=== PATIENT | male | born 1935 | race Caucasian/White ===

== ENCOUNTER 2023-06-11 09:15 | Inpatient (IN) | payer MEDICARE ==
[~2023-06-11] VITALS: Ht 170 cm; Wt 75.3 kg
--- NOTE | 2023-06-11 09:44 | ED Neurological Problem ---
General Stated Complaint: FALL Source: family, EMS Exam Limitations: clinical condition History of Present Illness Date Seen by Provider: Jun 11, 2023 Time Seen by Provider: 09:15 Initial Comments Patient is an 88-year-old male who presents to the emergency department by EMS, found lying on the floor next to his bed by his son. EMS reports normal blood sugar prior to arrival. Medics states that when they got him up he was moving both arms to hold onto the medic. 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 Will not open his eyes, will not answer questions the only word he states is "yes". He has pinpoint pupils bilaterally. Deep pain nonresponsive on the right. Does minimally withdraw on the left. Quite tachycardic in the 120s 130s. 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 Only (reportedly) takes medications for prostate. Here for the holidays with son. Lives alone, fully functional, still drives although son states has been "slowing down" quite a bit over the last year. Bad "Cold" about 2 weeks ago and just finished a round of steroids in the last few days. Son cannot recall what date he finished them exactly. I elected to intubate the patient based on GCS <8. Etomidate 20 and Rocuronium 50mg administered. Glidescope used to pass 8-0 ETT with pos visualization of the cords, +ETCO2, bilat Breath sounds. Patient taken to CT for stroke r/o shortly after Timing/Duration: other (unk time of fall) Allergies and Home Medications Allergies Coded Allergies: No Known Drug Allergies (Unverified , 06/11/23) Patient Home Medication List Home Medication List Reviewed: Yes Amlodipine Besylate (Amlodipine Besylate) 5 Mg Tablet, 2.5 MG PO DAILY, (Reported) Entered as Reported by: PETTY GRIGSBY on 06/11/231520 Last Action: Reviewed Atorvastatin Calcium (Atorvastatin Calcium) 20 Mg Tablet, 20 MG PO DAILY, (Reported) Entered as Reported by: PETTY GRIGSBY on 06/11/231520 Last Action: Reviewed Cholecalciferol (Vitamin D3) (Vitamin D3) 50 Mcg (2000 Unit) Capsule, 50 MCG PO DAILY, (Reported) Entered as Reported by: PETTY GRIGSBY on 11/24/23 1521 Last Action: Reviewed Ferrous Sulfate (Iron) 325 Mg (65 Mg Iron) Tablet, 325 MG PO DAILY, (Reported) Entered as Reported by: PETTY GRIGSBY on 06/11/231520 Last Action: Reviewed Omeprazole (Omeprazole) 20 Mg Tablet.dr, 20 MG PO DAILY, (Reported) Entered as Reported by: PETTY GRIGSBY on 06/11/231520 Last Action: Reviewed Tamsulosin HCl (Flomax) 0.4 Mg Cap, 0.4 MG PO HS, (Reported) Entered as Reported by: PETTY GRIGSBY on 06/11/231520 Last Action: Reviewed Review of Systems Review of Systems Constitutional: see HPI Unable to obtain due to AMS Physical Exam Vital Signs Vital Signs - First Documented 06/11/23 06/11/23 09:15 10:13 Temp 37.0 Pulse 123 Resp 36 B/P (MAP) 121/70 (87) Pulse Ox 99 O2 Delivery Nasal Cannula O2 Flow Rate 2.00 FiO2 50 Capillary Refill : Height, Weight, BMI Height: '" Weight: lbs. oz. kg; BMI Method: General Appearance: WD/WN, moderate distress (respiratory) HEENT: other (pinpoint pupils; pale gums. dry mucosa) Neck: normal inspection Respiratory: crackles (occ crackles, but overall diminished breath sounds), other ([place] respirations; tachypneic) Cardiovascular: regular rate, rhythm, tachycardia Peripheral Pulses: 2+ Radial Pulses (R), 2+ Radial Pulses (L) Gastrointestinal: soft, no pulsatile mass; No distended Extremities: normal inspection Neurologic/Psychiatric: other (poor level of alertness, only able to say "yes" to questions - inconsistent and inappropriate; not following commands; will not open eyes to command; no response to deep painful stimuli RUE and RLE, seems to withdraw to painful stim left side) Crainal Nerves: PERRL; No abnormal eye position Coordination/Gait: other (not tested) Motor/Sensory: sensory deficit, weak motor strength RUE, weak motor strength RLE Skin: warm/dry, pallor Stroke Onset of Symptoms Date of Onset of Symptoms: Jun 11, 2023 Time of Symptom Onset: 09:15 Onset of Symptoms: Yes Symptoms onset unknown: No NIH Stroke Scale Assessment Select: Initial Level of Consciousness: 2=By repeated stimulation (2), Level of Consciousness-Questions: 2=Answer neither question (2), LOC Commands: 2=Performs neither task (2), Gaze: Normal (0), Facial Movement (Facial Paresi s): 0=Normal symmetrical mnt (0), Motor Function-Arms Right: 4=No movement (4), Motor Function-Arms Left: 4=No movement (4), Sensory: 1=Mild to Moderate loss (1), Best Language: 1=Mild to moderat aphasia (1), Dysarthria: 0=Normal (0), Total: 16 Stroke Thrombolytic Exclusion Age 18 or Over: Yes Acute intenal hemorrhage: No History of CVA: No Uncontrolled Coagulation Defec: No Intracranial Hemorrhage: No Severe Hypertension: No GI or Bleed: No Subarachnoid Hemorrhage: No Intracranial Neoplasm/Aneurysm: No Oral Anticoagulants: No Surgery or Trauma: No Puncture of Non-Compressible V: No Recent CPR: No Diabetic Hemorrhagic Retinopat: No Organ Biopsy: No Recent Obstetric Delivery: No Glucose: No Significant Hepatic Dysfunctio: No Bacterial Endocarditis: No Pericarditis: No Improving Symptoms: No Platelets: No IV - TPa Received IV - TPa Procedure Performed?: No Focused Exam Sepsis Stage: Severe Sepsis Possible Source: Pulmonary Lactate Level 06/11/23 10:44: Lactic Acid Level 2.30*H Time of Focused Exam: 11:00 Respiratory: Crackles, Decreased Breath Sounds Cardiovascular: Tachycardia Capillary Refill: Less Than 3 Seconds Peripheral Pulses: 1+ Radial Pulses (R), 1+ Radial Pulses (L) Skin: normal color, warm/dry Lactic Acid Level Laboratory Tests Test 06/11/23 10:44 Lactic Acid Level 2.30 MMOL/L (0.50-2.00) *H Within 3hrs of presentation: Admin fluids, Admin ABX, Blood cultures prior to ABX's, Focus exam, Lactate level Progress/Results/Core Measures Results/Orders Lab Results Laboratory Tests Test 06/11/23 09:20 06/11/23 09:39 06/11/23 10:10 06/11/23 10:44 Range/Units Glucometer 93 70-110 MG/DL White Blood Count 30.7 *H 4.3-11.0 10^3/uL Red Blood Count 4.75 4.30-5.52 10^6/uL Hemoglobin 14.9 13.3-17.7 g/dL Hematocrit 44 40-54 % Mean Corpuscular Volume 94 80-99 fL Mean Corpuscular Hemoglobin 31 25-34 pg Mean Corpuscular Hemoglobin Concent 34 32-36 g/dL Red Cell Distribution Width 13.3 10.0-14.5 % Platelet Count 276 130-400 10^3/uL Mean Platelet Volume 8.7 L 9.0-12.2 fL Immature Granulocyte % (Auto) 1 % Neutrophils (%) (Auto) 91 H 42-75 % Lymphocytes (%) (Auto) 3 L 12-44 % Monocytes (%) (Auto) 5 0-12 % Eosinophils (%) (Auto) 0 0-10 % Basophils (%) (Auto) 0 0-10 % Neutrophils # (Auto) 28.0 H 1.8-7.8 10^3/uL Lymphocytes # (Auto) 1.0 1.0-4.0 10^3/uL Monocytes # (Auto) 1.5 H 0.0-1.0 10^3/uL Eosinophils # (Auto) 0.0 0.0-0.3 10^3/uL Basophils # (Auto) 0.1 0.0-0.1 10^3/uL Immature Granulocyte # (Auto) 0.2 H 0.0-0.1 10^3/uL Neutrophils % (Manual) 91 % Lymphocytes % (Manual) 6 % Monocytes % (Manual) 2 % Band Neutrophils 1 % Blood Morphology Comment NORMAL Prothrombin Time 14.3 12.2-14.7 SEC INR Comment 1.1 0.8-1.4 Activated Partial Thromboplast Time 31 24-35 SEC D-Dimer > 20.00 H 0.00-0.49 UG/ML Sodium Level 135 135-145 MMOL/L Potassium Level 3.8 3.6-5.0 MMOL/L Chloride Level 103 98-107 MMOL/L Carbon Dioxide Level 20 L 21-32 MMOL/L Anion Gap 12 5-14 MMOL/L Blood Urea Nitrogen 20 H 7-18 MG/DL Creatinine 1.18 0.60-1.30 MG/DL Estimat Glomerular Filtration Rate 59 BUN/Creatinine Ratio 17 Glucose Level 131 H 70-105 MG/DL Calcium Level 8.7 8.5-10.1 MG/DL Corrected Calcium 9.5 8.5-10.1 MG/DL Total Bilirubin 1.1 H 0.1-1.0 MG/DL Aspartate Amino Transf (AST/SGOT) 24 5-34 U/L Alanine Aminotransferase (ALT/SGPT) 20 0-55 U/L Alkaline Phosphatase 105 40-136 U/L Troponin I 0.184 H <0.028 NG/ML Total Protein 6.7 6.4-8.2 GM/DL Albumin 3.0 L 3.2-4.5 GM/DL Urine Color YELLOW Urine Clarity CL CLOUDY Urine pH 7.5 5-9 Urine Specific [place] 1.015 L 1.016-1.022 Urine Protein 2+ H NEGATIVE Urine Glucose (UA) NEGATIVE NEGATIVE Urine Ketones TRACE H NEGATIVE Urine Nitrite NEGATIVE NEGATIVE Urine Bilirubin NEGATIVE NEGATIVE Urine Urobilinogen 1.0 < = 1.0 MG/DL Urine Leukocyte Esterase NEGATIVE NEGATIVE Urine RBC (Auto) TRACE H NEGATIVE Urine RBC 2-5 H /HPF Urine WBC 0-2 /HPF Urine Squamous Epithelial Cells 0-2 /HPF Urine Crystals PRESENT H /LPF Urine Amorphous Sediment FEW AYE PHOSPHATE H /LPF Urine Bacteria NEGATIVE /HPF Urine Casts NONE /LPF Urine Mucus NEGATIVE /LPF Urine Culture Indicated NO Lactic Acid Level 2.30 *H 0.50-2.00 MMOL/L Test 06/11/23 10:54 Range/Units Arterial Blood pH 7.37 7.37-7.43 Arterial Blood Partial Pressure CO2 39 35-45 MMHG Arterial Blood Partial Pressure O2 72 L 79-93 MMHG Arterial Blood HCO3 23 23-27 MMOL/L Arterial Blood Total CO2 23.7 21.0-31.0 MMOL/L Arterial Blood Oxygen Saturation 95 94-100 % Arterial Blood Base Excess -2.5 -2.5-2.5 MMOL/L Blood Gas Ventilator Setting Blood Gas Inspired Oxygen My Orders Orders - DONOVAN GAMBINO MD Cbc And Automated Diff (06/11/23 09:37) Protime With Inr (06/11/23 09:37) Partial Thromboplastin Time (06/11/23 09:37) Comprehensive Metabolic Panel (06/11/23 09:37) Fibrin Degradation Products (06/11/23 09:37) Troponin I Nir (06/11/23 09:37) Ua Culture If Indicated (06/11/23 09:37) Chest 1 View, Ap/Pa Only (06/11/23 09:37) Catheter(Urinary) Insert & Ass 03,15 (06/11/23 09:37) Ekg Tracing (06/11/23 09:37) Nothing By Mouth (06/11/23 Lunch) Accucheck Stat ONCE (06/11/23 09:37) Ed Iv/Invasive Line Start (06/11/23 09:37) Ed Iv/Invasive Line Start (06/11/23 09:37) Vital Signs Stroke Patient Q15M (06/11/23 09:37) Ct Head Wo-R/O Stroke (06/11/23 09:37) O2 (06/11/23 09:37) Monitor-Rhythm Ecg Trace Only (06/11/23 09:37) Dysphagia Screening Tool [id number] (06/11/23 09:37) Post Thrombolytic Adminstratio (06/11/23 09:37) Lipid Panel (06/12/23 06:00) Propofol Injection (Propofol Injection) (06/11/23 09:45) Manual Differential (06/11/23 09:39) Propofol Drip (Icu) (Propofol Drip (Icu) (06/11/23 09:53) Ct Angio Head/Neck (06/11/23 10:01) Iohexol Injection (Omnipaque 350 Mg/Ml 1 (06/11/23 10:15) Received Contrast (Hold Metformin- Contr (06/11/23 10:15) Ns (Ivpb) 100 Ml (Sodium Chloride 0.9% 1 (06/11/23 10:15) Propofol Drip (Icu) (Propofol Drip (Icu) (06/11/23 10:30) Lactic Acid Analyzer (06/11/23 10:31) Blood Culture (06/11/23 10:31) Aspirin Suppository (Aspirin Suppository (06/11/23 10:39) Catheter(Urinary) Insert & Ass 03,15 (06/11/23 10:39) Ceftriaxone Iv/Im (Ceftriaxone Iv/Im) (06/11/23 11:00) Azithromycin Injection (Azithromycin Inj (06/11/23 11:00) Ns Iv 1000 Ml (Ns Iv 1000 Ml) (06/11/23 10:49) Arterial Blood Gas (06/11/23 10:50) Ct Angio Chest W (R/O Pe) (06/11/23 11:10) Heparin Drip 21036 Unit/500ml (Heparin (06/11/23 11:15) Heparin (Bolus Per Protocol) (Heparin (B (06/11/23 11:15) Cbc No Diff (06/14/23 05:00) Cbc No Diff (06/17/23 05:00) Platelet Count (06/12/23 05:00) Platelet Count (06/13/23 05:00) Platelet Count (06/14/23 05:00) Platelet Count (06/15/23 05:00) Platelet Count (06/16/23 05:00) Platelet Count (06/17/23 05:00) Platelet Count (06/18/23 05:00) Platelet Count (06/19/23 05:00) Platelet Count (06/20/23 05:00) Platelet Count (06/21/23 05:00) Initiate Heparin Full Protocol (06/11/23 11:11) Iohexol Injection (Omnipaque 350 Mg/Ml 1 (06/11/23 11:30) Received Contrast (Hold Metformin- Contr (06/11/23 11:30) Ns (Ivpb) 100 Ml (Sodium Chloride 0.9% 1 (06/11/23 11:30) Ed Admission (Communication) (06/11/23 11:29) Medications Given in ED Current Medications Medications Dose Ordered Sig/Brinda Route Start Time Stop Time Status Last Admin Dose Admin Azithromycin 500 mg/Sodium Chloride 250 ml @ 250 mls/hr ONCE ONCE IV 06/11/23 11:00 06/11/23 11:59 06/11/23 11:04 250 MLS/HR Ceftriaxone Sodium 1000 mg/ Sodium Chloride 50 ml @ 100 mls/hr ONCE ONCE IV 06/11/23 11:00 06/11/23 11:29 DC 06/11/23 11:02 100 MLS/HR Iohexol 100 ml ONCE ONCE IV 06/11/23 10:15 06/11/23 10:16 DC 06/11/23 10:11 75 ML Propofol 100 ml @ ud STK-MED ONCE IV 06/11/23 09:53 06/11/23 09:57 DC 06/11/23 10:05 13.1 MLS/HR Propofol 200 mg ONCE ONCE IV 06/11/23 09:45 06/11/23 10:28 DC 06/11/23 09:48 50 MG Sodium Chloride 100 ml ONCE ONCE IV 06/11/23 10:15 06/11/23 10:16 DC 06/11/23 10:11 80 ML Vital Signs/I&O 06/11/23 06/11/23 06/11/23 06/11/23 09:15 10:05 10:13 11:12 Temp 37.0 Pulse 123 124 123 106 Resp 36 18 18 B/P (MAP) 121/70 (87) 166/94 91/60 Pulse Ox 99 100 100 O2 Delivery Nasal Cannula Mechanical Ventilator O2 Flow Rate 2.00 FiO2 50 Progress Progress Note : Time: 11:17 Progress Note Discussed with Dr Umana (Cardiology urgent care nurse practitioner) Patient seen and examined by me. Evaluation today includes history and physical exam with "stroke eval" as well as sepsis protocol. This includes CBC, comprehensive metabolic panel, blood cultures with lactic acid, coag profile, troponin, D-dimer, UA and culture, single view chest x-ray, EKG, CT head noncontrast as well as CT angio of head and neck, CT PE protocol. Pertinent physical exam findings include well-developed well-nourished elderly male in moderate to severe distress, altered mental status/poor responsiveness. Apparent hemiplegia on the right side. GCS is at best and 8 on arrival. He is quite pale, tachycardic, not hypoxic. Heart is regular, lungs occasional quiet crackles but mostly diminished bilaterally. Abdomen is soft, nondistended. Differential diagnosis includes acute ischemic versus hemorrhagic CVA, acute coronary syndrome Patient immediately identified as at risk for airway compromise. Shortly after initial evaluation the patient was RSI with etomidate as well as rocuronium. [place] scope used to pass 8 oh ET tube without difficulty. Patient was taken to CT for stroke rule out. Discussed with radiologist shortly after scans, no evidence of intracranial hemorrhage and subsequent to that had no identifiable large vessel occlusion in the head or neck. Attention was then turned to labs and imaging. Labs independently reviewed and interpreted by me as well as the chest x-ray. Chest x-ray appears to show bilateral infiltrates/increased pulmonary vascular congestion. CBC shows a WBC of 30.7 with 91% segmented neutrophils; normal H/H and normal platelets. CHem 12 has glucose of 131, mildly elevated tbili at 1.1; troponin in elevated at 0.184; lactic elevated at 2.30. UA unremarkable. PT/PTT WNL, Ddimer >20. HIs ABG on the venitlator at 60% shows a pH of 7.37, PCO2 39 and PaO2 of 72 post intubation. Patient was treated with NS fluid bolus @ 2L and also given 1gm Rocephin. Concern for possible acute PE and therefore after discussion with admitting provider (Dr Ferrera)/eICu I sent him back to CT for PE rule/out. He was started on full dose heparin. Discussion with Dr Umana (cardiology) who will see due to elevated troponin. No ischemic change noted on EKG. Family updated throughout course. Will keep as full code at this time - Patient transferred to ICU. Initial ECG Impression Date: Jun 11, 2023 Initial ECG Impression Time: 10:03 Initial ECG Rate: 123 Initial ECG Rhythm: S.Tach Initial ECG Intervals: Normal Comment Q waves inferiorly; no ST segment elevation - <1mm depression precordial leads V2-V6 Diagnostic Imaging Diagonstic Imaging: Xray Plain Films/CT/US/NM/MRI: chest Comments [facility] [place], [place] NAME: ERLIN GALEAS [employer] REC#: [id number] PT STATUS: REG ER : 1935 PHYSICIAN: DONOVAN GAMBINO MD ADMIT DATE: 06/11/23/ER Signed Date of Exam:06/11/23 CHEST 1 VIEW, AP/PA ONLY INDICATION: Right-sided pain. Unresponsive. Postintubation EXAMINATION: Chest 06/11/2023 FINDINGS: ET tube tip just above the level of the thoracic inlet. It may be advanced as clinically indicated. Diffuse peripheral infiltrates seen in both lungs. Findings of edema throughout both lungs also noted with pulmonary vascular congestion. Heart prominent. No effusions or pneumothorax. IMPRESSION: 1. Pulmonary edema 2. Bilateral infiltrates 3. ET tube appears to lie just above the thoracic inlet. Dictated by: Dictated on workstation # [id number] Dict: 06/11/23 1004 Trans: 06/11/23 1008 [facility] [id number] Interpreted by: SERENA CONNOR MD Electronically signed by: SERENA CONNOR MD 06/11/23 1008 Diagonstic Imaging: CT Comments [facility]. [place], [place] NAME: ERLIN GALEAS [facility] REC#: [id number] PT STATUS: REG ER : 1935 PHYSICIAN: DONOVAN GAMBINO MD ADMIT DATE: 06/11/23/ER Signed Date of Exam:06/11/23 CT HEAD WO-R/O STROKE PROCEDURE: CT head wo r/o stroke. TECHNIQUE: Multiple contiguous axial images were obtained through the brain without the use of intravenous contrast. Auto Exposure Controls were utilized during the CT exam to meet ALARA standards for radiation dose reduction. INDICATION: Right-sided weakness. No prior studies are available for comparison. Ventricles and sulci are appropriate for the patient's age. Moderate periventricular low-attenuation is noted consistent with chronic microvascular ischemia. No sulcal effacement or midline shift is identified. No acute intra-axial or extra-axial hemorrhage is detected. Cisterns are patent. Visualized paranasal sinuses are clear. IMPRESSION: Chronic and senescent changes. No acute intracranial process is detected. Results were called to Dr. Gambino of the emergency Department at 10:06 AM. Dictated by: Dictated on workstation # [id number] Dict: 06/11/23 1003 Trans: 06/11/23 1040 [facility] [id number] Interpreted by: ELDER GARVEY MD Electronically signed by: ELDER GARVEY MD 06/11/23 1040 Diagonstic Imaging: CT Comments [facility]. [place], [place] NAME: ERLIN GALEAS [facility] REC#: [id number] PT STATUS: REG ER : 1935 PHYSICIAN: DONOVAN GAMBINO MD ADMIT DATE: 06/11/23/ER Signed Date of Exam:06/11/23 CT ANGIO HEAD/NECK PROCEDURE: CT angiography of the head and CT angiography of the neck with and without contrast. TECHNIQUE: Contiguous noncontrast images were obtained from the skull base through the vertex. After intravenous contrast administration, helical CT angiography of the neck was performed. Source data was reformatted into 3D MIP projections. Delayed post contrast acquisition was also obtained. Auto Exposure Controls were utilized during the CT exam to meet ALARA standards for radiation dose reduction. INDICATION: Right-sided weakness. A normal three-vessel branching pattern to the aortic arch is noted. Both the right and left common carotid arteries are patent. There is moderate plaquing identified at the carotid bifurcations bilaterally. There appears to be greater than 50% stenosis of the proximal left internal carotid artery at its origin. Mild to moderate narrowing of the proximal right internal carotid artery is also noted. The remainder of the internal carotid arteries are widely patent. There is some calcified plaque at the carotid siphons bilaterally. Both vertebral arteries are widely patent. The basilar artery is patent. There is a hypoplastic P1 segment on the left with origin of the left REWORK MACHINE OPERATOR via the posterior communicating artery. The oracle bpm consultant appear to be widely patent. The right and left anterior cerebral arteries appear widely patent. The M1 and M2 branches of the middle cerebral arteries are patent bilaterally. No thromboemboli or large vessel occlusion is identified. IMPRESSION: Moderate plaquing is noted at both carotid bifurcations with approximately 60% diameter stenosis of the proximal left ICA and 50% diameter stenosis of the proximal right ICA. Intracranially, there is no evidence of thromboemboli or large vessel occlusion. Results were discussed with Dr. Gambino of the emergency department at 10:25 AM. Dictated by: Dictated on workstation # [id number] Dict: 06/11/23 1016 Trans: 06/11/23 1040 [facility] [id number] Interpreted by: ELDER GARVEY MD Electronically signed by: ELDER GARVEY MD 06/11/23 1040 Critical Care Note Critical Care Start Time: 09:15 Stop Time: 11:27 Total Time (minutes) 30min critical care time in the eval and management of this Altered patient. TIme includes intitial eval, review and interpretation of labs, imaging; discussion with Radiologist, discussion with ICU, discussion with Admitting pr lynne, discussion with Cardiology; fluid resuscitation; multiple re- evaluations, discussion with family Departure Communication (Admissions) Time/Spoke to Admitting Phy: 11:[address] Perez - accepts admit - would like to have PE study done Time/Spoke to Consulting Phy: 10:49 Discussed with eICU Impression Primary Impression: Altered mental status Qualified Codes: R41.82 - Altered mental status, unspecified Additional Impressions: Pneumonia Qualified Codes: J18.9 - Pneumonia, unspecified organism Sepsis Qualified Codes: A41.9 - Sepsis, unspecified organism; R65.20 - Severe sepsis without septic shock; G93.41 - Metabolic encephalopathy Disposition: 09 ADMITTED INPATIENT Condition: Critical Admissions Decision to Admit Reason: Admit from ER (General) Decision to Admit/Date: Jun 11, 2023 Time/Decision to Admit Time: 11:40 Departure-Patient Inst. Referrals: NO,LOCAL PHYSICIAN (PCP/Family) Primary Care Physician DONOVAN GAMBINO MD Jun 11, 2023 09:44
[2023-06-11 09:45] LABS: BASOPHILS # (AUTO) 0.1 10^3/uL (0.0-0.1); BASOPHILS % (AUTO) 0 % (0-10); HEMOGLOBIN 14.9 g/dL (13.3-17.7); LYMPHOCYTES % (AUTO) 3 % (12-44)
[2023-06-11] MEDS ORDERED: proPOfol INJECTION 200 MG/20 ML VIAL IV ONE (09:45)
[2023-06-11 09:47] LABS: EOSINOPHILS % (AUTO) 0 % (0-10); HEMATOCRIT 44 % (40-54); MEAN CORPUSCULAR HEMOGLOBIN 31 pg (25-34); MEAN CORPUSCULAR HGB CONC 34 g/dL (32-36); MEAN CORPUSCULAR VOLUME 94 fL (80-99); MEAN PLATELET VOLUME 8.7 fL (9.0-12.2); MONOCYTES # (AUTO) 1.5 10^3/uL (0.0-1.0); MONOCYTES % (AUTO) 5 % (0-12); NEUTROPHILS % (AUTO) 91 % (42-75); PLATELET COUNT 276 10^3/uL (130-400)
[2023-06-11 09:52] LABS: POTASSIUM 3.8 MMOL/L (3.6-5.0)
[2023-06-11 09:54] LABS: CALCIUM 8.7 MG/DL (8.5-10.1); WHITE BLOOD COUNT 30.7 10^3/uL (4.3-11.0)
[2023-06-11 09:55] LABS: INR 1.1 (0.8-1.4); PROTHROMBIN TIME PATIENT 14.3 SEC (12.2-14.7); TOTAL PROTEIN 6.7 GM/DL (6.4-8.2)
[2023-06-11 09:56] LABS: PARTIAL THROMBOPLASTIN TIME 31 SEC (24-35)
[2023-06-11 09:57] LABS: BILIRUBIN,TOTAL 1.1 MG/DL (0.1-1.0)
[2023-06-11 09:58] LABS: CREATININE SERUM 1.18 MG/DL (0.60-1.30)
[2023-06-11 10:08] LABS: BAND NEUTROPHILS 1 %; LYMPHOCYTES % (MANUAL) 6 %; MONOCYTES % (MANUAL) 2 %; NEUTROPHILS % (MANUAL) 91 %
--- NOTE | 2023-06-11 10:08 | Diagnostic Imaging Report ---
INDICATION: Right-sided pain. Unresponsive. Postintubation EXAMINATION: Chest 06/11/2023 FINDINGS: ET tube tip just above the level of the thoracic inlet. It may be advanced as clinically indicated. Diffuse peripheral infiltrates seen in both lungs. Findings of edema throughout both lungs also noted with pulmonary vascular congestion. Heart prominent. No effusions or pneumothorax. IMPRESSION: 1. Pulmonary edema 2. Bilateral infiltrates 3. ET tube appears to lie just above the thoracic inlet. Dictated by: Dictated on workstation # [id number]
--- NOTE | 2023-06-11 10:08 | Diagnostic Imaging Report ---
PROCEDURE: CT head wo r/o stroke. TECHNIQUE: Multiple contiguous axial images were obtained through the brain without the use of intravenous contrast. Auto Exposure Controls were utilized during the CT exam to meet ALARA standards for radiation dose reduction. INDICATION: Right-sided weakness. No prior studies are available for comparison. Ventricles and sulci are appropriate for the patient's age. Moderate periventricular low-attenuation is noted consistent with chronic microvascular ischemia. No sulcal effacement or midline shift is identified. No acute intra-axial or extra-axial hemorrhage is detected. Cisterns are patent. Visualized paranasal sinuses are clear. IMPRESSION: Chronic and senescent changes. No acute intracranial process is detected. Results were called to Dr. Schneider of the emergency Department at 10:06 AM. Dictated by: Dictated on workstation # [id number]
[2023-06-11 10:09] LABS: RBC MORPH NORMAL
[2023-06-11 10:13] VITALS: BP 166/94
[2023-06-11] MEDS ORDERED: NS 100 ML (IVPB) BAG IV ONE ×2 (10:15→11:30)
[2023-06-11] MEDS ORDERED: IOHEXOL 350 MG/ML 100 ML (OMNIPAQUE 350) VIAL IV ONE ×2 (10:15→11:30)
[2023-06-11] MEDS ORDERED: HOLD METFORMIN - RECEIVED CONTRAST 20 ML VIAL IV SCH ×2 (10:15→11:30)
[2023-06-11 10:16] LABS: FIBRIN DEGRADATION PRODUCTS > 20.00 UG/ML (0.00-0.49)
--- NOTE | 2023-06-11 10:37 | Diagnostic Imaging Report ---
PROCEDURE: CT angiography of the head and CT angiography of the neck with and without contrast. TECHNIQUE: Contiguous noncontrast images were obtained from the skull base through the vertex. After intravenous contrast administration, helical CT angiography of the neck was performed. Source data was reformatted into 3D MIP projections. Delayed post contrast acquisition was also obtained. Auto Exposure Controls were utilized during the CT exam to meet ALARA standards for radiation dose reduction. INDICATION: Right-sided weakness. A normal three-vessel branching pattern to the aortic arch is noted. Both the right and left common carotid arteries are patent. There is moderate plaquing identified at the carotid bifurcations bilaterally. There appears to be greater than 50% stenosis of the proximal left internal carotid artery at its origin. Mild to moderate narrowing of the proximal right internal carotid artery is also noted. The remainder of the internal carotid arteries are widely patent. There is some calcified plaque at the carotid siphons bilaterally. Both vertebral arteries are widely patent. The basilar artery is patent. There is a hypoplastic P1 segment on the left with origin of the left VACUUM METALIZER OPERATOR via the posterior communicating artery. The leave manager appear to be widely patent. The right and left anterior cerebral arteries appear widely patent. The M1 and M2 branches of the middle cerebral arteries are patent bilaterally. No thromboemboli or large vessel occlusion is identified. IMPRESSION: Moderate plaquing is noted at both carotid bifurcations with approximately 60% diameter stenosis of the proximal left ICA and 50% diameter stenosis of the proximal right ICA. Intracranially, there is no evidence of thromboemboli or large vessel occlusion. Results were discussed with Dr. Schneider of the emergency department at 10:25 AM. Dictated by: Dictated on workstation # [id number]
[2023-06-11] MEDS ORDERED: ASPIRIN 300 MG SUPPOSITORY PR STA (10:39)
[2023-06-11 10:40] LABS: AMORPHOUS SEDIMENT,UR FEW AMOR PHOSPHATE /LPF; BACTERIA,URINE NEGATIVE /HPF; BILIRUBIN,URINE NEGATIVE (NEGATIVE); COLOR,URINE YELLOW; GLUCOSE, URINE (UA) NEGATIVE (NEGATIVE); KETONES,URINE TRACE (NEGATIVE); LEUKOCYTE ESTERASE ,URINE NEGATIVE (NEGATIVE); NITRITE,URINE NEGATIVE (NEGATIVE); PH,URINE 7.5 (5-9); PROTEIN,URINE 2+ (NEGATIVE); SQUAMOUS EPITHELIAL CELL,UR 0-2 /HPF; WBC,URINE 0-2 /HPF
[2023-06-11] MEDS ORDERED: NS IV 1000 ML 1,000 ML IV STA (10:49)
[2023-06-11 10:59] LABS: ABG BASE EXCESS -2.5 MMOL/L (-2.5-2.5); ABG OXYGEN SATURATION 95 % (94-100); ABG PCO2 39 MMHG (35-45); ABG PH 7.37 (7.37-7.43); ABG PO2 72 MMHG (79-93); ABG TCO2 23.7 MMOL/L (21.0-31.0)
[2023-06-11] MEDS ORDERED: cefTRIAXone IV/IM 1,000 MG in NS (IVPB) 50 ML 50 ML IV ONE (11:00)
[2023-06-11] MEDS ORDERED: AZITHROMYCIN INJECTION 500 MG in NS (IVPB) 250 ML 250 ML IV ONE (11:00)
[2023-06-11] MEDS ORDERED: HEParin DRIP 25000 UNIT/500ML 500 ML IV SCH (11:15)
[2023-06-11] MEDS ORDERED: HEParin 1000 UNIT/ML (10ML VIAL) FOR BOLUS IV SCH (11:15)
[2023-06-11 11:50] VITALS: BP 91/57
[2023-06-11] MEDS: NS IV 1000 ML 1,000 ML IV SCH ×3 (11:50→19:56)
--- NOTE | 2023-06-11 11:50 | Diagnostic Imaging Report ---
INDICATION: Elevated D-dimer and shortness of breath. CTA chest obtained with IV contrast bolus and axial slices and nip reconstructions. Dose reduction protocol was used. There is no prior study for comparison The pulmonary parenchymal vessels are well-opacified with no evidence of pulmonary emboli. Thoracic aorta shows no dissection or aneurysm. There are some coronary artery calcifications. There are no enlarged mediastinal or hilar nodes. There are no enlarged axillary nodes. There are extensive bilateral alveolar consolidations in the lung bases as well as some patchy alveolar infiltrate in the upper lobes on both sides. There is some underlying interstitial edema. ET tube tip overlies the mid trachea. There is a small pericardial effusion. There is a trace of pleural fluid on both sides. Visualized portions of the upper abdomen show no acute finding. IMPRESSION: No CT evidence of pulmonary emboli or acute aortic pathology. Extensive airspace disease in both lungs compatible with pneumonia, with underlying interstitial edema. Trace bilateral pleural effusions a small pericardial effusion. ET tube as described above. Dictated by: Dictated on workstation # [id number]
[2023-06-11] MEDS ORDERED: NOREPINEPHRINE 8 MG/250 ML 250 ML IV ONE (12:16)
--- OUTSIDE RECORDS SUMMARY | 2023-06-11 12:16 | XMS REPORT | Clinical Summary ---
Author Author [facility] Address Unknown Phone Unavailable Care Team Providers Care Hockey Instructor Name Role Phone Carri Rodgers APRN PCP [phone] Source Comments STORK (Labor and Delivery) documents do not appear in the Encounter Summary [facility] Allergies No known active allergies Medications * Please verify current medications with patient. Medication Sig Dispensed Refills Start Date End Date Status SACCHAROMYCES BOULARDII (PROBIOTIC, S.BOULARDII, ORAL) Take 1 capsule by mouth once a day. 0 Active ferrous sulfate (FEROSOL) 325 mg (65 mg iron) tablet Take 325 mg by mouth two times a day with meals 0 Active omeprazole magnesium (PRILOSEC OTC) 20 mg delayed release tablet Take 20 mg by mouth once a day at 6 am 0 Active aspirin (SOM) 325 mg tablet Take 325 mg by mouth once a day with breakfast 30 tablet 11 01/18/2017 Active apremilast (OTEZLA) 30 mg tablet Take by mouth 0 Active atorvastatin (LIPITOR) 20 mg tablet TAKE ONE TABLET BY MOUTH AT BEDTIME 90 tablet 3 02/21/2018 Active tamsulosin (FLOMAX) 0.4 mg SR capsule Take 0.4 mg by mouth once a day 90 capsule 3 05/02/2018 Active losartan (COZAAR) 50 mg tablet Take 50 mg by mouth once a day 90 tablet 3 05/16/2018 Active levothyroxine (SYNTHROID) 75 mcg tablet TAKE 1 TABLET BY MOUTH ONCE DAILY IN THE MORNING AT 6AM 90 tablet 1 10/02/2018 Active Active Problems Problem Noted Date Diagnosed Date Cerebrovascular accident (CVA) 01/24/2018 Hypercholesterolemia 01/24/2018 Psoriasis 01/24/2018 Encounter for removal of sutures 12/03/2017 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 Dermatitis 11/23/2017 Dermatitis, unspecified 11/23/2017 Hypertension 02/17/2017 Chronic renal disease, stage 3, moderately decreased glomerular filtration rate between 30-59 mL/min/1.73 square meter 02/05/2017 History of CVA (cerebrovascular accident) 2016 Chronic fatigue 01/26/2017 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 Hiatal hernia 10/04/2016 Gastroesophageal reflux disease with esophagitis 06/19/2015 Benign non-nodular prostatic hyperplasia without lower urinary tract symptoms 06/19/2015 Hypothyroidism 06/18/2015 Resolved Problems Problem Noted Date Diagnosed Date Resolved Date HTN (hypertension) 06/18/2015 8 Immunizations Name Administration Dates Next Due FLU VACCINE, 6 month +,quad, multidose vial(see protocol) 04/28/2018 PNEUMOCOCCAL CONJ VACCINE 13-VALENT 04/20/2017 flu vaccine,65 yrs +,(FLUZON E HD),trivalent, PF,0.5 mL syringe 04/20/2017,04/28/2016,05/28/2015 Family History Medical History Relation Comments Heart Disease Father No Contributory Family History (Reviewed) Mother Relation Status Comments Father Mother Social History Tobacco Use Types Packs/Day Years Used Date Smoking Tobacco: Former Cigarettes Q uit: 01/30/1965 Smokeless Tobacco: Never Alcohol Use Standard Drinks/Week Comments Yes 0 (1 standard drink = 0.6 oz pur e alcohol) rarely Sex and Gender Information Value Date Recorded Sex Assigned at Not on file Gender Identity Not on file Sexual Orientation Not on file Last Filed Vital Signs Vital Sign Reading Time Taken Comments Blood Pressure 120/52 07/05/2018 7:26 AM SUPERVISOR PUBLICATIONS PRODUCTION Pulse 76 07/05/2018 7:26 AM SUPERVISOR PUBLICATIONS PRODUCTION Temperature 36.5 C (97.7 F) 11/11/2017 10:27 AM C DT Respiratory Rate 18 11/11/2017 10:27 AM CDT Oxygen Saturation 97% 01/24/2018 10:28 AM CDT Inhaled Oxygen Concentration - - Weight 71.9 kg (158 lb 9.6 oz) 07/05/2018 7:26 AM SUPERVISOR PUBLICATIONS PRODUCTION Height 173.4 cm (5' 8.25") 07/05/2018 7:[address] Body Mass Index 23.94 07/05/2018 7:26 AM SUPERVISOR PUBLICATION[employer] PRODUCTION Plan of Treatment Health Maintenance Due Date Last Done Comments CT Colonography 1935 DNA-based stool test (Cologuard) 1935 Sigmoidoscopy 1935 COVID-19 Vaccine (#1) 1935 Pneumococcal Vaccine: 65+ Years (2 - PPSV23 or PCV20) 04/20/2018 04/20/2017 gFOBT or FIT 01/11/2019 01/11/2018, 09/01/2016 Colonoscopy 09/24/2019 09/23/2016 (Done Outside Per Patient/Caregiver) Colorectal Cancer Screening 09/24/2019 Influenza Vaccine (#1) 2023 8, 04/20/2017, 04/28/2016, Additional history exists Lipid Panel 07/05/2023 07/05/2018, 12/17, 07/05/2017, Additional history exists HPV Vaccine Aged Out No longer eligi ble based on patient's age to complete this topic Hepatitis A Vaccine Aged Out No longe r eligible based on patient's age to complete this topic Hepatitis B Vaccine Aged Out No longe r eligible based on patient's age to complete this topic Hib Vaccine Aged Out No longer eligi ble based on patient's age to complete this topic IPV Vaccine Aged Out No longer eligi ble based on patient's age to complete this topic Meningococcal Vaccine (MCV4) Aged Out No longer eligible based on patient's age to complete this topic Rotavirus Vaccine Aged Out No longer eligible based on patient's age to complete this topic Insurance Payer Benefit Plan / Group Subscriber ID Effective Dates Phone Address Type [facility] PLAN 65 SECONDARY ONLY [id number] 07/19/2015-Prese nt [address] [place] [address] PPO MEDICARE ZZMEDICARE MS PART A&B [id number] Effective for all dates [address] [place] [address] Medicare Advance Directives Latest Code Status on File Code Status Date Activated Date Inactivated Comments Full Code 01/30/2017 8:40 PM 02/03/2017 6:07 PM Code Status History Code Status Date Activated Date Inactivated Comments Full Code 01/17/2017 2:03 PM 01/18/2017 11:08 AM Care Teams Hockey Instructor Relationship Specialty Start Date End Date Carri Rodgers APRN [address] [place] [address] PCP - General Family Medicine 07/05/17
--- OUTSIDE RECORDS SUMMARY | 2023-06-11 12:16 | XMS REPORT | Referral Summary ---
Author Author [facility] Address Unknown Phone Unavailable Care Team Providers Care Education Department Registrar Name Role Phone Carri Rodgers APRN PCP [phone] Source Comments STORK (Labor and Delivery) documents do not appear in the Encounter Summary [facility] Allergies No known active allergies Medications * [...] +,(FLUZON E HD),trivalent, PF,0.5 mL syringe 04/20/2017,04/28/2016,05/28/2015 Social History Tobacco Use Types Packs/Day Years [...] Comments Blood Pressure 120/52 07/05/2018 7:26 AM MEDICAL ATTENDANT Pulse 76 07/05/2018 7:26 AM MEDICAL ATTENDANT Temperature 36.5 C (97.7 F) 11/11/2017 10:27 AM C DT Respiratory Rate 18 11/11/2017 10:27 AM CDT Oxygen Saturation 97% 01/24/2018 10:28 AM CDT Inhaled Oxygen Concentration - - Weight 71.9 kg (158 lb 9.6 oz) 07/05/2018 7:26 AM MEDICAL ATTENDANT Height 173.4 cm (5' 8.25") 07/05/2018 7:[address] Body Mass Index 23.94 07/05/2018 7:26 AM MEDICAL ATTENDANT Plan of Treatment Not on file Advance Directives Latest Code Status on File Code Status Date Activated Date Inactivated Comments Full Code 01/30/2017 8:40 PM 02/03/2017 6:07 PM Code Status History Code Status Date Activated Date Inactivated Comments Full Code 01/17/2017 2:03 PM 01/18/2017 11:08 AM Care Teams Education Department Registrar Relationship Specialty Start Date End Date Carri Rodgers APRN [address] [address] PCP - General Family Medicine 07/05/17
--- OUTSIDE RECORDS SUMMARY | 2023-06-11 12:16 | XMS REPORT | Clinical Summary ---
Author Author [facility] Organization [facility] Address Unknown Phone Unavailable Care Team Providers Care Water Filterer Helper Name Role Phone Melina García MD Unavailable [phone] Carri Rodgers APRN PCP [phone] Allergies No known active allergies Medications Medication Sig Dispensed Refills Start Date End Date Status aspirin 325 MG tablet Take 325 mg by mouth daily. 0 Active atorvastatin (LIPITOR) 20 MG tablet Take 20 mg by mouth at bedtime. 0 Active ferrous sulfate (ALICIA-IN-AUREA) 325 (65 Fe) MG tablet Take 325 mg by mouth daily with breakfast. 0 Active levothyroxine (SYNTHROID) 88 MCG tablet Take 88 mcg by mouth every morning before breakfast. 0 Active losartan (COZAAR) 100 MG tablet Take 100 mg by mouth daily. 0 Active omeprazole (PRILOSEC) 20 MG capsule Take 20 mg by mouth daily. 0 Active tamsulosin (FLOMAX) 0.4 MG CAPS Take 0.4 mg by mouth at bedtime. 0 Active Active Problems Problem Noted Date Diagnosed Date Chronic kidney disease, stage 3 09/21/2018 Essential hypertension 09/21/2018 Immunizations Name Administration Dates Next Due INFLUENZA IIV3 HD (Adults => 65 y/o-FLUZONE HD) 04/20/2017,04/28/2016,05/28/2015,2013,07/20/2013 Influenza IIV4 MDV (Multi-dose vial) 04/28/2018 Pneumococcal Conjugate (13-valent) 04/20/2017 Social History Tobacco Use Types Packs/Day Years Used Date Smoking Tobacco: Former Smokeless Tobacco: Former PHQ-2 Answer Date Recorded PHQ-2 Score 0 03/28/2019 Sex and Gender Information Value Date Recorded Sex Assigned at Not on file Gender Identity Not on file Sexual Orientation Not on file Last Filed Vital Signs Vital Sign Reading Time Taken Comments Blood Pressure 154/78 10/20/2021 10:08 AM CDT Pulse 87 10/20/2021 10:08 AM CDT Temperature - - Respiratory Rate - - Oxygen Saturation 97% 10/20/2021 10:12 AM CDT Inhaled Oxygen Concentration - - Weight 75.8 kg (167 lb) 10/20/2021 10:08 AM CDT Height 175.3 cm (5' 9") 10/20/2021 10:08 AM CDT Body Mass Index 24.66 10/20/2021 10:08 AM CDT Plan of Treatment Health Maintenance Due Date Last Done Comments DTaP,Tdap,and Td Vaccines (1 - Tdap) 02/01/1952 Annual Wellness Visit 1953 Zoster Vaccine (1 of 2) 1985 RSV Vaccine (60+) (1 - 1-dose 60+ series) 1995 COVID-19 Vaccine ( season) 2023 06/15/2022, 04/11/2021, 10/08/2020, Additional history exists Pneumo-Vaccine: 65+Yrs Completed 04/29/2020, 2016 Influenza Vaccine Completed 05/29/2023, , 04/30/2021, Additional history exists HIB Vaccines Aged Out No longer eligi ble based on patient's age to complete this topic IPV Vaccines Aged Out No longer eligi ble based on patient's age to complete this topic Meningococcal Vaccine Aged Out No jennifer master eligible based on patient's age to complete this topic Rotavirus Vaccines Aged Out No longer eligible based on patient's age to complete this topic Insurance Payer Benefit Plan / Group Subscriber ID Effective Dates Phone Address Type MEDICARE MEDICARE A&B [id number] 2002-Present [address] [place] [address] Medicare BCBS PLAN 65 SELECT (NEVER PRIMARY) [id number] 2017-Present [address] [place] [address] Indemnity Care Teams Water Filterer Helper Relationship Specialty Start Date End Date Carri Rodgers APRN [address] [facility] [address] [place] [address] PCP - General Family Medicine 03/28/19 Melina García MD [address] [address] [email or web address] 03/17/18
[2023-06-11] MEDS ORDERED: ENOXAPARIN 100 MG/1 ML SYRINGE SC SCH (12:30)
[2023-06-11] MEDS ORDERED: NS IV 500 ML 500 ML IV PRN ×2 (12:30→12:45)
[2023-06-11] MEDS ORDERED: ONDANSETRON INJECTION 4 MG/2 ML (SDV) IV PRN (12:30)
[2023-06-11] MEDS ORDERED: ACETAMINOPHEN 325 MG TABLET PO PRN (12:30)
[2023-06-11] MEDS ORDERED: ONDANSETRON 4 MG ORAL DISSOLVE TABLET PO PRN (12:30)
[2023-06-11] MEDS ORDERED: NS IV 1000 ML 1,000 ML IV SCH (12:30)
--- NOTE | 2023-06-11 12:51 | Tele-ICU Progress Note ---
Subjective Date Seen by a Provider: Jun 11, 2023 Time Seen by a Provider: 12:49 Subjective/Events-last exam (Tele-ICU Physician , consultation as per request of PCP Service provided via interactive audio and video telecommunications E-CARE system to a patient admitted to ICU bed in [facility]. Available chart/ vitals / labs / Images reviewed H&P is from ER notes Patient's information available about PMH, Shx, Fhx allergy reviewed inEMR. ROS as per chart and RN report Now in ICU, hemodynamically stable Video assessment done using teleICU camera, rest of exam as per RN Discussed with RN. VENT SETTINGS and ABG reviewed. ET 8.0 NOT CANDIDATE for SBTreviewed possible contraindications including Cardiovascular Stability /Sedation Score / FI02/PEEP / ABG / CXR/ secretions Sedation, discussed with RN, RASS on propofol Hospital course: 06/11- - intubated 06/11 in ER for GCS<8, PNA on ct ( no pe ) , CTH - no cva , AC 13 500 50% + 5 propfol 30 , levo A/P Acute resp failure - intubated 06/11 in ER - airway protection with GCS<8 -AC 13 500 50% + 5 - full support Acuten mental status change - unrespmnsiveness ( ? time frame) - found lying on the floor next to his bed , reportedly he was moving both arms to hold onto the medic - code stroke on admission in ER by CThead/angio - no acute changes Bilateral PNA ( s/p tx for URTI with steroids ENROLLMENT ELIGIBILITY REPRESENTATIVE)- ? copd . ? covid - coverage for CAP with abx , await cx SHock - septic , ? cardiogenic - cont IVF resuscitation , on pressors - add stress dose steroids since recently was tx with po steroids Elev Ddimer> 20 - NO PE on CT - empiric lovenox initiated Elv trop -? stress induced - follow Patient with 2 dose sof contrast load and hypotensive - will cont hydration , follow BMP and check CPK Lines : picc pending , (Central Line Necessity Reviewed) Szymanski: + OG: Nutrition: Analgesia: Anxiety/ delirium VTE Prophylaxis: cuca full dose Stress Ulcer Prophylaxis: ppi Plans in collaboration with bedside consultants and IM MDs. Discussed with RN to reach out if any questions or concerns A total of 34 minutes of critical care time was devoted to this patient today, required to treat and/or prevent further deterioration of critical care condition ( as above ) . I am remotely monitoring this patient from another state. I am unable to do the bedside exam, and history/physical and pertinent information is taken from other notes in the computer and bedside staff. . Sepsis Event Evaluation Sepsis Stage: Septic Shock Possible Source: Pulmonary Height, Weight, BMI Height: '" Weight: lbs. oz. kg; 25.05 BMI Method: Focused Exam Lactate Level 06/11/23 10:44: Lactic Acid Level 2.30*H 06/11/23 12:24: Lactic Acid Level 0.66 Lactic Acid Level Laboratory Tests Test 06/11/23 10:44 06/11/23 12:24 Lactic Acid Level 2.30 MMOL/L (0.50-2.00) *H 0.66 MMOL/L (0.50-2.00) Within 3hrs of presentation: Admin fluids, Admin 30ml/kg IBW due to BMI>30, Blood cultures prior to ABX's, Focus exam, Lactate level, Vasopressin therapy Exam Exam Patient acknowledged, consented, and participated in this virtual visit which was conducted using real time audio/video Vital Signs Date Time Temp Pulse Resp B/P (MAP) Pulse Ox O2 Delivery O2 Flow Rate FiO2 06/11/23 11:54 102 06/11/23 11:12 106 18 91/60 100 Mechanical Ventilator 06/11/23 10:13 123 18 100 50 06/11/23 10:05 124 166/94 06/11/23 09:15 37.0 123 36 121/70 (87) 99 Nasal Cannula 2.00 Height & Weight Height: '" Weight: lbs. oz. kg; 25.05 BMI Method: General Appearance: Other Capillary Refill: Less Than 3 Seconds Peripheral Pulses: 2+ Radial Pulses (R), 2+ Radial Pulses (L) Gastrointestinal: soft Results Lab Laboratory Tests 06/11/23 09:39 Assessment/Plan Assessment/Plan 1 ANEL PICKERING MD Jun 11, 2023 12:51
[2023-06-11 13:24] VITALS: BP 127/96
[2023-06-11] MEDS: NOREPINEPHRINE 8 MG/250 ML 250 ML IV SCH (13:27)
[2023-06-11] MEDS ORDERED: RT-ALBUTEROL SULF 2.5 MG/3 ML PRE-MIX VIAL INH PRN (13:30)
[2023-06-11] MEDS: HYDROCORTISONE INJECTION 100 MG/2 ML VIAL IV SCH ×2 (13:31→21:10)
[2023-06-11] MEDS: inSUlin ASPART 1 UNIT/0.01 ML (PER UNIT) SQ SCH ×3 (13:31→23:44)
[2023-06-11] MEDS: ENOXAPARIN 80 MG/0.8 ML SYRINGE SC SCH ×2 (13:32→23:44)
[2023-06-11] MEDS ORDERED: RT-ALBUTEROL SULF 2.5 MG/3 ML PRE-MIX VIAL INH SCH (14:00)
[2023-06-11] MEDS ORDERED: ROCURONIUM 50 MG/5 ML VIAL IV ONE (14:37)
[2023-06-11] MEDS ORDERED: ETOMIDATE INJ SOLN 20 MG/10 ML VIAL IV ONE (14:37)
[2023-06-11] MEDS ORDERED: RT-ALBUTEROL HFA 8.5 GM INHALER IH PRN (15:15)
[2023-06-11] MEDS ORDERED: ATOR20TA66 PO (15:21)
[2023-06-11] MEDS ORDERED: FERR-84 PO (15:21)
[2023-06-11] MEDS ORDERED: OMEP20TA56 PO (15:21)
[2023-06-11] MEDS ORDERED: TMSL.4C PO (15:21)
[2023-06-11] MEDS ORDERED: AMLO-250 PO (15:21)
[2023-06-11] MEDS ORDERED: CHOL200074 PO (15:21)
[2023-06-11 15:33] LABS: POTASSIUM 4.2 MMOL/L (3.6-5.0)
[2023-06-11 15:34] LABS: CALCIUM 6.9 MG/DL (8.5-10.1)
[2023-06-11 15:38] LABS: CREATININE SERUM 1.06 MG/DL (0.60-1.30)
[2023-06-11 15:41] LABS: MAGNESIUM 1.2 MG/DL (1.6-2.4)
[2023-06-11 15:46] VITALS: BP 111/69
[2023-06-11] MEDS: RT-ALBUTEROL HFA 8.5 GM INHALER IH SCH ×3 (15:47→22:26)
--- NOTE | 2023-06-11 16:29 | History & Physical-Hospitalist ---
History of Present Illness HPI/Chief Complaint Paula Baptiste is an 88 year old male with PMH HTN, HLD, BPH, TIA, who presented after being found unresponsive. He is visiting his son for the holidays. He lives in [place] and lives independently. He had been in his usual state of health prior. His son said he had no complaints. He was found unresponsive on the side of his bed this morning. He is not diabetic. His blood sugar was normal upon EMS arrival. There was concern for stroke because he was not withdrawing from pain on the right. He required intubation for airway protection due to his low GCS. His son and daughter in law are present and state that he is DNR. We discussed his plan of care and poor prognosis. Source: family, RN/MD Exam Limitations: clinical condition Date Seen 06/11/23 Time Seen by a Provider: 12:00 Attending Physician No,Local Physician PCP Admitting Physician: Arlen Martinez MD Attending Physician: Arlen Martinez MD Referring Physician Date of Admission Jun 11, 2023 at 11:55 Home Medications & Allergies Home Medications Reviewed patient Home Medication Reconciliation performed by pharmacy medication reconciliations oil change technician and/or nursing. Patients Allergies have been reviewed. Allergies Allergies Coded Allergies No Known Drug Allergies ([id number]/24/23) Past Szihcfe-Pluwxs-Zgixft Hx Patient Social History Tobacco Use?: No Substance use?: No Alcohol Use?: No Pt feels they are or have been: No Current Status Advance Directives: No Communicates: Verbally Primary Language: Nauruan Preferred Spoken Language: Nauruan Is interpretation needed?: No Implanted or Applied Medical D: None Family Medical History No Pertinent Family Hx Review of Systems Constitutional: see HPI Physical Exam Physical Exam Vital Signs Vital Signs - First Documented 06/11/23 06/11/23 09:15 10:13 Temp 37.0 Pulse 123 Resp 36 B/P (MAP) 121/70 (87) Pulse Ox 99 O2 Delivery Nasal Cannula O2 Flow Rate 2.00 FiO2 50 Capillary Refill : Less Than 3 Seconds Height, Weight, BMI Height: '" Weight: lbs. oz. kg; 25.01 BMI Method: General Appearance: No Apparent Distress, WD/WN, Other (intubated and sedated) HEENT: Other (ET tube in place) Respiratory: Crackles, Decreased Breath Sounds, Other (intubated and mechanically ventilated) Cardiovascular: No Murmur, Tachycardia Gastrointestinal: Normal Bowel Sounds, Soft Extremity: Normal Inspection, No Pedal Edema Neurologic/Psychiatric: Other (sedated) Skin: Normal Color, Warm/Dry Results Results/Procedures Labs Laboratory Tests 06/11/23 09:39 06/11/23 14:47 Patient resulted labs reviewed. Imaging: Reviewed Imaging Films, Reviewed Imaging Report Assessment/Plan Admission Diagnosis Septic shock due to pneumonia Admission Status: Inpatient Order (span 2 midnights) Reason for Inpatient Admission: COVID Assessment and Plan Septic shock Multifocal pneumonia COVID-19 Acute respiratory failure with hypoxia Endotracheally intubated NSTEMI Lactic acidosis Advanced age Poor prognosis Goals of care discussion TeleICU consulted, managing ventilator IV antibiotics IV fluids Pressors as needed IV steroids Cardiology consulted ASA Therapeutic Lovenox Trend troponin Critical Care Critically Ill Patient Diagnosis/Problems Diagnosis/Problems (1) Septic shock Status: Acute (2) Multifocal pneumonia Status: Acute (3) COVID-19 Status: Acute (4) Acute respiratory failure with hypoxia Status: Acute (5) Endotracheally intubated Status: Acute (6) NSTEMI (non-ST elevation myocardial infarction) Status: Acute (7) Lactic acidosis (8) Poor prognosis Status: Acute (9) Advanced age Status: Chronic (10) Goals of care, counseling/discussion Status: Acute ARLEN MARTINEZ MD Jun 11, 2023 16:29
--- NOTE | 2023-06-11 18:09 | Consultation-Cardiology ---
HPI-Cardiology Cardiology Consultation: Date of Consultation 06/11/23 Date of Admission Attending Physician Lyly,Local Physician Admitting Physician Admitting Physician: Charisse Perez MD Attending Physician: Charisse Perez MD Consulting Physician JW OROSCO MD HPI: Time Seen by a Provider: 11:00 Chief Complaint: Weakness, fall , Dyspnea , Fever 88 year old male with no significant reported past cardiac history was brought in by son after found in bedroom lying on the floor. No signs of trauma, per patients son no feces found around patient, no thud heard in the house so believed that he felt due to weakness as opposed to true syncope. Reportedly had cold past couple weeks and ever since got weaker till the event today. He was found with elevated white count, bilateral lung infiltrates with concern for sepsis secondary to pneumonia. Troponin elevated from demand ischemia NSTEMI type II . Being managed for sepsis, respiratory failure and type II NSTEMI . Required mechanical ventilation and intubation in ED given unable to protect airway. No vasopressors required at this time holding MAP. Started on heparin full dose lovenox. No sig ischemia on ECG. ECHO pending Review of Systems-Cardiology Review of Systems Other comments unable to obtain patient intubated sedated [id number] Hx Patient Social History Alcohol Use?: No Pt feels they are or have been: No Past Medical History PMH As described under Assessment. Allergies and Home Medications Allergies Coded Allergies: No Known Drug Allergies (Unverified , 06/11/23) Patient Home Medication List Home Medication List Reviewed: Yes Amlodipine Besylate (Amlodipine Besylate) 5 Mg Tablet, 2.5 MG PO DAILY, (Reported) Entered as Reported by: PETTY GRIGSBY on 06/11/231520 Last Action: Reviewed Atorvastatin Calcium (Atorvastatin Calcium) 20 Mg Tablet, 20 MG PO DAILY, (Reported) Entered as Reported by: PETTY GRIGSBY on 06/11/231520 Last Action: Reviewed Cholecalciferol (Vitamin D3) (Vitamin D3) 50 Mcg (2000 Unit) Capsule, 50 MCG PO DAILY, (Reported) Entered as Reported by: PETTY GRIGSBY on 06/11/231520 Last Action: Reviewed Ferrous Sulfate (Iron) 325 Mg (65 Mg Iron) Tablet, 325 MG PO DAILY, (Reported) Entered as Reported by: PETTY GRIGSBY on 11/24/23 1521 Last Action: Reviewed Omeprazole (Omeprazole) 20 Mg Tablet.dr, 20 MG PO DAILY, (Reported) Entered as Reported by: PETTY GRIGSBY on 06/11/231520 Last Action: Reviewed Tamsulosin HCl (Flomax) 0.4 Mg Cap, 0.4 MG PO HS, (Reported) Entered as Reported by: PETTY GRIGSBY on 06/11/231520 Last Action: Reviewed Exam Vital Signs Vital Signs Date Time Temp Pulse Resp B/P (MAP) Pulse Ox O2 Delivery O2 Flow Rate FiO2 06/11/23 16:00 95 29 130/71 (90) 97 Mechanical Ventilator 35.00 06/11/23 15:46 35 06/11/23 13:24 35.8 Physical Exam elderly frail intubated mechanically ventilated, no sig heart murmurs appre ciated, abdomen soft , peripheral pulses faint but palpable Labs Laboratory Tests Test 06/11/23 09:20 06/11/23 09:39 06/11/23 10:10 06/11/23 10:44 Range/Units Glucometer 93 70-110 MG/DL White Blood Count 30.7 *H 4.3-11.0 10^3/uL Red Blood Count 4.75 4.30-5.52 10^6/uL Hemoglobin 14.9 13.3-17.7 g/dL Hematocrit 44 40-54 % Mean Corpuscular Volume 94 80-99 fL Mean Corpuscular Hemoglobin 31 25-34 pg Mean Corpuscular Hemoglobin Concent 34 32-36 g/dL Red Cell Distribution Width 13.3 10.0-14.5 % Platelet Count 276 130-400 10^3/uL Mean Platelet Volume 8.7 L 9.0-12.2 fL Immature Granulocyte % (Auto) 1 % Neutrophils (%) (Auto) 91 H 42-75 % Lymphocytes (%) (Auto) 3 L 12-44 % Monocytes (%) (Auto) 5 0-12 % Eosinophils (%) (Auto) 0 0-10 % Basophils (%) (Auto) 0 0-10 % Neutrophils # (Auto) 28.0 H 1.8-7.8 10^3/uL Lymphocytes # (Auto) 1.0 1.0-4.0 10^3/uL Monocytes # (Auto) 1.5 H 0.0-1.0 10^3/uL Eosinophils # (Auto) 0.0 0.0-0.3 10^3/uL Basophils # (Auto) 0.1 0.0-0.1 10^3/uL Immature Granulocyte # (Auto) 0.2 H 0.0-0.1 10^3/uL Neutrophils % (Manual) 91 % Lymphocytes % (Manual) 6 % Monocytes % (Manual) 2 % Band Neutrophils 1 % Blood Morphology Comment NORMAL Prothrombin Time 14.3 12.2-14.7 SEC INR Comment 1.1 0.8-1.4 Activated Partial Thromboplast Time 31 24-35 SEC D-Dimer > 20.00 H 0.00-0.49 UG/ML Sodium Level 135 135-145 MMOL/L Potassium Level 3.8 3.6-5.0 MMOL/L Chloride Level 103 98-107 MMOL/L Carbon Dioxide Level 20 L 21-32 MMOL/L Anion Gap 12 5-14 MMOL/L Blood Urea Nitrogen 20 H 7-18 MG/DL Creatinine 1.18 0.60-1.30 MG/DL Estimat Glomerular Filtration Rate 59 BUN/Creatinine Ratio 17 Glucose Level 131 H 70-105 MG/DL Calcium Level 8.7 8.5-10.1 MG/DL Corrected Calcium 9.5 8.5-10.1 MG/DL Total Bilirubin 1.1 H 0.1-1.0 MG/DL Aspartate Amino Transf (AST/SGOT) 24 5-34 U/L Alanine Aminotransferase (ALT/SGPT) 20 0-55 U/L Alkaline Phosphatase 105 40-136 U/L Troponin I 0.184 H <0.028 NG/ML Total Protein 6.7 6.4-8.2 GM/DL Albumin 3.0 L 3.2-4.5 GM/DL Urine Color YELLOW Urine Clarity CL CLOUDY Urine pH 7.5 5-9 Urine Specific [place] 1.015 L 1.016-1.022 Urine Protein 2+ H NEGATIVE Urine Glucose (UA) NEGATIVE NEGATIVE Urine Ketones TRACE H NEGATIVE Urine Nitrite NEGATIVE NEGATIVE Urine Bilirubin NEGATIVE NEGATIVE Urine Urobilinogen 1.0 < = 1.0 MG/DL Urine Leukocyte Esterase NEGATIVE NEGATIVE Urine RBC (Auto) TRACE H NEGATIVE Urine RBC 2-5 H /HPF Urine WBC 0-2 /HPF Urine Squamous Epithelial Cells 0-2 /HPF Urine Crystals PRESENT H /LPF Urine Amorphous Sediment FEW AYE PHOSPHATE H /LPF Urine Bacteria NEGATIVE /HPF Urine Casts NONE /LPF Urine Mucus NEGATIVE /LPF Urine Culture Indicated NO Lactic Acid Level 2.30 *H 0.50-2.00 MMOL/L Test 06/11/23 10:54 06/11/23 12:24 06/11/23 13:22 06/11/23 14:47 Range/Units Arterial Blood pH 7.37 7.37-7.43 Arterial Blood Partial Pressure CO2 39 35-45 MMHG Arterial Blood Partial Pressure O2 72 L 79-93 MMHG Arterial Blood HCO3 23 23-27 MMOL/L Arterial Blood Total CO2 23.7 21.0-31.0 MMOL/L Arterial Blood Oxygen Saturation 95 94-100 % Arterial Blood Base Excess -2.5 -2.5-2.5 MMOL/L Blood Gas Ventilator Setting Blood Gas Inspired Oxygen Lactic Acid Level 0.66 0.50-2.00 MMOL/L SARS-CoV-2 RNA (RT-PCR) Detected H Not Detecte Sodium Level 131 L 135-145 MMOL/L Potassium Level 4.2 3.6-5.0 MMOL/L Chloride Level 107 98-107 MMOL/L Carbon Dioxide Level 18 L 21-32 MMOL/L Anion Gap 6 5-14 MMOL/L Blood Urea Nitrogen 21 H 7-18 MG/DL Creatinine 1.06 0.60-1.30 MG/DL Estimat Glomerular Filtration Rate 68 BUN/Creatinine Ratio 20 Glucose Level 164 H 70-105 MG/DL Calcium Level 6.9 L 8.5-10.1 MG/DL Magnesium Level 1.2 L 1.6-2.4 MG/DL Total Creatine Kinase 170 30-200 U/L Troponin I 1.515 *H <0.028 NG/ML Radiology reviewed ECG Impression ECG Initial ECG Impression Date: Jun 11, 2023 Initial ECG Rhythm: S.Tach Initial ECG Impression: Nonspecific Changes Diagnosis/Problems Diagnosis/Problems (1) Sepsis Status: Acute (2) Acute respiratory failure (3) NSTEMI (non-ST elevation myocardial infarction) Status: Acute (4) Lactic acidosis (5) Poor prognosis Status: Acute (6) Multifocal pneumonia Status: Acute (7) COVID-19 Status: Acute A/P-Cardiology Assessment/Admission Diagnosis Type II NSTEMI Severe sepsis Hypoxic respiratory failure Lactic acidosis Plan Trend troponin to peak : gave dose of full dose lovenox today and will give sanjay tional dose tomorrow total of two days Start aspirin 81 mg qd and as outpatient will consider adding other meds such as : statin ( currently weak ) , KEN-I/BB currently hemodynamically labile Manage primary infection per ICU team and consulting services Obtain echocardiogram and monitor on telemetry Will follow Problem Qualifiers (1) Sepsis: Sepsis type: sepsis due to unspecified organism Sepsis acute organ dysfunction status: with acute organ dysfunction Severe sepsis acute organ dysfunction type: encephalopathy Severe sepsis shock status: without septic shock Qualified Codes: A41.9 - Sepsis, unspecified organism; R65.20 - Severe sepsis without septic shock; G93.41 - Metabolic encephalopathy JW OROSCO MD Jun 11, 2023 18:09
[2023-06-11 19:02] VITALS: BP 91/59
[2023-06-11] MEDS ORDERED: MAGNESIUM 1 GM/100 ML IVPB 600 ML IV ONE (19:23)
[2023-06-11] MEDS: MAGNESIUM 1 GM/100 ML IVPB 100 ML IV SCH ×4 (19:43→23:13)
[2023-06-11 22:27] VITALS: BP 102/64
[2023-06-12] MEDS: MAGNESIUM 1 GM/100 ML IVPB 100 ML IV SCH ×3 (00:59→06:51)
[2023-06-12] MEDS: NOREPINEPHRINE 8 MG/250 ML 250 ML IV SCH ×2 (01:00→09:48)
[2023-06-12] MEDS: NS IV 1000 ML 1,000 ML IV SCH ×6 (01:01→20:53)
[2023-06-12 02:39] VITALS: BP 118/71
[2023-06-12] MEDS: RT-ALBUTEROL HFA 8.5 GM INHALER IH SCH ×6 (02:42→21:51)
[2023-06-12 04:37] LABS: ABG BASE EXCESS -5.6 MMOL/L (-2.5-2.5); ABG OXYGEN SATURATION 96 % (94-100); ABG PCO2 27 MMHG (35-45); ABG PH 7.42 (7.37-7.43); ABG PO2 72 MMHG (79-93); ABG TCO2 18.3 MMOL/L (21.0-31.0)
[2023-06-12 04:38] LABS: INSPIRED O2 35%; VENTILATOR YES
[2023-06-12 04:46] LABS: BASOPHILS # (AUTO) 0.1 10^3/uL (0.0-0.1); BASOPHILS % (AUTO) 0 % (0-10); EOSINOPHILS % (AUTO) 0 % (0-10); HEMATOCRIT 35 % (40-54); HEMOGLOBIN 12.2 g/dL (13.3-17.7); LYMPHOCYTES % (AUTO) 3 % (12-44); MEAN CORPUSCULAR HEMOGLOBIN 32 pg (25-34); MEAN CORPUSCULAR HGB CONC 35 g/dL (32-36); MEAN CORPUSCULAR VOLUME 93 fL (80-99); MEAN PLATELET VOLUME 9.9 fL (9.0-12.2); MONOCYTES # (AUTO) 0.5 10^3/uL (0.0-1.0); MONOCYTES % (AUTO) 2 % (0-12); NEUTROPHILS # (AUTO) 26.7 10^3/uL (1.8-7.8); NEUTROPHILS % (AUTO) 94 % (42-75); PLATELET COUNT 253 10^3/uL (130-400); WHITE BLOOD COUNT 28.5 10^3/uL (4.3-11.0)
[2023-06-12 04:57] LABS: ALBUMIN 2.3 GM/DL (3.2-4.5); BILIRUBIN,TOTAL 0.3 MG/DL (0.1-1.0); CALCIUM 7.6 MG/DL (8.5-10.1); CREATININE SERUM 1.42 MG/DL (0.60-1.30); MAGNESIUM 3.4 MG/DL (1.6-2.4); PHOSPHORUS 2.3 MG/DL (2.3-4.7); POTASSIUM 4.5 MMOL/L (3.6-5.0); TOTAL PROTEIN 5.7 GM/DL (6.4-8.2)
[2023-06-12] MEDS ORDERED: MAGNESIUM 1 GM/100 ML IVPB 100 ML IV SCH (06:00)
[2023-06-12] MEDS ORDERED: POTASSIUM CL 10MEQ/50ML IVPB 50 ML IV SCH (06:00)
[2023-06-12] MEDS ORDERED: POTASSIUM CHLORIDE 20 MEQ TABLET PO SCH (06:00)
[2023-06-12] MEDS: inSUlin ASPART 1 UNIT/0.01 ML (PER UNIT) SQ SCH ×4 (06:33→23:58)
[2023-06-12] MEDS: HYDROCORTISONE INJECTION 100 MG/2 ML VIAL IV SCH ×3 (06:33→22:24)
[2023-06-12] MEDS: POTASSIUM CL 10MEQ/50ML IVPB 50 ML IV SCH (06:51)
[2023-06-12] MEDS: POTASSIUM CHLORIDE 20 MEQ TABLET PO SCH (06:51)
[2023-06-12 07:24] VITALS: BP 121/73
[2023-06-12] MEDS: AZITHROMYCIN INJECTION 500 MG in NS (IVPB) 250 ML 250 ML IV SCH (08:28)
[2023-06-12] MEDS: PANTOPRAZOLE INJECTION 40 MG VIAL IV SCH (08:28)
[2023-06-12] MEDS ORDERED: PANTOPRAZOLE INJECTION 40 MG VIAL IV SCH (09:00)
--- NOTE | 2023-06-12 09:42 | Tele-ICU Progress Note ---
Progress Note video rounds completed 88 y/o DNR admitted with covid PNA and now intubated Available chart/ vitals / labs / Images reviewed H&P is from ER notes Patient's information available about PMH, Shx, Fhx allergy reviewed inEMR. ROS as per chart and RN report Now in ICU, hemodynamically stable Video assessment done using teleICU camera, rest of exam as per RN Discussed with RN. VENT SETTINGS and ABG reviewed. ET 8.0 NOT CANDIDATE for SBTreviewed possible contraindications including Cardiovascular Stability /Sedation Score / FI02/PEEP / ABG / CXR/ secretions Sedation, discussed with RN, RASS on propofol Hospital course: 06/11- - intubated 06/11 in ER for GCS<8, PNA on ct ( no pe ) , CTH - no cva , AC 13 500 50% + 5 propfol 30 , levo 06/12- remains intubated and sedated, full ventilatory support A/P Acute resp failure - intubated 06/11 in ED -AC 13 500 50% + 5 - full support mental status change - unresponsiveness CThead/angio - no acute changes Bilateral PNA ( s/p tx for URTI with steroids [employer])- ? copd . ? covid - coverage for CAP with abx , await cx SHock - septic , ? cardiogenic - cont IVF resuscitation , on pressors - add stress dose steroids since recently was tx with po steroids Elev Ddimer> 20 - NO PE on CT , prob related to COVID - empiric lovenox initiated Elv trop -? stress induced - follow IMP: COVID PNA PLAN: ventilatory support prognosis: guarded VTE Prophylaxis: cuca full dose Stress Ulcer Prophylaxis: ppi Plans in collaboration with bedside consultants and IM MDs. Discussed with RN to reach out if any questions or concerns A total of 15 minutes of critical care time was devoted to this patient today, required to treat and/or prevent further deterioration of critical care condition ( as above ) . I am remotely monitoring this patient from another state. I am unable to do the bedside exam, and history/physical and pertinent information is taken from other notes in the computer and bedside staff. Focused Exam Lactate Level 06/11/23 10:44: Lactic Acid Level 2.30*H 06/11/23 12:24: Lactic Acid Level 0.66 Height, Weight, BMI Height: '" Weight: lbs. oz. kg; 25.01 BMI Method: Time of Focused Exam: 11:00 Labs Laboratory Tests 06/11/23 14:47 06/12/23 04:25 Results Results/Procedures Lab Laboratory Tests 06/11/23 09:39 06/11/23 14:47 06/12/23 04:25 Results Results/Procedures Labs Laboratory Tests 06/11/23 09:39 06/11/23 14:47 06/12/23 04:25 Patient resulted labs reviewed. Imaging: Reviewed Imaging Films, Reviewed Imaging Report Results Labs Labs Laboratory Tests 06/11/23 10:10: Urine Color YELLOW, Urine Clarity CL CLOUDY, Urine pH 7.5, Urine Specific [place] 1.015L, Urine Protein 2+H, Urine Glucose (UA) NEGATIVE, Urine Ketones TRACEH, Urine Nitrite NEGATIVE, Urine Bilirubin NEGATIVE, Urine Urobilinogen 1.0, Urine Leukocyte Esterase NEGATIVE, Urine RBC (Auto) TRACEH, Urine RBC 2-5H, Urine WBC 0-2, Urine Squamous Epithelial Cells 0-2, Urine Crystals PRESENTH, Urine Amorphous Sediment FEW AYE PHOSPHATEH, Urine Bacteria NEGATIVE, Urine Casts NONE, Urine Mucus NEGATIVE, Urine Culture Indicated NO, Urine Legionella pneumophilia Ag Negative 06/11/23 10:44: Lactic Acid Level 2.30*H 06/11/23 10:54: Arterial Blood pH 7.37, Arterial Blood Partial Pressure CO2 39, Arterial Blood Partial Pressure O2 72L, Arterial Blood HCO3 23, Arterial Blood Total CO2 23.7, Arterial Blood Oxygen Saturation 95, Arterial Blood Base Excess -2.5, Blood Gas Ventilator Setting , Blood Gas Inspired Oxygen 06/11/23 12:24: Lactic Acid Level 0.66 06/11/23 13:22: SARS-CoV-2 RNA (RT-PCR) DetectedH 06/11/23 14:47: Sodium Level 131L, Potassium Level 4.2, Chloride Level 107, Carbon Dioxide Level 18L, Anion Gap 6, Blood Urea Nitrogen 21H, Creatinine 1.06, Estimat Glomerular Filtration Rate 68, BUN/Creatinine Ratio 20, Glucose Level 164H, Calcium Level 6.9L, Magnesium Level 1.2L, Total Creatine Kinase 170, Troponin I 1.515*H 06/11/23 18:16: Glucometer 170H 06/11/23 21:15: Troponin I 2.238*H 06/11/23 23:43: Glucometer 230H 06/12/23 04:25: White Blood Count 28.5H, Red Blood Count 3.81L, Hemoglobin 12.2L, Hematocrit 35L , Mean Corpuscular Volume 93, Mean Corpuscular Hemoglobin 32, Mean Corpuscular Hemoglobin Concent 35, Red Cell Distribution Width 13.6, Platelet Count 253, Mean Platelet Volume 9.9, Immature Granulocyte % (Auto) 1, Neutrophils (%) (Auto) 94H, Lymphocytes (%) (Auto) 3L, Monocytes (%) (Auto) 2, Eosinophils (%) (Auto) 0, Basophils (%) (Auto) 0, Neutrophils # (Auto) 26.7H, Lymphocytes # (Auto) 1.0, Monocytes # (Auto) 0.5, Eosinophils # (Auto) 0.0, Basophils # (Auto) 0.1, Immature Granulocyte # (Auto) 0.3H, Sodium Level 128L, Potassium Level 4.5, Chloride Level 105, Carbon Dioxide Level 16L, Anion Gap 7, Blood Urea Nitrogen 25H, Creatinine 1.42H, Estimat Glomerular Filtration Rate 48, BUN/Creatinine Ratio 18, Glucose Level 320H, Calcium Level 7.6L, Corrected Calcium 9.0, Phosphorus Level 2.3, Magnesium Level 3.4H, Total Bilirubin 0.3, Aspartate Amino Transf (AST/SGOT) 30, Alanine Aminotransferase (ALT/SGPT) 20, Alkaline Phosphatase 81, Troponin I 1.318*H, Total Protein 5.7L, Albumin 2.3L 06/12/23 04:30: Arterial Blood pH 7.42, Arterial Blood Partial Pressure CO2 27L, Arterial Blood Partial Pressure O2 72L, Arterial Blood HCO3 18L, Arterial Blood Total CO2 18.3L , Arterial Blood Oxygen Saturation 96, Arterial Blood Base Excess -5.6L, Blood Gas Ventilator Setting YES, Blood Gas Inspired Oxygen 35% 06/12/23 06:31: Glucometer 205H Microbiology 06/11/23 Gram Stain - Final, Resulted 06/11/23 Sputum Culture, Resulted Pending EILEEN BARON MD Jun 12, 2023 09:42
[2023-06-12] MEDS: cefTRIAXone IV/IM 1,000 MG in NS (IVPB) 50 ML 50 ML IV SCH (10:43)
[2023-06-12 10:49] VITALS: BP 129/72
[2023-06-12] MEDS: ENOXAPARIN 80 MG/0.8 ML SYRINGE SC SCH (13:24)
--- NOTE | 2023-06-12 14:12 | Progress Note - Hospitalist ---
Subjective HPI/CC On Admission Date Seen by Provider: Jun 12, 2023 Time Seen by Provider: 10:00 Paula Baptiste is an 88 year old male with PMH HTN, HLD, BPH, TIA, who presented after being found unresponsive. He is visiting his son for the holidays. He lives in [place] and lives independently. He had been in his usual state of health prior. His son said he had no complaints. He was found unresponsive on the side of his bed this morning. He is not diabetic. His blood sugar was normal upon EMS arrival. There was concern for stroke because he was not withdrawing from pain on the right. He required intubation for airway protection due to his low GCS. His son and daughter in law are present and state that he is DNR. We discussed his plan of care and poor prognosis. Subjective/Events-last exam He remains intubated and sedated. His family is present and they were updated with all questions answered. Focused Exam Lactate Level 06/11/23 10:44: Lactic Acid Level 2.30*H 06/11/23 12:24: Lactic Acid Level 0.66 Time of Focused Exam: 11:00 Objective Exam Vital Signs Vital Signs Date Time Temp Pulse Resp B/P (MAP) Pulse Ox O2 Delivery O2 Flow Rate FiO2 06/12/23 13:44 70 133/74 06/12/23 13:00 17 99 Mechanical Ventilator 30.00 06/12/23 12:22 36.1 06/12/23 10:54 30 Capillary Refill : Less Than 3 Seconds General Appearance: No Apparent Distress, WD/WN, Other (intubated and sedated) Respiratory: Lungs Clear, No Respiratory Distress, Other (intubated and mechanically ventilated) Cardiovascular: Regular Rate, Rhythm, No Murmur Gastrointestinal: Normal Bowel Sounds, Soft Extremity: Normal Inspection, No Pedal Edema Neurologic/Psychiatric: Other (sedated) Skin: Normal Color, Warm/Dry Results/Procedures Lab Laboratory Tests 06/11/23 14:47 06/12/23 04:25 Patient resulted labs reviewed. Imaging: Reviewed Imaging Films, Reviewed Imaging Report Assessment/Plan Assessment and Plan Assess & Plan/Chief Complaint Septic shock Multifocal pneumonia COVID-19 Acute respiratory failure with hypoxia Endotracheally intubated KAYLA NSTEMI Lactic acidosis Advanced age Poor prognosis Goals of care discussion TeleICU following, managing ventilator Weaning sedation this morning IV antibiotics IV fluids Pressors as needed, minimal Levophed requirement IV steroids Cardiology following ASA Therapeutic Lovenox Critical Care Critically Ill Patient Diagnosis/Problems Diagnosis/Problems (1) Septic shock Status: Acute (2) Multifocal pneumonia Status: Acute (3) COVID-19 Status: Acute (4) Acute respiratory failure with hypoxia Status: Acute (5) Endotracheally intubated Status: Acute (6) NSTEMI (non-ST elevation myocardial infarction) Status: Acute (7) Lactic acidosis (8) Poor prognosis Status: Acute (9) Advanced age Status: Chronic (10) Goals of care, counseling/discussion Status: Acute (11) KAYLA (acute kidney injury) Status: Acute Clinical Quality Measures Stroke: Date of last known well: Jun 11, 2023 Time of last known well: 09:15 Symptoms onset unknown: ARLEN Bowman MD Jun 12, 2023 14:12
[2023-06-12 15:08] VITALS: BP 138/71
[2023-06-12 19:23] VITALS: BP 130/104
[2023-06-12 21:51] VITALS: BP 118/63
[2023-06-13] VITALS (7 sets, daily range): BP systolic 94–142; BP diastolic 57–75
[2023-06-13] MEDS: ENOXAPARIN 80 MG/0.8 ML SYRINGE SC SCH ×2 (00:37→12:32)
[2023-06-13] MEDS: RT-ALBUTEROL HFA 8.5 GM INHALER IH SCH ×5 (02:55→21:17)
[2023-06-13 03:35] LABS: ABG BASE EXCESS -5.8 MMOL/L (-2.5-2.5); ABG OXYGEN SATURATION 96 % (94-100); ABG PCO2 25 MMHG (35-45); ABG PH 7.44 (7.37-7.43); ABG PO2 73 MMHG (79-93); ABG TCO2 17.8 MMOL/L (21.0-31.0)
[2023-06-13 03:36] LABS: INSPIRED O2 30%; VENTILATOR YES
[2023-06-13 03:40] LABS: BASOPHILS % (AUTO) 0 % (0-10); EOSINOPHILS % (AUTO) 0 % (0-10); HEMATOCRIT 33 % (40-54); LYMPHOCYTES # (AUTO) 0.8 10^3/uL (1.0-4.0); LYMPHOCYTES % (AUTO) 4 % (12-44); MEAN CORPUSCULAR HEMOGLOBIN 31 pg (25-34); MEAN CORPUSCULAR HGB CONC 34 g/dL (32-36); MEAN CORPUSCULAR VOLUME 92 fL (80-99); MEAN PLATELET VOLUME 9.7 fL (9.0-12.2); MONOCYTES # (AUTO) 0.6 10^3/uL (0.0-1.0); MONOCYTES % (AUTO) 3 % (0-12); NEUTROPHILS # (AUTO) 19.9 10^3/uL (1.8-7.8); NEUTROPHILS % (AUTO) 93 % (42-75); PLATELET COUNT 200 10^3/uL (130-400); WHITE BLOOD COUNT 21.5 10^3/uL (4.3-11.0)
[2023-06-13 04:00] LABS: ALBUMIN 2.4 GM/DL (3.2-4.5); BILIRUBIN,TOTAL 0.5 MG/DL (0.1-1.0); CALCIUM 7.5 MG/DL (8.5-10.1); CREATININE SERUM 1.09 MG/DL (0.60-1.30); MAGNESIUM 2.5 MG/DL (1.6-2.4); PHOSPHORUS 2.9 MG/DL (2.3-4.7); POTASSIUM 3.9 MMOL/L (3.6-5.0); TOTAL PROTEIN 5.2 GM/DL (6.4-8.2)
[2023-06-13] MEDS: NS IV 1000 ML 1,000 ML IV SCH ×2 (04:30→04:55)
[2023-06-13] MEDS: HYDROCORTISONE INJECTION 100 MG/2 ML VIAL IV SCH ×3 (06:17→20:24)
[2023-06-13] MEDS: POTASSIUM CL 10MEQ/50ML IVPB 50 ML IV SCH ×3 (06:18→06:33)
[2023-06-13] MEDS: MAGNESIUM 1 GM/100 ML IVPB 100 ML IV SCH (06:33)
[2023-06-13] MEDS: POTASSIUM CHLORIDE 20 MEQ TABLET PO SCH (06:33)
[2023-06-13] MEDS: inSUlin ASPART 1 UNIT/0.01 ML (PER UNIT) SQ SCH ×3 (06:33→17:58)
[2023-06-13] MEDS: PANTOPRAZOLE INJECTION 40 MG VIAL IV SCH (08:32)
[2023-06-13] MEDS: AZITHROMYCIN INJECTION 500 MG in NS (IVPB) 250 ML 250 ML IV SCH (08:32)
--- NOTE | 2023-06-13 09:40 | Tele-ICU Progress Note ---
Subjective Date Seen by a Provider: Jun 13, 2023 Time Seen by a Provider: 09:38 Subjective/Events-last exam (Tele-ICU Physician , Progress Note ) Service provided via interactive audio and video telecommunications E-CARE system to a patient admitted to ICU bed in [facility]. Patient is seen today due to persistent need of ICU care Available chart/ vitals / labs / Images reviewed Video assessment done using teleICU camera, rest of exam as per RN Discussed with RN Events overnight : Afebrile hemodynamically stable Respiratory - 30% I/O = + Drips: ns 100 Pressors- levo OFF VENT SETTINGS and ABG reviewed. ET 8.0 NOT CANDIDATE for SBTreviewed possible contraindications including Cardiovascular Stability /Sedation Score / FI02/PEEP / ABG / CXR/ secretions Sedation, discussed with RN, RASS - 2 on propofol 20 Hospital course: 06/11- - intubated 06/11 in ER for GCS<8, PNA on ct ( no pe ) , CTH - no cva , AC 13 500 50% + 5 propfol 30 , levo COVID + 06/13- 30% =5 , OFF levo , stop IVF , propofol 20 - not follows commands A/P Acute resp failure ( covid / PNA ) - intubated 06/11 in ER - airway protection with GCS<8 -AC 16 500 50% + 5 - full support Acuten mental status change - unresponsiveness ( ? time frame) - found lying on the floor next to his bed , reportedly he was moving both arms to hold onto the medic - code stroke on admission in ER by CThead/angio - no acute changes - agitated with propofol decrease - no t floowing command - was found on the floor - ? hypoxic brain damage - try fentanyl prn - considered to change to precedex Bilateral PNA - coverage for CAP with abx , await cx Covid + - cont steroids IV SHock - septic , - OFF pressors - add stress dose steroids - decrease dose 06/03 KAYLA - resolved , stop IVF Elev Ddimer> 20 - NO PE on CT - associated with COVID - empiric lovenox initiated Elv trop -? stress induced - follow -ECHO EF 60 % Pulm HTN RVSP 60 mmHg by echo - to follow nutrition - pulmicare TF start 06/13 Lines : picc , (Central Line Necessity Reviewed) Szymanski: + OG: Nutrition: Analgesia: Anxiety/ delirium VTE Prophylaxis: cuca full dose Stress Ulcer Prophylaxis: ppi Plans in collaboration with bedside consultants and IM MDs. Discussed with RN to reach out if any questions or concerns A total of 34 minutes of critical care time was devoted to this patient today, required to treat and/or prevent further deterioration of critical care condition ( as above ) . I am remotely monitoring this patient from another state. I am unable to do the bedside exam, and history/physical and pertinent information is taken from other notes in the computer and bedside staff. . Sepsis Event Evaluation Height, Weight, BMI Height: '" Weight: lbs. oz. kg; 25.01 BMI Method: Focused Exam Lactate Level 06/11/23 10:44: Lactic Acid Level 2.30*H 06/11/23 12:24: Lactic Acid Level 0.66 Time of Focused Exam: 11:00 Exam Exam Patient acknowledged, consented, and participated in this virtual visit which was conducted using real time audio/video Vital Signs Date Time Temp Pulse Resp B/P (MAP) Pulse Ox O2 Delivery O2 Flow Rate FiO2 06/13/23 09:00 79 20 117/67 (99) 100 Mechanical Ventilator 30.00 06/13/23 08:47 35.9 Mechanical Ventilator 30.00 06/13/23 08:00 85 23 124/65 (83) 100 Mechanical Ventilator 30.00 06/13/23 08:00 100 Mechanical Ventilator 30 06/13/23 08:00 30 06/13/23 07:36 84 131/80 06/13/23 07:00 80 19 142/74 (103) 100 Mechanical Ventilator 30.00 06/13/23 07:00 81 06/13/23 06:53 80 21 100 30 06/13/23 06:18 70 105/55 06/13/23 06:00 70 18 105/55 (72) 99 Mechanical Ventilator 30.00 06/13/23 05:00 75 17 115/59 (77) 97 Mechanical Ventilator 30.00 06/13/23 04:00 35 06/13/23 04:00 82 18 124/65 (84) 96 Mechanical Ventilator 30.00 06/13/23 04:00 98 Mechanical Ventilator 30 06/13/23 04:00 36.9 06/13/23 03:00 100 23 144/78 (100) 97 Mechanical Ventilator 30.00 06/13/23 02:55 101 13 97 30 06/13/23 02:00 86 20 121/58 (79) 100 Mechanical Ventilator 30.00 06/13/23 01:00 85 19 117/59 (78) 97 Mechanical Ventilator 30.00 06/13/23 00:55 86 06/13/23 00:00 88 19 116/57 (76) 100 Mechanical Ventilator 30.00 06/13/23 00:00 100 Mechanical Ventilator 30 06/13/23 00:00 35 06/13/23 00:00 88 117/64 06/12/23 23:00 78 18 134/70 (91) 99 Mechanical Ventilator 30.00 06/12/23 23:00 78 134/70 06/12/23 22:00 85 117/59 06/12/23 22:00 80 18 116/61 (79) 100 Mechanical Ventilator 30.00 06/12/23 21:51 76 17 100 30 06/12/23 21:00 80 17 118/63 (81) 100 Mechanical Ventilator 30.00 06/12/23 20:22 84 77/51 06/12/23 20:00 100 Mechanical Ventilator 30 06/12/23 20:00 85 17 98/58 (71) 100 Mechanical Ventilator 30.00 06/12/23 20:00 35 06/12/23 19:54 36.3 06/12/23 19:41 90 135/77 06/12/23 19:23 92 14 100 30 06/12/23 19:00 85 19 130/74 (92) 100 Mechanical Ventilator 30.00 06/12/23 19:00 90 135/77 06/12/23 19:00 85 06/12/23 18:00 84 19 126/71 (95) 100 Mechanical Ventilator 30.00 06/12/23 17:55 84 126/71 06/12/23 17:55 82 118/73 06/12/23 17:27 76 129/71 06/12/23 17:27 76 129/71 06/12/23 17:00 75 19 134/72 (96) 100 Mechanical Ventilator 30.00 06/12/23 16:25 36.1 06/12/23 16:00 99 Mechanical Ventilator 30 06/12/23 16:00 30 06/12/23 16:00 75 18 119/69 (92) 100 Mechanical Ventilator 30.00 06/12/23 15:51 75 131/73 06/12/23 15:51 76 131/73 06/12/23 15:08 71 18 99 30 06/12/23 15:00 71 17 138/71 (97) 99 Mechanical Ventilator 30.00 06/12/23 14:25 76 135/73 06/12/23 14:00 70 17 137/72 (102) 99 Mechanical Ventilator 30.00 06/12/23 13:44 70 133/74 06/12/23 13:31 72 142/80 06/12/23 13:31 72 142/80 06/12/23 13:00 67 17 121/73 (95) 99 Mechanical Ventilator 30.00 06/12/23 12:27 71 06/12/23 12:22 36.1 Mechanical Ventilator 30.00 06/12/23 12:00 70 18 115/66 (90) 99 Mechanical Ventilator 30.00 06/12/23 12:00 99 Mechanical Ventilator 30 06/12/23 12:00 30 06/12/23 11:28 71 129/72 06/12/23 11:28 71 135/70 06/12/23 11:00 71 17 129/70 (100) 99 Mechanical Ventilator 30.00 06/12/23 10:57 Mechanical Ventilator 30.00 06/12/23 10:54 30 06/12/23 10:49 70 18 100 35 06/12/23 10:46 73 129/72 06/12/23 10:00 70 18 132/74 (96) 100 Mechanical Ventilator 35.00 06/12/23 09:48 70 125/76 06/12/23 09:45 70 125/76 06/12/23 09:44 73 113/72 I & O 06/13/23 06:59 Intake Total 2850 ml Output Total 900 ml Balance 1950 ml Height & Weight Height: '" Weight: lbs. oz. kg; 25.01 BMI Method: General Appearance: No Apparent Distress, WD/WN, Other (intubated and sedated) HEENT: Other (ET tube in place) Respiratory: Lungs Clear, No Respiratory Distress, Other (intubated and mechanically ventilated) Cardiovascular: Regular Rate, Rhythm, No Murmur Capillary Refill: Less Than 3 Seconds Peripheral Pulses: 1+ Radial Pulses (R), 1+ Radial Pulses (L) Gastrointestinal: soft, no pulsatile mass; No distended Extremity: Normal Inspection, No Pedal Edema Neurologic/Psychiatric: Other (sedated) Skin: Normal Color, Warm/Dry Results Lab Laboratory Tests 06/11/23 09:39 06/11/23 14:47 06/12/23 04:25 06/13/23 03:20 Assessment/Plan Assessment/Plan 1 ANEL PICKERING MD Jun 13, 2023 09:40
[2023-06-13] MEDS: cefTRIAXone IV/IM 1,000 MG in NS (IVPB) 50 ML 50 ML IV SCH (10:37)
[2023-06-13] MEDS: fentaNYL INJECTION 100 MCG/2 ML VIAL IVP PRN (10:38)
[2023-06-13 13:42] LABS: ABG BASE EXCESS -3.8 MMOL/L (-2.5-2.5); ABG OXYGEN SATURATION 96 % (94-100); ABG PCO2 26 MMHG (35-45); ABG PH 7.46 (7.37-7.43); ABG PO2 73 MMHG (79-93); ABG TCO2 19.3 MMOL/L (21.0-31.0)
[2023-06-13 13:43] LABS: INSPIRED O2 30%; VENTILATOR YES
--- NOTE | 2023-06-13 14:05 | Progress Note - Hospitalist ---
Subjective HPI/CC On Admission Date Seen by Provider: Jun 13, 2023 Time Seen by Provider: 10:15 Paula Baptiste is an 88 year old male with PMH HTN, HLD, BPH, TIA, who presented after being found unresponsive. He is visiting his son for the holidays. He lives in [place] and lives independently. He had been in his usual state of health prior. His son said he had no complaints. He was found unresponsive on the side of his bed this morning. He is not diabetic. His blood sugar was normal upon EMS arrival. There was concern for stroke because he was not withdrawing from pain on the right. He required intubation for airway protection due to his low GCS. His son and daughter in law are present and state that he is DNR. We discussed his plan of care and poor prognosis. Subjective/Events-last exam He remains intubated and sedated. Family at the bedside was updated. Focused Exam Lactate Level 06/11/23 10:44: Lactic Acid Level 2.30*H 06/11/23 12:24: Lactic Acid Level 0.66 Time of Focused Exam: 11:00 Objective Exam Vital Signs Vital Signs Date Time Temp Pulse Resp B/P (MAP) Pulse Ox O2 Delivery O2 Flow Rate FiO2 06/13/23 14:00 100 127/67 (87) 96 Nasal Cannula 2.00 06/13/23 13:38 20 30 06/13/23 12:00 35.8 Capillary Refill : Less Than 3 Seconds General Appearance: No Apparent Distress, WD/WN, Other (intubated and sedated) Respiratory: Lungs Clear, No Respiratory Distress, Other (intubated and mechanically ventilated) Cardiovascular: Regular Rate, Rhythm, No Murmur Gastrointestinal: Normal Bowel Sounds, Soft Extremity: Normal Inspection, No Pedal Edema Neurologic/Psychiatric: Other (sedated, responds to physical stimuli) Results/Procedures Lab Laboratory Tests 06/13/23 03:20 Patient resulted labs reviewed. Imaging: Reviewed Imaging Films, Reviewed Imaging Report Assessment/Plan Assessment and Plan Assess & Plan/Chief Complaint Septic shock Multifocal pneumonia COVID-19 Acute respiratory failure with hypoxia Endotracheally intubated KAYLA NSTEMI Lactic acidosis Advanced age Poor prognosis Goals of care discussion TeleICU following, managing ventilator Weaning sedation as able IV antibiotics IV fluids Off pressors IV steroids Cardiology following ASA Therapeutic Lovenox Critical Care Critically Ill Patient Diagnosis/Problems Diagnosis/Problems (1) Septic shock Status: Acute (2) Multifocal pneumonia Status: Acute (3) COVID-19 Status: Acute (4) Acute respiratory failure with hypoxia Status: Acute (5) Endotracheally intubated Status: Acute (6) NSTEMI (non-ST elevation myocardial infarction) Status: Acute (7) Lactic acidosis (8) Poor prognosis Status: Acute (9) Advanced age Status: Chronic (10) Goals of care, counseling/discussion Status: Acute (11) KAYLA (acute kidney injury) Status: Acute Clinical Quality Measures Stroke: Date of last known well: Jun 11, 2023 Time of last known well: 09:15 Symptoms onset unknown: ARLEN Bowman MD Jun 13, 2023 14:05
[2023-06-13] MEDS ORDERED: ACETAMINOPHEN 650 MG SUPPOSITORY PR PRN (18:15)
[2023-06-13] MEDS ORDERED: KETOROLAC INJ 15 MG/ML VIAL IVP ONE (18:15)
[2023-06-13] MEDS ORDERED: KETOROLAC INJ 15 MG/ML VIAL ONE (20:21)
[2023-06-13] MEDS: NOREPINEPHRINE 8 MG/250 ML 250 ML IV SCH (20:39)
[2023-06-14] MEDS: inSUlin ASPART 1 UNIT/0.01 ML (PER UNIT) SQ SCH ×4 (00:09→17:20)
[2023-06-14] MEDS: ENOXAPARIN 80 MG/0.8 ML SYRINGE SC SCH ×2 (00:59→12:30)
[2023-06-14] MEDS: RT-ALBUTEROL HFA 8.5 GM INHALER IH SCH ×4 (02:49→20:04)
[2023-06-14 04:20] LABS: BASOPHILS % (AUTO) 0 % (0-10); EOSINOPHILS % (AUTO) 0 % (0-10); HEMATOCRIT 29 % (40-54); HEMOGLOBIN 9.8 g/dL (13.3-17.7); LYMPHOCYTES # (AUTO) 0.8 10^3/uL (1.0-4.0); LYMPHOCYTES % (AUTO) 6 % (12-44); MEAN CORPUSCULAR HEMOGLOBIN 31 pg (25-34); MEAN CORPUSCULAR HGB CONC 34 g/dL (32-36); MEAN CORPUSCULAR VOLUME 93 fL (80-99); MEAN PLATELET VOLUME 9.2 fL (9.0-12.2); MONOCYTES # (AUTO) 0.6 10^3/uL (0.0-1.0); MONOCYTES % (AUTO) 4 % (0-12); NEUTROPHILS # (AUTO) 12.8 10^3/uL (1.8-7.8); NEUTROPHILS % (AUTO) 90 % (42-75); PLATELET COUNT 153 10^3/uL (130-400); WHITE BLOOD COUNT 14.3 10^3/uL (4.3-11.0)
[2023-06-14 04:36] LABS: ALBUMIN 2.3 GM/DL (3.2-4.5); BILIRUBIN,TOTAL 0.5 MG/DL (0.1-1.0); CALCIUM 7.6 MG/DL (8.5-10.1); CREATININE SERUM 0.94 MG/DL (0.60-1.30); MAGNESIUM 2.4 MG/DL (1.6-2.4); PHOSPHORUS 2.9 MG/DL (2.3-4.7); POTASSIUM 3.7 MMOL/L (3.6-5.0); TOTAL PROTEIN 4.7 GM/DL (6.4-8.2)
[2023-06-14] MEDS: MAGNESIUM 1 GM/100 ML IVPB 100 ML IV SCH (05:19)
[2023-06-14] MEDS: POTASSIUM CHLORIDE 20 MEQ TABLET PO SCH (05:19)
[2023-06-14] MEDS: POTASSIUM CL 10MEQ/50ML IVPB 50 ML IV SCH ×2 (05:19→05:26)
[2023-06-14] MEDS: HYDROCORTISONE INJECTION 100 MG/2 ML VIAL IV SCH ×3 (05:26→21:05)
--- NOTE | 2023-06-14 07:03 | Diagnostic Imaging Report ---
INDICATION: Tube placement. FINDINGS: There is cardiomegaly. There are bilateral pulmonary infiltrates. There is no pleural fusion or pneumothorax. The mediastinum is unremarkable. There is now a right upper extremity PICC line which has its tip in the superior vena cava. IMPRESSION: Persistent diffuse bilateral pulmonary infiltrates with some underlying venous congestion. The endotracheal tube has been removed. There is now a right upper extremity PICC line which has its tip in the superior vena cava. Dictated by: Dictated on workstation # [id number]
[2023-06-14] MEDS: AZITHROMYCIN INJECTION 500 MG in NS (IVPB) 250 ML 250 ML IV SCH (08:09)
[2023-06-14] MEDS: PANTOPRAZOLE INJECTION 40 MG VIAL IV SCH (08:09)
--- NOTE | 2023-06-14 09:31 | Progress Note - Hospitalist ---
Subjective HPI/CC On Admission Date Seen by Provider: Jun 14, 2023 Paula Baptiste is an 88 year old male with PMH HTN, HLD, BPH, TIA, who presented after being found unresponsive. He is visiting his son for the holidays. He lives in [place] and lives independently. He had been in his usual state of health prior. His son said he had no complaints. He was found unresponsive on the side of his bed this morning. He is not diabetic. His blood sugar was normal upon EMS arrival. There was concern for stroke because he was not withdrawing from pain on the right. He required intubation for airway protection due to his low GCS. His son and daughter in law are present and state that he is DNR. We discussed his plan of care and poor prognosis. Subjective/Events-last exam Pt reports doing ok. No specific complaints but did complain of pain to the RN unable to locate pain for me. RN states toradol helped last night. Focused Exam Lactate Level Time of Focused Exam: 11:00 Objective Exam Vital Signs Vital Signs Date Time Temp Pulse Resp B/P (MAP) Pulse Ox O2 Delivery O2 Flow Rate FiO2 06/14/23 12:27 75 06/14/23 12:00 99 Nasal Cannula 1.00 06/14/23 12:00 13 133/77 (95) 06/14/23 08:15 36.6 06/13/23 16:22 28 Capillary Refill : Less Than 3 Seconds General Appearance: No Apparent Distress Respiratory: Lungs Clear, No Respiratory Distress Cardiovascular: Regular Rate, Rhythm, No Murmur Neurologic/Psychiatric: Alert, Oriented x3 Results/Procedures Lab Laboratory Tests 06/14/23 04:08 Patient resulted labs reviewed. 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
[2023-06-14] MEDS: cefTRIAXone IV/IM 1,000 MG in NS (IVPB) 50 ML 50 ML IV SCH (10:15)
[2023-06-14] MEDS: KETOROLAC INJ 15 MG/ML VIAL IVP PRN ×2 (10:23→17:05)
--- NOTE | 2023-06-14 11:32 | Occ Therapy Progress Note ---
Therapy Progress Note OT order received, OT awaiting pending results on left hip JOANA HUSSEIN OT Jun 14, 2023 11:32
--- NOTE | 2023-06-14 11:44 | ST Dysphagia Evaluation ---
Speech Evaluation-General Medical Diagnosis Pneumonia Onset Date: Jun 11, 2023 Therapy Diagnosis Therapy Diagnosis: Intact Oropharyngeal Swallow Function Precautions Precautions: Fall, Pressure Ulcer, Aspiration Precautions/Isolations: Aspiration, Fall Prevention, Standard Precautions, Pressure Ulcer Referral Referring Physician: Dr. Lord Reason for Referral: Evaluation/Treatment Medical History Pertinent Medical History: HTN TIA, HLD, BPH Current History Paula Baptiste is an 88 year old male with PMH HTN, HLD, BPH, TIA, who presented after being found unresponsive. The patient required intubation for airway protection due to his low GCS. The patient was recently extubated (06/11 to 06/14) and speech pathology was consulted for an oropharyngeal swallowing evalua tion. Reviewed History: Yes Speech PLF/Current-Dysphagia Prior Level of Function The patient denied oropharyngeal swallowing concerns prior to admission. At home, the patient consumed a regular consistency diet with thin liquids. Subjective The patient was lying in bed, awake and alert, upon entrance to his room by the clinician. The patient greeted the clinician appropriately and was agreeable to participation in the clinical bedside swallowing assessment. Per RN, the patient recently consumed Tylenol without displayed difficulty. The patient's head of be d was elevated for safe swallowing position. At this time, the patient is wearing 2 liters supplemental oxygen via nasal cannula. Prior to, during, and following the assessment, the patient's SpO2% remained between 94% and 97% and respirations remained between 15 and 19 bpm. Cognitive Status Patient Orientation: Person, Place, Situation Oral Motor Skills Dentition: Natural Ability to Follow Directions: Good Oral Expression Ability: No Impairment Voice Voice Phonatory-Based Quality: Weak Voice Pitch: Normal Voice Loudness: Mildly Soft/Quiet Face Facial Symmetry: Symmetrical Oral-Facial Assessment Oral-Facial Dentition: Normal Labial Seal Description: Weak Smile: Normal Lingual Protrusion: Normal Lingual ROM: Normal Volitional Dry Swallow: Yes Voluntary Cough: Yes Can Clear Throat Volitionally: Yes Dysphagia Evaluation Consistencies Presented: Regular, Thin Liquid (Via teaspoon and straw sip.), Pureed The patient displayed minimal lingual residue following the swallow with dry, solids. The residual material was cleared with a subsequent swallow of thin liquid. Laryngeal elevation was present to palpation. The patient was provided teaspoons of thin liquid, teaspoons of puree, and pieces of a dry solid consistency. The patient displayed a slight throat clear following the initial swallow of the dry cracker. Additional s/s of suspected aspiration were not demonstrated with any consistency. The patient's vocal quality consistently remained clear following each swallow. Dietary Recommendations: Regular Liquid Recommendations: Thin Recommendations: - Regular consistency diet with thin liquids, as tolerated. - Fully upright and alert for P.O. intake. - Small, single bite and sips (only). - Assist with meal set-up and feeding, as necessary. - Monitor for s/s of suspected aspiration with P.O. intake. If demonstrated, please contact speech pathology. - Speech pathology to monitor the patient's tolerance of the diet consistency throughout his acute hospitalization. The results and recommendations were provided to the patient, the patient's fami ly member, and the RN immediately following completion of the assessment. Speech Short Term Goals Short Term Goals Short Term Goals 1. The patient (and staff) will display safe swallowing recommendations with 90% accuracy, independently. Time Frame-STG: Two Days. Speech Fpc Goals Human Relations Manager Goals 1. The patient will tolerate the least restrictive diet consistency without s/s of suspected aspiration for swallowing safety and to meet nutritional needs. Time Frame: Five Days. Speech-Plan Treatment Plan Speech Therapy Treatment Plan: Continue Plan of Care Frequency: 2 times per week Estimated Hrs Per Day: .25 hour per day Rehab Potential: Good Pt/Family Agrees to Plan: Yes Safety Risks/Education Teaching Recipient: Patient, Family Teaching Methods: Discussion Response to Teaching: Verbalize Understanding Education Topics Provided: Results, Recommendations, Plan of Care, S/s of Suspected Aspiration, Safe Swallowing Precautions Time Speech Therapy Time In: 10:55 Speech Therapy Time Out: 11:20 DATE: Jun 14, 2023 Total Billed Time: 25 Billed Treatment Time 1, CONNER TUCKER [facility] Jun 14, 2023 11:44
--- NOTE | 2023-06-14 12:59 | Physical Therapy Progress Note ---
Therapy Progress Note Upon initial assessment, patient left LE in ER. Physician notified. X-ray taken. No report in chart as of yet. PT to await left hip x-ray report before continuing with evaluation. ALISTAIR MITCHELL PT Jun 14, 2023 12:59
--- NOTE | 2023-06-14 13:07 | Tele-ICU Progress Note ---
Subjective Date Seen by a Provider: Jun 14, 2023 Time Seen by a Provider: 13:07 Subjective/Events-last exam (Tele-ICU Physician , Progress Note Service provided via interactive audio and video telecommunications [facility] to a patient admitted to ICU bed in [facility]. Patient is seen today due to persistent need of ICU care Available chart/ vitals / labs / Images reviewed Video assessment done using teleICU camera, rest of exam as per RN Discussed with RN Subjective: Pt extubated yesterday, no events overnight Afebrile hemodynamically stable Respiratory - 30% I/O = + Drips: ns 100 Pressors- levo OFF Hospital course: 06/11- - intubated 06/11 in ER for GCS<[address], [address] ( no pe ) , CTH - no cva , AC 13 500 50% + 5 propfol 30 , levo COVID + 06/13- 30% =5 , OFF levo , stop IVF , propofol 20 - not follows commands A/P Acute resp failure ( covid / PNA ) -Extubated yesterday, no events overnight. AMS: Likely 2/2 recent stroke. Now extubated and following commands. -Off all sedation Bilateral PNA -Cont IV antibiotics Covid + - cont steroids IV Septic Shock-resolved KAYLA- resolved Pulm HTN RVSP 60 mmHg by echo - to follow nutrition -Swallow eval today Lines : picc , (Central Line Necessity Reviewed) Szymanski: + OG: Nutrition: Analgesia: Anxiety/ delirium VTE Prophylaxis: cuca full dose Stress Ulcer Prophylaxis: ppi Plans in collaboration with bedside consultants and IM MDs. Discussed with RN to reach out if any questions or concerns A total of 34 minutes of CC time was devoted to this patient today, required to treat and/or prevent further deterioration of critical care condition ( as above ) . I am remotely monitoring this patient from another state. I am unable to do the bedside exam, and history/physical and pertinent information is taken from other notes in the computer and bedside staff. . Sepsis Event Evaluation Height, Weight, BMI Height: '" Weight: lbs. oz. kg; 25.01 BMI Method: Focused Exam Time of Focused Exam: 11:00 Exam Exam Patient acknowledged, consented, and participated in this virtual visit which was conducted using real time audio/video Vital Signs Date Time Temp Pulse Resp B/P (MAP) Pulse Ox O2 Delivery O2 Flow Rate FiO2 11/27/23 12:27 75 06/14/23 12:00 99 Nasal Cannula 1.00 06/14/23 12:00 76 13 133/77 (95) 99 Nasal Cannula 2.00 06/14/23 11:00 85 15 130/77 (94) 97 Nasal Cannula 2.00 06/14/23 10:00 80 17 135/75 (95) 97 Nasal Cannula 2.00 06/14/23 09:00 78 15 132/74 (93) 98 Nasal Cannula 2.00 06/14/23 08:15 36.6 06/14/23 08:00 92 22 139/75 (96) 95 Nasal Cannula 2.00 06/14/23 08:00 98 Nasal Cannula 1.00 06/14/23 07:07 93 Nasal Cannula 1.00 06/14/23 07:00 83 06/14/23 07:00 83 16 133/67 (89) 94 Nasal Cannula 2.00 06/14/23 06:00 69 120/70 (87) 96 Nasal Cannula 2.00 06/14/23 05:00 77 124/80 (95) 98 Nasal Cannula 2.00 06/14/23 04:15 96 Nasal Cannula 2.00 06/14/23 04:00 91 13 110/79 (89) 98 Nasal Cannula 2.00 06/14/23 03:42 36.3 06/14/23 03:00 100 19 103/71 (82) 98 Nasal Cannula 2.00 06/14/23 02:49 100 Nasal Cannula 1.00 06/14/23 02:00 98 14 109/74 (86) 98 Nasal Cannula 2.00 06/14/23 01:00 111 32 109/68 (82) 100 Nasal Cannula 2.00 06/14/23 01:00 78 06/14/23 00:00 102 17 104/74 (84) 98 Nasal Cannula 2.00 06/13/23 23:58 96 Nasal Cannula 2.00 06/13/23 23:40 36.4 06/13/23 23:00 18 18 143/73 (96) 96 Nasal Cannula 2.00 06/13/23 22:00 15 15 130/75 (93) 95 Nasal Cannula 2.00 06/13/23 21:17 95 Nasal Cannula 2.00 06/13/23 21:00 19 19 136/77 (96) 95 Nasal Cannula 2.00 06/13/23 20:00 21 21 152/85 (107) 95 Nasal Cannula 2.00 06/13/23 20:00 96 Nasal Cannula 2.00 06/13/23 19:20 37.0 06/13/23 19:00 107 06/13/23 19:00 20 20 163/89 (113) 96 Nasal Cannula 2.00 06/13/23 18:00 97 19 151/82 (114) 96 Nasal Cannula 2.00 06/13/23 17:00 103 20 145/78 (103) 96 Nasal Cannula 2.00 06/13/23 16:22 37.2 97 96 28 06/13/23 16:00 95 19 135/65 (86) 96 Nasal Cannula 2.00 06/13/23 16:00 96 Nasal Cannula 2.00 06/13/23 15:39 37.2 06/13/23 15:00 97 20 131/61 (83) 96 Nasal Cannula 2.00 06/13/23 14:00 95 Nasal Cannula 2.00 06/13/23 14:00 100 127/67 (87) 96 Nasal Cannula 2.00 06/13/23 13:38 99 20 98 30 06/13/23 13:10 85 128/66 I & O 06/14/23 06:59 Intake Total 405 ml Output Total 1000 ml Balance -595 ml Height & Weight Height: '" Weight: lbs. oz. kg; 25.01 BMI Method: General Appearance: No Apparent Distress HEENT: Other (ET tube in place) Respiratory: Lungs Clear, No Respiratory Distress Cardiovascular: Regular Rate, Rhythm, No Murmur Capillary Refill: Less Than 3 Seconds Peripheral Pulses: 1+ Radial Pulses (R), 1+ Radial Pulses (L) Gastrointestinal: soft, no pulsatile mass; No distended Extremity: Normal Inspection, No Pedal Edema Neurologic/Psychiatric: Alert, Oriented x3 Skin: Normal Color, Warm/Dry Results Lab Laboratory Tests 06/13/23 03:20 06/14/23 04:08 Assessment/Plan Assessment/Plan . ZAKIA BARCENAS MD Jun 14, 2023 13:07
--- NOTE | 2023-06-14 13:40 | Diagnostic Imaging Report ---
CLINICAL HISTORY: Fall. Left hip pain. COMPARISON: None. TECHNIQUE: Two views of the left hip. FINDINGS: Acute subcapital fracture is seen involving the neck of the proximal left femur. No dislocation of the left femoral head from the left acetabulum. No suspicious focal osseous lesions. No fractures are seen in the included pelvis. IMPRESSION: 1. Acute subcapital fracture involving the neck of the proximal left femur. No associated hip dislocation is seen. Dictated by: Dictated on workstation # [id number]
[2023-06-14] MEDS: NOREPINEPHRINE 8 MG/250 ML 250 ML IV SCH (14:21)
--- NOTE | 2023-06-14 14:47 | Cardiology Progress Note ---
Subjective Date Seen by Provider: Jun 14, 2023 Time Seen by Provider: 14:40 Subjective/Events-last exam Patient was extubated yesterday, complaining of right hip pain, hip fracture was noted. I was called for reevaluation and preoperative cardiac clearance. Focused Exam Time of Focused Exam: 11:00 Objective-Cardiology Exam Last Set of Vital Signs Vital Signs 06/13/23 06/14/23 16:22 16:00 Pulse 77 Resp 14 B/P (MAP) 147/69 (95) Pulse Ox 98 O2 Delivery Nasal Cannula O2 Flow Rate 1.00 FiO2 28 I&O Intake and Output 06/13/23 23:59 Intake Total 1505 ml Output Total 1000 ml Balance 505 ml Intake Oral 0 ml IV Total 1505 ml Output Urine Total 1000 ml General: Alert, Cooperative HEENT: Atraumatic, PERRLA Neck: Supple, No JVD, No Thyromegaly Lungs: Clear to Auscultation, Normal Air Movement Heart: Regular Rate, Normal S1, Normal S2, No Murmurs Abdomen: Normal Bowel Sounds, Soft, No Tenderness, No Hepatosplenomegaly, No Masses Extremities: No Clubbing, No Cyanosis, No Edema, Normal Pulses, No Tenderness/Swelling Skin: No Rashes, No Breakdown, No Significant Lesion Neuro: Normal Speech, Normal Tone, Sensation Intact Psych/Mental Status: Mental Status NL, Mood NL Results Lab Laboratory Tests 06/14/23 04:08 A/P-Cardiology Admission Diagnosis Acute respiratory failure Lactic acidosis Sepsis Hip fracture Non-ST elevation myocardial infarction Assessment/Plan Status post acute respiratory failure, pneumonia, COVID-19 Better at this time. Continue to monitor Status post hypotensive shock/septic shock Blood pressure is better, continue to monitor 2D echo was done in June 12, 2023 reported as normal LV size with ejection fraction 55 to 60%, mild aortic valve stenosis, PA pressure 60 mmHg Non-ST elevation myocardial infarction most probably type II myocardial infarction treated conservatively Probably hypotension and hypoxemia in addition to underlying coronary artery disease especially at patient age 88 Conservative management was recommended Hip fracture, preoperative cardiac evaluation Patient is considered at intermediate to high risk for perioperative cardiovascular complication Decision regarding surgery, risk versus benefit is deferred to the surgeon LAMIN SCANLON MD Jun 14, 2023 14:47
[2023-06-14 19:45] VITALS: BP 170/82
[2023-06-14] MEDS: inSUlin ASPART 1 UNIT/0.01 ML (PER UNIT) SC SCH (21:03)
[2023-06-14 21:43] VITALS: BP 155/78
[2023-06-14 23:34] VITALS: BP 162/81
[2023-06-14] MEDS: meTOprolol INJECTION 5 MG/5 ML VIAL IV PRN (23:57)
[2023-06-15] VITALS (16 sets, daily range): BP systolic 132–180; BP diastolic 73–94
[2023-06-15] MEDS: NOREPINEPHRINE 8 MG/250 ML 250 ML IV SCH (01:26)
[2023-06-15] MEDS: RT-ALBUTEROL HFA 8.5 GM INHALER IH SCH ×4 (03:25→21:00)
[2023-06-15] MEDS: KETOROLAC INJ 15 MG/ML VIAL IVP PRN (03:42)
[2023-06-15 05:10] LABS: BASOPHILS % (AUTO) 0 % (0-10); EOSINOPHILS % (AUTO) 0 % (0-10); HEMATOCRIT 32 % (40-54); HEMOGLOBIN 10.6 g/dL (13.3-17.7); LYMPHOCYTES # (AUTO) 0.8 10^3/uL (1.0-4.0); LYMPHOCYTES % (AUTO) 8 % (12-44); MEAN CORPUSCULAR HEMOGLOBIN 31 pg (25-34); MEAN CORPUSCULAR HGB CONC 33 g/dL (32-36); MEAN CORPUSCULAR VOLUME 94 fL (80-99); MEAN PLATELET VOLUME 9.6 fL (9.0-12.2); MONOCYTES # (AUTO) 0.5 10^3/uL (0.0-1.0); MONOCYTES % (AUTO) 5 % (0-12); NEUTROPHILS # (AUTO) 8.2 10^3/uL (1.8-7.8); NEUTROPHILS % (AUTO) 86 % (42-75); PLATELET COUNT 160 10^3/uL (130-400); WHITE BLOOD COUNT 9.6 10^3/uL (4.3-11.0)
[2023-06-15 05:36] LABS: ALBUMIN 2.5 GM/DL (3.2-4.5); BILIRUBIN,TOTAL 0.7 MG/DL (0.1-1.0); CALCIUM 7.9 MG/DL (8.5-10.1); MAGNESIUM 2.4 MG/DL (1.6-2.4); POTASSIUM 3.7 MMOL/L (3.6-5.0)
[2023-06-15] MEDS: inSUlin ASPART 1 UNIT/0.01 ML (PER UNIT) SC SCH ×4 (05:37→21:33)
[2023-06-15] MEDS: POTASSIUM CL 10MEQ/50ML IVPB 50 ML IV SCH ×3 (05:38→07:35)
[2023-06-15] MEDS: POTASSIUM CHLORIDE 20 MEQ TABLET PO SCH (05:38)
[2023-06-15] MEDS: MAGNESIUM 1 GM/100 ML IVPB 100 ML IV SCH (05:38)
[2023-06-15] MEDS: HYDROCORTISONE INJECTION 100 MG/2 ML VIAL IV SCH (05:52)
[2023-06-15] MEDS: meTOprolol INJECTION 5 MG/5 ML VIAL IV PRN ×2 (05:52→20:02)
[2023-06-15] MEDS: fentaNYL INJECTION 100 MCG/2 ML VIAL IVP PRN ×3 (07:36→20:02)
--- NOTE | 2023-06-15 07:38 | Physical Therapy Progress Note ---
Therapy Progress Note Patient to have surgery on this date to repair left hip fracture. PT will await ortho orders. ALISTAIR MITCHELL PT Jun 15, 2023 07:38
--- NOTE | 2023-06-15 08:05 | Cardiology Progress Note ---
Subjective Date Seen by Provider: Jun 15, 2023 Time Seen by Provider: 08:04 Subjective/Events-last exam Patient was seen at bedside, laying down comfortably Still complaining of hip pain Focused Exam Time of Focused Exam: 11:00 Objective-Cardiology Exam Last Set of Vital Signs Vital Signs 06/13/23 06/15/23 06/15/23 06/15/23 16:22 04:17 05:51 07:18 Temp 36.5 Pulse 73 Resp 18 B/P (MAP) 160/74 (102) Pulse Ox 96 O2 Delivery Nasal Cannula O2 Flow Rate 1.00 FiO2 28 I&O Intake and Output 06/15/23 00:00 Intake Total 505 ml Output Total 1100 ml Balance -595 ml Intake Oral 100 ml IV Total 405 ml Output Urine Total 1100 ml General: Alert, Oriented X3, Cooperative HEENT: Atraumatic, PERRLA Neck: Supple, No JVD, No Thyromegaly Lungs: Clear to Auscultation, Normal Air Movement Heart: Regular Rate, Normal S1, Normal S2, No Murmurs Abdomen: Normal Bowel Sounds, Soft, No Tenderness, No Hepatosplenomegaly, No Masses Extremities: No Clubbing, No Cyanosis, No Edema, Normal Pulses, No Tenderness/Swelling Skin: No Rashes, No Breakdown, No Significant Lesion Neuro: Normal Speech, Normal Tone, Sensation Intact Psych/Mental Status: Mental Status NL, Mood NL Results Lab Laboratory Tests 06/15/23 05:01 A/P-Cardiology Admission Diagnosis Acute respiratory failure Lactic acidosis Sepsis Hip fracture Non-ST elevation myocardial infarction Assessment/Plan Status post acute respiratory failure, pneumonia, COVID-19 Better at this time. Continue to monitor Status post hypotensive shock/septic shock Blood pressure is better, continue to monitor 2D echo was done in June 12, 2023 reported as normal LV size with ejection fraction 55 to 60%, mild aortic valve stenosis, PA pressure 60 mmHg Non-ST elevation myocardial infarction most probably type II myocardial infarction treated conservatively Probably hypotension and hypoxemia in addition to underlying coronary artery disease especially at patient age 88 Conservative management was recommended Hip fracture, preoperative cardiac evaluation Patient is considered at intermediate to high risk for perioperative cardiovascular complication Decision regarding surgery, risk versus benefit is deferred to the surgeon LAMIN SCANLON MD Jun 15, 2023 08:05
[2023-06-15] MEDS: AZITHROMYCIN INJECTION 500 MG in NS (IVPB) 250 ML 250 ML IV SCH (08:54)
[2023-06-15] MEDS: PANTOPRAZOLE INJECTION 40 MG VIAL IV SCH (08:54)
[2023-06-15] MEDS ORDERED: ceFAZolin 2,000 MG VIAL IV ONE (09:15)
--- NOTE | 2023-06-15 09:15 | Consultation - Ortho ---
Consult - Ortho Subjective Date of Exam 06/15/23 Chief Complaint Left Hip Pain HPI/Events since last exam admitted due to multiple medical factors and was unresponsive, intubated in ICU for period of time, after extubation and as he recovered noted to have left hip pain, left hip xray demonstrated fracture, I was asked to care for the fracture Medical, Surgical History HTN, BPH, TIA Social History nonsmoker Family History noncontributory Review of Systems noncontributory Allergies: Coded Allergies: No Known Drug Allergies (Unverified , 06/11/23) Home Meds Reported Medications Omeprazole (Omeprazole) 20 Mg Tablet.dr, 20 MG PO DAILY, TAB 06/11/23 Cholecalciferol (Vitamin D3) (Vitamin D3) 50 Mcg (2000 Unit) Capsule, 50 MCG PO DAILY, CAP 06/11/23 Ferrous Sulfate (Iron) 325 Mg (65 Mg Iron) Tablet, 325 MG PO DAILY, TAB 06/11/23 Atorvastatin Calcium (Atorvastatin Calcium) 20 Mg Tablet, 20 MG PO DAILY, TAB 06/11/23 Tamsulosin HCl (Flomax) 0.4 Mg Cap, 0.4 MG PO HS, CAP 06/11/23 Amlodipine Besylate (Amlodipine Besylate) 5 Mg Tablet, 2.5 MG PO DAILY, TAB TAKES OF A 5MG TAB 06/11/23 Objective Exam Left Leg: held in ER, slight shortening, able to DF ankle, pulses palpable, sensation grossly intact to light touch Vital Signs Vital Signs Date Time Temp Pulse Resp B/P (MAP) Pulse Ox O2 Delivery O2 Flow Rate FiO2 06/15/23 08:41 36.5 74 16 172/88 (116) 92 Nasal Cannula 2.00 06/15/23 08:37 Nasal Cannula 1.00 06/15/23 07:18 96 Nasal Cannula 1.00 06/15/23 07:00 73 06/15/23 05:51 73 160/74 (102) 93 Nasal Cannula 2.00 06/15/23 04:17 36.5 84 18 170/84 (112) 91 Nasal Cannula 2.00 06/15/23 02:00 73 165/85 (111) 06/15/23 01:00 72 06/14/23 23:34 36.8 70 18 162/81 (108) 92 Nasal Cannula 1.00 06/14/23 21:43 155/78 (103) 06/14/23 20:30 Nasal Cannula 1.00 06/14/23 20:30 77 06/14/23 20:04 96 Nasal Cannula 1.00 06/14/23 19:45 37.2 84 18 170/82 (111) 93 Nasal Cannula 1.00 06/14/23 17:00 79 15 146/77 (100) 94 Nasal Cannula 2.00 06/14/23 16:59 37.0 06/14/23 16:59 37.0 06/14/23 16:00 98 Nasal Cannula 1.00 06/14/23 16:00 77 14 147/69 (95) 94 Nasal Cannula 2.00 06/14/23 15:00 79 16 140/78 (98) 97 Nasal Cannula 2.00 06/14/23 14:32 98 Nasal Cannula 1.00 06/14/23 14:00 70 15 147/80 (102) 98 Nasal Cannula 2.00 06/14/23 13:00 75 13 145/77 (99) 98 Nasal Cannula 2.00 06/14/23 12:27 75 06/14/23 12:00 99 Nasal Cannula 1.00 06/14/23 12:00 76 13 133/77 (95) 99 Nasal Cannula 2.00 06/14/23 11:00 85 15 130/77 (94) 97 Nasal Cannula 2.00 06/14/23 10:00 80 17 135/75 (95) 97 Nasal Cannula 2.00 I & O 06/15/23 06:59 Intake Total 580 ml Output Total 1350 ml Balance -770 ml Lab Results Laboratory Tests 06/14/23 12:22: Glucometer 82 06/14/23 17:19: Glucometer 110 06/14/23 20:46: Glucometer 116H 06/15/23 05:01: White Blood Count 9.6, Red Blood Count 3.39L, Hemoglobin 10.6L, Hematocrit 32L, Mean Corpuscular Volume 94, Mean Corpuscular Hemoglobin 31, Mean Corpuscular Hemoglobin Concent 33, Red Cell Distribution Width 13.4, Platelet Count 160, Mean Platelet Volume 9.6, Immature Granulocyte % (Auto) 1, Neutrophils (%) (Auto) 86H, Lymphocytes (%) (Auto) 8L, Monocytes (%) (Auto) 5, Eosinophils (%) (Auto) 0, Basophils (%) (Auto) 0, Neutrophils # (Auto) 8.2H, Lymphocytes # (Auto) 0.8L, Monocytes # (Auto) 0.5, Eosinophils # (Auto) 0.0, Basophils # (Auto) 0.0, Immature Granulocyte # (Auto) 0.1, Sodium Level 141, Potassium Level 3.7, Chloride Level 112H, Carbon Dioxide Level 21, Anion Gap 8, Blood Urea Nitrogen 34H, Creatinine 1.00, Estimat Glomerular Filtration Rate 72, BUN/Cr eatinine Ratio 34, Glucose Level 115H, Calcium Level 7.9L, Corrected Calcium 9.1, Phosphorus Level 3.0, Magnesium Level 2.4, Total Bilirubin 0.7, Aspartate Amino Transf (AST/SGOT) 20, Alanine Aminotransferase (ALT/SGPT) 21, Alkaline Phosphatase 68, Total Protein 5.0L, Albumin 2.5L Microbiology 06/11/23 MRSA Screen - Final, Complete MRSA not isolated 06/11/23 Blood Culture - Preliminary, Resulted Imaging 2 views of left hip dated 06/14/23 were reviewed from PACS and demonstrated a displaced femoral neck fracture Assessment and Plan Assessment Displaced Left Femoral Neck Fracture Problem List Displaced Left Femoral Neck Fracture Plan Discussed findings. Discussed type of fracture. I have recommended prosthetic replacement of the fracture. Discussed nature of the procedure and the postop erative course. Discussed risks and benefits. Tentatively scheduled for this afternoon unless not medically optimized. Questions answered and consent to be obtained. Final Diagonsis Displaced Left Femoral Neck Fracture Level of the visit: Level 3 CHLOE GIRON MD Jun 15, 2023 09:15
--- NOTE | 2023-06-15 10:27 | Progress Note - Hospitalist ---
Subjective HPI/CC On Admission Date Seen by Provider: Jun 15, 2023 Paula Baptiste is an 88 year old male with PMH HTN, HLD, BPH, TIA, who presented after being found unresponsive. He is visiting his son for the holidays. He lives in [place] and lives independently. He had been in his usual state of health prior. His son said he had no complaints. He was found unresponsive on the side of his bed this morning. He is not diabetic. His blood sugar was normal upon EMS arrival. There was concern for stroke because he was not withdrawing from pain on the right. He required intubation for airway protection due to his low GCS. His son and daughter in law are present and state that he is DNR. We discussed his plan of care and poor prognosis. Subjective/Events-last exam Pt reports doing ok. Just got pain medicine. Son at bedside and states medicine helped patient. Pt has not complaints. Discussed plan for OR today and risks vs benefits of surgery now vs delaying. Son expresses understanding. Focused Exam Time of Focused Exam: 11:00 Objective Exam Vital Signs Vital Signs Date Time Temp Pulse Resp B/P (MAP) Pulse Ox O2 Delivery O2 Flow Rate FiO2 06/15/23 08:41 36.5 74 16 172/88 (116) 92 Nasal Cannula 2.00 06/13/23 16:22 28 Capillary Refill : Less Than 3 Seconds General Appearance: No Apparent Distress, Chronically ill Respiratory: Lungs Clear, No Respiratory Distress Cardiovascular: Regular Rate, Rhythm, No Murmur Gastrointestinal: Normal Bowel Sounds, Soft Neurologic/Psychiatric: Alert, Other (oriented to person and place, otherwise slightly confused) Results/Procedures Lab Laboratory Tests 06/15/23 05:01 Patient resulted labs reviewed. Imaging: Reviewed Imaging Films, Reviewed Imaging Report Assessment/Plan Assessment and Plan Assess & Plan/Chief Complaint Septic shock Multifocal pneumonia COVID-19 Acute respiratory failure with hypoxia Endotracheally intubated KAYLA NSTEMI Lactic acidosis Advanced age Poor prognosis Goals of care discussion Extubated 06/13 IV antibiotics IV fluids IV steroids- DC Cardiology following, appreciate recs ASA Therapeutic Lovenox on hold for surgery Left hip fracture-POA OR today Ortho consulted, appreciate recs Intermediate risk for surgery but given previous functionally independent status benefits likely outweigh risks of surgery SW consulted PT/OT tomorrow Critical Care Critically Ill Patient Clinical Quality Measures Stroke: Date of last known well: Jun 11, 2023 Time of last known well: 09:15 Symptoms onset unknown: MAIKEL Pardo MD Jun 15, 2023 10:27
[2023-06-15] MEDS: cefTRIAXone IV/IM 1,000 MG in NS (IVPB) 50 ML 50 ML IV SCH (11:14)
[2023-06-15] MEDS: ceFAZolin 2,000 MG VIAL IV NR ×2 (16:21→16:54)
[2023-06-15] MEDS ORDERED: fentaNYL INJECTION 100 MCG/2 ML VIAL ONE ×2 (16:33→16:45)
[2023-06-15] MEDS ORDERED: ONDANSETRON INJECTION 4 MG/2 ML (SDV) ONE ×2 (16:33→16:45)
[2023-06-15] MEDS ORDERED: LIDOCAINE PF 2% 5 ML VIAL ONE (16:33)
[2023-06-15] MEDS ORDERED: proPOfol INJECTION 200 MG/20 ML VIAL IV ONE ×2 (16:33→18:24)
[2023-06-15] MEDS ORDERED: ROCURONIUM 50 MG/5 ML VIAL IV ONE (17:59)
[2023-06-15] MEDS ORDERED: GLYCOPYRROLATE INJ 0.2 MG/ML 2 ML VIAL ONE (17:59)
[2023-06-15] MEDS ORDERED: SEVOFLURANE (ULTANE) 15 ML INHAL SOLN ONE (17:59)
[2023-06-15] MEDS ORDERED: NEOSTIGMINE 1 MG/1ML 10 ML VIAL ONE (17:59)
[2023-06-15] MEDS ORDERED: ROPIVACAINE 5 MG/ML 30ML VIAL ONE (18:00)
[2023-06-15] MEDS ORDERED: PHENYLEPHRINE 100 MCG/ML 10 ML (ANESTHESIA) SYR ONE (18:00)
--- NOTE | 2023-06-15 18:24 | Operative Report - Ortho ---
Operative Report Surgeon (s)/Barrel Cooper (s) Surgeon CHLOE GIRON MD Barrel Cooper n/a Pre-Operative Diagnosis Displaced Left Femoral Neck Fracture Post-Operative Diagnosis same Operative Report Date of Procedure: Jun 15, 2023 Name of Procedure Performed: Prosthetic Replacement of Left Femoral Neck Fracture Description & Findings After obtaining informed consent and marking the patient, patient did receive IV antibiotics. Patient was taken to the operating room and anesthesia was induced. Patient was placed in the lateral decubitus position with the left side up. Left lower extremity was prepped and draped in the usual sterile fashion. Surgical timeout was taken. A posterolateral approach was utilized. External rotators and capsule were taken down in one layer. Fracture hematoma was evacuated. Femoral head was removed from the acetabulum and sized. The fracture site on the femoral neck was freshened with a saw. A 51 mm bipolar component was trialed and found to have good fit. Attention was turned to the femur, Corelytics cutter osteotome was used to remove the remainder of the femoral neck near the greater trochanter. Canal finder was inserted followed by the lateralizing reamer. Sequential broaching was began with a 2 and broaching to a 6. The 6 had good metaphyseal fit and fill. A -4 head and a 51 mm bipolar component were put on a 127 neck trial. This was located. Found to have grossly equal leg lengths. Stable in position of sleep and flexion with internal rotation this was accepted. Hip was atraumatically dislocated and the trial components were removed. The femoral canal and acetabulum were irrigated with pulsatile lavage. Femoral canal was prepared for cementing. Cement was mixed. Cement was placed in the femoral canal and pressurized. A size 6 Accolade C stem with a 127 neck was inserted and seated at similar level to the broach. The cement was allowed to set. A -4 head was impacted onto the Corbett taper of the stem. A 51 mm bipolar component was placed. Hip was located and once again found to be stable. Irrisept soak was performed; further irriga tion was performed. The fascial layer was closed with #2 Stratafix. The subcutaneous layer was closed with 2-0 vicryl and the skin was closed with mary kate. Incision site was dressed with xeroform, 4x4s, ABD, and tape. Patient was placed in abduction pillow postoperatively and was transferred to hospital bed without incident. Tolerated the procedure well and was stable to recovery room. Anesthesia Type General Estimated Blood Loss 200 mL Specimen(s) collected/removed None CHLOE GIRON MD Jun 15, 2023 18:24
[2023-06-15] MEDS ORDERED: ceFAZolin INJECTION 2,000 MG in NS (IVPB) 50 ML 50 ML IV SCH (18:30)
[2023-06-15] MEDS ORDERED: LACTATED RINGERS 1,000 ML 1,000 ML IV PRN (18:30)
--- NOTE | 2023-06-15 18:40 | Anesthesia-General Post-Op ---
General Patient Condition Mental Status/LOC: Same as Preop Cardiovascular: Satisfactory Nausea/Vomiting: Absent Respiratory: Satisfactory Pain: Controlled Complications: Absent Post Op Complications Complications None Follow Up Care/Instructions Patient Instructions None needed. Anesthesia/Patient Condition Patient Condition Patient is doing well, no complaints, stable vital signs, no apparent adverse anesthesia problems. No complications reported per nursing. MADDY ALEJANDRO CRNA Jun 15, 2023 18:40
[2023-06-15] MEDS ORDERED: fentaNYL INJECTION 100 MCG/2 ML VIAL IVP ONE (18:45)
[2023-06-15] MEDS ORDERED: ONDANSETRON INJECTION 4 MG/2 ML (SDV) IVP PRN (18:45)
--- NOTE | 2023-06-15 19:04 | Diagnostic Imaging Report ---
Indication: Postop left hip. Time of Exam: 6:44 PM Single AP view over the pelvis and bilateral hips demonstrates left hip prosthesis. Alignment appears normal. There are overlying skin mary kate. No acute fracture is identified. Impression: Satisfactory postop left hip. Dictated by: Dictated on workstation # [id number]
[2023-06-16] VITALS (7 sets, daily range): BP systolic 129–147; BP diastolic 62–78
[2023-06-16] MEDS: ceFAZolin INJECTION 2,000 MG in NS (IVPB) 50 ML 50 ML IV SCH ×2 (01:02→08:34)
[2023-06-16] MEDS: RT-ALBUTEROL HFA 8.5 GM INHALER IH SCH ×3 (04:01→14:06)
[2023-06-16 05:25] LABS: BASOPHILS % (AUTO) 0 % (0-10); EOSINOPHILS # (AUTO) 1.2 10^3/uL (0.0-0.3); EOSINOPHILS % (AUTO) 13 % (0-10); HEMATOCRIT 30 % (40-54); LYMPHOCYTES % (AUTO) 11 % (12-44); MEAN CORPUSCULAR HEMOGLOBIN 32 pg (25-34); MEAN CORPUSCULAR HGB CONC 34 g/dL (32-36); MEAN CORPUSCULAR VOLUME 94 fL (80-99); MEAN PLATELET VOLUME 9.3 fL (9.0-12.2); MONOCYTES # (AUTO) 0.5 10^3/uL (0.0-1.0); MONOCYTES % (AUTO) 6 % (0-12); NEUTROPHILS # (AUTO) 6.1 10^3/uL (1.8-7.8); NEUTROPHILS % (AUTO) 69 % (42-75); PLATELET COUNT 149 10^3/uL (130-400); WHITE BLOOD COUNT 8.9 10^3/uL (4.3-11.0)
[2023-06-16 05:42] LABS: ALBUMIN 2.2 GM/DL (3.2-4.5); BILIRUBIN,TOTAL 0.5 MG/DL (0.1-1.0); CALCIUM 7.5 MG/DL (8.5-10.1); CREATININE SERUM 0.92 MG/DL (0.60-1.30); MAGNESIUM 2.1 MG/DL (1.6-2.4); PHOSPHORUS 2.3 MG/DL (2.3-4.7); POTASSIUM 3.7 MMOL/L (3.6-5.0); TOTAL PROTEIN 4.5 GM/DL (6.4-8.2)
[2023-06-16] MEDS: POTASSIUM CHLORIDE 20 MEQ TABLET PO SCH (05:54)
[2023-06-16] MEDS: POTASSIUM CL 10MEQ/50ML IVPB 50 ML IV SCH (05:54)
[2023-06-16] MEDS: MAGNESIUM 1 GM/100 ML IVPB 100 ML IV SCH (05:54)
[2023-06-16] MEDS: inSUlin ASPART 1 UNIT/0.01 ML (PER UNIT) SC SCH ×4 (05:54→20:35)
--- NOTE | 2023-06-16 08:13 | Progress Note - Ortho ---
Progress Note Subjective Date of Exam 06/16/23 Chief Complaint POD #1 Prosthetic Replacement of Left Femoral Neck Fracture HPI/Events since last exam some pain, doing okay Review of Systems - Allergies: Coded Allergies: No Known Drug Allergies (Unverified , 06/11/23) Home Meds Reported Medications Omeprazole (Omeprazole) 20 Mg Tablet.dr, 20 MG PO DAILY, TAB 06/11/23 Cholecalciferol (Vitamin D3) (Vitamin D3) 50 Mcg (2000 Unit) Capsule, 50 MCG PO DAILY, CAP 06/11/23 Ferrous Sulfate (Iron) 325 Mg (65 Mg Iron) Tablet, 325 MG PO DAILY, TAB 06/11/23 Atorvastatin Calcium (Atorvastatin Calcium) 20 Mg Tablet, 20 MG PO DAILY, TAB 06/11/23 Tamsulosin HCl (Flomax) 0.4 Mg Cap, 0.4 MG PO HS, CAP 06/11/23 Amlodipine Besylate (Amlodipine Besylate) 5 Mg Tablet, 2.5 MG PO DAILY, TAB TAKES OF A 5MG TAB 06/11/23 Objective Exam L Hip: Dressing C/D/I, +DF of ankle, no s/s of DVT Vital Signs Vital Signs Date Time Temp Pulse Resp B/P (MAP) Pulse Ox O2 Delivery O2 Flow Rate FiO2 06/16/23 07:53 36.1 77 16 147/67 (93) 96 Nasal Cannula 3.00 06/16/23 03:18 36.7 71 18 144/75 (98) 98 Nasal Cannula 3.00 06/16/23 01:00 61 06/16/23 01:00 56 06/15/23 23:32 36.3 70 20 132/73 (92) 95 Nasal Cannula 5.00 06/15/23 21:02 93 Nasal Cannula 6.00 06/15/23 20:00 Nasal Cannula 6.00 06/15/23 19:45 Nasal Cannula 3.00 06/15/23 19:40 36.4 20 159/84 (109) 95 Nasal Cannula 3.00 06/15/23 19:38 36.3 80 18 164/81 (108) 95 Nasal Cannula 6.00 06/15/23 19:32 83 06/15/23 19:30 Nasal Cannula 3.00 06/15/23 19:30 20 159/84 (109) 95 Nasal Cannula 3.00 11/28/23 19:20 20 166/92 (116) 94 Nasal Cannula 3.00 06/15/23 19:15 OxyMask 3.00 06/15/23 19:10 20 166/92 (116) 94 OxyMask 4.00 06/15/23 19:00 OxyMask 4.00 06/15/23 19:00 20 165/93 (117) 92 OxyMask 4.00 06/15/23 18:50 20 158/87 (110) 94 OxyMask 6.00 06/15/23 18:45 OxyMask 6.00 06/15/23 18:40 20 159/83 (108) 95 OxyMask 6.00 06/15/23 18:31 OxyMask 6.00 06/15/23 18:31 36.4 20 132/74 (93) 94 OxyMask 6.00 06/15/23 16:27 35.9 71 18 168/86 (113) 94 High Flow N/C 2.00 06/15/23 13:00 77 06/15/23 11:47 37.8 74 16 180/94 (122) 96 Nasal Cannula 2.00 06/15/23 08:41 36.5 74 16 172/88 (116) 92 Nasal Cannula 2.00 06/15/23 08:37 Nasal Cannula 1.00 I & O 06/16/23 07:00 Intake Total 245 ml Output Total 1700 ml Balance -1455 ml Lab Results Laboratory Tests 06/15/23 20:37: Glucometer 75 06/15/23 23:38: Glucometer 89 06/16/23 05:00: White Blood Count 8.9, Red Blood Count 3.17L, Hemoglobin 10.0L, Hematocrit 30L, Mean Corpuscular Volume 94, Mean Corpuscular Hemoglobin 32, Mean Corpuscular Hemoglobin Concent 34, Red Cell Distribution Width 13.3, Platelet Count 149, Mean Platelet Volume 9.3, Immature Granulocyte % (Auto) 1, Neutrophils (%) (Auto) 69, Lymphocytes (%) (Auto) 11L, Monocytes (%) (Auto) 6, Eosinophils (%) (Auto) 13H, Basophils (%) (Auto) 0, Neutrophils # (Auto) 6.1, Lymphocytes # (Auto) 1.0, Monocytes # (Auto) 0.5, Eosinophils # (Auto) 1.2H, Basophils # (Auto) 0.0, Immature Granulocyte # (Auto) 0.1, Sodium Level 139, Potassium Level 3.7, Chloride Level 111H, Carbon Dioxide Level 23, Anion Gap 5, Blood Urea Nitrogen 31H, Creatinine 0.92, Estimat Glomerular Filtration Rate 80, BUN/Creatinine Ratio 34, Glucose Level 81, Calcium Level 7.5L, Corrected Calcium 8.9, Phosphorus Level 2.3, Magnesium Level 2.1, Total Bilirubin 0.5, Aspartate Amino Transf (AST/SGOT) 51H, Alanine Aminotransferase (ALT/SGPT) 53, Alkaline Phosphatase 94, Total Protein 4.5L, Albumin 2.2L Microbiology 06/15/23 MRSA Screen - Final, Complete MRSA not isolated 06/11/23 Blood Culture - Preliminary, Resulted Imaging AP pelvis from postop demonstrates bipolar arthroplasty in good position without complication Assessment and Plan Assessment Left FN Fx s/p Prosthetic Replacement Problem List Left FN Fx s/p Prosthetic Replacement Plan PT/OT DVT Prophylaxis Final Diagonsis Left FN Fx s/p Prosthetic Replacement Level of the visit: Level 3 (global) Focused Exam Time of Focused Exam: 11:00 Clinical Quality Measures Stroke: Date of last known well: Jun 11, 2023 Time of last known well: 09:15 Symptoms onset unknown: No CHLOE GIRON MD Jun 16, 2023 08:12
[2023-06-16] MEDS: PANTOPRAZOLE INJECTION 40 MG VIAL IV SCH (08:26)
[2023-06-16] MEDS: KETOROLAC INJ 15 MG/ML VIAL IVP PRN ×2 (08:30→18:07)
[2023-06-16] MEDS: fentaNYL INJECTION 100 MCG/2 ML VIAL IVP PRN ×2 (08:31→11:16)
[2023-06-16] MEDS: AZITHROMYCIN INJECTION 500 MG in NS (IVPB) 250 ML 250 ML IV SCH (08:35)
[2023-06-16] MEDS ORDERED: POTASSIUM CHLORIDE 20 MEQ TABLET PO ONE (09:00)
--- NOTE | 2023-06-16 09:08 | Cardiology Progress Note ---
Subjective Date Seen by Provider: Jun 16, 2023 Time Seen by Provider: 08:20 Subjective/Events-last exam Patient is in bed, denies any chest pain. C/o hip pain. Focused Exam Time of Focused Exam: 11:00 Objective-Cardiology Exam Last Set of Vital Signs Vital Signs 06/13/23 06/16/23 06/16/23 06/16/23 16:22 11:01 13:00 14:10 Temp 36.2 Pulse 70 Resp 16 B/P (MAP) 143/62 (89) Pulse Ox 93 O2 Delivery Nasal Cannula O2 Flow Rate 6.00 FiO2 28 I&O Intake and Output 06/15/23 23:59 Intake Total 245 ml Output Total 2000 ml Balance -1755 ml Intake Oral 195 ml IV Total 50 ml Output Urine Total 2000 ml # Bowel Movements 1 General: Alert, Oriented X3, Cooperative HEENT: Atraumatic, PERRLA Neck: Supple, No JVD, No Thyromegaly Lungs: Clear to Auscultation, Normal Air Movement Heart: Regular Rate, Normal S1, Normal S2, No Murmurs Abdomen: Normal Bowel Sounds, Soft, No Tenderness, No Hepatosplenomegaly, No Masses Extremities: No Clubbing, No Cyanosis, No Edema, Normal Pulses, No Tenderness/Swelling Skin: No Rashes, No Breakdown, No Significant Lesion Neuro: Normal Speech, Normal Tone, Sensation Intact Psych/Mental Status: Mental Status NL, Mood NL Results Lab Laboratory Tests 06/16/23 05:00 A/P-Cardiology Admission Diagnosis Acute respiratory failure Lactic acidosis Sepsis Hip fracture Non-ST elevation myocardial infarction Assessment/Plan Status post acute respiratory failure, pneumonia, COVID-19 Better at this time. Continue to monitor Status post hypotensive shock/septic shock Blood pressure is better, continue to monitor 2D echo was done in June 12, 2023 reported as normal LV size with ejection fraction 55 to 60%, mild aortic valve stenosis, PA pressure 60 mmHg Non-ST elevation myocardial infarction most probably type II myocardial infarction treated conservatively Probably hypotension and hypoxemia in addition to underlying coronary artery disease especially at patient age 88 Conservative management was recommended Hip fracture, s/p Prosthetic Replacement of Left Femoral Neck Fracture Supervisory-Addendum Brief Supervisory Addendum Participated in pt care: history, MDM, physical Personally performed: exam, history, MDM Care discussed with: FE Results interpretation: Verified all documentation Notes: Patient was seen and evaluated with Georgiana, examination performed, management plan was discussed, agree with the current scribed note, I made few changes to the note using Italic font Patient was seen at bedside, sitting comfortably, feeling better. No new complaint. Continue on current medication, monitor heart rate and blood pressure GEORGIANA YUSUF PA-C Jun 16, 2023 09:08 LAMIN SCANLON MD Jun 16, 2023 15:20
--- NOTE | 2023-06-16 09:54 | Physical Therapy Evaluation ---
PT Evaluation-General Medical Diagnosis Admission Date Jun 11, 2023 at 11:55 Medical Diagnosis: Pneumonia, Left hip fracture Onset Date: Jun 11, 2023 Therapy Diagnosis Therapy Diagnosis: Gait deficit, strength deficit, Precautions Precautions/Isolations: Fall Prevention, Standard Precautions Posterior hip precautions. Weight Bear Status Right Lower Extremity: Right Full Weight Bearing Left Lower Extremity: Left Weight Bearing/Tolerated Posterior Hip Dislocation Precautions Referral Physician: Dr. Zarate Reason for Referral: Evaluation/Treatment Medical History Pertinent Medical History: HTN Reviewed History: Yes Social History Home: [facility] Current Living Status: Alone Entry Into Home: Stairs With Railing PT Steps Into Home: 4 Prior Prior Level of Function SCALE: Activities may be completed with or without assistive devices. 6-Xbqaxpbpra-yyratzz completes the activity by him/herself with no assistance from a helper. 5-Set-up or Clean-up Assistance-helper sets up or cleans up; patient completes activity. Stewart assists only prior to or following the activity. 4-Supervision or Touching Assistance-helper provides verbal cues and/or touching/steadying and/or contact guard assistance as patient completes activity. Assistance may be provided throughout the activity or intermittently. 3-Partial/Moderate Assistance-helper does LESS THAN HALF the effort. Stewart lifts, holds or supports trunk or limbs, but provides less than half the effort. 2-Substantial/Maximal Assistance-helper does MORE THAN HALF the effort. Stewart lifts or holds trunk or limbs and provides more than half the effort. 4-Rawjoqgil-rlagmb does ALL the effort. Patient does none of the effort to complete the activity. Or, the assistance of 2 or more helpers is required for the patient to complete the activity. If activity was not attempted, code reason: 7-Patient Refused. 9-Not Applicable-not attempted and the patient did not perform the activity before the current illness, exacerbation or injury. 10-Not Attempted due to Environmental Limitations-(lack of equipment, weather restraints, etc.). 88-Not Attempted due to Medical Conditions or Safety Concerns. Bed Mobility: 6 Transfers (B,C,W/C): 6 Gait: 6 Stairs: 6 Indoor Mobility (Ambulation): Independent Stairs: Independent Prior Devices Use: None PT Evaluation-Current Subjective Patient lying supine in bed upon PT arrival, agreeable to treatment. Patient rates pain at 0/10 currently. Objective Patient Orientation: Person Attachments: Oxygen, Szymanski Catheter, IV ROM/Strength ROM Lower Extremities Left LE N/A. Right LE WFLs all planes Strength Lower Extremities Left LE N/A. Right LE 3+/5 all planes. Sensory Vision: Functional Hearing: Hearing Aid/Aides Sensation Right Lower Extremit: Intact Sensation Left Lower Extremity: Intact Transfers Roll Left to Right (QC): 2 Sit to Lying (QC): 2 Lying to Sitting/Side of Bed(Q: 2 Sit to Stand (QC): 1 Gait Does the Patient Walk?: No and Walking Goal IS indicated Mode of Locomotion: Walk Anticipated Mode of Locomotion: Walk Balance Sitting Static: Poor Sitting Dynamic: Poor Standing Static: Poor Standing Dynamic: Poor Assessment/Needs Patient required max to total A for all bed mobility and transfers. Patient sitting at EOB and demonstrates left lateral leaning, unable to correct without moderate to max A. Patient stands with FWW, with max A x 2 and is unable to stand fully erect. Patient returned to bed post treatment with max A x 2. Patient in bed post treatment with all needs met, nursing notified, call light in hand and bed alarm activated. Rehab Potential: Fair PT Mcc Goals Cake Press Operator Goals Roll Left & Right (QC): 4 Sit to Lying (QC): 4 Lying-Sitting on Side/Bed(QC): 4 Sit to Stand (QC): 4 Chair/Ydh-gk-Qmoza Xfer(QC): 4 Toilet Transfer (QC): 4 Does the Patient Walk: Yes Walk 10 feet (QC): 3 Walk 50ft with 2 Turns (QC): 3 Walk 150 ft (QC): 3 PT Plan Problem List Problem List: Activity Tolerance, Functional Strength, Safety, Balance, Gait, Transfer, Bed Mobility, ROM Treatment/Plan Treatment Plan: Continue Plan of Care Treatment Plan: Bed Mobility, Education, Functional Activity Kristina, Functional Strength, Group Therapy, Gait, Safety, Therapeutic Exercise, Transfers Treatment Duration: Jul 17, 2023 Frequency: 11 times per week Estimated Hrs Per Day: .25 hour per day Patient and/or Family Agrees t: Yes Safety Risks/Education Patient Education: Transfer Techniques Teaching Recipient: Patient Teaching Methods: Demonstration, Discussion Time Time In: 916 Time Out: 935 DATE: Jun 16, 2023 Total Billed Treatment Time: 19 Total Billed Treatment Visit, LINDA SHAFFER PT Jun 16, 2023 09:54
--- NOTE | 2023-06-16 10:48 | Occupational Therapy Eval ---
OT Evaluation-General/PLF Medical Diagnosis Admission Date Jun 11, 2023 at 11:55 Medical Diagnosis: Pneumonia, Left hip fracture Onset Date: Jun 11, 2023 Therapy Diagnosis Therapy Diagnosis: weakness,confusion, pain s/p fall w/ fx Precautions Precautions/Isolations: Fall Prevention, Standard Precautions Referral Physician: Dr. Zarate Medical History Pertinent Medical History: HTN Social History Home: [facility] Current Living Status: Alone Entry Into Home: Stairs With Railing Steps Into Home: 4 ADL-Prior Level of Function SCALE: Activities may be completed with or without assistive devices. 3-Ayxacyjngk-beuquft completes the activity by him/herself with no assistance from a helper. 5-Set-up or Clean-up Assistance-helper sets up or cleans up; patient completes activity. [place] assists only prior to or following the activity. 4-Supervision or Touching Assistance-helper provides verbal cues and/or touching /steadying and/or contact guard assistance as patient completes activity. Assistance may be provided throughout the activity or intermittently. 3-Partial/Moderate Assistance-helper does LESS THAN HALF the effort. [place] lifts, holds or supports trunk or limbs, but provides less than half the effort. 2-Substantial/Maximal Assistance-helper does MORE THAN HALF the effort. [place] lifts or holds trunk or limbs and provides more than half the effort. 0-Zfhlcgspm-yyxkqm does ALL the effort. Patient does none of the effort to complete the activity. Or, the assistance of 2 or more helpers is required for the patient to complete the activity. If activity was not attempted, code reason: 7-Patient Refused. 9-Not Applicable-not attempted and the patient did not perform the activity before the current illness, exacerbation or injury. 10-Not Attempted due to Environmental Limitations-(lack of equipment, weather restraints, etc.). 88-Not Attempted due to Medical Conditions or Safety Concerns. Self Care: Independent Functional Cognition: Independent Drive Self: No OT Current Status Subjective Confusion and unaware of limitations, AMBREEN precautions verbalized to patient and son as well as written on white board Mental Status/Objective Patient Orientation: Person Attachments: Szymanski Catheter, IV, Oxygen Current Glasses/Contacts: Yes Hand Dominance: Right Upper Extremity ROM BUE ROM WFLs Upper Extremity Coordination FAIR-, listing left in sitting, minimal duration unsupported Upper Extremity Strength 3/5 BUE Difficulty following direction and left/right discrimination ADL-Treatment ADL-Current 2 person required for standing, LB ADLS, does not follow instruction for grooming Eating (QC): 4 Oral Hygiene (QC): 4 Shower/Bathe Self (QC): 7 Upper Body Dressing (QC): 2 Lower Body Dressing (QC): 1 On/Off Footwear (QC): 1 Toileting Hygiene (QC): 1 Education OT Patient Education: Correct positioning, Instructions don/doff splint/brace (wedge), Instructions to caregiver, Modified ADL techniques, Progress toward Goal/Update tx plan, Purpose of tx/functional activities, Reviewed precautions, Rehab process, Safety issues, Transfer techniques, Use of adapted equipment Teaching Recipient: Patient, Family Teaching Methods: Demonstration, Discussion Response to Teaching: Unable to Return Demonstration (patient), Reinforcement Needed OT [facility] Goals [facility] Goals Eating (QC): 6 Oral Hygiene (QC): 5 Toileting Hygiene (QC): 4 Shower/Bathe Self (QC): 3 Upper Body Dressing (QC): 3 Lower Body Dressing (QC): 3 On/Off Footwear (QC): 3 1=Demonstrate adherence to instructed precautions during ADL tasks. 2=Patient will verbalize/demonstrate understanding of assistive devices/modifications for ADL. 3=Patient will improve strength/tolerance for activity to enable patient to perform ADL's. OT Education/Plan Problem List/Assessment Assessment: Decreased Activ Tolerance, Decreased Safety Aware, Decreased UE St rength, Dependent Transfers, Impaired Bed Mobility, Impaired Cognition, Impaired Coordination, Impaired Funct Balance, Impaired Self-Care Skills Discharge Recommendations Plan/Recommendations: Continue POC Therapy Discharge Recommendati: Post Acute OT Treatment Plan/Plan of Care Treatment,Training & Education: Yes Patient would benefit from OT for education, treatment and training to promote independence in ADL's, mobility, safety and/or upper extremity function for ADL's. Plan of Care: ADL Retraining, Caregiver Training, Concurrent Therapy, Functional Mobility, Group Exercise/Act as Ind, UE Funct Exercise/Act, UE Neuromus Re-Ed/Coord Treatment Duration: Jun 25, 2023 Frequency: 3 times per week (3-5 times per week) Estimated Hrs Per Day: .25 hour per day Agreement: Yes Rehab Potential: Fair Time Start Time: 09:20 Stop Time: 09:36 DATE: Jun 16, 2023 Total Time Billed (hr/min): 16 Billed Treatment Time EV 16 min JOANA HUSSEIN OT Jun 16, 2023 10:48
--- NOTE | 2023-06-16 14:27 | Progress Note - Hospitalist ---
Subjective HPI/CC On Admission Date Seen by Provider: Jun 16, 2023 Paula Baptiste is an 88 year old male with PMH HTN, HLD, BPH, TIA, who presented after being found unresponsive. He is visiting his son for the holidays. He lives in [place] and lives independently. He had been in his usual state of health prior. His son said he had no complaints. He was found unresponsive on the side of his bed this morning. He is not diabetic. His blood sugar was normal upon EMS arrival. There was concern for stroke because he was not withdrawing from pain on the right. He required intubation for airway protection due to his low GCS. His son and daughter in law are present and state that he is DNR. We discussed his plan of care and poor prognosis. Subjective/Events-last exam Pt reports having pain. Rates it a 12/10 but son at bedside thinks he is just joking as he doesn't seem to be in that much pain. Focused Exam Time of Focused Exam: 11:00 Objective Exam Vital Signs Vital Signs Date Time Temp Pulse Resp B/P (MAP) Pulse Ox O2 Delivery O2 Flow Rate FiO2 06/16/23 14:10 93 Nasal Cannula 6.00 06/16/23 11:01 36.2 75 16 143/62 (89) 06/13/23 16:22 28 Capillary Refill : Less Than 3 SecondsLess Than 3 Seconds General Appearance: No Apparent Distress, Chronically ill Respiratory: Lungs Clear Cardiovascular: Regular Rate, Rhythm, No Murmur Gastrointestinal: Normal Bowel Sounds Neurologic/Psychiatric: Alert, Oriented x3 Results/Procedures Lab Laboratory Tests 06/16/23 05:00 Patient resulted labs reviewed. Imaging: Reviewed Imaging Films, Reviewed Imaging Report Assessment/Plan Assessment and Plan Assess & Plan/Chief Complaint Left hip fracture-POA POD #1 Ortho consulted, appreciate recs SW consulted PT/OT today IRF eval Septic shock, resolved Multifocal pneumonia COVID-19, resolved Acute respiratory failure with hypoxia Endotracheally intubated KAYLA NSTEMI Lactic acidosis Advanced age Poor prognosis Goals of care discussion Extubated 06/13 IV antibiotics Cardiology following, appreciate recs ASA Therapeutic Lovenox to resume this evening Critical Care Critically Ill Patient Clinical Quality Measures Stroke: Date of last known well: Jun 11, 2023 Time of last known well: 09:15 Symptoms onset unknown: No MAIKEL CHENG MD Jun 16, 2023 14:26
[2023-06-16] MEDS: ENOXAPARIN 80 MG/0.8 ML SYRINGE SC SCH (14:52)
[2023-06-16] MEDS: HYDROcodone/ACETAMINOPHEN 5 MG/325 MG TABLET PO PRN (14:54)
--- NOTE | 2023-06-16 15:31 | Physical Therapy Daily Note ---
PT Daily Note-Current Subjective Patient lying supine in bed upon PT arrival, agreeable to treatment but difficulty staying awake. Patient rates pain at 0/10. Pain Section J - Health Conditions 1. Rarely or not at all 2. Occasionally 3. Frequently 4. Almost constantly 8. Unable to answer Pain Effect on Sleep: 1 Pain Interference with Therapy: 1 Pain Interference w/Day-to-Day: 1 Transfers SCALE: Activities may be completed with or without assistive devices. 9-Qsrdtyekip-jgqurnd completes the activity by him/herself with no assistance from a helper. 5-Set-up or Clean-up Assistance-helper sets up or cleans up; patient completes activity. [place] assists only prior to or following the activity. 4-Supervision or Touching Assistance-helper provides verbal cues and/or touching/steadying and/or contact guard assistance as patient completes activity. Assistance may be provided throughout the activity or intermittently. 3-Partial/Moderate Assistance-helper does LESS THAN HALF the effort. [place] lifts, holds or supports trunk or limbs, but provides less than half the effort. 2-Substantial/Maximal Assistance-helper does MORE THAN HALF the effort. [place] lifts or holds trunk or limbs and provides more than half the effort. 6-Wbtxrwzfi-zoggdx does ALL the effort. Patient does none of the effort to complete the activity. Or, the assistance of 2 or more helpers is required for the patient to complete the activity. If activity was not attempted, code reason: 7-Patient Refused. 9-Not Applicable-not attempted and the patient did not perform the activity before the current illness, exacerbation or injury. 10-Not Attempted due to Environmental Limitations-(lack of equipment, weather restraints, etc.). 88-Not Attempted due to Medical Conditions or Safety Concerns. Weight Bearing Right Lower Extremity: Right Full Weight Bearing Left Lower Extremity: Left Weight Bearing/Tolerated Posterior Hip Dislocation Precautions Exercises Supine Ex: Ankle pumps, Quad Set, Glut sets, Heel Slides, Straight leg raise, Hip abd/add Supine Reps: 20 Assessment Current Status: Fair Progress Patient very drowsy and given his inability to tolerate sitting this am, opted to perform LE therapeutic exercises. Patient performed LE therapeutic exercise as listed above with AROM/AAROM. Patient in bed post treatment with all needs met, nursing notified, call light in hand and bed alarm activated. PT Youth Specialist Goals [facility] Goals Roll Left & Right (QC): 4 Sit to Lying (QC): 4 Lying-Sitting on Side/Bed(QC): 4 Sit to Stand (QC): 4 Chair/Hsa-aw-Fizmt Xfer(QC): 4 Toilet Transfer (QC): 4 Does the Patient Walk: Yes Walk 10 feet (QC): 3 Walk 50ft with 2 Turns (QC): 3 Walk 150 ft (QC): 3 PT Plan Treatment/Plan Treatment Plan: Continue Plan of Care Treatment Plan: Bed Mobility, Education, Functional Activity Kristina, Functional Strength, Group Therapy, Gait, Safety, Therapeutic Exercise, Transfers Treatment Duration: Jul 17, 2023 Frequency: 11 times per week Estimated Hrs Per Day: .25 hour per day Patient and/or Family Agrees t: Yes Time Time In: 1443 Time Out: 1453 DATE: Jun 16, 2023 Total Billed Treatment Time: 10 Total Billed Treatment Visit, EX LINDA HERRERA PT Jun 16, 2023 15:31
[2023-06-17] MEDS: ENOXAPARIN 80 MG/0.8 ML SYRINGE SC SCH (03:15)
[2023-06-17] MEDS: meTOprolol INJECTION 5 MG/5 ML VIAL IV PRN (03:21)
[2023-06-17 03:44] VITALS: BP 166/77
[2023-06-17 04:31] VITALS: BP 154/84
[2023-06-17 05:35] LABS: BASOPHILS % (AUTO) 0 % (0-10); EOSINOPHILS # (AUTO) 1.4 10^3/uL (0.0-0.3); EOSINOPHILS % (AUTO) 16 % (0-10); HEMATOCRIT 29 % (40-54); HEMOGLOBIN 9.5 g/dL (13.3-17.7); LYMPHOCYTES # (AUTO) 1.2 10^3/uL (1.0-4.0); LYMPHOCYTES % (AUTO) 13 % (12-44); MEAN CORPUSCULAR HEMOGLOBIN 31 pg (25-34); MEAN CORPUSCULAR HGB CONC 33 g/dL (32-36); MEAN CORPUSCULAR VOLUME 95 fL (80-99); MEAN PLATELET VOLUME 9.3 fL (9.0-12.2); MONOCYTES # (AUTO) 0.5 10^3/uL (0.0-1.0); MONOCYTES % (AUTO) 6 % (0-12); NEUTROPHILS # (AUTO) 5.7 10^3/uL (1.8-7.8); NEUTROPHILS % (AUTO) 64 % (42-75); PLATELET COUNT 157 10^3/uL (130-400); WHITE BLOOD COUNT 8.8 10^3/uL (4.3-11.0)
[2023-06-17 05:58] LABS: ALBUMIN 2.2 GM/DL (3.2-4.5); BAND NEUTROPHILS 1 %; BASOPHILS % (MANUAL) 0 %; EOSINOPHILS % (MANUAL) 12 %; LYMPHOCYTES % (MANUAL) 12 %; MONOCYTES % (MANUAL) 8 %; NEUTROPHILS % (MANUAL) 67 %; POTASSIUM 3.9 MMOL/L (3.6-5.0)
[2023-06-17 05:59] LABS: ANISOCYTOSIS SLIGHT; CALCIUM 7.6 MG/DL (8.5-10.1)
[2023-06-17 06:00] LABS: TOTAL PROTEIN 4.7 GM/DL (6.4-8.2)
[2023-06-17] MEDS: POTASSIUM CL 10MEQ/50ML IVPB 50 ML IV SCH (06:00)
[2023-06-17] MEDS: POTASSIUM CHLORIDE 20 MEQ TABLET PO SCH (06:01)
[2023-06-17 06:02] LABS: BILIRUBIN,TOTAL 0.5 MG/DL (0.1-1.0)
[2023-06-17 06:04] LABS: CREATININE SERUM 1.05 MG/DL (0.60-1.30); PHOSPHORUS 2.6 MG/DL (2.3-4.7)
[2023-06-17 06:07] LABS: MAGNESIUM 2.2 MG/DL (1.6-2.4)
[2023-06-17] MEDS: inSUlin ASPART 1 UNIT/0.01 ML (PER UNIT) SC SCH ×4 (06:15→20:23)
[2023-06-17] MEDS: MAGNESIUM 1 GM/100 ML IVPB 100 ML IV SCH (06:15)
[2023-06-17 07:47] VITALS: BP 174/81
--- NOTE | 2023-06-17 08:12 | Cardiology Progress Note ---
Subjective Date Seen by Provider: Jun 17, 2023 Time Seen by Provider: 08:11 Subjective/Events-last exam Patient is sitting up in bed, denies any chest pain or dyspnea Focused Exam Time of Focused Exam: 11:00 Objective-Cardiology Exam Last Set of Vital Signs Vital Signs 06/13/23 06/17/23 16:22 07:47 Temp 36.1 Pulse 79 Resp 16 B/P (MAP) 174/81 (112) Pulse Ox 92 O2 Delivery High Flow N/C O2 Flow Rate 1.00 FiO2 28 I&O Intake and Output 06/17/23 00:00 Intake Total 715 ml Output Total 550 ml Balance 165 ml Intake Oral 665 ml IV Total 50 ml Output Urine Total 550 ml General: Alert, Oriented X3, Cooperative HEENT: Atraumatic, PERRLA Neck: Supple, No JVD, No Thyromegaly Lungs: Clear to Auscultation, Normal Air Movement Heart: Regular Rate, Normal S1, Normal S2, No Murmurs Abdomen: Normal Bowel Sounds, Soft, No Tenderness, No Hepatosplenomegaly, No Masses Extremities: No Clubbing, No Cyanosis, No Edema, Normal Pulses, No Tenderness/Swelling Skin: No Rashes, No Breakdown, No Significant Lesion Neuro: Normal Speech, Normal Tone, Sensation Intact Psych/Mental Status: Mental Status NL, Mood NL Results Lab Laboratory Tests 06/17/23 05:13 A/P-Cardiology Admission Diagnosis Acute respiratory failure Lactic acidosis Sepsis Hip fracture Non-ST elevation myocardial infarction Assessment/Plan Status post acute respiratory failure, pneumonia, COVID-19 Better at this time. Continue to monitor Status post hypotensive shock/septic shock Blood pressure is better, Restart amlodipine Hypertension, I will restart home amlodipine 2.5mg, continue to monitor. 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 Supervisory-Addendum Brief Supervisory Addendum Participated in pt care: history, MDM, physical Personally performed: exam, history, MDM Care discussed with: FE Results interpretation: Verified all documentation Notes: Patient was seen and evaluated with Georgiana, examination performed, management plan was discussed, agree with the current scribed note, I made few changes to the note using Italic font Patient was seen at bedside, laying down comfortably, feeling better, denied any pain today Restarting amlodipine 2.5 mg daily Changing Lovenox to DVT prophylaxis Monitor blood pressure GEORGIANA YUSUF PA-C Jun 17, 2023 08:12 LAMIN SCANLON MD Jun 17, 2023 08:30
[2023-06-17] MEDS ORDERED: POTASSIUM CHLORIDE 20 MEQ TABLET PO ONE (09:00)
--- NOTE | 2023-06-17 09:21 | Progress Note - Ortho ---
Progress Note Subjective Date of Exam 06/17/23 Chief Complaint POD #2 L Hip Prosthetic Replacement HPI/Events since last exam difficulty with mobilization, some soreness over incision Review of Systems - Allergies: Coded Allergies: No Known Drug Allergies (Unverified , 06/11/23) Home Meds Reported Medications Omeprazole (Omeprazole) 20 Mg Tablet.dr, 20 MG PO DAILY, TAB 06/11/23 Cholecalciferol (Vitamin D3) (Vitamin D3) 50 Mcg (2000 Unit) Capsule, 50 MCG PO DAILY, CAP 06/11/23 Ferrous Sulfate (Iron) 325 Mg (65 Mg Iron) Tablet, 325 MG PO DAILY, TAB 06/11/23 Atorvastatin Calcium (Atorvastatin Calcium) 20 Mg Tablet, 20 MG PO DAILY, TAB 06/11/23 Tamsulosin HCl (Flomax) 0.4 Mg Cap, 0.4 MG PO HS, CAP 06/11/23 Amlodipine Besylate (Amlodipine Besylate) 5 Mg Tablet, 2.5 MG PO DAILY, TAB TAKES OF A 5MG TAB 06/11/23 Objective Exam L Hip: Dressing C/D/I, +DF of ankle, no s/s of DVT Vital Signs Vital Signs Date Time Temp Pulse Resp B/P (MAP) Pulse Ox O2 Delivery O2 Flow Rate FiO2 06/17/23 08:41 87 06/17/23 07:47 36.1 79 16 174/81 (112) 92 High Flow N/C 1.00 06/17/23 04:31 70 154/84 (107) 06/17/23 03:44 36.6 78 16 166/77 (106) 96 Nasal Cannula 1.00 06/17/23 00:09 69 06/16/23 23:54 36.5 79 18 146/78 (100) 94 Nasal Cannula 1.00 06/16/23 20:55 Nasal Cannula 1.00 06/16/23 20:30 36.9 90 17 139/63 (88) 96 Simple Mask 06/16/23 20:06 36.4 83 93 06/16/23 19:10 89 06/16/23 17:00 36.4 83 16 129/64 (85) 93 Nasal Cannula 1.00 06/16/23 14:10 93 Nasal Cannula 6.00 06/16/23 13:00 70 06/16/23 11:01 36.2 75 16 143/62 (89) 95 Nasal Cannula 3.00 I & O 06/17/23 06:59 Intake Total 615 ml Output Total 550 ml Balance 65 ml Lab Results Laboratory Tests 06/16/23 10:49: Glucometer 97 06/16/23 17:08: Glucometer 121H 06/16/23 20:33: Glucometer 136H 06/17/23 05:13: White Blood Count 8.8, Red Blood Count 3.08L, Hemoglobin 9.5L, Hematocrit 29L, Mean Corpuscular Volume 95, Mean Corpuscular Hemoglobin 31, Mean Corpuscular Hemoglobin Concent 33, Red Cell Distribution Width 13.6, Platelet Count 157, Mean Platelet Volume 9.3, Immature Granulocyte % (Auto) 1, Neutrophils (%) (Auto) 64, Lymphocytes (%) (Auto) 13, Monocytes (%) (Auto) 6, Eosinophils (%) (Auto) 16H, Basophils (%) (Auto) 0, Neutrophils # (Auto) 5.7, Lymphocytes # (Auto) 1.2, Monocytes # (Auto) 0.5, Eosinophils # (Auto) 1.4H, Basophils # (Auto) 0.0, Immature Granulocyte # (Auto) 0.1, Neutrophils % (Manual) 67, Lymphocytes % (Manual) 12, Monocytes % (Manual) 8, Eosinophils % (Manual) 12, Basophils % (Manual) 0, Band Neutrophils 1, Anisocytosis SLIGHT, Sodium Level 138, Potassium Level 3.9, Chloride Level 111H, Carbon Dioxide Level 23, Anion Gap 4L, Blood Urea Nitrogen 36H, Creatinine 1.05, Estimat Glomerular Filtration Rate 68, BUN/Creatinine Ratio 34, Glucose Level 119H, Calcium Level 7.6L, Corrected Calcium 9.0, Phosphorus Level 2.6, Magnesium Level 2.2, Total Bilirubin 0.5, Aspartate Amino Transf (AST/SGOT) 34, Alanine Aminotransferase (ALT/SGPT) 34, Alkaline Phosphatase 83, Total Protein 4.7L, Albumin 2.2L Microbiology 06/15/23 MRSA Screen - Final, Complete MRSA not isolated 06/11/23 Blood Culture - Final, Complete Assessment and Plan Assessment L FN Fx s/p Prosthetic Replacement Problem List L FN Fx s/p Prosthetic Replacement Plan Continue therapy efforts DVT prophylaxis Agree with rehab Final Diagonsis L FN Fx s/p Prosthetic Replacement Level of the visit: Level 3 (global) Focused Exam Time of Focused Exam: 11:00 Clinical Quality Measures Stroke: Date of last known well: Jun 11, 2023 Time of last known well: 09:15 Symptoms onset unknown: No CHLOE GIRON MD Jun 17, 2023 09:21
[2023-06-17] MEDS: ASPIRIN enteric coated 81MG TABLET PO SCH (09:33)
[2023-06-17] MEDS: HYDROcodone/ACETAMINOPHEN 5 MG/325 MG TABLET PO PRN ×2 (09:33→14:00)
[2023-06-17] MEDS: PANTOPRAZOLE 40 MG TABLET PO SCH (09:33)
--- NOTE | 2023-06-17 09:57 | Physical Therapy Daily Note ---
PT Daily Note-Current Subjective Patient agrees to therapy. Pain Section J - Health Conditions 1. Rarely or not at all 2. Occasionally 3. Frequently 4. Almost constantly 8. Unable to answer Pain Effect on Sleep: 1 Pain Interference with Therapy: 1 Pain Interference w/Day-to-Day: 1 Transfers SCALE: Activities may be completed with or without assistive devices. 6-Eapuavkbal-pkvmoym completes the activity by him/herself with no assistance from a helper. 5-Set-up or Clean-up Assistance-helper sets up or cleans up; patient completes activity. [place] assists only prior to or following the activity. 4-Supervision or Touching Assistance-helper provides verbal cues and/or touching/steadying and/or contact guard assistance as patient completes activity. Assistance may be provided throughout the activity or intermittently. 3-Partial/Moderate Assistance-helper does LESS THAN HALF the effort. [place] lifts, holds or supports trunk or limbs, but provides less than half the effort. 2-Substantial/Maximal Assistance-helper does MORE THAN HALF the effort. [place] lifts or holds trunk or limbs and provides more than half the effort. 8-Aokacfszg-yztudg does ALL the effort. Patient does none of the effort to complete the activity. Or, the assistance of 2 or more helpers is required for the patient to complete the activity. If activity was not attempted, code reason: 7-Patient Refused. 9-Not Applicable-not attempted and the patient did not perform the activity before the current illness, exacerbation or injury. 10-Not Attempted due to Environmental Limitations-(lack of equipment, weather restraints, etc.). 88-Not Attempted due to Medical Conditions or Safety Concerns. Lying to Sitting/Side of Bed(Q: 2 Sit to Stand (QC): 1 Chair/Sfg-lc-Xzihy Xfer(QC): 1 max assist of 2 with all mobility Weight Bearing Right Lower Extremity: Right Full Weight Bearing Left Lower Extremity: Left Weight Bearing/Tolerated Posterior Hip Dislocation Precautions Gait Training Distance: 3 steps Gait Assistive Device: FWW severe flexed bilateral knees, trunk and UE's with FWW (unable to stand erect) Exercises Supine Ex: Ankle pumps, Heel Slides Supine Reps: 10 Seated Therapy Exercises: Long arc quads Seated Reps: 15 Assessment Patient requires time to complete all functional tasks. Patient unable to stand erect and weight bear left LE. Patient presents with severe weakness and impaired mobility. Patient up in recliner with needs met. PT Junior Designer Goals Junior Designer Goals Roll Left & Right (QC): 4 Sit to Lying (QC): 4 Lying-Sitting on Side/Bed(QC): 4 Sit to Stand (QC): 4 Chair/Ypa-ax-Xuakl Xfer(QC): 4 Toilet Transfer (QC): 4 Does the Patient Walk: Yes Walk 10 feet (QC): 3 Walk 50ft with 2 Turns (QC): 3 Walk 150 ft (QC): 3 PT Plan Treatment/Plan Treatment Plan: Continue Plan of Care Treatment Plan: Bed Mobility, Education, Functional Activity Kristina, Functional Strength, Group Therapy, Gait, Safety, Therapeutic Exercise, Transfers Treatment Duration: Jul 17, 2023 Frequency: 11 times per week Estimated Hrs Per Day: .25 hour per day Patient and/or Family Agrees t: Yes Time Time In: 830 Time Out: 853 DATE: Jun 17, 2023 Total Billed Treatment Time: 23 Total Billed Treatment 1 visit EX 8 min FA 15 min ALISTAIR MITCHELL PT Jun 17, 2023 09:57
--- NOTE | 2023-06-17 10:02 | Occupational Ther Daily Note ---
OT Current Status-Daily Note Subjective Oriented to date, location and situation, less than 50% following instructions, impaired righting reflex, listing right Pain Numeric Pain Scale: 6 Location: Right Location Body Site: Thigh Mental Status/Objective Patient Orientation: Person, Confused, Place, Time, Situation Attachments: Szymanski Catheter ADL-Treatment OT performed sock donning. and educated AMBREEN precautions Therapy Code Descriptions/Definitions Functional [place] Measure: 0=Not Assessed/NA 4=Minimal Assistance 1=Total Assistance 5=Supervision or Setup 2=Maximal Assistance 6=Modified [place] 3=Moderate Assistance 7=Complete IndependenceSCALE: Activities may be completed with or without assistive devices. 6-Lbuxxrkcao-kilborh completes the activity by him/herself with no assistance from a helper. 5-Set-up or Clean-up Assistance-helper sets up or cleans up; patient completes activity. [place] assists only prior to or following the activity. 4-Supervision or Touching Assistance-helper provides verbal cues and/or touching/steadying and/or contact guard assistance as patient completes activity. Assistance may be provided throughout the activity or intermittently. 3-Partial/Moderate Assistance-helper does LESS THAN HALF the effort. [place] lifts, holds or supports trunk or limbs, but provides less than half the effort. 2-Substantial/Maximal Assistance-helper does MORE THAN HALF the effort. [place] lifts or holds trunk or limbs and provides more than half the effort. 5-Wjnhtbosp-tlaffr does ALL the effort. Patient does none of the effort to complete the activity. Or, the assistance of 2 or more helpers is required for the patient to complete the activity. If activity was not attempted, code reason: 7-Patient Refused. 9-Not Applicable-not attempted and the patient did not perform the activity before the current illness, exacerbation or injury. 10-Not Attempted due to Environmental Limitations-(lack of equipment, weather restraints, etc.). 88-Not Attempted due to Medical Conditions or Safety Concerns. Other Treatment Dynamic sitting balance, functional reach and following [id number] Education OT Patient Education: Correct positioning, Exercise program (ARM CHAIR PUSH UPS), Instructions to caregiver, Modified ADL techniques, Progress toward Goal/Update tx plan, Purpose of tx/functional activities, Reviewed precautions, Rehab process, Safety issues, Transfer techniques Teaching Recipient: Patient, Family (son) Teaching Methods: Demonstration, Discussion Response to Teaching: Verbalize Understanding (family), Reinforcement Needed OT Hospice Consultant Goals [facility] Goals Eating (QC): 6 Oral Hygiene (QC): 5 Toileting Hygiene (QC): 4 Shower/Bathe Self (QC): 3 Upper Body Dressing (QC): 3 Lower Body Dressing (QC): 3 On/Off Footwear (QC): 3 1=Demonstrate adherence to instructed precautions during ADL tasks. 2=Patient will verbalize/demonstrate understanding of assistive devices/modifications for ADL. 3=Patient will improve strength/tolerance for activity to enable patient to perform ADL's. OT Education/Plan Problem List/Assessment Assessment: Decreased Activ Tolerance, Decreased Safety Aware, Decreased UE Strength, Dependent Transfers (2 persons to stand), Impaired Bed Mobility, Impaired Cognition, Impaired Coordination, Impaired Funct Balance, Impaired Self-Care Skills Patient does not bear weight through extremities Discharge Recommendations Plan/Recommendations: Continue POC Treatment Plan/Plan of Care Treatment,Training & Education: Yes Patient would benefit from OT for education, treatment and training to promote independence in ADL's, mobility, safety and/or upper extremity function for ADL's. Plan of Care: ADL Retraining, Caregiver Training, Concurrent Therapy, Functional Mobility, Group Exercise/Act as Ind, UE Funct Exercise/Act, UE Neuromus Re-Ed/Coord Treatment Duration: Jun 25, 2023 Frequency: 3 times per week (3-5 times per week) Estimated Hrs Per Day: .25 hour per day Agreement: Yes Rehab Potential: Fair Time Start Time: 08:30 Stop Time: 08:50 DATE: Jun 17, 2023 Total Time Billed (hr/min): 20 Billed Treatment Time FA 20 min JOANA HUSSEIN OT Jun 17, 2023 10:02
--- NOTE | 2023-06-17 11:01 | Speech Therapy Daily Note ---
Speech Daily Progress Note Subjective Date Seen by Provider: Jun 17, 2023 Time Seen by Provider: 10:20 The patient was seated upright in the recliner, awake and alert, upon entrance to the patient's room. The patient greeted the clinician appropriately and was agreeable to participation in the skilled dysphagia treatment session. The patient remains on supplemental oxygen via nasal cannula. Objective The patient's RN stated the patient has not displayed s/s of suspected aspiration with P.O. intake and "that seems to being doing well." The patient does appear confused on this date. Initially, the patient stated he was not experiencing swallowing difficulties. Shortly following, the patient stated, "I was having a hard time with water for a bit but that cleared up." The patient stated his difficulty with water was "years ago, a long time ago now." As the discussion continued, the patient stated the difficulty with the water was while he was currently admitted however by the close of the conversation, the patient stated the water concern was "a long time ago." Do to the patient's conflicting responses, multiple trials of water were completed. The patient was challenged with single straw sips of water and multiple, large straw drinks of water. No s/s of suspected aspiration were demonstrated with any water trial completed and the patient's vocal quality remained clear. The patient politely declined trials of additional consistencies at this time. As the patient appears to be tolerating his current diet consistency, speech pathology will sign off at this time. If additional concerns arise, please re- consult speech pathology. Assessment Assessment Current Status: Good Progress Treatment Plan Discontinue ST, Goals Met Speech Short Term Goals Short Term Goals Short Term Goals 1. The patient (and staff) will display safe swallowing recommendations with 90% accuracy, independently. Time Frame-STG: Two Days. Speech Intermediate Goals Intermediate Goals 1. The patient will tolerate the least restrictive diet consistency without s/s of suspected aspiration for swallowing safety and to meet nutritional needs. Time Frame: Five Days. Speech-Plan Treatment Plan Speech Therapy Treatment Plan: Discontinue ST Treatment Duration: Jun 17, 2023 Frequency: 2 times per week Estimated Hrs Per Day: .25 hour per day Rehab Potential: Fair Pt/Family Agrees to Plan: Yes Safety Risks/Education Teaching Recipient: Patient Teaching Methods: Discussion Response to Teaching: Reinforcement Needed Education Topics Provided: Safe Swallowing Strategies, Recommendations. Time Speech Therapy Time In: 10:20 Speech Therapy Time Out: 10:30 DATE: Jun 17, 2023 Total Billed Time: 10 Billed Treatment Time 1, GIULIA MENDOZA Jun 17, 2023 11:01
[2023-06-17 11:47] VITALS: BP 160/82
--- NOTE | 2023-06-17 12:11 | Progress Note - Hospitalist ---
Subjective HPI/CC On Admission Date Seen by Provider: Jun 17, 2023 Paula Baptiste is an 88 year old male with PMH HTN, HLD, BPH, TIA, who presented after being found unresponsive. He is visiting his son for the holidays. He lives in [place] and lives independently. He had been in his usual state of health prior. His son said he had no complaints. He was found unresponsive on the side of his bed this morning. He is not diabetic. His blood sugar was normal upon EMS arrival. There was concern for stroke because he was not withdrawing from pain on the right. He required intubation for airway protection due to his low GCS. His son and daughter in law are present and state that he is DNR. We discussed his plan of care and poor prognosis. Subjective/Events-last exam Pt reports doing ok. Pain ok. Already up with PT this morning and in chair. No new complaints. Focused Exam Time of Focused Exam: 11:00 Objective Exam Vital Signs Vital Signs Date Time Temp Pulse Resp B/P (MAP) Pulse Ox O2 Delivery O2 Flow Rate FiO2 06/17/23 11:47 36.2 83 16 160/82 (108) 91 Nasal Cannula 1.00 06/13/23 16:22 28 Capillary Refill : Less Than 3 SecondsLess Than 3 Seconds General Appearance: No Apparent Distress, Chronically ill Respiratory: Lungs Clear, No Respiratory Distress Cardiovascular: Regular Rate, Rhythm, No Murmur Gastrointestinal: Normal Bowel Sounds, Soft Neurologic/Psychiatric: Alert, Oriented x3 Results/Procedures Lab Laboratory Tests 06/17/23 05:13 Patient resulted labs reviewed. Imaging: Reviewed Imaging Films, Reviewed Imaging Report Assessment/Plan Assessment and Plan Assess & Plan/Chief Complaint Left hip fracture-POA POD #2 Ortho consulted, appreciate recs SW consulted PT/OT IRF eval- accepted for tomorrow Septic shock, resolved Multifocal pneumonia COVID-19, resolved Acute respiratory failure with hypoxia Endotracheally intubated KAYLA NSTEMI Lactic acidosis Advanced age Poor prognosis Goals of care discussion IV antibiotics Cardiology following, appreciate recs ASA Decreases to ppx lovenox Critical Care Critically Ill Patient Clinical Quality Measures Stroke: Date of last known well: Jun 11, 2023 Time of last known well: 09:15 Symptoms onset unknown: No MAIKEL CHENG MD Jun 17, 2023 12:11
--- NOTE | 2023-06-17 14:27 | Physical Therapy Daily Note ---
PT Daily Note-Current Subjective Patient sitting chair upon PT arrival, agreeable to treatment. Patient rates pain at 5/10 prior to treatment. Pain Section J - Health Conditions 1. Rarely or not at all 2. Occasionally 3. Frequently 4. Almost constantly 8. Unable to answer Pain Effect on Sleep: 1 Pain Interference with Therapy: 1 Pain Interference w/Day-to-Day: 1 Transfers SCALE: Activities may be completed with or without assistive devices. 1-Afmuouqmzs-rdyhgey completes the activity by him/herself with no assistance from a helper. 5-Set-up or Clean-up Assistance-helper sets up or cleans up; patient completes activity. [place] assists only prior to or following the activity. 4-Supervision or Touching Assistance-helper provides verbal cues and/or touching/steadying and/or contact guard assistance as patient completes activity. Assistance may be provided throughout the activity or intermittently. 3-Partial/Moderate Assistance-helper does LESS THAN HALF the effort. [place] lifts, holds or supports trunk or limbs, but provides less than half the effort. 2-Substantial/Maximal Assistance-helper does MORE THAN HALF the effort. [place] lifts or holds trunk or limbs and provides more than half the effort. 7-Iaqavwztb-vdcfys does ALL the effort. Patient does none of the effort to complete the activity. Or, the assistance of 2 or more helpers is required for the patient to complete the activity. If activity was not attempted, code reason: 7-Patient Refused. 9-Not Applicable-not attempted and the patient did not perform the activity before the current illness, exacerbation or injury. 10-Not Attempted due to Environmental Limitations-(lack of equipment, weather restraints, etc.). 88-Not Attempted due to Medical Conditions or Safety Concerns. Roll Left & Right (QC): 2 Sit to Lying (QC): 2 Lying to Sitting/Side of Bed(Q: 2 Sit to Stand (QC): 2 Chair/Kdi-we-Npurw Xfer(QC): 2 Weight Bearing Right Lower Extremity: Right Full Weight Bearing Left Lower Extremity: Left Weight Bearing/Tolerated Posterior Hip Dislocation Precautions Gait Training Does the Patient Walk?: No and Walking Goal IS indicated Assessment Current Status: Fair Progress Patient tolerates treatment better this date, however is still significantly limited. Patient performs all transfers and bed mobility with max A. Patient performs sit to stand with max A and is able to stand ~ 1 minute with FWW and max A. Patient requires max A with SPT to return to bed. Patient in bed post treatment with all needs met, nursing notified call light in hand, son in the room. PT Drywall Application Supervisor Goals Drywall Application Supervisor Goals Roll Left & Right (QC): 4 Sit to Lying (QC): 4 Lying-Sitting on Side/Bed(QC): 4 Sit to Stand (QC): 4 Chair/Bod-nz-Mhtan Xfer(QC): 4 Toilet Transfer (QC): 4 Does the Patient Walk: Yes Walk 10 feet (QC): 3 Walk 50ft with 2 Turns (QC): 3 Walk 150 ft (QC): 3 PT Plan Treatment/Plan Treatment Plan: Continue Plan of Care Treatment Plan: Bed Mobility, Education, Functional Activity Kristina, Functional Strength, Group Therapy, Gait, Safety, Therapeutic Exercise, Transfers Treatment Duration: Jul 17, 2023 Frequency: 11 times per week Estimated Hrs Per Day: .25 hour per day Patient and/or Family Agrees t: Yes Safety Risks/Education Patient Education: Transfer Techniques Teaching Recipient: Patient, Family Teaching Methods: Demonstration, Discussion Response to Teaching: Reinforcement Needed Time Time In: 1336 Time Out: 1352 DATE: Jun 17, 2023 Total Billed Treatment Time: 16 Total Billed Treatment Visit, LINDA ROSS PT Jun 17, 2023 14:27
[2023-06-17] MEDS ORDERED: ENOXAPARIN 40 MG/0.4 ML SYRINGE SQ SCH (15:00)
[2023-06-17 15:30] VITALS: BP 161/77
[2023-06-17 19:28] VITALS: BP 157/68
[2023-06-18 00:12] VITALS: BP 159/76
[2023-06-18 03:12] VITALS: BP 155/78
[2023-06-18] MEDS: inSUlin ASPART 1 UNIT/0.01 ML (PER UNIT) SC SCH (04:46)
[2023-06-18 05:53] LABS: BASOPHILS % (AUTO) 0 % (0-10); EOSINOPHILS # (AUTO) 0.9 10^3/uL (0.0-0.3); EOSINOPHILS % (AUTO) 12 % (0-10); HEMATOCRIT 27 % (40-54); HEMOGLOBIN 8.9 g/dL (13.3-17.7); LYMPHOCYTES # (AUTO) 1.3 10^3/uL (1.0-4.0); LYMPHOCYTES % (AUTO) 17 % (12-44); MEAN CORPUSCULAR HEMOGLOBIN 31 pg (25-34); MEAN CORPUSCULAR HGB CONC 33 g/dL (32-36); MEAN CORPUSCULAR VOLUME 95 fL (80-99); MEAN PLATELET VOLUME 9.2 fL (9.0-12.2); MONOCYTES # (AUTO) 0.5 10^3/uL (0.0-1.0); MONOCYTES % (AUTO) 6 % (0-12); NEUTROPHILS % (AUTO) 64 % (42-75); PLATELET COUNT 157 10^3/uL (130-400); WHITE BLOOD COUNT 7.8 10^3/uL (4.3-11.0)
[2023-06-18 06:00] LABS: ALBUMIN 2.1 GM/DL (3.2-4.5); POTASSIUM 3.9 MMOL/L (3.6-5.0)
[2023-06-18 06:01] LABS: CALCIUM 7.6 MG/DL (8.5-10.1)
[2023-06-18 06:02] LABS: TOTAL PROTEIN 4.5 GM/DL (6.4-8.2)
[2023-06-18 06:04] LABS: BILIRUBIN,TOTAL 0.5 MG/DL (0.1-1.0)
[2023-06-18 06:06] LABS: CREATININE SERUM 0.86 MG/DL (0.60-1.30); PHOSPHORUS 2.5 MG/DL (2.3-4.7)
[2023-06-18] MEDS: MAGNESIUM 1 GM/100 ML IVPB 100 ML IV SCH (06:18)
[2023-06-18] MEDS: POTASSIUM CL 10MEQ/50ML IVPB 50 ML IV SCH (06:18)
[2023-06-18] MEDS: POTASSIUM CHLORIDE 20 MEQ TABLET PO SCH (06:21)
[2023-06-18 07:33] VITALS: BP 157/72
[2023-06-18] MEDS: ASPIRIN enteric coated 81MG TABLET PO SCH (08:43)
[2023-06-18] MEDS: PANTOPRAZOLE 40 MG TABLET PO SCH (08:43)
[2023-06-18] MEDS ORDERED: POTASSIUM CHLORIDE 20 MEQ TABLET PO ONE (09:00)
[2023-06-18 10:26] VITALS: BP 157/72
--- NOTE | 2023-06-18 10:33 | Progress Note - Cardiology ---
Cardiology SOAP Progress Note Objective: I&O/Vital Signs 06/18/23 06/18/23 06/18/23 06/18/23 00:12 00:23 03:12 07:00 Temp 36.4 36.6 Pulse 75 73 70 67 Resp 18 18 B/P (MAP) 159/76 (103) 155/78 (103) Pulse Ox 95 94 O2 Delivery Nasal Cannula Nasal Cannula O2 Flow Rate 1.00 1.00 1.00 1.00 06/18/23 06/18/23 07:33 08:14 Temp 36.8 Pulse 75 Resp 18 B/P (MAP) 157/72 (100) Pulse Ox 95 O2 Delivery Nasal Cannula Nasal Cannula O2 Flow Rate 1.00 1.00 06/17/23 23:59 Intake Total 1400 ml Output Total 675 ml Balance 725 ml Skin: normal color, warm/dry Results/Procedures: Labs Laboratory Tests 06/17/23 10:52: Glucometer 114H 06/17/23 15:30: Glucometer 108 06/17/23 20:19: Glucometer 119H 06/18/23 04:43: Glucometer 107 06/18/23 05:30: White Blood Count 7.8, Red Blood Count 2.87L, Hemoglobin 8.9L, Hematocrit 27L, M abigail Corpuscular Volume 95, Mean Corpuscular Hemoglobin 31, Mean Corpuscular Hemoglobin Concent 33, Red Cell Distribution Width 13.8, Platelet Count 157, Mean Platelet Volume 9.2, Immature Granulocyte % (Auto) 1, Neutrophils (%) (Auto) 64, Lymphocytes (%) (Auto) 17, Monocytes (%) (Auto) 6, Eosinophils (%) (Auto) 12H, Basophils (%) (Auto) 0, Neutrophils # (Auto) 5.0, Lymphocytes # (Auto) 1.3, Monocytes # (Auto) 0.5, Eosinophils # (Auto) 0.9H, Basophils # ( Auto) 0.0, Immature Granulocyte # (Auto) 0.1, Sodium Level 139, Potassium Level 3.9, Chloride Level 111H, Carbon Dioxide Level 23, Anion Gap 5, Blood Urea Nitrogen 30H, Creatinine 0.86, Estimat Glomerular Filtration Rate 83, BUN/Creatinine Ratio 35, Glucose Level 112H, Calcium Level 7.6L, Corrected Calcium 9.1, Phosphorus Level 2.5, Magnesium Level 2.0, Total Bilirubin 0.5, Aspartate Amino Transf (AST/SGOT) 18, Alanine Aminotransferase (ALT/SGPT) 19, Alkaline Phosphatase 69, Total Protein 4.5L, Albumin 2.1L Microbiology 06/15/23 MRSA Screen - Final, Complete MRSA not isolated 06/11/23 Blood Culture - Final, Complete Laboratory Tests 06/17/23 05:13 06/18/23 05:30 Procedures NAME: ERLIN GALEAS [facility] REC#: [id number] PT STATUS: ADM IN : 1935 PHYSICIAN: CHLOE GIRON MD ADMIT DATE: 06/11/23 Signed Date of Exam:06/15/23 PELVIS 1 TO 2 VIEWS Indication: Postop left hip. Time of Exam: 6:44 PM Single AP view over the pelvis and bilateral hips demonstrates left hip prosthesis. Alignment appears normal. There are overlying skin mary kate. No acute fracture is identified. Impression: Satisfactory postop left hip. Dictated by: Dictated on workstation # [id number] Dict: 06/15/[id number] Trans: 06/15/231952 CV [id number] Interpreted by: ELDER GARVEY MD Electronically signed by: ELDER GARVEY MD 06/15/231952 A/P: Assessment: Status post acute respiratory failure, pneumonia, COVID-19 Status post hypotensive shock/septic shock Hypertension - home dose of Norvasc restarted per Dr. 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 Scales reviewed BP not well controlled despite addition of home dose Norvasc Start low dose BB Mild anemia - management per medical services Plan is to transfer to IRU later today per medical services Clinical Quality Measures Stroke: Date of last known well: Jun 11, 2023 Time of last known well: 09:15 Symptoms onset unknown: No BAIGREG,SEGUNDO L TRAIN INSPECTOR Jun 18, 2023 10:33
--- NOTE | 2023-06-18 11:45 | Discharge Summary ---
Diagnosis/Chief Complaint Date of Admission Jun 11, 2023 at 11:55 Date of Discharge Jun 18, 2023 at 11:02 Discharge Date: Jun 18, 2023 Admission Diagnosis Septic shock due to pneumonia Primary Care No,Local Physician Discharge Diagnosis (1) Septic shock Status: Acute (2) Multifocal pneumonia Status: Acute (3) COVID-19 Status: Acute (4) Acute respiratory failure with hypoxia Status: Acute (5) Endotracheally intubated Status: Acute (6) NSTEMI (non-ST elevation myocardial infarction) Status: Acute (7) Lactic acidosis (8) Poor prognosis Status: Acute (9) Advanced age Status: Chronic (10) Goals of care, counseling/discussion Status: Acute (11) KAYLA (acute kidney injury) Status: Acute Discharge Summary Discharge Physical Exam Allergies: Coded Allergies: No Known Drug Allergies (Unverified , 06/11/23) Vitals & I&Os Vital Signs Date Time Temp Pulse Resp B/P (MAP) Pulse Ox O2 Delivery O2 Flow Rate FiO2 06/18/23 10:26 36.8 75 18 157/72 95 Nasal Cannula 1.00 06/13/23 16:22 28 General Appearance: No Apparent Distress, Chronically ill Cardiovascular: Regular Rate, Rhythm, No Murmur Neurologic/Psychiatric: Alert, Oriented x3 Hospital Course Patient was admitted to the hospital due to acute hypoxic respiratory failure due to COVID and pneumonia. He was on the ventilator but was able to be quickly liberated from that. He did have an elevated troponin and cardiology was consulted. He was treated with therapeutic Lovenox this was deemed to be a type II AL. After liberation he complained of left hip pain and family did report that he suffered a fall prior to his arrival. X-ray was obtained and showed a left hip fracture. Orthopedic surgery was consulted.He underwent to repair. He did well postoperatively and was seen by physical therapy and Occupational Therapy. He was deemed an appropriate candidate for inpatient rehab and was transferred there in stable improved condition to continue intensive therapies with goals of returning home. Labs (last 24 hrs) Laboratory Tests 06/17/23 15:30: Glucometer 108 06/17/23 20:19: Glucometer 119H 06/18/23 04:43: Glucometer 107 06/18/23 05:30: White Blood Count 7.8, Red Blood Count 2.87L, Hemoglobin 8.9L, Hematocrit 27L, Mean Corpuscular Volume 95, Mean Corpuscular Hemoglobin 31, Mean Corpuscular Hemoglobin Concent 33, Red Cell Distribution Width 13.8, Platelet Count 157, Mean Platelet Volume 9.2, Immature Granulocyte % (Auto) 1, Neutrophils (%) (A uto) 64, Lymphocytes (%) (Auto) 17, Monocytes (%) (Auto) 6, Eosinophils (%) (Auto) 12H, Basophils (%) (Auto) 0, Neutrophils # (Auto) 5.0, Lymphocytes # (Auto) 1.3, Monocytes # (Auto) 0.5, Eosinophils # (Auto) 0.9H, Basophils # (Auto) 0.0, Immature Granulocyte # (Auto) 0.1, Sodium Level 139, Potassium Level 3.9, Chloride Level 111H, Carbon Dioxide Level 23, Anion Gap 5, Blood Urea Nitrogen 30H, Creatinine 0.86, Estimat Glomerular Filtration Rate 83, BUN/Creatinine Ratio 35, Glucose Level 112H, Calcium Level 7.6L, Corrected Calcium 9.1, Phosphorus Level 2.5, Magnesium Level 2.0, Total Bilirubin 0.5, Aspartate Amino Transf (AST/SGOT) 18, Alanine Aminotransferase (ALT/SGPT) 19, Alkaline Phosphatase 69, Total Protein 4.5L, Albumin 2.1L Microbiology 06/15/23 MRSA Screen - Final, Complete MRSA not isolated 06/11/23 Blood Culture - Final, Complete Patient resulted labs reviewed. Pending Labs Laboratory Tests 06/18/23 04:43: Glucometer 107 06/18/23 05:30: White Blood Count 7.8, Red Blood Count 2.87, Hemoglobin 8.9, Hematocrit 27, Mean Corpuscular Volume 95, Mean Corpuscular Hemoglobin 31, Mean Corpuscular Hemoglo bin Concent 33, Red Cell Distribution Width 13.8, Platelet Count 157, Mean Platelet Volume 9.2, Immature Granulocyte % (Auto) 1, Neutrophils (%) (Auto) 64, Lymphocytes (%) (Auto) 17, Monocytes (%) (Auto) 6, Eosinophils (%) (Auto) 12, Basophils (%) (Auto) 0, Neutrophils # (Auto) 5.0, Lymphocytes # (Auto) 1.3, Monocytes # (Auto) 0.5, Eosinophils # (Auto) 0.9, Basophils # (Auto) 0.0, Immature Granulocyte # (Auto) 0.1, Sodium Level 139, Potassium Level 3.9, Chloride Level 111, Carbon Dioxide Level 23, Anion Gap 5, Blood Urea Nitrogen 30, Creatinine 0.86, Estimat Glomerular Filtration Rate 83, BUN/Creatinine Ratio 35, Glucose Level 112, Calcium Level 7.6, Corrected Calcium 9.1, Phosphorus Level 2.5, Magnesium Level 2.0, Total Bilirubin 0.5, Aspartate Amino Transf (AST/SGOT) 18, Alanine Aminotransferase (ALT/SGPT) 19, Alkaline Phosphatase 69, Total Protein 4.5, Albumin 2.1 Imaging: Reviewed Imaging Films, Reviewed Imaging Report Discussion & Recommendations Discharge Planning: >30 minutes discharge planning Discharge Home Medications: Active Scripts Active Reported Omeprazole 20 Mg Tablet.dr 20 Mg PO DAILY Vitamin D3 (Cholecalciferol (Vitamin D3)) 50 Mcg (2000 Unit) Capsule 50 Mcg PO DAILY Iron (Ferrous Sulfate) 325 Mg (65 Mg Iron) Tablet 325 Mg PO DAILY Atorvastatin Calcium 20 Mg Tablet 20 Mg PO DAILY Flomax (Tamsulosin HCl) 0.4 Mg Cap 0.4 Mg PO HS Amlodipine Besylate 5 Mg Tablet 2.5 Mg PO DAILY TAKES OF A 5MG TAB Instructions to patient/family Please see electronic discharge instructions given to patient. Clinical Quality Measures Stroke: Date of last known well: Jun 11, 2023 Time of last known well: 09:15 Symptoms onset unknown: MAIKEL Pardo MD Jun 18, 2023 11:45
--- NOTE | 2023-06-18 17:31 | Progress Note - Cardiology ---
Cardiology SOAP Progress Note Subjective: Gen weakness and malaise Does not report cp or palp or syncope Shortness of breath with exertion Does not report n/v/d Objective: I&O/Vital Signs 06/18/23 06/18/23 06/18/23 06/18/23 07:00 07:33 08:14 10:26 Temp 36.8 36.8 Pulse 67 75 75 Resp 18 18 B/P (MAP) 157/72 (100) 157/72 Pulse Ox 95 95 O2 Delivery Nasal Cannula Nasal Cannula Nasal Cannula O2 Flow Rate 1.00 1.00 1.00 06/17/23 23:59 Intake Total 1400 ml Output Total 675 ml Balance 725 ml Constitutional: AAO x 3, well-developed, well-nourished Respiratory: No accessory muscle use; chest expansion is symmetric, chest is bilaterally symmetric, other (fair air entry, diminished at the bases) Cardiovascular: regular rate-rhythm, S1 and S2, systolic murmur (soft DORYS at card base) Gastrointestional: No tender, No guarding, No rebound; audible bowel sounds Extremities: other (mild ankle edema); No clubbing, No cyanosis Neurologic/Psychiatric: other (moves all limbs equally) Skin: normal color, warm/dry; No rash on exposed areas, No ulcerations on exposed areas Results/Procedures: Labs Laboratory Tests 06/17/23 20:19: Glucometer 119H 06/18/23 04:43: Glucometer 107 06/18/23 05:30: White Blood Count 7.8, Red Blood Count 2.87L, Hemoglobin 8.9L, Hematocrit 27L, Mean Corpuscular Volume 95, Mean Corpuscular Hemoglobin 31, Mean Corpuscular Hemoglobin Concent 33, Red Cell Distribution Width 13.8, Platelet Count 157, Mean Platelet Volume 9.2, Immature Granulocyte % (Auto) 1, Neutrophils (%) (Auto) 64, Lymphocytes (%) (Auto) 17, Monocytes (%) (Auto) 6, Eosinophils (%) (Auto) 12H, Basophils (%) (Auto) 0, Neutrophils # (Auto) 5.0, Lymphocytes # (Au to) 1.3, Monocytes # (Auto) 0.5, Eosinophils # (Auto) 0.9H, Basophils # (Auto) 0.0, Immature Granulocyte # (Auto) 0.1, Sodium Level 139, Potassium Level 3.9, Chloride Level 111H, Carbon Dioxide Level 23, Anion Gap 5, Blood Urea Nitrogen 30H, Creatinine 0.86, Estimat Glomerular Filtration Rate 83, BUN/Creatinine Ratio 35, Glucose Level 112H, Calcium Level 7.6L, Corrected Calcium 9.1, Phosphorus Level 2.5, Magnesium Level 2.0, Total Bilirubin 0.5, Aspartate Amino Transf (AST/SGOT) 18, Alanine Aminotransferase (ALT/SGPT) 19, Alkaline Phosphatase 69, Total Protein 4.5L, Albumin 2.1L Microbiology 06/15/23 MRSA Screen - Final, Complete MRSA not isolated 06/11/23 Blood Culture - Final, Complete A/P: Assessment: Status post acute respiratory failure, pneumonia, COVID-19 Status post hypotensive shock/septic shock Hypertension - home dose of Norvasc restarted per Dr. 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 Scales reviewed BP not well controlled despite addition of home dose Norvasc Start low dose BB Mild anemia - management per medical services Plan is to transfer to IRU later today per medical services Clinical Quality Measures Stroke: Date of last known well: Jun 11, 2023 Time of last known well: 09:15 Symptoms onset unknown: FRANCOISE Mcgill MD FACP FACC CCDS Jun 18, 2023 17:31
[2023-06-18] MEDS ORDERED: meTOprolol TARTRATE (IR) 25 MG TABLET PO SCH (21:00)
== END 2023-06-18 11:02 | DRG 853 ==
LOC: EDUNIT# 09:16 → ER 09:17 → ICU 11:55 → 4TH 06-14 17:42
PROVIDERS: ADMIT Internal Medicine; ATTEND Internal Medicine
PROC: 5A1945Z Respiratory Ventilation, 24-96 Consecutive Hours (ICD-10-PCS; 2023-06-11)
PROC: 0BH17EZ Insertion of Endotracheal Airway into Trachea, Via Natural or Artificial Opening (ICD-10-PCS; 2023-06-11)
PROC: 0SRS019 Replacement of Left Hip Joint, Femoral Surface with Metal Synthetic Substitute, Cemented, Open Approach (ICD-10-PCS; principal; 2023-06-15 16:34)
PROC: 5A0935A Assistance with Respiratory Ventilation, Less than 24 Consecutive Hours, High Flow/Velocity Cannula (ICD-10-PCS; 2023-06-17)
DX: A41.89 Other specified sepsis (principal); G93.41 Metabolic encephalopathy; S72.002A Fracture of unspecified part of neck of left femur, initial encounter for closed fracture; I21.A1 Myocardial infarction type 2; U07.1 COVID-19; J12.82 Pneumonia due to coronavirus disease 2019; R65.21 Severe sepsis with septic shock; J96.01 Acute respiratory failure with hypoxia; N17.9 Acute kidney failure, unspecified; E87.20 Acidosis, unspecified; Z66 Do not resuscitate; I10 Essential (primary) hypertension; E78.5 Hyperlipidemia, unspecified; N40.0 Benign prostatic hyperplasia without lower urinary tract symptoms; I27.20 Pulmonary hypertension, unspecified; I35.0 Nonrheumatic aortic (valve) stenosis; I25.10 Atherosclerotic heart disease of native coronary artery without angina pectoris; Z79.899 Other long term (current) drug therapy; Z86.73 Personal history of transient ischemic attack (TIA), and cerebral infarction without residual deficits; W19.XXXA Unspecified fall, initial encounter; Y92.003 Bedroom of unspecified non-institutional (private) residence as the place of occurrence of the external cause
CPT/HCPCS: 31500; 36415; 36569; 36600; 51702; 70450; 70496; 70498; 71045; 71275; 72170; 73502; 76937; 80048; 80053; 81000; 82550; 82805; 82947; 83605; 83735; 84100; 84478; 84484; 85007; 85025; 85027; 85379; 85610; 85730; 87040; 87070; 87081; 87205; 87449; 87636; 93005; 93041; 93306; 94002; 94003; 94640; 94664; 94799; 96361; 96365; 96375; 99291

== ENCOUNTER 2023-06-18 10:59 | Inpatient (IN) | payer MEDICARE ==
[~2023-06-18] VITALS: Ht 175.3 cm; Wt 70.6 kg
[~2023-06-18 10:59] MED LIST: AMLO-250 PO; ATOR20TA66 PO; CHOL200074 PO; FERR-84 PO; OMEP20TA56 PO; TMSL.4C PO
[2023-06-18] MEDS ORDERED: ONDANSETRON 4 MG ORAL DISSOLVE TABLET PO PRN ×2 (11:45→12:00)
[2023-06-18] MEDS ORDERED: BISACODYL 10 MG SUPPOSITORY PR PRN (11:45)
[2023-06-18] MEDS ORDERED: LACTULOSE SYRUP 10GM/15ML 30ML UDC PO PRN (11:45)
[2023-06-18] MEDS ORDERED: MELATONIN 3 MG TABLET PO PRN (11:45)
[2023-06-18] MEDS ORDERED: LOPERAMIDE 2 MG CAPSULE PO PRN (11:45)
[2023-06-18] MEDS ORDERED: Sodium Phosphate/Sodium Biphosphate ADULT enema PR PRN (11:45)
[2023-06-18] MEDS ORDERED: DOCUSATE SODIUM 100 MG CAPSULE PO PRN (11:45)
[2023-06-18] MEDS ORDERED: guaiFENesin/CODEINE 10ML UDC PO PRN (11:45)
[2023-06-18] MEDS ORDERED: ACETAMINOPHEN 325 MG TABLET PO PRN ×2 (11:45→12:00)
[2023-06-18] MEDS ORDERED: diphenhydrAMINE 25 MG TABLET PO PRN (11:45)
[2023-06-18] MEDS ORDERED: CALCIUM CARBONATE 500 MG CHEW TABLET PO PRN (11:45)
--- NOTE | 2023-06-18 11:51 | PM&R Post Admission Assessment ---
PM&R Date of Visit: Jun 18, 2023 Time of Visit: 11:30 History of Present Illness Chief complaint: Left hip fracture HPI: This is an 88-year-old who does not have a primary care provider who presented to inpatient rehab following a repair of a left hip fracture following an acute hypoxic respiratory failure episode due to COVID and pneumonia requiring ventilator and weaned protocol quickly. The hip fracture was found following extubation and complaints of pain in the left hip. He is requiring significant assistance and will require aggressive therapy in order to return back home. Medical Hospital summary: Patient was admitted to the hospital due to acute hypoxic respiratory failure due to COVID and pneumonia. He was on the ventilator but was able to be quickly liberated from that. He did have an elevated troponin and cardiology was consulted. He was treated with therapeutic Lovenox this was deemed to be a type II ME. After liberation he complained of left hip pain and family did report that he suffered a fall prior to his arrival. X-ray was obtained and showed a left hip fracture. Orthopedic surgery was consulted.He underwent to repair. He did well postoperatively and was seen by physical therapy and Occupational Therapy. He was deemed an appropriate candidate for inpatient rehab and was transferred there in stable improved condition to continue intensive therapies with goals of returning home. Past Pnoefal-Ptrfme-Nioebb Hx Past Med/Social Hx: Reviewed Nursing Past Med/Soc Hx, Reviewed and Corrections made Patient Social History Marrital Status: Employed/Student: retired Alcohol Use: Denies Use Smoking Status: Never a Smoker Past Medical History Currently Using CPAP: No Currently Using BIPAP: No Cardiac: Hypertension Genitourinary: Benign Prostatic Hyperpl Gastrointestinal: Gastroesophageal Reflux Family History No Pertinent Family Hx PM&R Allergy/Meds/Data Review Allergies Coded Allergies: No Known Drug Allergies (Unverified , 06/11/23) Home Medications Scheduled Amlodipine Besylate (Amlodipine Besylate), 2.5 MG PO DAILY, (Reported) Atorvastatin Calcium (Atorvastatin Calcium), 20 MG PO DAILY, (Reported) Cholecalciferol (Vitamin D3) (Vitamin D3), 50 MCG PO DAILY, (Reported) Ferrous Sulfate (Iron), 325 MG PO DAILY, (Reported) Omeprazole (Omeprazole), 20 MG PO DAILY, (Reported) Tamsulosin HCl (Flomax), 0.4 MG PO HS, (Reported) Current Medications Current Medications Reviewed Laboratory Data Reviewed Review of Systems Constitutional: see HPI, malaise, weakness EENTM: no symptoms reported Respiratory: dyspnea on exertion Cardiovascular: no symptoms reported Gastrointestinal: constipation Genitourinary: no symptoms reported Musculoskeletal: back pain, joint pain Skin: no symptoms reported Psychiatric/Neurological: No Symptoms Reported All Other Systems Reviewed Negative Unless Noted: Yes Physical Exam Physical Exam Vital Signs Capillary Refill : Height, Weight, BMI Height: '" Weight: lbs. oz. kg; 25.01 BMI Method: General Appearance: No Apparent Distress, WD/WN, Chronically ill Eyes: Bilateral Eye Normal Inspection, Bilateral Eye PERRL HEENT: PERRL/EOMI, Normal ENT Inspection, Pharynx Normal Neck: Full Range of Motion, Normal Inspection, Non Tender, Supple, Carotid Bruit Respiratory: Chest Non Tender, Lungs Clear, Normal Breath Sounds, No Accessory Muscle Use, No Respiratory Distress Cardiovascular: Regular Rate, Rhythm, No Edema, No Gallop, No JVD, No Murmur, Normal Peripheral Pulses Gastrointestinal: Normal Bowel Sounds, No Organomegaly, No Pulsatile Mass, Non Tender, Soft Back: Normal Inspection, No CVA Tenderness, No Vertebral Tenderness Extremity: Normal Capillary Refill, Normal Inspection, Normal Range of Motion, Non Tender, No Calf Tenderness, No Pedal Edema Neurologic/Psychiatric: Alert, Oriented x3, Normal Mood/Affect, Abnormal Gait, Motor Weakness (Left leg) Skin: Normal Color, Warm/Dry Lymphatic: No Adenopathy PM&R Medical Assessment & Plan REHAB/MEDICAL ASSESSMENT AND PLAN: REHAB IMPAIRMENT GROUP: OrthopedicLeft lower extremity fracture ETIOLOGIC DIAGNOSIS: Status post unilateral hip fracture The comorbidities that impact the patients function and/or functional outcome by: advanced age, recent respiratory failure from COVID and pneumonia, BPH, hypertension, hyperlipidemia, fall risk REHAB PLAN: The patient is being admitted to our comprehensive inpatient rehabilitation facility and can tolerate the intensity of service consisting of at least: 180 minutes of therapy a day, 5 out of 7 days a week Rehab treatment will consist of: PT and OT will focus on regaining function in order to return back to independent living while using assistive devices in order to prevent falls The patient/family has a good understanding of our discharge process and will benefit from an interdisciplinary inpatient rehabilitation program. The patient has potential to make improvement and is in need of at least two of the following multidisciplinary therapies including but not limited to physical, occupational, speech, and prosthetics and orthotics. Additionally the patient will need services from respiratory, nutritional services, wound care, psychology, etc. (Customize this to each patient). Given the patients complex condition and risk of further medical complications, rehabilitation services cannot be safely or effectively provided at a lower level of care such as a [place] [facility] facility. BARRIERS TO DISCHARGE: advanced age and fall risk ESTIMATED LOS: 14 days DISPOSITION: home RELEVANT CHANGES SINCE PREADMISSION SCREENING: I have compared the patients medical and functional status at the time of the preadmission screening and there are: no changes PROGNOSIS: good REHABILITATION GOALS: 1.PT and OT will focus on regaining function in order to return back to independent living while using assistive devices in order to prevent falls All the above goals were reviewed with the patient and he/she is in agreement. By signing this document, I acknowledge that I have personally performed a full physical examination on this patient within 24 hours of admission to this inpatient rehabilitation facility and have determined the patient to be able to tolerate the above course of treatment at an intensive level for a reasonable period of time. I will be completing a detailed individualized Plan of Care for this patient by day #4 of the patients stay based upon the Preadmission Screen, the Post-Admission Evaluation, and the therapy evaluations. Admission Dx/Comorbidities: (1) Closed left hip fracture ICD Codes: S72.002A - Fracture of unspecified part of neck of left femur, initial encounter for closed fracture Assessment/Plan Assessment and Plan Assess & Plan/Chief Complaint Assessment: Left hip fracture status post uncomplicated repair Recent intubation from COVID induced pneumonia respiratory failure Hypertension Hyperlipidemia BPH Szymanski catheter in place NSTEMI due to critical illness Recent sepsis Recent acute kidney injury Plan: Supportive care Aggressive PT and OT Home meds Monitor blood pressure Szymanski catheter management MURIEL FERMIN DO Jun 18, 2023 11:51
[2023-06-18] MEDS ORDERED: fentaNYL INJECTION 100 MCG/2 ML VIAL IVP PRN (12:00)
[2023-06-18] MEDS ORDERED: ACETAMINOPHEN 650 MG SUPPOSITORY PR PRN (12:00)
[2023-06-18] MEDS ORDERED: RT-ALBUTEROL SULF 2.5 MG/3 ML PRE-MIX VIAL INH PRN (12:00)
[2023-06-18] MEDS ORDERED: HYDROcodone/ACETAMINOPHEN 5 MG/325 MG TABLET PO PRN (12:00)
[2023-06-18] MEDS ORDERED: ONDANSETRON INJECTION 4 MG/2 ML (SDV) IV PRN (12:00)
[2023-06-18 12:06] VITALS: BP 166/75
[2023-06-18] MEDS: HYDROcodone/ACETAMINOPHEN 5 MG/325 MG TABLET PO PRN (13:02)
--- NOTE | 2023-06-18 13:44 | Physical Therapy Evaluation ---
PT Evaluation-General Medical Diagnosis Admission Date Jun 18, 2023 at 11:15 Medical Diagnosis: Septic shock, L hip fracture Onset Date: Jun 18, 2023 Therapy Diagnosis Therapy Diagnosis: L hip fx Precautions Precautions/Isolations: Fall Prevention, Standard Precautions Standard posterior hip precautions. Weight Bear Status Right Lower Extremity: Right Weight Bearing/Tolerated Left Lower Extremity: Left Weight Bearing/Tolerated WBAT Referral Reason for Referral: Evaluation/Treatment, Strengthening, Gait, Up in Chair, RO M Medical History Pertinent Medical History: HTN Additional Medical History Septic shock Multifocal pneumonia COVID-19 Acute respiratory failure with hypoxia Endotracheally intubated NSTEMI Lactic acidosis Advanced age KAYLA Social History Home: Single Level Current Living Status: Alone Entry Into Home: Stairs With Railing PT Steps Into Home: 4 Prior Prior Level of Function SCALE: Activities may be completed with or without assistive devices. 8-Qywrrsogtr-[id number] completes the activity by him/herself with no assistance from a helper. 5-Set-up or Clean-up Assistance-helper sets up or cleans up; patient completes activity. [place] assists only prior to or following the activity. 4-Supervision or Touching Assistance-helper provides verbal cues and/or touching/steadying and/or contact guard assistance as patient completes activity. Assistance may be provided throughout the activity or intermittently. 3-Partial/Moderate Assistance-helper does LESS THAN HALF the effort. Hull lifts, holds or supports trunk or limbs, but provides less than half the effort. 2-Substantial/Maximal Assistance-helper does MORE THAN HALF the effort. [place] lifts or holds trunk or limbs and provides more than half the effort. 5-Wwxyflqsa-xhbluv does ALL the effort. Patient does none of the effort to complete the activity. Or, the assistance of 2 or more helpers is required for the patient to complete the activity. If activity was not attempted, code reason: 7-Patient Refused. 9-Not Applicable-not attempted and the patient did not perform the activity before the current illness, exacerbation or injury. 10-Not Attempted due to Environmental Limitations-(lack of equipment, weather restraints, etc.). 88-Not Attempted due to Medical Conditions or Safety Concerns. Bed Mobility: 6 Transfers (B,C,W/C): 6 Gait: 6 Stairs: 6 Wheelchair Mobility: 6 Indoor Mobility (Ambulation): Independent Prior Devices Use: None Prior Device Use: NA Patient previously active and independent, responsive for community activity, lawn work, home management, and driving. PT Evaluation-Current Subjective Patient supine in bed with HOB when PT enters room. Patient rate L hip and low back pain 3-4/10 at rest. Patient unable to recite hip precautions initially, demonstrating variable understanding and receptiveness following education, req freq cues for reciting and adherence. Patient report pain exacerbation of 8/10 with functional activity. Patient states that he feels fatigued following session and demonstrates progressive fatigue with continued activity. Pain Section J - Health Conditions 1. Rarely or not at all 2. Occasionally 3. Frequently 4. Almost constantly 8. Unable to answer Pain Effect on Sleep: 4 Pain Interference with Therapy: 4 Pain Interference w/Day-to-Day: 4 Pt/Family Goals Return home, independent at [facility]. Objective Patient Orientation: Person, Place, Time, Situation ROM/Strength ROM Upper Extremities See OT Eval ROM Lower Extremities Hip/Knee PROM WNL B LLE AROM hip flexion in supine to 30 deg Knee AROM WNL Ankle DF limited to 0 deg Bilatrally Strength Upper Extremities See OT Eval Strength Lower Extremities LLE 3-/5 RLE 3+/5 Transfers Roll Left & Right (QC): 88 Sit to Lying (QC): 2 Lying to Sitting/Side of Bed(Q: 2 Sit to Stand (QC): 2 Chair/Wkq-dw-Pnren Xfer(QC): 1 Toilet Transfer (QC): 1 Car Transfer (QC): 88 Patient participated in functional bed mobility and repositioning practice performing rolling R with maxA (Roll L not performed d/t posterior hip precautions), supine > sit and sit > supine with maxA req assist to LLE. Patient participated in functional transfer practice with use of FWW performing at variable distances and angles from surfaces of variable heights and compliance, req maxA to sit <> stand from level surfaces, and totalA to transition between surfaces with use of FWW as AD. Patient req freq rest breaks and max cues for hand/foot positioning, controlling descent, alignment from surface, sequencing and adherence to precautions. Patient provided with w/c padding to be use in seated surface for skin preservation. Patient participated in functional seated surface repo practice and pressure relief techniques req mod-maxA. Gait Does the Patient Walk?: No and Walking Goal IS indicated Mode of Locomotion: Walk Anticipated Mode of Locomotion: Walk Walk 10 feet (QC): 88 Walk 50 ft with 2 Turns(QC): 88 Walk 150 ft (QC): 88 Walking 10ft/uneven surface-QC: 88 Distance: 1 ft Wheelchair Training Does the Pt Use a Wheelchair?: Yes Distance: 15 Wheel 50 ft with 2 turns (QC): 88 Wheel 150 ft (QC): 88 Type of Wheelchair: Manual Patient tolerate 25ft of w/c with BLE and UE, req SPV and maximum encouragement. Patient unable to tolerate greater distances at this time and demonstrates difficulty in utilization of mobility device at this time. Stairs 1 Step (curb) (QC): 88 4 Steps (QC): 88 12 Steps (QC): 8 No performed due to medical safety Balance Picking up an Object (QC): 88 Special Test Comments KU standing 1+/5 KU seated 3+/5 Treatment NMR: Patient participate in seated and standing, static and dynamic, progressive functional balance challenges focusing on improving functional balance, stability and reactive control. Patient perform bouts of static standing balance with BUE support at FWW focusing on maintaining COG/SELWYN, increasing LLE propriceptive feedback and NM control, and improving reactive balance for reduced fall risk with future dynamic activity, Assessment/Needs Rehab Potential: Good PT Short Term Goals Short Term Goals Time Frame: Jul 02, 2023 Roll Left & Right: 4 Sit to lyin Lying to sitting on side of be: 4 Sit to stand: 4 Chair/zeg-vv-lzuhr transfer: 4 Toilet transfer: 4 Car transfer: 4 Walk 10 feet: 4 Walk 50 feet with two turns: 4 Walk 150 feet: 4 Walking 10ft on uneven surface: 4 1 step (curb): 4 4 steps: 4 12 steps: 9 Picking up objects: 4 Does pt use a wc or scooter: Yes Wheel 50ft w/2 turns: 5 Wheel 150 feet: 5 Type: Manual PT Intermediate Goals [employer] Staff Officer Goals PT [employer] Staff Officer Goals Time Frame: Jul 16, 2023 Roll Left to Right (QC): 6 Sit to Lying (QC): 6 Lying-Sitting on Side/Bed(QC): 6 Sit to Stand (QC): 6 Chair/Vhj-cc-Nelfc Xfer(QC): 6 Toilet/Commode Transfer (QC): 6 Car Transfer (QC): 6 Does the Patient Walk: No and Walking Goal IS indicated Walk 10 feet (QC): 6 Walk 10ft-Uneven Surface(QC): 6 Walk 50ft with 2 Turns (QC): 6 Walk 150 ft (QC): 6 Does the Pt use WC or Scooter?: Yes Wheel 50 feet with 2 turns (QC: 6 Type: Manual Wheel 150 feet: 6 Type: Manual 1 Step (curb) (QC): 6 4 Steps (QC): 6 12 Steps (QC): 9 Picking up an Object (QC): 6 PT Plan Problem List Problem List: Activity Tolerance, Functional Strength, Safety, Balance, Gait, Transfer, Bed Mobility, ROM Treatment/Plan Treatment Plan: Continue Plan of Care Treatment Plan: Bed Mobility, Education, Functional Activity Kristina, Functional Strength, Group Therapy, Gait, Safety, Therapeutic Exercise, Transfers Treatment Duration: Jun 18, 2023 Frequency: At least 5 of 7 days/Wk (IRF) Safety Risks/Education Patient Education: Gait Training, Transfer Techniques, Reviewed Precautions, Correct Positioning, W/C Management, Safety Issues Teaching Recipient: Patient Teaching Methods: Demonstration, Discussion Response to Teaching: Verbalize Understanding, Unable to Return Demonstration Time Time In: 1240 Time Out: 1330 DATE: Jun 18, 2023 Total Billed Treatment Time: 90 Total Billed Treatment 1 session; 90 minutes [id number] Individual/Eval [id number] Co-tx with OT Co-tx performed with OT to maximize patient benefit due to rapid onset of fatigue, resulting in increased level of assist due to impaired tolerance and increased utilization of gross and fine motor movements to promote achievement of maximum functional potential. 1EV 3FA 2NE ARMIN FIGUEROA PT Jun 18, 2023 13:44
--- NOTE | 2023-06-18 14:51 | ST Dysphagia Evaluation ---
Speech Evaluation-General Medical Diagnosis Septic shock, L hip fracture Onset Date: Jun 18, 2023 Therapy Diagnosis Therapy Diagnosis: Intact Oropharyngeal Swallow Function Precautions Precautions: Fall, Pressure Ulcer Precautions/Isolations: Standard Precautions Referral Referring Physician: Iban Reason for Referral: Evaluation/Treatment Medical History Pertinent Medical History: HTN HTN, TIA, HLD, BPH Current History Pt is an 88 year old male, who presented to ER after being found unresponsive. The patient required intubation for airway protection due to his low GCS. The patient was recently extubated (06/11 to 06/14). Social History Home: 3 levels Current Living Status: Alone Speech PLF/Current-Dysphagia Prior Level of Function Pt denies s/s of dysphagia prior to hospitalization and consumes a regular diet and thin liquids. Subjective The patient was lying in bed, awake and alert, upon entrance to his room by the clinician. The patient greeted the clinician appropriately and was agreeable to participation in the clinical bedside swallowing assessment. The patient's head of bed was elevated for safe swallowing position. Cognitive Status Pt is oriented x5 Oral Motor Skills Denture Type: Full- Upper, Partial- Lower Current Food Consistancy: Regular, Thin Liquids Ability to Follow Directions: Good Oral Expression Ability: No Impairment Voice Voice Phonatory-Based Quality: Normal Voice Pitch: Normal Voice Loudness: Normal Face Facial Symmetry: Symmetrical Oral-Facial Assessment Oral-Facial Dentition: Normal Labial Seal Description: Normal Smile: Normal Lingual Protrusion: Normal Lingual ROM: Normal Lingual Strength: Normal Voluntary Cough: Yes Can Clear Throat Volitionally: Yes Dysphagia Evaluation Consistencies Presented: Regular, Thin Liquid Dietary Recommendations: Regular Liquid Recommendations: Thin Swallowing Precautions: Sitting Upright 90 Degrees Dysphagia Evaluation Summary Pt was presented with 3oz of water and a dry solid consistency food. Pt passes 3oz water test. Pt demonstrates good mastication and bolus control of dry solid consistency, and swallows in a timely manner. Pt does not demonstrate any s/s of dysphagia during bedside swallow evaluation. Pt's vocal quality consistently remained clear following each swallow. At this time, pt's swallow appears to be WFL. If this were to change, SALAD BAR CLERK would reevaluate pt. Speech-Plan Patient/Family Goals Patient/Family Goals: To return home to [place] Treatment Plan Speech Therapy Treatment Plan: Discontinue ST At this time, pt's swallow appears to be WFL. If this were to change, SALAD BAR CLERK would reevaluate pt. Treatment Duration: Jun 18, 2023 Frequency: 1 time per week Estimated Hrs Per Day: Other (At this time, pt's swallow appears to be WFL. If this were to change, SALAD BAR CLERK would reevaluate pt. ) Rehab Potential: Good Pt/Family Agrees to Plan: Yes Discharge Recommendations At this time, pt's swallow appears to be WFL. If this were to change, SALAD BAR CLERK would reevaluate pt. Time Speech Therapy Time In: 14:30 Speech Therapy Time Out: 15:00 DATE: Jun 18, 2023 Total Billed Time: 30 Billed Treatment Time 1 DYSEVS 30 min Lisbeth Morales Jun 18, 2023 14:51
--- NOTE | 2023-06-18 14:52 | Occupational Therapy Eval ---
OT Evaluation-General/PLF Medical Diagnosis Admission Date Jun 18, 2023 at 11:15 Medical Diagnosis: Septic shock, L hip fracture Onset Date: Jun 18, 2023 Therapy Diagnosis Therapy Diagnosis: decreased ADL status, weakness Precautions Precautions/Isolations: Fall Prevention, Standard Precautions Comments L hip precautions Weight Bear Status Weight Bearing Restriction: Weight Bearing/Tolerated Referral Physician: Iban Lorenz Reason: Evaluation/Treatment Medical History Pertinent Medical History: HTN Additional Medical History HTN, HLD, BPH, TIA Current History 06/11/23 found unresponsive while visiting son for holidays requiring intubation to protect airway. Extubated 06/13, c/o hip pain. Xray revealed subcapital fracture involving neck of proximal L femur, s/p L bipolar hip 06/15. Pt admitted to ARU 06/18/23 Social History Home: Single Level Current Living Status: Alone Entry Into Home: Stairs With Railing Steps Into Home: 4 Steps Inside Home: 13 ADL-Prior Level of Function SCALE: Activities may be completed with or without assistive devices. 9-Pshrxisapg-nyggror completes the activity by him/herself with no assistance from a helper. 5-Set-up or Clean-up Assistance-helper sets up or cleans up; patient completes activity. [place] assists only prior to or following the activity. 4-Supervision or Touching Assistance-helper provides verbal cues and/or touching/steadying and/or contact guard assistance as patient completes activity. Assistance may be provided throughout the activity or intermittently. 3-Partial/Moderate Assistance-helper does LESS THAN HALF the effort. [place] lifts, holds or supports trunk or limbs, but provides less than half the effort. 2-Substantial/Maximal Assistance-helper does MORE THAN HALF the effort. [place] lifts or holds trunk or limbs and provides more than half the effort. 6-Ccsjdqbjg-ibscvp does ALL the effort. Patient does none of the effort to complete the activity. Or, the assistance of 2 or more helpers is required for the patient to complete the activity. If activity was not attempted, code reason: 7-Patient Refused. 9-Not Applicable-not attempted and the patient did not perform the activity before the current illness, exacerbation or injury. 10-Not Attempted due to Environmental Limitations-(lack of equipment, weather restraints, etc.). 88-Not Attempted due to Medical Conditions or Safety Concerns. ADL PLOF Comments Pt reports IND with ADLs and functional mobility. He has been using a cane for about a month. He has a mutlilevel house with an upstairs and a basement. He doesn't have to go upstairs, but his only working shower is in the basement. The shower is a walk in shower, no SC. Self Care: Independent Functional Cognition: Independent DME/Equipment: Shower OT Current Status Subjective Pt agreeable to OT evaluation Mental Status/Objective Patient Orientation: Normal For Age Attachments: Szymanski Catheter Current Glasses/Contacts: Yes Hearing Aids: No Dentures/Partials: Yes Hand Dominance: Right Upper Extremity ROM WFL, BUE shoulder flexion to approx 150 degrees Upper Extremity Coordination WFL Upper Extremity Sensation WFL Upper Extremity Strength grossly 3+/5 ADL-Treatment Eating (QC): 5 Oral Hygiene (QC): 4 Shower/Bathe Self (QC): 1 (Assist x2) Upper Body Dressing (QC): 3 (Min A with orientation of shirt in order to thread overhead) Lower Body Dressing (QC): 1 (Assist x2) On/Off Footwear (QC): 1 Toileting Hygiene (QC): 1 (assist x2) Other Treatments OT evaluation complete. [id number] OT/PT cotreat due to skill of 2 clinicians required which a rehab nursing tech could not perform in order to coordinate UE/LEs, decrease fall risk, and due to pt's limitations in strength, activity tolerance, mobility, and transfers. OT focused on UE placement, cues for sequencing and safety and ADLs, PT focused on LE placement, gross overall movement, transfers and mobility. Pt completed dressing and ADL tasks as outlined above. Pt performed w/c mobility in [facility] for UE/LE placement, increased time required. Pt completed x5 sit to/from stand with MAX A. Pt attempted to take steps, but had difficulty advancing LEs. w/c cushion placed in pt's w/c in order to elevate seat height. [id number] OT tx, OT assisted pt back to room via w/c, Sit to stand from w/c with max A, assist x2 to transfer to EOB, assist x2 supine. Post tx, pt in bed, call light in reach and all needs met. RN present. Education OT Patient Education: Correct positioning, Energy conservation, Modified ADL techniques, Progress toward Goal/Update tx plan, Purpose of tx/functional activities, Rehab process Teaching Recipient: Patient Teaching Methods: Discussion Response to Teaching: Verbalize Understanding BIMS CAM BIMS Expression of Ideas and Wants: Without Difficulty Understanding Verbal Content: Understands Brief Interview/Mental Status: Yes IRF [place] BIMS: IRF [place] BIMS Response (Comments) Value Repitition of Three Words Three 3 Recalls Socks Yes, After Cueing (Wear) 1 Recalls Blue No, Could Not Recall 0 Recalls Bed Yes, After Cueing 1 Year Correct 3 Month Accurate Within 5 Days 2 Day Incorrect or No Answer 0 Total 10 Patient Normally Able to Recal: Current Session, That he/she in a hsp Should Staff Asses. Mental St.: No Memory/Recall Ability: Current Season, That He[facility]She in [facility] Mental Status Change/Baseline: 0 Inattention: 0 Disorganized thinkin Altered level of consciousness: 0 OT Short Term Goals Short Term Goals Time Frame: Jun 30, 2023 Toileting hygiene: 4 Shower/bathe self: 4 Upper body dressin Lower body dressin OT Snf Goals Cable Cutter And Swager Goals Time Frame: Jul 09, 2023 Eating (QC): 6 Oral Hygiene (QC): 6 Toileting Hygiene (QC): 6 Shower/Bathe Self (QC): 5 Upper Body Dressing (QC): 6 Lower Body Dressing (QC): 6 On/Off Footwear (QC): 6 Additional Goals: 1-Demonstrate ADL Tasks, 2-Verbalize Understanding, 3-ImproveStrength/Kristina 1=Demonstrate adherence to instructed precautions during ADL tasks. 2=Patient will verbalize/demonstrate understanding of assistive devices/modifications for ADL. 3=Patient will improve strength/tolerance for activity to enable patient to perform ADL's. OT Education/Plan Problem List/Assessment Assessment: Decreased Activ Tolerance, Decreased UE Strength, Impaired Funct Balance, Impaired I ADL's, Impaired Self-Care Skills Discharge Recommendations Plan/Recommendations: Continue POC Treatment Plan/Plan of Care Patient would benefit from OT for education, treatment and training to promote independence in ADL's, mobility, safety and/or upper extremity function for ADL's. Plan of Care: ADL Retraining, Functional Mobility, Group Exercise/Act as Ind, UE Funct Exercise/Act Treatment Duration: Jul 09, 2023 Frequency: At least 5 of 7 days/Wk (IRF) Estimated Hrs Per Day: 1.5 hours per day Agreement: Yes Rehab Potential: Good Time Start Time: 13:30 Stop Time: 14:30 DATE: Jun 18, 2023 Total Time Billed (hr/min): 60 Billed Treatment Time 3881-4612 OT eval. [id number] cotreat, [id number] OT tx 1, EVM (15'), ADL (15'), FA 2 (30') TERRI CASTANEDA OT Jun 18, 2023 14:52
[2023-06-18] MEDS: ENOXAPARIN 40 MG/0.4 ML SYRINGE SQ SCH (15:05)
[2023-06-18] MEDS: inSUlin ASPART 1 UNIT/0.01 ML (PER UNIT) SC SCH ×2 (15:47→20:21)
[2023-06-18 20:19] VITALS: BP 147/69
[2023-06-18] MEDS: meTOprolol TARTRATE (IR) 25 MG TABLET PO SCH (20:50)
[2023-06-18] MEDS: DOCUSATE SODIUM 100 MG CAPSULE PO SCH (20:50)
[2023-06-18] MEDS: SENNA W/DOCUSATE TABLET PO SCH (20:50)
[2023-06-19] MEDS: inSUlin ASPART 1 UNIT/0.01 ML (PER UNIT) SC SCH ×3 (05:35→15:31)
[2023-06-19 06:27] LABS: BASOPHILS % (AUTO) 0 % (0-10); EOSINOPHILS # (AUTO) 0.8 10^3/uL (0.0-0.3); EOSINOPHILS % (AUTO) 11 % (0-10); HEMATOCRIT 26 % (40-54); HEMOGLOBIN 8.5 g/dL (13.3-17.7); LYMPHOCYTES # (AUTO) 1.5 10^3/uL (1.0-4.0); LYMPHOCYTES % (AUTO) 21 % (12-44); MEAN CORPUSCULAR HEMOGLOBIN 31 pg (25-34); MEAN CORPUSCULAR HGB CONC 33 g/dL (32-36); MEAN CORPUSCULAR VOLUME 95 fL (80-99); MEAN PLATELET VOLUME 9.2 fL (9.0-12.2); MONOCYTES # (AUTO) 0.6 10^3/uL (0.0-1.0); MONOCYTES % (AUTO) 8 % (0-12); NEUTROPHILS # (AUTO) 4.2 10^3/uL (1.8-7.8); NEUTROPHILS % (AUTO) 59 % (42-75); PLATELET COUNT 191 10^3/uL (130-400); WHITE BLOOD COUNT 7.1 10^3/uL (4.3-11.0)
[2023-06-19 06:39] LABS: ALBUMIN 2.1 GM/DL (3.2-4.5)
[2023-06-19 06:40] LABS: CALCIUM 8.1 MG/DL (8.5-10.1)
[2023-06-19 06:42] LABS: TOTAL PROTEIN 4.5 GM/DL (6.4-8.2)
[2023-06-19 06:43] LABS: BILIRUBIN,TOTAL 0.4 MG/DL (0.1-1.0)
[2023-06-19 06:45] LABS: CREATININE SERUM 0.82 MG/DL (0.60-1.30)
--- NOTE | 2023-06-19 06:54 | PM&R Progress Note ---
Subjective HPI/CC On Admission Date Seen by Provider: Jun 19, 2023 Time Seen by Provider: 11:30 Subjective/Events-last exam 06/19/2023: Patient much improved Still very weak Szymanski catheter in place will DC on Wednesday Patient has BPH history Reviewed meds and labs Hemoglobin stable but checking iron and B12 Review of Systems General: Fatigue, Malaise Musculoskeletal: leg pain Objective Exam Vital Signs Vital Signs Date Time Temp Pulse Resp B/P (MAP) Pulse Ox O2 Delivery O2 Flow Rate FiO2 06/19/23 08:00 36.5 85 18 141/64 (89) 91 Room Air 06/18/23 14:43 1.00 Capillary Refill : General Appearance: No Apparent Distress, WD/WN, Chronically ill HEENT: PERRL/EOMI, Normal ENT Inspection, Pharynx Normal Neck: Full Range of Motion, Normal Inspection, Non Tender, Supple, Carotid Bruit Respiratory: Chest Non Tender, Lungs Clear, Normal Breath Sounds, No Accessory Muscle Use, No Respiratory Distress Cardiovascular: Regular Rate, Rhythm, No Edema, No Gallop, No JVD, No Murmur, Normal Peripheral Pulses Gastrointestinal: Normal Bowel Sounds, No Organomegaly, No Pulsatile Mass, Non Tender, Soft Back: Normal Inspection, No CVA Tenderness, No Vertebral Tenderness Extremity: Normal Capillary Refill, Normal Inspection, Normal Range of Motion, Non Tender, No Calf Tenderness, No Pedal Edema Neurologic/Psychiatric: Alert, Oriented x3, Normal Mood/Affect, Abnormal Gait, Motor Weakness (Left leg) Skin: Normal Color, Warm/Dry Lymphatic: No Adenopathy Results/Procedures Lab Laboratory Tests 06/19/23 06:05 Patient resulted labs reviewed. FIM Transfers Therapy Code Descriptions/Definitions Functional [place] Measure: 0=Not Assessed/NA 4=Minimal Assistance 1=Total Assistance 5=Supervision or Setup 2=Maximal Assistance 6=Modified [place] 3=Moderate Assistance 7=Complete IndependenceSCALE: Activities may be completed with or without assistive devices. 4-Wfuvxbmygp-pchyvnz completes the activity by him/herself with no assistance from a helper. 5-Set-up or Clean-up Assistance-helper sets up or cleans up; patient completes activity. [place] assists only prior to or following the activity. 4-Supervision or Touching Assistance-helper provides verbal cues and/or touching/steadying and/or contact guard assistance as patient completes activity. Assistance may be provided throughout the activity or intermittently. 3-Partial/Moderate Assistance-helper does LESS THAN HALF the effort. [place] lifts, holds or supports trunk or limbs, but provides less than half the effort. 2-Substantial/Maximal Assistance-helper does MORE THAN HALF the effort. [place] l ifts or holds trunk or limbs and provides more than half the effort. 4-Rtohwkiog-nmqrhp does ALL the effort. Patient does none of the effort to complete the activity. Or, the assistance of 2 or more helpers is required for the patient to complete the activity. If activity was not attempted, code reason: 7-Patient Refused. 9-Not Applicable-not attempted and the patient did not perform the activity before the current illness, exacerbation or injury. 10-Not Attempted due to Environmental Limitations-(lack of equipment, weather restraints, etc.). 88-Not Attempted due to Medical Conditions or Safety Concerns. Roll Left to Right (QC): 88 Sit to Lying (QC): 2 Sit to Stand (QC): 2 Chair/Qcw-xz-Fxlhi Xfer(QC): 1 Car Transfer (QC): 88 Gait Training Does the Patient Walk?: No and Walking Goal IS indicated Walk 10 feet (QC): 88 Walk 50 ft with 2 Turns(QC): 88 Walk 150 ft (QC): 88 Walking 10ft/uneven surface-QC: 88 Wheelchair Training Does the Pt Use a Wheelchair?: Yes Distance: 15 Wheel 50 ft with 2 turns (QC): 88 Wheel 150 ft (QC): 88 Type of Wheelchair: Manual Stair Training 1 Step (curb) (QC): 88 4 Steps (QC): 88 12 Steps (QC): 8 Balance Picking up an Object (QC): 88 ADL-Treatment Eating (QC): 5 Oral Hygiene (QC): 4 Shower/Bathe Self (QC): 1 (Assist x2) Upper Body Dressing (QC): 3 (Min A with orientation of shirt in order to thread overhead) Lower Body Dressing (QC): 1 (Assist x2) On/Off Footwear (QC): 1 Toileting Hygiene (QC): 1 (assist x2) Assessment/Plan Assessment and Plan Assess & Plan/Chief Complaint Assessment: Left hip fracture status post uncomplicated repair Recent intubation from COVID induced pneumonia respiratory failure Hypertension Hyperlipidemia BPH Szymanski catheter in place NSTEMI due to critical illness Recent sepsis Recent acute kidney injury Plan: Supportive care Aggressive PT and OT Home meds Monitor blood pressure Szymanski catheter management 06/19/2023: Await B12 and iron level DC Accu-Cheheather (1) Closed left hip fracture MURIEL FERMIN DO Jun 19, 2023 06:54
--- NOTE | 2023-06-19 06:55 | Individualized Plan of Care ---
Individualized Plan of Care Rehab Nursing IPOC Order Admission Date Jun 18, 2023 at 11:15 Current Orders Orders Admission Arrival Bed Request (06/18/23 11:12) Admission Order(Inpt,Obs,Sdc) (06/18/23 11:45) Vital Signs: Per Unit Policy ( 08,16,00 (06/18/23 11:45) Dwayne Scanlon 09,21 (06/18/23 11:45) Sequential Compression Device Q12HX1 (06/18/23 11:45) Peanut Blancher-Inpt Rehab Con (06/18/23 11:45) Rehab Nursing Orders-Ipoc (06/18/23 11:45) Physical Therapy Rehab Orders (06/18/23 11:45) Occupational Therapy Rehab Ord (06/18/23 11:45) Speech Therapy Rehab Orders (06/18/23 11:45) Cbc And Automated Diff (06/19/23 06:00) Comprehensive Metabolic Panel (06/19/23 06:00) Precautions (Aru) (06/18/23 11:45) Weekly Weight WEEK (06/18/23 11:45) Rehab-Intensity Of Therapy (06/18/23 11:45) Initiate Admission Nursing Pro .admission (06/18/23 11:45) Calcium Carbonate Chew Tablet (Calcium C (06/18/23 11:45) Diphenhydramine Tablet (Diphenhydramine (06/18/23 11:45) Docusate Sodium Capsule (Docusate Sodium (06/18/23 21:00) Docusate Sodium Capsule (Docusate Sodium (06/18/23 11:45) Bisacodyl Suppository (Bisacodyl Supposi (06/18/23 11:45) Lactulose Oral Solution (Enulose Oral So (06/18/23 11:45) Na Phos/Na Biphos Adult Enema (Na Phos/N (06/18/23 11:45) Guaifenesin/Codeine Syrup (Guaifenesin/C (06/18/23 11:45) Loperamide Capsule (Loperamide Capsule) (06/18/23 11:45) Melatonin Tablet (Melatonin Tablet) (06/18/23 11:45) Polyethylene Glycol Powder (Polyethylen (06/18/23 21:00) Ondansetron Oral Dissolve Tab (Ondanset (06/18/23 11:45) Senna W/Docusate Tablet (Senna W/Docusat (06/18/23 21:00) Acetaminophen Tablet (Acetaminophen Ta (06/18/23 11:45) Initiate Admission Nursing Pro .admission (06/18/23 11:45) Code/Resuscitation (06/18/23 11:49) Dressing Order (Intervention) DAILY (06/18/23 11:49) Incentive Spirometry (Nursing) Q2H (06/18/23 11:49) Sequential Compression Device Q12HX1 (06/18/23 11:49) Weight Bearing As Tolerated (06/18/23 11:49) Acetaminophen Tablet (Acetaminophen Ta (06/18/23 12:00) Acetaminophen Suppository (Acetaminophen (06/18/23 12:00) Albuterol Pre-Mix Nebs (Rt) (Albuterol (06/18/23 12:00) Aspirin Enteric Coated Tablet (Ecotrin T (06/19/23 09:00) Enoxaparin Injection (Enoxaparin Injecti (06/18/23 15:00) Hydrocodone/Apap 5/325 Tablet (Hydrocod (06/18/23 12:00) Pantoprazole Tablet (Pantoprazole Tablet (06/19/23 09:00) Ondansetron Injection (Ondansetron Inj (06/18/23 12:00) Ondansetron Oral Dissolve Tab (Ondanset (06/18/23 12:00) Amlodipine Tablet (Amlodipine Tablet) (06/19/23 09:00) Fentanyl Injection (Fentanyl Injection (06/18/23 12:00) Insulin Aspart (Per Unit) (Insulin Aspar (06/18/23 16:00) Metoprolol Tartrate (Ir) Tab (06/18/23 21:00) Consult Orthopedic Surgery (06/18/23 11:49) Incentive Spirometry Initial (06/18/23 11:49) Mat Initiate Protocol (06/18/23 11:49) Svn Small Volume Nebulizer (06/18/23 11:49) Incentive Spirometry (Nursing) Q2H (06/18/23 11:49) Tramadol Tablet (Ultram Tablet) (06/18/23 12:00) Hydrocodone/Apap 5/325 Tablet (Hydrocod (06/18/23 12:00) Patient Visit (06/18/23 ) Dysphagia Evaluation Std (06/18/23 ) General/Regular (06/18/23 Dinner) Iron Test (Fe) (06/19/23 06:54) Vitamin B 12 (06/19/23 06:54) Rehab Nursing Orders: Ongoing Assess. of Cognitive Status, Ongoing Assess. of Function Status, Bladder Management, Bladder Scan, Bladder Training, Bowel Management, Bowel Training, Disease Management & Educaiton, DVT Prophylaxis, Fall Prevention, Fluid/Electrolyte/Nutrition Mgmt, Infection Prevention, Medication Management & Education, Management of Risks & Complications, Management of Skin Intergrity, Nutrition Management, Pain Management, Patient/Family Support, Safety Management Intensity of Therapy to be met Patient to be seen: Min.3h per day/5 of 7d PT IPOC Problem List: Activity Tolerance, Functional Strength, Safety, Balance, Gait, Transfer, Bed Mobility, ROM Treatment Plan: Continue Plan of Care Bed Mobility, Education, Functional Activity Kristina, Functional Strength, Group Therapy, Gait, Safety, Therapeutic Exercise, Transfers Treatment Duration: Jun 18, 2023 Frequency: At least 5 of 7 days/Wk (IRF) Estimated Hrs Per Day: 1 hour per day OT IPOC Problems: Decreased Activ Tolerance, Decreased UE Strength, Impaired Funct Balance, Impaired I ADL's, Impaired Self-Care Skills OT Treatment, Training and Edu: Yes Plan of Care: ADL Retraining, Functional Mobility, Group Exercise/Act as Ind, UE Funct Exercise/Act Treatment Duration: Jul 09, 2023 Frequency: At least 5 of 7 days/Wk (IRF) Estimated Hrs Per Day: 1.[address] IPOC Speech Therapy Treatment Plan: Discontinue ST Treatment Duration: Jun 18, 2023 Frequency: 1 time per week Estimated Hrs Per Day: Other (At this time, pt's swallow appears to be WFL. If this were to change, MEDIA MONITOR would reevaluate pt. ) Peanut Blancher/Case Mgmt Peanut Blancher/Case Managemen: Discharge Planning Dietitian/Robotics Mechanic Dietitian/Robotics Mechanic to monitor nutritional status and make changes and/or recommendations as needed and work with speech pathology on dietary upgrades as the occur. Physician IPOC Medical Issues being managed closely and that require the 24 hour availability of a physician: Recent hip fracture found postextubation for COVID-pneumonia and respiratory failure will require close monitoring for any signs of decompensation Medical Issues: Bowel/Bladder Function, DVT Prophylaxis, Falls Precautions, Fluid/Electrolyte/Nutrition Balance, Infection Protection, Pain Management, Weight Bearing Precautions, Wound Care Brief Synthesis of Preadmission Screen, Post-Admission Evaluation, and Therapy Evaluations: PT and OT will focus on regaining function with use of assistive devices in order to decrease chance of falls while increasing stamina with ambulation and ADLs Medical Prognosis: Good Anticipated Length of Stay: 14 days MURIEL FERMIN DO Jun 19, 2023 06:55
[2023-06-19 08:00] VITALS: BP 141/64
[2023-06-19] MEDS: HYDROcodone/ACETAMINOPHEN 5 MG/325 MG TABLET PO PRN ×2 (08:45→15:05)
[2023-06-19] MEDS: meTOprolol TARTRATE (IR) 25 MG TABLET PO SCH ×2 (08:45→21:08)
[2023-06-19] MEDS: PANTOPRAZOLE 40 MG TABLET PO SCH (08:47)
[2023-06-19] MEDS: ASPIRIN enteric coated 81MG TABLET PO SCH (08:47)
[2023-06-19] MEDS: DOCUSATE SODIUM 100 MG CAPSULE PO SCH ×2 (08:47→21:08)
[2023-06-19] MEDS: SENNA W/DOCUSATE TABLET PO SCH ×2 (08:54→21:08)
[2023-06-19] MEDS: ENOXAPARIN 40 MG/0.4 ML SYRINGE SQ SCH (15:05)
[2023-06-19 19:39] VITALS: BP 165/72
[2023-06-19 21:43] VITALS: BP 165/72
--- NOTE | 2023-06-20 06:30 | PM&R Progress Note ---
Subjective HPI/CC On Admission Date Seen by Provider: Jun 20, 2023 Time Seen by Provider: 13:00 Subjective/Events-last exam 06/20/2023: Very weak today Not eating well Outside food will be brought in for calories Pain is an issue today DC catheter tomorrow hopefully BPH won't cause an issue 06/19/2023: Patient much improved Still very weak Szymanski catheter in place will DC on Wednesday Patient has BPH history Reviewed meds and labs Hemoglobin stable but checking iron and B12 Review of Systems General: Fatigue, Malaise Objective Exam Vital Signs Vital Signs Date Time Temp Pulse Resp B/P (MAP) Pulse Ox O2 Delivery O2 Flow Rate FiO2 06/20/23 09:27 92 Room Air 0.00 06/20/23 08:00 36.9 77 20 144/67 (92) 06/19/23 21:43 21 Capillary Refill : General Appearance: No Apparent Distress, WD/WN, Chronically ill HEENT: PERRL/EOMI, Normal ENT Inspection, Pharynx Normal Neck: Full Range of Motion, Normal Inspection, Non Tender, Supple, Carotid Bruit Respiratory: Chest Non Tender, Lungs Clear, Normal Breath Sounds, No Accessory Muscle Use, No Respiratory Distress Cardiovascular: Regular Rate, Rhythm, No Edema, No Gallop, No JVD, No Murmur, Normal Peripheral Pulses Gastrointestinal: Normal Bowel Sounds, No Organomegaly, No Pulsatile Mass, Non Tender, Soft Back: Normal Inspection, No CVA Tenderness, No Vertebral Tenderness Extremity: Normal Capillary Refill, Normal Inspection, Normal Range of Motion, Non Tender, No Calf Tenderness, No Pedal Edema Neurologic/Psychiatric: Alert, Oriented x3, Normal Mood/Affect, Abnormal Gait, Motor Weakness (Left leg) Skin: Normal Color, Warm/Dry Lymphatic: No Adenopathy Results/Procedures Lab Patient resulted labs reviewed. FIM Transfers Therapy Code Descriptions/Definitions Functional [place] Measure: 0=Not Assessed/NA 4=Minimal Assistance 1=Total Assistance 5=Supervision or Setup 2=Maximal Assistance 6=Modified [place] 3=Moderate Assistance 7=Complete IndependenceSCALE: Activities may be completed with or without assistive devices. 2-Kigvskjzmv-gqafmdc completes the activity by him/herself with no assistance from a helper. 5-Set-up or Clean-up Assistance-helper sets up or cleans up; patient completes activity. [place] assists only prior to or following the activity. 4-Supervision or Touching Assistance-helper provides verbal cues and/or touching/steadying and/or contact guard assistance as patient completes activity. Assistance may be provided throughout the activity or intermittently. 3-Partial/Moderate Assistance-helper does LESS THAN HALF the effort. [place] lifts, holds or supports trunk or limbs, but provides less than half the effort. 2-Substantial/Maximal Assistance-helper does MORE THAN HALF the effort. [place] lifts or holds trunk or limbs and provides more than half the effort. 4-Ymiosfkww-zjdgwu does ALL the effort. Patient does none of the effort to complete the activity. Or, the assistance of 2 or more helpers is required for the patient to complete the activity. If activity was not attempted, code reason: 7-Patient Refused. 9-Not Applicable-not attempted and the patient did not perform the activity be fore the current illness, exacerbation or injury. 10-Not Attempted due to Environmental Limitations-(lack of equipment, weather restraints, etc.). 88-Not Attempted due to Medical Conditions or Safety Concerns. Roll Left to Right (QC): 88 Sit to Lying (QC): 2 Sit to Stand (QC): 2 Chair/Lck-sz-Cbddg Xfer(QC): 1 Car Transfer (QC): 88 Gait Training Does the Patient Walk?: No and Walking Goal IS indicated Walk 10 feet (QC): 88 Walk 50 ft with 2 Turns(QC): 88 Walk 150 ft (QC): 88 Walking 10ft/uneven surface-QC: 88 Wheelchair Training Does the Pt Use a Wheelchair?: Yes Distance: 15 Wheel 50 ft with 2 turns (QC): 88 Wheel 150 ft (QC): 88 Type of Wheelchair: Manual Stair Training 1 Step (curb) (QC): 88 4 Steps (QC): 88 12 Steps (QC): 8 Balance Picking up an Object (QC): 88 ADL-Treatment Eating (QC): 5 Oral Hygiene (QC): 4 Shower/Bathe Self (QC): 1 (Assist x2) Upper Body Dressing (QC): 3 (Min A with orientation of shirt in order to thread overhead) Lower Body Dressing (QC): 1 (Assist x2) On/Off Footwear (QC): 1 Toileting Hygiene (QC): 1 (assist x2) Assessment/Plan Assessment and Plan Assess & Plan/Chief Complaint Assessment: Left hip fracture status post uncomplicated repair Recent intubation from COVID induced pneumonia respiratory failure Hypertension Hyperlipidemia BPH Szymanski catheter in place NSTEMI due to critical illness Recent sepsis Recent acute kidney injury Plan: Supportive care Aggressive PT and OT Home meds Monitor blood pressure Szymanski catheter management 06/19/2023: Await B12 and iron level DC Accu-Cheks 06/20/2023: Monitor closely Pain control Monitor labs Outside food (1) Closed left hip fracture MURIEL FERMIN DO Jun 20, 2023 06:30
[2023-06-20 08:00] VITALS: BP 144/67
[2023-06-20] MEDS: meTOprolol TARTRATE (IR) 25 MG TABLET PO SCH ×2 (09:12→20:47)
[2023-06-20] MEDS: DOCUSATE SODIUM 100 MG CAPSULE PO SCH ×2 (09:12→20:47)
[2023-06-20] MEDS: SENNA W/DOCUSATE TABLET PO SCH ×2 (09:13→20:47)
[2023-06-20] MEDS: ASPIRIN enteric coated 81MG TABLET PO SCH (09:13)
[2023-06-20] MEDS: PANTOPRAZOLE 40 MG TABLET PO SCH (09:13)
[2023-06-20] MEDS: HYDROcodone/ACETAMINOPHEN 5 MG/325 MG TABLET PO PRN (12:20)
[2023-06-20] MEDS: ENOXAPARIN 40 MG/0.4 ML SYRINGE SQ SCH (15:13)
[2023-06-20 20:17] VITALS: BP 114/58
--- NOTE | 2023-06-21 04:58 | PM&R Progress Note ---
Subjective HPI/CC On Admission Date Seen by Provider: Jun 21, 2023 Time Seen by Provider: 09:00 Subjective/Events-last exam 06/21/2023: Patient having very slow recovery Appears to have minimal motivation Son at bedside Still not eating well Szymanski catheter DC but retention required replacement Patient high risk for retirement and further decline UA was normal with labs 06/20/2023: Very weak today Not eating well Outside food will be brought in for calories Pain is an issue today DC catheter tomorrow hopefully BPH won't cause an issue 06/19/2023: Patient much improved Still very weak Szymanski catheter in place will DC on Wednesday Patient has BPH history Reviewed meds and labs Hemoglobin stable but checking iron and B12 Review of Systems General: Fatigue, Malaise Objective Exam Vital Signs Vital Signs Date Time Temp Pulse Resp B/P (MAP) Pulse Ox O2 Delivery O2 Flow Rate FiO2 06/21/23 20:20 Room Air 06/21/23 19:50 37.1 76 16 148/70 (96) 95 06/20/23 09:27 0.00 06/19/23 21:43 21 Capillary Refill : General Appearance: No Apparent Distress, WD/WN, Chronically ill HEENT: PERRL/EOMI, Normal ENT Inspection, Pharynx Normal Neck: Full Range of Motion, Normal Inspection, Non Tender, Supple, Carotid Bruit Respiratory: Chest Non Tender, Lungs Clear, Normal Breath Sounds, No Accessory Muscle Use, No Respiratory Distress Cardiovascular: Regular Rate, Rhythm, No Edema, No Gallop, No JVD, No Murmur, Normal Peripheral Pulses Gastrointestinal: Normal Bowel Sounds, No Organomegaly, No Pulsatile Mass, Non Tender, Soft Back: Normal Inspection, No CVA Tenderness, No Vertebral Tenderness Extremity: Normal Capillary Refill, Normal Inspection, Normal Range of Motion, Non Tender, No Calf Tenderness, No Pedal Edema Neurologic/Psychiatric: Alert, Oriented x3, Normal Mood/Affect, Abnormal Gait, Motor Weakness (Left leg) Skin: Normal Color, Warm/Dry Lymphatic: No Adenopathy Results/Procedures Lab Laboratory Tests 06/21/23 05:50 Patient resulted labs reviewed. FIM Transfers Therapy Code Descriptions/Definitions Functional [place] Measure: 0=Not Assessed/NA 4=Minimal Assistance 1=Total Assistance 5=Supervision or Setup 2=Maximal Assistance 6=Modified [place] 3=Moderate Assistance 7=Complete IndependenceSCALE: Activities may be completed with or without assistive devices. 3-Dafsittqmd-ffzldua completes the activity by him/herself with no assistance from a helper. 5-Set-up or Clean-up Assistance-helper sets up or cleans up; patient completes activity. [place] assists only prior to or following the activity. 4-Supervision or Touching Assistance-helper provides verbal cues and/or touching/steadying and/or contact guard assistance as patient completes ac tivity. Assistance may be provided throughout the activity or intermittently. 3-Partial/Moderate Assistance-helper does LESS THAN HALF the effort. [place] lifts, holds or supports trunk or limbs, but provides less than half the effort. 2-Substantial/Maximal Assistance-helper does MORE THAN HALF the effort. [place] lifts or holds trunk or limbs and provides more than half the effort. 0-Rdfzllwpm-wvunyl does ALL the effort. Patient does none of the effort to complete the activity. Or, the assistance of 2 or more helpers is required for the patient to complete the activity. If activity was not attempted, code reason: 7-Patient Refused. 9-Not Applicable-not attempted and the patient did not perform the activity before the current illness, exacerbation or injury. 10-Not Attempted due to Environmental Limitations-(lack of equipment, weather restraints, etc.). 88-Not Attempted due to Medical Conditions or Safety Concerns. Roll Left to Right (QC): 88 Sit to Lying (QC): 2 Sit to Stand (QC): 2 Chair/Err-pa-Zfkaf Xfer(QC): 1 Car Transfer (QC): 88 Gait Training Does the Patient Walk?: No and Walking Goal IS indicated Walk 10 feet (QC): 88 Walk 50 ft with 2 Turns(QC): 88 Walk 150 ft (QC): 88 Walking 10ft/uneven surface-QC: 88 Wheelchair Training Does the Pt Use a Wheelchair?: Yes Distance: 15 Wheel 50 ft with 2 turns (QC): 88 Wheel 150 ft (QC): 88 Type of Wheelchair: Manual Stair Training 1 Step (curb) (QC): 88 4 Steps (QC): 88 12 Steps (QC): 8 Balance Picking up an Object (QC): 88 ADL-Treatment Eating (QC): 5 Oral Hygiene (QC): 4 Shower/Bathe Self (QC): 1 (Assist x2) Upper Body Dressing (QC): 3 (Min A with orientation of shirt in order to thread overhead) Lower Body Dressing (QC): 1 (Assist x2) On/Off Footwear (QC): 1 Toileting Hygiene (QC): 1 (assist x2) Assessment/Plan Assessment and Plan Assess & Plan/Chief Complaint Assessment: Left hip fracture status post uncomplicated repair Recent intubation from COVID induced pneumonia respiratory failure Hypertension Hyperlipidemia BPH Szymanski catheter in place DC but required replacement due to retention NSTEMI due to critical illness Recent sepsis Recent acute kidney injury Plan: Supportive care Aggressive PT and OT Home meds Monitor blood pressure Szymanski catheter management 06/19/2023: Await B12 and iron level DC Accu-Cheks 06/20/2023: Monitor closely Pain control Monitor labs Outside food 06/21/2023: Supportive care Hopefully increase motivation Increase p.o. nutrition High risk for skilled (1) Closed left hip fracture MURIEL FERMIN DO Jun 21, 2023 04:58
[2023-06-21 06:11] LABS: BASOPHILS % (AUTO) 0 % (0-10); EOSINOPHILS # (AUTO) 0.4 10^3/uL (0.0-0.3); EOSINOPHILS % (AUTO) 6 % (0-10); HEMATOCRIT 26 % (40-54); HEMOGLOBIN 8.7 g/dL (13.3-17.7); LYMPHOCYTES # (AUTO) 1.5 10^3/uL (1.0-4.0); LYMPHOCYTES % (AUTO) 22 % (12-44); MEAN CORPUSCULAR HEMOGLOBIN 31 pg (25-34); MEAN CORPUSCULAR HGB CONC 33 g/dL (32-36); MEAN CORPUSCULAR VOLUME 94 fL (80-99); MEAN PLATELET VOLUME 9.1 fL (9.0-12.2); MONOCYTES # (AUTO) 0.7 10^3/uL (0.0-1.0); MONOCYTES % (AUTO) 11 % (0-12); NEUTROPHILS # (AUTO) 4.3 10^3/uL (1.8-7.8); NEUTROPHILS % (AUTO) 61 % (42-75); PLATELET COUNT 224 10^3/uL (130-400); WHITE BLOOD COUNT 7.1 10^3/uL (4.3-11.0)
[2023-06-21 06:23] LABS: ALBUMIN 2.2 GM/DL (3.2-4.5); POTASSIUM 4.2 MMOL/L (3.6-5.0)
[2023-06-21 06:24] LABS: CALCIUM 8.3 MG/DL (8.5-10.1)
[2023-06-21 06:25] LABS: TOTAL PROTEIN 4.7 GM/DL (6.4-8.2)
[2023-06-21 06:27] LABS: BILIRUBIN,TOTAL 0.6 MG/DL (0.1-1.0)
[2023-06-21 06:29] LABS: CREATININE SERUM 0.91 MG/DL (0.60-1.30)
[2023-06-21 07:57] VITALS: BP 177/75
[2023-06-21] MEDS: ASPIRIN enteric coated 81MG TABLET PO SCH (08:21)
[2023-06-21] MEDS: PANTOPRAZOLE 40 MG TABLET PO SCH (08:21)
[2023-06-21] MEDS: DOCUSATE SODIUM 100 MG CAPSULE PO SCH ×2 (08:21→21:23)
[2023-06-21] MEDS: SENNA W/DOCUSATE TABLET PO SCH ×2 (08:21→21:24)
[2023-06-21] MEDS: meTOprolol TARTRATE (IR) 25 MG TABLET PO SCH ×2 (08:22→21:24)
--- NOTE | 2023-06-21 09:46 | Cardiology Progress Note ---
Subjective Time Seen by Provider: 09:00 Subjective/Events-last exam Patient sitting up in bed, reporting generalized weakness Objective-Cardiology Exam Last Set of Vital Signs Vital Signs 06/19/23 06/20/23 06/21/23 06/21/23 21:43 09:27 07:57 09:00 Temp 36.3 Pulse 81 Resp 18 B/P (MAP) 177/75 (109) Pulse Ox 91 O2 Delivery Room Air O2 Flow Rate 0.00 FiO2 21 I&O Intake and Output 06/20/23 23:59 Intake Total 1027 ml Output Total 1050 ml Balance -23 ml Intake Oral 1027 ml Output Urine Total 1050 ml General: Alert, Oriented X3 HEENT: Atraumatic, PERRLA Neck: Supple Lungs: Clear to Auscultation, Normal Air Movement Heart: Regular Rate Abdomen: Normal Bowel Sounds, Soft Extremities: No Clubbing, No Cyanosis, No Edema Skin: No Rashes Neuro: Normal Speech Psych/Mental Status: Mental Status NL, Mood NL Results Lab Laboratory Tests 06/21/23 05:50 A/P-Cardiology Admission Diagnosis s/p acute respiratory failure NSTEMI s/p left hip fracture Generalized weakness/fatigue Assessment/Plan Status post acute respiratory failure, pneumonia, COVID-19 Better at this time. Continue to monitor Hypertension, mildly elevated, maintained on Lopressor 12.5mg BID, amlodipine 2.5mg daily. Status post hypotensive shock/septic shock Continue to monitor blood pressure 2D echo was done in June 12, 2023 reported as normal LV size with ejection fraction 55 to 60%, mild aortic valve stenosis, PA pressure 60 mmHg Non-ST elevation myocardial infarction most probably type II myocardial infarction treated conservatively Probably hypotension and hypoxemia in addition to underlying coronary artery disease especially at patient age 88 Conservative management was recommended Hip fracture, s/p Prosthetic Replacement of Left Femoral Neck Fracture Early dementia, mild confusion Managed by medical team Supervisory-Addendum Brief Supervisory Addendum Participated in pt care: history, MDM, physical Personally performed: exam, history, MDM Care discussed with: FE Results interpretation: Verified all documentation Notes: Patient was seen and evaluated with [place], examination performed, management plan was discussed, agree with the current scribed note, I made few changes to the note using Italic font Patient was seen in the wheelchair, still having generalized weakness and mild confusion Continue to monitor heart rate and blood pressure, no changes are recommended GEORGIANA YUSUF PA-C Jun 21, 2023 09:46 LAMIN SCANLON MD Jun 21, 2023 10:41
--- NOTE | 2023-06-21 11:22 | Occupational Ther Daily Note ---
OT Current Status-Daily Note Subjective Pt in bed, agreeable to therapy tx with some encouragement. Pt often replied "I can't" when asked to complete tasks. Some garbled speech noted, but other times speech was clear. ADL-Treatment Therapy Code Descriptions/Definitions Functional [place] Measure: 0=Not Assessed/NA 4=Minimal Assistance 1=Total Assistance 5=Supervision or Setup 2=Maximal Assistance 6=Modified [place] 3=Moderate Assistance 7=Complete IndependenceSCALE: Activities may be completed with or without assistive devices. 4-Vkcmafcrop-vetxghc completes the activity by him/herself with no assistance f rom a helper. 5-Set-up or Clean-up Assistance-helper sets up or cleans up; patient completes activity. [place] assists only prior to or following the activity. 4-Supervision or Touching Assistance-helper provides verbal cues and/or touching/steadying and/or contact guard assistance as patient completes activity. Assistance may be provided throughout the activity or intermittently. 3-Partial/Moderate Assistance-helper does LESS THAN HALF the effort. [place] lifts, holds or supports trunk or limbs, but provides less than half the effort. 2-Substantial/Maximal Assistance-helper does MORE THAN HALF the effort. [place] lifts or holds trunk or limbs and provides more than half the effort. 8-Wtpllmjro-xqeqdu does ALL the effort. Patient does none of the effort to complete the activity. Or, the assistance of 2 or more helpers is required for the patient to complete the activity. If activity was not attempted, code reason: 7-Patient Refused. 9-Not Applicable-not attempted and the patient did not perform the activity before the current illness, exacerbation or injury. 10-Not Attempted due to Environmental Limitations-(lack of equipment, weather restraints, etc.). 88-Not Attempted due to Medical Conditions or Safety Concerns. Other Treatment OT/PT cotreat due to skill of 2 clinicians required which a rehab manager could not perform in order to coordinate UE/LEs, decrease fall risk, and due to pt's limitations in strength, activity tolerance, mobility/transfers, sequencing, and ability to follow instructions. OT focused on UE placement, cues for sequencing and safety and ADLS, PT focused on LE placement, gross overall movement, transfers and mobility. Pt transferred supine to sit EOB. Stood at FWW, performing weight shifting L/R, max A x2, with max VCs. Pt completed UE reaching task at EOB, reaching in various planes seated. max verbal and tactile cues for hand placements and sit upright. Noted pt wanting to lean towards the left. Mod A with sitting to assist with weight shifting and max cues to locate objects and reach across midline. Pt transferred from EOB to w/c via swing pivot transfer. Pt performed w/c mobility into hallway and back to room (max A, assist with hand placement, max v.c./t.c. to use UE's for propulsion, max v.c. to stay on task. 50' over 30 minute time frame.) Pt transferred from w/c to EOB, then supine. Post tx, pt in bed, call light in reach and all needs met, bed alarm activated. Max A x2 for sit to/from supine, max A x2 sit to/from stand with max verbal/tactile cues including sternal and sacral support for standing posture. Max cues to push down on walker through arms once upright in order to stand tall. Completed 2 stands, 1.5 mins and 1min. Pt frequently stated "I'm falling" during standing activity. UE screen complete due to difficulty following instructions to utilize LUE for w/c mobility. Results as follows: BUE shoulder flexion to approx 150 degrees. MMT grossly 3+/5 shoulder flexion/extension, elbow flexion/extension. Some difficulty noted with following instructions for testing. Education OT Patient Education: Correct positioning, Energy conservation, Modified ADL techniques, Progress toward Goal/Update tx plan, Purpose of tx/functional activities, Rehab process, Safety issues, Transfer techniques Teaching Methods: Demonstration, Discussion Response to Teaching: Reinforcement Needed OT Short Term Goals Short Term Goals Time Frame: Jun 30, 2023 Toileting hygiene: 4 Shower/bathe self: 4 Upper body dressin Lower body dressin OT Agriculturist Goals Agriculturist Goals Time Frame: Jul 09, 2023 Acute change in mental status: 0 Inattention: 0 Disorganized thinkin Altered level of consciousness: 0 Eating (QC): 6 Oral Hygiene (QC): 6 Toileting Hygiene (QC): 6 Shower/Bathe Self (QC): 5 Upper Body Dressing (QC): 6 Lower Body Dressing (QC): 6 On/Off Footwear (QC): 6 Additional Goals: 1-Demonstrate ADL Tasks, 2-Verbalize Understanding, 3- ImproveStrength/Kristina 1=Demonstrate adherence to instructed precautions during ADL tasks. 2=Patient will verbalize/demonstrate understanding of assistive devices/modifications for ADL. 3=Patient will improve strength/tolerance for activity to enable patient to perform ADL's. OT Education/Plan Problem List/Assessment Assessment: Decreased Activ Tolerance, Decreased UE Strength, Dependent Transfers, Impaired Funct Balance, Impaired I ADL's, Impaired Self-Care Skills, Restricted Funct UE ROM Discharge Recommendations Plan/Recommendations: Continue POC Treatment Plan/Plan of Care Patient would benefit from OT for education, treatment and training to promote independence in ADL's, mobility, safety and/or upper extremity function for ADL's. Plan of Care: ADL Retraining, Functional Mobility, Group Exercise/Act as Ind, UE Funct Exercise/Act Treatment Duration: Jul 09, 2023 Frequency: At least 5 of 7 days/Wk (IRF) Estimated Hrs Per Day: 1.5 hours per day Agreement: Yes Rehab Potential: Good Time Start Time: 09:45 Stop Time: 10:45 DATE: Jun 21, 2023 Total Time Billed (hr/min): 60 Billed Treatment Time cotreat x60' 1, FA 4 TERRI CASTANEDA OT Jun 21, 2023 11:21
--- NOTE | 2023-06-21 11:35 | Progress Note ---
OBED HAWTHORNE 06/21/23 1135: Progress Note Pt is an 88 y/o M who was admitted on 06/18 with a L hip fracture with repair on 06/15 Status post acute respiratory failure, pneumonia, COVID-19 Pt is weak and frail today Nurse reports that it is day 4 without a BM- will give suppository Encourage regular movement. OT/PT Monitor BP Outside food for calories ABBY FERMIN DO 06/22/23 0449: Supervisory-Addendum Brief Verification & Attestation Participated in pt care: history, MDM, physical Personally performed: exam, history, MDM, supervision of care Care discussed with: Medical Student Procedures: n/a Results interpretation: Verified all documentation Verification and Attestation of Medical Student E/M Service A medical student performed and documented this service in my presence. I reviewed and verified all information documented by the medical student and made modifications to such information, when appropriate. I personally performed the physical exam and medical decision making. Abby Fermin Jun 22, 2023,04:49 OBED HAWTHORNE Jun 21, 2023 11:35 ABBY FERMIN DO Jun 22, 2023 04:49
--- NOTE | 2023-06-21 12:10 | Physical Therapy Daily Note ---
PT Daily Note-Current Subjective Patient frequently stated "I can't" during majority of treatment. Max verbal and tactile cues to participate and stay on task. Some garbled speech noted. However, at times his speech was clear - he was able to state "don't cross my legs as a hip precaution". Co-treatment with OT from [phone] due to severity of mobility impairments and the skills of 2 clinicians required for patient safety. Pain Section J - Health Conditions 1. Rarely or not at all 2. Occasionally 3. Frequently 4. Almost constantly 8. Unable to answer Pain Effect on Sleep: 4 Pain Interference with Therapy: 4 Pain Interference w/Day-to-Day: 4 Transfers SCALE: Activities may be completed with or without assistive devices. 1-Hmqzijxmvp-kvitlmy completes the activity by him/herself with no assistance from a helper. 5-Set-up or Clean-up Assistance-helper sets up or cleans up; patient completes activity. [place] assists only prior to or following the activity. 4-Supervision or Touching Assistance-helper provides verbal cues and/or touching/steadying and/or contact guard assistance as patient completes act ivity. Assistance may be provided throughout the activity or intermittently. 3-Partial/Moderate Assistance-helper does LESS THAN HALF the effort. [place] lifts, holds or supports trunk or limbs, but provides less than half the effort. 2-Substantial/Maximal Assistance-helper does MORE THAN HALF the effort. [place] lifts or holds trunk or limbs and provides more than half the effort. 4-Mvsxomndw-rjfffi does ALL the effort. Patient does none of the effort to complete the activity. Or, the assistance of 2 or more helpers is required for the patient to complete the activity. If activity was not attempted, code reason: 7-Patient Refused. 9-Not Applicable-not attempted and the patient did not perform the activity before the current illness, exacerbation or injury. 10-Not Attempted due to Environmental Limitations-(lack of equipment, weather restraints, etc.). 88-Not Attempted due to Medical Conditions or Safety Concerns. Sit to Lying (QC): 1 (Max (A) of 2 and for positioning in bed) Lying to Sitting/Side of Bed(Q: 1 (max (A) of 2) Sit to Stand (QC): 1 (max (A) of 2 /c max verbal and tactile cues including sternal and sacral support for standing posture, and max cues to push down on walker with arms once in standing position and to look up and stand tall. Patient frequently stated "I'm falling" during standing activity. Completed x 2. Stood 1.5 minutes 1st attempt, stood 1 minute 2nd attempt. ) Chair/Eqz-tb-Odrcv Xfer(QC): 1 (Swing pivot to chair max (A) of 2) Weight Bearing Right Lower Extremity: Right Weight Bearing/Tolerated Left Lower Extremity: Left Weight Bearing/Tolerated WBAT Wheelchair Training Wheel 50 ft with 2 turns (QC): 2 (max (A) with hand placement, max v.c./t.c. to use UE's for propulsion, max v.c. to stay on task. 50' over 30 minute time frame. ) Type of Wheelchair: Manual Treatments Sitting balance EOB - max v.c. and t.c. for hand placement and to sit up tall. Patient wanting to lean (L). Sitting and reaching task to assist with weight shifting - mod (A) and max v.c./t.c. to find objects and reach across midline. Standing weight shifting (R)/(L) /c max (A) of 2, verbal and tactile cues using FWW. Patient able to pick and shovel man (L) LE from floor, but WB on (L) to lift (R) was not functional. Assessment Current Status: Regressing (Patient cognitively not as clear as he was last week per OT/ST. ) Speech asked to re-screen due to decreased cognition this date. Dr. Ferrera concurs. PT Short Term Goals Short Term Goals Time Frame: Jul 02, 2023 Roll Left & Right: 4 Sit to lyin Lying to sitting on side of be: 4 Sit to stand: 4 Chair/ezl-mf-kamkp transfer: 4 Toilet transfer: 4 Car transfer: 4 Walk 10 feet: 4 Walk 50 feet with two turns: 4 Walk 150 feet: 4 Walking 10ft on uneven surface: 4 1 step (curb): 4 4 steps: 4 12 steps: 9 Picking up objects: 4 Does pt use a wc or scooter: Yes Wheel 50ft w/2 turns: 5 Wheel 150 feet: 5 Type: Manual PT Instructional Facilitator Goals Instructional Facilitator Goals PT Instructional Facilitator Goals Time Frame: Jul 16, 2023 Roll Left & Right (QC): 6 Sit to Lying (QC): 6 Lying-Sitting on Side/Bed(QC): 6 Sit to Stand (QC): 6 Chair/Pbs-qs-Qssxm Xfer(QC): 6 Toilet Transfer (QC): 6 Car Transfer (QC): 6 Does the Patient Walk: No and Walking Goal IS indicated Walk 10 feet (QC): 6 Walk 50ft with 2 Turns (QC): 6 Walk 150 ft (QC): 6 Walking 10ft on Uneven Surface: 6 1 Step (curb) (QC): 6 4 Steps (QC): 6 12 Steps (QC): 9 Picking up an Object (QC): 6 Does the Pt use WC or Scooter?: Yes Wheel 50 feet with 2 turns (QC: 6 Type: Manual Wheel 150 feet: 6 Type: Manual PT Plan Treatment/Plan Treatment Plan: Continue Plan of Care Treatment Plan: Bed Mobility, Education, Functional Activity Kristina, Functional Strength, Group Therapy, Gait, Safety, Therapeutic Exercise, Transfers Treatment Duration: Jun 18, 2023 Frequency: At least 5 of 7 days/Wk (IRF) Estimated Hrs Per Day: 1.5 hours per day Patient and/or Family Agrees t: Yes Time Time In: 945 Time Out: 1045 DATE: Jun 21, 2023 Total Billed Treatment Time: 60 Total Billed Treatment 1, FA2, WC2 -- alex [phone] Mary Ann Dixon PT Jun 21, 2023 12:10
--- NOTE | 2023-06-21 13:30 | Occupational Ther Daily Note ---
OT Current Status-Daily Note Subjective Pt agreeable to OT tx, son present. Mental Status/Objective Patient Orientation: Person, Confused ADL-Treatment Therapy Code Descriptions/Definitions Functional [place] Measure: 0=Not Assessed/NA 4=Minimal Assistance 1=Total Assistance 5=Supervision or Setup 2=Maximal Assistance 6=Modified [place] 3=Moderate Assistance 7=Complete IndependenceSCALE: Activities may be completed with or without assistive devices. 6-Jxzxufcfmj-xamihby completes the activity by him/herself with no assistance from a helper. 5-Set-up or Clean-up Assistance-helper sets up or cleans up; patient completes activity. [place] assists only prior to or following the activity. 4-Supervision or Touching Assistance-helper provides verbal cues and/or touching/steadying and/or contact guard assistance as patient completes activity. Assistance may be provided throughout the activity or intermittently. 3-Partial/Moderate Assistance-helper does LESS THAN HALF the effort. [place] lifts, holds or supports trunk or limbs, but provides less than half the effort. 2-Substantial/Maximal Assistance-helper does MORE THAN HALF the effort. [place] lifts or holds trunk or limbs and provides more than half the effort. 8-Jfjzadcee-xgbaal does ALL the effort. Patient does none of the effort to complete the activity. Or, the assistance of 2 or more helpers is required for the patient to complete the activity. If activity was not attempted, code reason: 7-Patient Refused. 9-Not Applicable-not attempted and the patient did not perform the activity before the current illness, exacerbation or injury. 10-Not Attempted due to Environmental Limitations-(lack of equipment, weather restraints, etc.). 88-Not Attempted due to Medical Conditions or Safety Concerns. Other Treatment Pt in bed, agreeable to OT tx focused on increasing BUE strength and activity tolerance. 1lb wrist weights placed BUEs. Pt completed 2x10 reps of the following: shoulder flexion, front punch, elbow flexion/extension. VCs required for correct technique and to keep count of reps. Rest breaks required between exercises. Post tx, pt in bed, call light in reach and all needs met. Education OT Patient Education: Correct positioning, Energy conservation, Exercise program, Modified ADL techniques, Progress toward Goal/Update tx plan, Purpose of tx/functional activities, Rehab process Teaching Recipient: Patient Teaching Methods: Demonstration, Discussion Response to Teaching: Verbalize Understanding, Return Demonstration OT Short Term Goals Short Term Goals Time Frame: Jun 30, 2023 Toileting hygiene: 4 Shower/bathe self: 4 Upper body dressin Lower body dressin OT Airplane Charter Clerk Goals Nursing Home Goals Time Frame: Jul 09, 2023 Acute change in mental status: 0 Inattention: 0 Disorganized thinkin Altered level of consciousness: 0 Eating (QC): 6 Oral Hygiene (QC): 6 Toileting Hygiene (QC): 6 Shower/Bathe Self (QC): 5 Upper Body Dressing (QC): 6 Lower Body Dressing (QC): 6 On/Off Footwear (QC): 6 Additional Goals: 1-Demonstrate ADL Tasks, 2-Verbalize Understanding, 3-Impro veStrength/Kristina 1=Demonstrate adherence to instructed precautions during ADL tasks. 2=Patient will verbalize/demonstrate understanding of assistive devices/modifications for ADL. 3=Patient will improve strength/tolerance for activity to enable patient to perform ADL's. OT Education/Plan Problem List/Assessment Assessment: Decreased Activ Tolerance, Decreased UE Strength, Impaired Funct Balance, Impaired I ADL's, Impaired Self-Care Skills Discharge Recommendations Plan/Recommendations: Continue POC Treatment Plan/Plan of Care Patient would benefit from OT for education, treatment and training to promote independence in ADL's, mobility, safety and/or upper extremity function for ADL's. Plan of Care: ADL Retraining, Functional Mobility, Group Exercise/Act as Ind, UE Funct Exercise/Act Treatment Duration: Jul 09, 2023 Frequency: At least 5 of 7 days/Wk (IRF) Estimated Hrs Per Day: 1.5 hours per day Agreement: Yes Rehab Potential: Good Time Start Time: 13:15 Stop Time: 13:45 DATE: Jun 21, 2023 Total Time Billed (hr/min): 30 Billed Treatment Time 1, EX 2 TERRI CASTANEDA OT Jun 21, 2023 13:30
--- NOTE | 2023-06-21 14:10 | ST Cognitive Linguistic Eval ---
Speech Evaluation-General Medical Diagnosis Septic shock, L hip fracture Onset Date: Jun 18, 2023 Therapy Diagnosis Therapy Diagnosis: Mental Status Change Precautions Precautions: Fall Precautions/Isolations: Standard Precautions Referral Referring Physician: Iban Reason for Referral: Evaluation/Treatment Medical History Pertinent Medical History: HTN HTN, HLD, BPH, TIA Current History 06/11/23 found unresponsive while visiting son for holidays requiring intubation to protect airway. Extubated 06/13, c/o hip pain. Xray revealed subcapital fracture involving neck of proximal L femur, s/p L bipolar hip 06/15. Pt admitted to ARU 06/18/23 Reviewed History: Yes Social History Home: Single Level Current Living Status: Alone Speech PLF-Current Status Prior Level of Function Pt reports independence with ADLs. 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 Subjective Pt laying in bed and agreeable to session Language Eval: Auditory Comprehends Simple Yes/No Ques: Mild Follows 1-Step Commands: Functional Follows Complex Directions: Moderate Follows General Conversations: Mild The pt followed 1-step directions and answered simple yes/no questions. Pt demonstrated poor understanding of various instructions to complete cognitive tasks. Language Eval: Verbal Language Completes Spontaneous Greeting: Functional Imitates Simple Words/Phrases: Mild Word Finding: Moderate The pt was able to participate in basic conversation with semi- intact verbal fluency and syntax. Pt labeled 3/3 pictures without difficulty. Pt unable to repeat sentences and demonstrates poor word finding ability. Speech was intelligible. No dysarthria present. Voice was appropriate for age/gender. Language Evaluation: Reading Follows Simple Written Direct: Functional Language Evaluation: Writing Copies/Traces: Moderate Objective Cognitive Domain Attention: Moderate Memory: Moderate Executive Functions: Moderate Visuospatial Skills: Moderate Clock Drawing Severity Rating: Moderate Objective Formal/Standardized Tests MoCA Results The pt was administered the MoCA with the following results: Visuospatial/Executive: 0/5 (Pt unable to complete alternating number/letter trail, copy chair drawing, or clock drawing. Poor contour, no numbers, and incorrect hands.) Namin/3 Immediate memory (not included in the final score): 2/5; x2 trials Attention: 2/6 (Pt completes repetition of digits tasks, but unable to complete listening for 'a' or simple subtractions. Pt asked to spell 'world' backwards, unable to complete) Language: 1/3 (repeated 1/2 sentences; generated 3 words beginning with f in 1 min, N=11) Abstraction: 0/2 Delayed recall: 0/5 (no improvement with multiple choice options or category cue) Orientation: 2/6 (Oriented to month and city. Not oriented to date, year, or place) Total score: 8/30, SEVERE (N=26/30 or better) Impression The pt presents with severe cognitive-linguistic impairments in the areas of immediate and delayed recall, orientation, auditory comprehension, visuospatial and executive tasks, and word finding. Speech Longterm Goals Longterm Goals Pt will demonstrate the ability to comprehend verbal presentations of simple questions/directions with 85% accuracy. Pt will use external memory aids and compensatory strategies to recall routine, personal information, and recent events to improve orientation to time and recall daily events with 80% accuracy. Pt will demonstrate recall of functional information following an immediate, short-term, and long-term delay with 85% accuracy. Speech-Plan Patient/Family Goals Patient/Family Goals: To return home Treatment Plan Speech Therapy Treatment Plan: Continue Plan of Care Treatment Duration: Jun 18, 2023 Frequency: At least 5 of 7 days/Wk (IRF) Estimated Hrs Per Day: .5 hour per day Rehab Potential: Fair Pt/Family Agrees to Plan: Yes Time Speech Therapy Time In: 13:55 Speech Therapy Time Out: 14:25 DATE: Jun 21, 2023 Total Billed Time: 30 Billed Treatment Time 1 SPSNDCOMP 30 min Lisbeth Morales Jun 21, 2023 14:10
[2023-06-21] MEDS: ENOXAPARIN 40 MG/0.4 ML SYRINGE SQ SCH (14:20)
--- NOTE | 2023-06-21 16:20 | Physical Therapy Daily Note ---
PT Daily Note-Current Subjective Pt laying Supine in bed w/Hip Abductor Wedge between knees upon arrival. Pt agrees to PT but demonstrates difficulty staying awake. Pain Location: Left Location Body Site: Hip Pain Description: Sharp Comment: Reports but doesn't rate Section J - Health Conditions 1. Rarely or not at all 2. Occasionally 3. Frequently 4. Almost constantly 8. Unable to answer Pain Effect on Sleep: 4 Pain Interference with Therapy: 4 Pain Interference w/Day-to-Day: 4 Mental Status Patient Orientation: Person, Place Transfers SCALE: Activities may be completed with or without assistive devices. 1-[place]-jd[place]i completes the activity by him/herself with no assistance from a helper. 5-Set-up or Clean-up Assistance-helper sets up or cleans up; patient completes activity. [place] assists only prior to or following the activity. 4-Supervision or Touching Assistance-helper provides verbal cues and/or touching/steadying and/or contact guard assistance as patient completes activity. Assistance may be provided throughout the activity or intermittently. 3-Partial/Moderate Assistance-helper does LESS THAN HALF the effort. [place] lifts, holds or supports trunk or limbs, but provides less than half the effort. 2-Substantial/Maximal Assistance-helper does MORE THAN HALF the effort. [place] lifts or holds trunk or limbs and provides more than half the effort. 6-Xqbzxargh-rkfgko does ALL the effort. Patient does none of the effort to complete the activity. Or, the assistance of 2 or more helpers is required for the patient to complete the activity. If activity was not attempted, code reason: 7-Patient Refused. 9-Not Applicable-not attempted and the patient did not perform the activity before the current illness, exacerbation or injury. 10-Not Attempted due to Environmental Limitations-(lack of equipment, weather restraints, etc.). 88-Not Attempted due to Medical Conditions or Safety Concerns. Roll Left & Right (QC): 1 Weight Bearing Right Lower Extremity: Right Weight Bearing/Tolerated Left Lower Extremity: Left Weight Bearing/Tolerated WBAT Exercises Supine Ex: Ankle pumps, Quad Set, Glut sets Supine Reps: 10 Treatments GENERAL FREIGHT AGENT issues & reviews Hip Precautions & Supine Ex w/pt. GENERAL FREIGHT AGENT & Nurse look at pt's L knee which appears swollen w/Nurse Pressure Dispatcher. Pt is assisted w/rolling to R side w/Hip AB Wedge in place. Pt resting in bed w/all needs met. Assessment Current Status: Fair Progress Pt demonstrates difficulty staying awake. Verbalizes pain w/movement. PT Short Term Goals Short Term Goals Time Frame: Jul 02, 2023 Roll Left & Right: 4 Sit to lyin Lying to sitting on side of be: 4 Sit to stand: 4 Chair/hlz-me-scquy transfer: 4 Toilet transfer: 4 Car transfer: 4 Walk 10 feet: 4 Walk 50 feet with two turns: 4 Walk 150 feet: 4 Walking 10ft on uneven surface: 4 1 step (curb): 4 4 steps: 4 12 steps: 9 Picking up objects: 4 Does pt use a wc or scooter: Yes Wheel 50ft w/2 turns: 5 Wheel 150 feet: 5 Type: Manual PT Sugar Mill Worker Goals [employer] [place] Worker Goals PT Sugar Mill Worker Goals Time Frame: Jul 16, 2023 Roll Left & Right (QC): 6 Sit to Lying (QC): 6 Lying-Sitting on Side/Bed(QC): 6 Sit to Stand (QC): 6 Chair/Hjr-ce-Bzjdu Xfer(QC): 6 Toilet Transfer (QC): 6 Car Transfer (QC): 6 Does the Patient Walk: No and Walking Goal IS indicated Walk 10 feet (QC): 6 Walk 50ft with 2 Turns (QC): 6 Walk 150 ft (QC): 6 Walking 10ft on Uneven Surface: 6 1 Step (curb) (QC): 6 4 Steps (QC): 6 12 Steps (QC): 9 Picking up an Object (QC): 6 Does the Pt use WC or Scooter?: Yes Wheel 50 feet with 2 turns (QC: 6 Type: Manual Wheel 150 feet: 6 Type: Manual PT Plan Problem List Problem List: Activity Tolerance, Functional Strength, Gait, Transfer Treatment/Plan Treatment Plan: Continue Plan of Care Treatment Plan: Bed Mobility, Education, Functional Activity Kristina, Functional Strength, Group Therapy, Gait, Safety, Therapeutic Exercise, Transfers Treatment Duration: Jun 18, 2023 Frequency: At least 5 of 7 days/Wk (IRF) Estimated Hrs Per Day: 1.5 hours per day Patient and/or Family Agrees t: Yes Safety Risks/Education Patient Education: Issued Written HEP, Reviewed Precautions Teaching Recipient: Patient Teaching Methods: Discussion Response to Teaching: Reinforcement Needed Time Time In: 1440 Time Out: 1515 DATE: Jun 21, 2023 Total Billed Treatment Time: 35 Total Billed Treatment 1, FA (20m) & EX (15m) SEBAS BELLO PTA Jun 21, 2023 16:20
[2023-06-21 19:04] LABS: BACTERIA,URINE TRACE /HPF; BILIRUBIN,URINE NEGATIVE (NEGATIVE); CLARITY,URINE CLEAR; COLOR,URINE YELLOW; GLUCOSE, URINE (UA) NEGATIVE (NEGATIVE); KETONES,URINE TRACE (NEGATIVE); LEUKOCYTE ESTERASE ,URINE NEGATIVE (NEGATIVE); NITRITE,URINE NEGATIVE (NEGATIVE); PH,URINE 7.5 (5-9); PROTEIN,URINE 1+ (NEGATIVE); RBC,URINE >100 /HPF; SQUAMOUS EPITHELIAL CELL,UR RARE /HPF; WBC,URINE 0-2 /HPF
[2023-06-21 19:50] VITALS: BP 148/70
--- NOTE | 2023-06-22 04:58 | PM&R Progress Note ---
Subjective HPI/CC On Admission Date Seen by Provider: Jun 22, 2023 Time Seen by Provider: 12:00 Subjective/Events-last exam 06/22/2023: Patient doing well No pain is reported Seems to be eating a little bit better today Will start Megace to stimulate appetite Very slow transfers 06/21/2023: Patient having very slow recovery Appears to have minimal motivation Son at bedside Still not eating well Szymanski catheter DC but retention required replacement Patient high risk for assisted and further decline UA was normal with labs 06/20/2023: Very weak today Not eating well Outside food will be brought in for calories Pain is an issue today DC catheter tomorrow hopefully BPH won't cause an issue 06/19/2023: Patient much improved Still very weak Szymanski catheter in place will DC on Wednesday Patient has BPH history Reviewed meds and labs Hemoglobin stable but checking iron and B12 Review of Systems General: Fatigue, Malaise Objective Exam Vital Signs Vital Signs Date Time Temp Pulse Resp B/P (MAP) Pulse Ox O2 Delivery O2 Flow Rate FiO2 06/22/23 21:00 95 Room Air 06/22/23 19:40 36.5 77 16 120/59 (79) 06/22/23 11:37 2.00 06/19/23 21:43 21 Capillary Refill : General Appearance: No Apparent Distress, WD/WN, Chronically ill HEENT: PERRL/EOMI, Normal ENT Inspection, Pharynx Normal Neck: Full Range of Motion, Normal Inspection, Non Tender, Supple, Carotid Bruit Respiratory: Chest Non Tender, Lungs Clear, Normal Breath Sounds, No Accessory Muscle Use, No Respiratory Distress Cardiovascular: Regular Rate, Rhythm, No Edema, No Gallop, No JVD, No Murmur, Normal Peripheral Pulses Gastrointestinal: Normal Bowel Sounds, No Organomegaly, No Pulsatile Mass, Non Tender, Soft Back: Normal Inspection, No CVA Tenderness, No Vertebral Tenderness Extremity: Normal Capillary Refill, Normal Inspection, Normal Range of Motion, Non Tender, No Calf Tenderness, No Pedal Edema Neurologic/Psychiatric: Alert, Oriented x3, Normal Mood/Affect, Abnormal Gait, Motor Weakness (Left leg) Skin: Normal Color, Warm/Dry Lymphatic: No Adenopathy Results/Procedures Lab Laboratory Tests 06/22/23 06:41 Patient resulted labs reviewed. FIM Transfers Therapy Code Descriptions/Definitions Functional [place] Measure: 0=Not Assessed/NA 4=Minimal Assistance 1=Total Assistance 5=Supervision or Setup 2=Maximal Assistance 6=Modified [place] 3=Moderate Assistance 7=Complete IndependenceSCALE: Activities may be completed with or without assistive devices. 9-Smsdfiioqe-puukzph completes the activity by him/herself with no assistance from a helper. 5-Set-up or Clean-up Assistance-helper sets up or cleans up; patient completes activity. [place] assists only prior to or following the activity. 4-Supervision or Touching Assistance-helper provides verbal cues and/or touching/steadying and/or contact guard assistance as patient completes activity. Assistance may be provided throughout the activity or intermittently. 3-Partial/Moderate Assistance-helper does LESS THAN HALF the effort. [place] lifts, holds or supports trunk or limbs, but provides less than half the effort. 2-Substantial/Maximal Assistance-helper does MORE THAN HALF the effort. [place] lifts or holds trunk or limbs and provides more than half the effort. 4-Sowomzlls-mipetg does ALL the effort. Patient does none of the effort to complete the activity. Or, the assistance of 2 or more helpers is required for the patient to complete the activity. If activity was not attempted, code reason: 7-Patient Refused. 9-Not Applicable-not attempted and the patient did not perform the activity before the current illness, exacerbation or injury. 10-Not Attempted due to Environmental Limitations-(lack of equipment, weather restraints, etc.). 88-Not Attempted due to Medical Conditions or Safety Concerns. Roll Left to Right (QC): 1 Sit to Lying (QC): 1 (Max (A) of 2 and for positioning in bed) Sit to Stand (QC): 1 (max (A) of 2 /c max verbal and tactile cues including sternal and sacral support for standing posture, and max cues to push down on walker with arms once in standing position and to look up and stand tall. Patient frequently stated "I'm falling" during standing activity. Completed x 2. Stood 1.5 minutes 1st attempt, stood 1 minute 2nd attempt. ) Chair/Ben-jc-Gbpyf Xfer(QC): 1 (Swing pivot to chair max (A) of 2) Car Transfer (QC): 88 Gait Training Does the Patient Walk?: No and Walking Goal IS indicated Walk 10 feet (QC): 88 Walk 50 ft with 2 Turns(QC): 88 Walk 150 ft (QC): 88 Walking 10ft/uneven surface-QC: 88 Wheelchair Training Does the Pt Use a Wheelchair?: Yes Distance: 15 Wheel 50 ft with 2 turns (QC): 2 (max (A) with hand placement, max v.c./t.c. to use UE's for propulsion, max v.c. to stay on task. 50' over 30 minute time frame. ) Wheel 150 ft (QC): 88 Type of Wheelchair: Manual Stair Training 1 Step (curb) (QC): 88 4 Steps (QC): 88 12 Steps (QC): 8 Balance Picking up an Object (QC): 88 ADL-Treatment Eating (QC): 5 Oral Hygiene (QC): 4 Shower/Bathe Self (QC): 1 (Assist x2) Upper Body Dressing (QC): 3 (Min A with orientation of shirt in order to thread overhead) Lower Body Dressing (QC): 1 (Assist x2) On/Off Footwear (QC): 1 Toileting Hygiene (QC): 1 (assist x2) Assessment/Plan Assessment and Plan Assess & Plan/Chief Complaint Assessment: Left hip fracture status post uncomplicated repair Recent intubation from COVID induced pneumonia respiratory failure Hypertension Hyperlipidemia BPH Szymanski catheter in place DC but required replacement due to retention NSTEMI due to critical illness Recent sepsis Recent acute kidney injury Plan: Supportive care Aggressive PT and OT Home meds Monitor blood pressure Szymanski catheter management 06/19/2023: Await B12 and iron level DC Accu-Cheks 06/20/2023: Monitor closely Pain control Monitor labs Outside food 06/21/2023: Supportive care Hopefully increase motivation Increase p.o. nutrition High risk for skilled 06/22/2023: Supportive care Add Megace for appetite stimulation (1) Closed left hip fracture MURIEL FERMIN DO Jun 22, 2023 04:58
[2023-06-22 06:53] LABS: BASOPHILS % (AUTO) 1 % (0-10); EOSINOPHILS # (AUTO) 0.6 10^3/uL (0.0-0.3); EOSINOPHILS % (AUTO) 7 % (0-10); HEMATOCRIT 27 % (40-54); HEMOGLOBIN 8.6 g/dL (13.3-17.7); LYMPHOCYTES # (AUTO) 1.6 10^3/uL (1.0-4.0); LYMPHOCYTES % (AUTO) 20 % (12-44); MEAN CORPUSCULAR HEMOGLOBIN 31 pg (25-34); MEAN CORPUSCULAR HGB CONC 33 g/dL (32-36); MEAN CORPUSCULAR VOLUME 95 fL (80-99); MEAN PLATELET VOLUME 8.9 fL (9.0-12.2); MONOCYTES # (AUTO) 0.9 10^3/uL (0.0-1.0); MONOCYTES % (AUTO) 11 % (0-12); NEUTROPHILS % (AUTO) 61 % (42-75); PLATELET COUNT 252 10^3/uL (130-400); WHITE BLOOD COUNT 8.1 10^3/uL (4.3-11.0)
[2023-06-22 07:06] LABS: ALBUMIN 2.2 GM/DL (3.2-4.5); POTASSIUM 4.5 MMOL/L (3.6-5.0)
[2023-06-22 07:07] LABS: CALCIUM 8.4 MG/DL (8.5-10.1)
[2023-06-22 07:08] LABS: TOTAL PROTEIN 4.9 GM/DL (6.4-8.2)
[2023-06-22 07:10] LABS: BILIRUBIN,TOTAL 0.5 MG/DL (0.1-1.0)
[2023-06-22 07:12] LABS: CREATININE SERUM 0.93 MG/DL (0.60-1.30)
[2023-06-22 07:45] VITALS: BP 114/53
[2023-06-22] MEDS: PANTOPRAZOLE 40 MG TABLET PO SCH (08:07)
[2023-06-22] MEDS: ASPIRIN enteric coated 81MG TABLET PO SCH (08:07)
[2023-06-22] MEDS: DOCUSATE SODIUM 100 MG CAPSULE PO SCH ×2 (08:07→20:07)
[2023-06-22] MEDS: SENNA W/DOCUSATE TABLET PO SCH ×2 (08:07→20:06)
[2023-06-22 08:14] VITALS: BP 116/62
[2023-06-22 08:16] VITALS: BP 122/74
[2023-06-22] MEDS: meTOprolol TARTRATE (IR) 25 MG TABLET PO SCH ×2 (08:23→20:06)
--- NOTE | 2023-06-22 08:23 | Cardiology Progress Note ---
Subjective Time Seen by Provider: 08:22 Subjective/Events-last exam Patient sitting up in bed, eating breakfast. Denies any chest pain Objective-Cardiology Exam Last Set of Vital Signs Vital Signs 06/19/23 06/22/23 06/22/23 21:43 07:45 08:16 Temp 36.6 Pulse 71 Resp 18 B/P (MAP) 122/74 (90) Pulse Ox 96 O2 Delivery Nasal Cannula O2 Flow Rate 2.00 FiO2 21 I&O Intake and Output 06/21/23 23:59 Intake Total 847 ml Output Total 950 ml Balance -103 ml Intake Oral 847 ml Output Urine Total 950 ml # Bowel Movements 1 General: Alert, Oriented X3 HEENT: Atraumatic, PERRLA Neck: Supple Lungs: Clear to Auscultation, Normal Air Movement Heart: Regular Rate Abdomen: Normal Bowel Sounds, Soft Extremities: No Clubbing, No Cyanosis, No Edema Skin: No Rashes Neuro: Normal Speech Psych/Mental Status: Mental Status NL, Mood NL Results Lab Laboratory Tests 06/22/23 06:41 A/P-Cardiology Admission Diagnosis s/p acute respiratory failure NSTEMI s/p left hip fracture Generalized weakness/fatigue Assessment/Plan Status post acute respiratory failure, pneumonia, COVID-19 Better at this time. Continue to monitor Hypertension, maintained on Lopressor 12.5mg BID, amlodipine 2.5mg daily. Status post hypotensive shock/septic shock Continue to monitor blood pressure 2D echo was done in June 12, 2023 reported as normal LV size with ejection fraction 55 to 60%, mild aortic valve stenosis, PA pressure 60 mmHg Non-ST elevation myocardial infarction most probably type II myocardial infarction treated conservatively Probably hypotension and hypoxemia in addition to underlying coronary artery disease especially at patient age 88 Conservative management was recommended Hip fracture, s/p Prosthetic Replacement of Left Femoral Neck Fracture Early dementia, mild confusion Managed by medical team Supervisory-Addendum Brief Supervisory Addendum Participated in pt care: history, MDM, physical Personally performed: exam, history, MDM Care discussed with: FE Results interpretation: Verified all documentation Notes: Patient was seen and evaluated with Georgiana, examination performed, management plan was discussed, agree with the current scribed note, I made few changes to the note using Italic font Patient was seen at bedside, laying down comfortably Continue to monitor blood pressure No changes from cardiology standpoint are recommended GEORGIANA YUSUF PA-C Jun 22, 2023 08:23 LAMIN SCANLON MD Jun 22, 2023 08:50
--- NOTE | 2023-06-22 09:38 | Occupational Ther Daily Note ---
OT Current Status-Daily Note Subjective Pt in bed, agreeable to therapy tx ADL-Treatment Therapy Code Descriptions/Definitions Functional [place] Measure: 0=Not Assessed/NA 4=Minimal Assistance 1=Total Assistance 5=Supervision or Setup 2=Maximal Assistance 6=Modified [place] 3=Moderate Assistance 7=Complete IndependenceSCALE: Activities may be completed with or without assistive devices. 2-Kkxunscnju-kkevbtb completes the activity by him/herself with no assistance from a helper. 5-Set-up or Clean-up Assistance-helper sets up or cleans up; patient completes activity. [place] assists only prior to or following the activity. 4-Supervision or Touching Assistance-helper provides verbal cues and/or touching/steadying and/or contact guard assistance as patient completes activity. Assistance may be provided throughout the activity or intermittently. 3-Partial/Moderate Assistance-helper does LESS THAN HALF the effort. [place] lifts, holds or supports trunk or limbs, but provides less than half the effort. 2-Substantial/Maximal Assistance-helper does MORE THAN HALF the effort. [place] lifts or holds trunk or limbs and provides more than half the effort. 2-Wmqssoder-awwrbb does ALL the effort. Patient does none of the effort to complete the activity. Or, the assistance of 2 or more helpers is required for the patient to complete the activity. If activity was not attempted, code reason: 7-Patient Refused. 9-Not Applicable-not attempted and the patient did not perform the activity before the current illness, exacerbation or injury. 10-Not Attempted due to Environmental Limitations-(lack of equipment, weather restraints, etc.). 88-Not Attempted due to Medical Conditions or Safety Concerns. Eating (QC): 3 Lower Body Dressing (QC): 1 On/Off Footwear: 1 Other Treatment OT/PT cotreat due to skill of 2 clinicians required which a rehab technician could not perform in order to coordinate UE/LEs, decrease fall risk, and due to pt's limitations in strength, activity tolerance, mobility/transfers, sequencing, and ability to follow instructions. OT focused on UE placement, cues for sequencing and safety and ADLS, PT focused on LE placement, gross overall movement, transfers and mobility. Pt transferred supine to sit EOB, assist x2. Assist x2 to stand, complete weight shifting R/L, and transfer to w/c. Pt sat in w/c to eat breakfast, requiring VCs to use utensil to get food and bring to his mouth. VCs required to sit upright in w/c, pt tends to lean towards L. Noted food still in pt's mouth after ~30 mins of chewing food. Pt would not swallow food with cues, pt able to spit food out with instructions. OT brought water cup to pt's mouth, pt able to swish water around in his mouth with cues to clear remaining food. (INFORMATION ENGINEER and RN notified). Pt taken to parallel bars, stood with assist x2, completing weight shifting L/R, mirror placed in front of pt. Max time stood 2 mins with b/l knees blocks and max sternal and sacral pressure while using UEs on // bars. Pt attempted to take some steps forward, assist x2. Pt propelled w/c back towards his room, max verbal and tactile cues required for sequencing of task. Pt transferred from w/c to EOB, assist x2, and supine assist x2. Post tx, pt in bed, call light in reach and all needs met. Bed alarm activated. Transfers/mobility: Sit to/from supine max A x2. Sit to stand max A x2 to dependent x2 (max sacral and sternal support, max cues for walker use and posture). Max A x2 bed to chair transfer (stand pivot using FWW and swing pivot). Pt took 3 short steps in // bars, max A x2 to dependent x2. Min A w/c mobility with max verbal and tactile cues, hand over hand assistance required at times, UEs only. Education OT Patient Education: Correct positioning, Energy conservation, Modified ADL techniques, Progress toward Goal/Update tx plan, Purpose of tx/functional activities, Rehab process Teaching Recipient: Patient Teaching Methods: Discussion Response to Teaching: Verbalize Understanding OT Short Term Goals Short Term Goals Time Frame: Jun 30, 2023 Toileting hygiene: 4 Shower/bathe self: 4 Upper body dressin Lower body dressin OT Computer Equipment Repairer Goals Computer Equipment Repairer Goals Time Frame: Jul 09, 2023 Acute change in mental status: 0 Inattention: 0 Disorganized thinkin Altered level of consciousness: 0 Eating (QC): 6 Oral Hygiene (QC): 6 Toileting Hygiene (QC): 6 Shower/Bathe Self (QC): 5 Upper Body Dressing (QC): 6 Lower Body Dressing (QC): 6 On/Off Footwear (QC): 6 Additional Goals: 1-Demonstrate ADL Tasks, 2-Verbalize Understanding, 3- ImproveStrength/Kristina 1=Demonstrate adherence to instructed precautions during ADL tasks. 2=Patient will verbalize/demonstrate understanding of assistive devices/modifications for ADL. 3=Patient will improve strength/tolerance for activity to enable patient to perform ADL's. OT Education/Plan Problem List/Assessment Assessment: Decreased Activ Tolerance, Decreased UE Strength, Impaired Funct Balance, Impaired I ADL's, Impaired Self-Care Skills Discharge Recommendations Plan/Recommendations: Continue POC Treatment Plan/Plan of Care Patient would benefit from OT for education, treatment and training to promote independence in ADL's, mobility, safety and/or upper extremity function for ADL's. Plan of Care: ADL Retraining, Functional Mobility, Group Exercise/Act as Ind, UE Funct Exercise/Act Treatment Duration: Jul 09, 2023 Frequency: At least 5 of 7 days/Wk (IRF) Estimated Hrs Per Day: 1.5 hours per day Agreement: Yes Rehab Potential: Fair Time Start Time: 08:15 Stop Time: 09:30 DATE: Jun 22, 2023 Total Time Billed (hr/min): 75 Billed Treatment Time cotreat x75' 1, ADL 2 (30'), FA 3 (45') TERRI CASTANEDA OT Jun 22, 2023 09:38
[2023-06-22 10:31] VITALS: BP 115/64
--- NOTE | 2023-06-22 11:01 | ST Dysphagia Evaluation ---
Speech Evaluation-General Medical Diagnosis Septic shock, L hip fracture Onset Date: Jun 18, 2023 Therapy Diagnosis Therapy Diagnosis: Dysphagia Precautions Precautions: Fall, Aspiration Precautions/Isolations: Standard Precautions Referral Referring Physician: Iban Reason for Referral: Evaluation/Treatment Medical History Pertinent Medical History: HTN HTN, TIA, HLD, BPH Current History Pt is an 88 year old male, who presented to ER after being found unresponsive. The patient required intubation for airway protection due to his low GCS. The patient was recently extubated (06/11 to 06/14). Pt was evaluated on 06/14 for dysphagia and discharged on 06/17 with WFL swallow. Pt was evaluated on 06/18 and it was determined that swallow was WFL. Pt appears to have a change in status and is demonstrating s/s of dysphagia during PO intake. Reviewed History: Yes Social History Home: Single Level Current Living Status: Alone Speech PLF/Current-Dysphagia Prior Level of Function Pt was consuming a regular diet and thin liquids. Pt lived at home and was independent with all ADLs. Subjective Pt was laying in bed, asleep upon entrance to room by RUG WASHER. The pt was roused and greeted RUG WASHER appropriately and was agreeable to participate in clinical bedside swallow eval. Pt's head of bed was elevated for safe swallowing position. Cognitive Status Patient Orientation: Place Pt was oriented to hospital and city. Pt was not oriented to temporal information. Oral Motor Skills Denture Type: Full- Upper, Partial- Lower Current Food Consistancy: Regular, Thin Liquids Ability to Follow Directions: Fair Oral Expression Ability: No Impairment Voice Voice Phonatory-Based Quality: Normal Voice Pitch: Normal Voice Loudness: Normal Face Facial Symmetry: Symmetrical Oral-Facial Assessment Oral-Facial Dentition: Normal Labial Seal Description: Normal Smile: Normal Dysphagia Evaluation Consistencies Presented: Regular, Thin Liquid Oral Phase: Oral Residue, Reduced Oral Transit Pharyngeal Phase: Multiple Swallow Attempts, Delayed Swallow Dietary Recommendations: Mechanical Soft Liquid Recommendations: Thin Swallowing Precautions: Alternate Liquids/Solids, Oral Supervision Staff, Oral Supervision Caregiver Dysphagia Evaluation Summary Regular, Thin Liquid (Via straw), dry consistency solid The patient paused mastication and required verbal cues x2 to continue mastication and required verbal cues x4 to swallow the dry solid. After the last swallow, pt had minimal residue in oral cavity. The residual material was cleared with a subsequent swallow of thin liquids. Laryngeal elevation was present to palpation. The patient was provided thin liquids via straw and 1 piece of a dry solid consistency. The pt displayed poor mastication of solid and requires increasing cues to swallow bolus. Additional s/s of suspected aspiration were not demonstrated with thin liquids. The patient's vocal quality consistently remained clear following each swallow. Recommendations: - Small and bite sized consistency diet with thin liquids, as tolerated. - Fully upright and alert for P.O. intake. - Small, single bite and sips (only). - Assist with meal set-up and feeding, as necessary. The results and recommendations were provided to the patient, the patient's family member, and the RN immediately following completion of the assessment. Speech Prison Goals Prison Goals Pt will demonstrate the ability to comprehend verbal presentations of simple questions/directions with 85% accuracy. Pt will use external memory aids and compensatory strategies to recall routine, personal information, and recent events to improve orientation to time and recall daily events with 80% accuracy. Pt will demonstrate recall of functional information following an immediate, short-term, and long-term delay with 85% accuracy. Pt will tolerate diet upgrade 5/5 times with no s/s of aspiration. Pt will complete safe swallow guidelines during PO intake to decrease aspiration risk, with 90% accuracy. Speech-Plan Patient/Family Goals Patient/Family Goals: To return home Treatment Plan Speech Therapy Treatment Plan: Continue Plan of Care Treatment Duration: Jun 18, 2023 Frequency: At least 5 of 7 days/Wk (IRF) Estimated Hrs Per Day: .5 hour per day Rehab Potential: Fair Pt/Family Agrees to Plan: Yes Time Speech Therapy Time In: 09:45 Speech Therapy Time Out: 10:15 DATE: Jun 22, 2023 Total Billed Time: 30 Billed Treatment Time 1 GARRETT 30 min Lisbeth Morales Jun 22, 2023 11:01
--- NOTE | 2023-06-22 12:41 | Physical Therapy Daily Note ---
PT Daily Note-Current Subjective Few verbalizations this date. Co-treat with OT (8:15-9:30) due to severity of patient mobility limitations, endurance deficits and safety deficits. Pain Section J - Health Conditions 1. Rarely or not at all 2. Occasionally 3. Frequently 4. Almost constantly 8. Unable to answer Pain Effect on Sleep: 1 Pain Interference with Therapy: 2 Pain Interference w/Day-to-Day: 2 Appearance Patient in bed attempting to eat breakfast - transferred to w/c in attempt to ease eating process. Ate eggs, sausage, potatoes sitting up in w/c with max cues to stay awake and eat breakfast. Upon going to Rehab gym, it was noted that patient still had a substantial amount of food in his mouth that he had not swallowed - unable to swallow even with max cues - patient spat food out into paper towel via nursing and basin via OT. OT had patient rinse mouth with water. ST re-consulted regarding eating difficulties this date. Transfers SCALE: Activities may be completed with or without assistive devices. 1-Kwrppexguk-cmiskag completes the activity by him/herself with no assistance from a helper. 5-Set-up or Clean-up Assistance-helper sets up or cleans up; patient completes activity. [place] assists only prior to or following the activity. 4-Supervision or Touching Assistance-helper provides verbal cues and/or touching/steadying and/or contact guard assistance as patient completes activity. Assistance may be provided throughout the activity or intermittently. 3-Partial/Moderate Assistance-helper does LESS THAN HALF the effort. [place] lifts, holds or supports trunk or limbs, but provides less than half the effort. 2-Substantial/Maximal Assistance-helper does MORE THAN HALF the effort. [place] lifts or holds trunk or limbs and provides more than half the effort. 5-Tkqpshjxu-purwhw does ALL the effort. Patient does none of the effort to complete the activity. Or, the assistance of 2 or more helpers is required for the patient to complete the activity. If activity was not attempted, code reason: 7-Patient Refused. 9-Not Applicable-not attempted and the patient did not perform the activity before the current illness, exacerbation or injury. 10-Not Attempted due to Environmental Limitations-(lack of equipment, weather restraints, etc.). 88-Not Attempted due to Medical Conditions or Safety Concerns. Sit to Lying (QC): 1 (patient able to lift (R) leg up onto bed, but required max (A) to lift (L) and 2nd person to assist with pivoting trunk to bed.) Lying to Sitting/Side of Bed(Q: 1 (mod (A) for LE's then max (A) of 2 to sit upright on edge of bed) Sit to Stand (QC): 1 (Max (A) to dependent of 2 clinicians to stand EOB with max sacral and sternal support as well as max cues for walker use and posture and to keep (L) foot on floor. Max (A) of 2 to dependent in // bars. Max time stood = 2 minutes with (B) knees blocked and max sacral/sternal pressure and UE's using // bars. Weight shifting (L)/(R) with max (A) and knees blocked.) Chair/Dut-yb-Tvuli Xfer(QC): 1 (Max (A) for stand pivot with use of FWW bed>chair. Max (A) swing pivot w/c>bed. ) Mildly improved sitting balance EOB this date, but persists with slumped sitting to (L) in w/c despite hip repositioning. Weight Bearing Right Lower Extremity: Right Weight Bearing/Tolerated Left Lower Extremity: Left Weight Bearing/Tolerated WBAT Gait Training Distance: 3 steps Gait Persons Needed: 2 Gait Assistive Device: Parallel Bars 3 short steps in // bars max (A) of 2 - dependent with max sacral and sternal support, blocking of each knee alternately with cues to step each time and close w/c back up. Wheelchair Training Does the Pt Use a Wheelchair?: Yes Min (A) /c max vc/tc cues for UE use for turns/negotiation around obstacles. Increased time to complete using UE's only. Exercises Sitting LE ex in w/c: Heel raises x 10, (R) LAQ x 10, (L) LAQ x 10, (R) hip flexion x 10 with max cues for each rep. Assessment Requires extensive assist with all tasks. PT Short Term Goals Short Term Goals Time Frame: Jul 02, 2023 Roll Left & Right: 4 Sit to lyin Lying to sitting on side of be: 4 Sit to stand: 4 Chair/fiy-di-cexfk transfer: 4 Toilet transfer: 4 Car transfer: 4 Walk 10 feet: 4 Walk 50 feet with two turns: 4 Walk 150 feet: 4 Walking 10ft on uneven surface: 4 1 step (curb): 4 4 steps: 4 12 steps: 9 Picking up objects: 4 Does pt use a wc or scooter: Yes Wheel 50ft w/2 turns: 5 Wheel 150 feet: 5 Type: Manual PT Prison Goals Trial Lawyer Goals PT Prison Goals Time Frame: Jul 16, 2023 Roll Left & Right (QC): 6 Sit to Lying (QC): 6 Lying-Sitting on Side/Bed(QC): 6 Sit to Stand (QC): 6 Chair/Weo-xx-Jvnid Xfer(QC): 6 Toilet Transfer (QC): 6 Car Transfer (QC): 6 Does the Patient Walk: No and Walking Goal IS indicated Walk 10 feet (QC): 6 Walk 50ft with 2 Turns (QC): 6 Walk 150 ft (QC): 6 Walking 10ft on Uneven Surface: 6 1 Step (curb) (QC): 6 4 Steps (QC): 6 12 Steps (QC): 9 Picking up an Object (QC): 6 Does the Pt use WC or Scooter?: Yes Wheel 50 feet with 2 turns (QC: 6 Type: Manual Wheel 150 feet: 6 Type: Manual PT Plan Treatment/Plan Treatment Plan: Continue Plan of Care Treatment Plan: Bed Mobility, Education, Functional Activity Kristina, Functional Strength, Group Therapy, Gait, Safety, Therapeutic Exercise, Transfers Treatment Duration: Jun 18, 2023 Frequency: At least 5 of 7 days/Wk (IRF) Estimated Hrs Per Day: 1.5 hours per day Patient and/or Family Agrees t: Yes Discharge Recommendations Therapy Discharge Recommendati: 24 Hour Supervision, Post Acute PT Target Placement SNF at this time Time Time In: 815 Time Out: 930 DATE: Jun 22, 2023 Total Billed Treatment Time: 75 Total Billed Treatment 1, EX, WC, 3FA Mary Ann Dixon PT Jun 22, 2023 12:41
[2023-06-22 14:18] VITALS: BP 112/73
[2023-06-22] MEDS: MEGESTROL 400 MG/10 ML PO SCH (14:39)
[2023-06-22] MEDS: TAMSULOSIN 0.4 MG (FLOMAX) CAP PO SCH ×2 (14:39→20:06)
--- NOTE | 2023-06-22 14:52 | Progress Note ---
OBED HAWTHORNE 06/22/23 1452: Progress Note 88 y/o M who was admitted on 06/18 with a L hip fracture with repair on 06/15 status post acute respiratory failure, pneumonia, COVID-19 Pt was initially evaluated by speech who determined that swallow appeared to be WFL and he had s/s of dysphagia. PT and OT assessment on 06/18 for treatment to focus on regaining function to return back to independent living while using assistive devices in order to prevent falls. - Initially, pt rating hip/low back pain 3-4/10 at rest and 8/10 with activity. Reports that his pain affects his sleep, interferes with his therapy, and interferes with his day-to-day constantly. Unable to roll left or right, scored a 2 for sit to lying, 2 for sit to stand, 1 for chair to bed, 1 for toilet transfer, unable to car transfer, unable to walk 10 ft, 150 ft, or walk on uneven surfaces. Using a manual wheelchair which he has some difficulty utilizing. - Currently, pt reports that his pain rarely affects his sleep and only occasionally interferes with his therapy and his day-to-day activities. Scores a 4 for roll left or right, scored a 4 for sit to lying, 4 for sit to stand, 4 for chair to bed, 4 for toilet transfer, 4 for car transfer, 4 for walk 10 ft, 150 f t, and walk on uneven surfaces. Using a manual wheelchair which he scores a 5 for use. ABBY FERMIN DO 06/23/23 0457: Supervisory-Addendum Brief Verification & Attestation Participated in pt care: history, MDM, physical Personally performed: exam, history, MDM, supervision of care Care discussed with: Medical Student Procedures: n/a Results interpretation: Verified all documentation Verification and Attestation of Medical Student E/M Service A medical student performed and documented this service in my presence. I reviewed and verified all information documented by the medical student and made modifications to such information, when appropriate. I personally performed the physical exam and medical decision making. Abby Fermin Jun 23, 2023,04:57 OBED HAWTHORNE Jun 22, 2023 14:52 ABBY FERMIN DO Jun 23, 2023 04:57
[2023-06-22] MEDS: ENOXAPARIN 40 MG/0.4 ML SYRINGE SQ SCH (15:07)
[2023-06-22 19:40] VITALS: BP 120/59
--- NOTE | 2023-06-23 06:02 | PM&R Progress Note ---
Subjective HPI/CC On Admission Date Seen by Provider: Jun 23, 2023 Time Seen by Provider: 13:00 Subjective/Events-last exam 06/23/2023: Patient having a very slow recovery Requires 23 person transfers Patient did delayed cognition Likely has lack of nutrition is positive for severe weakness Megace maintained to stimulate appetite 06/22/2023: Patient doing well No pain is reported Seems to be eating a little bit better today Will start Megace to stimulate appetite Very slow transfers 06/21/2023: Patient having very slow recovery Appears to have minimal motivation Son at bedside Still not eating well Szymanski catheter DC but retention required replacement Patient high risk for mcfp and further decline UA was normal with labs 06/20/2023: Very weak today Not eating well Outside food will be brought in for calories Pain is an issue today DC catheter tomorrow hopefully BPH won't cause an issue 06/19/2023: Patient much improved Still very weak Szymanski catheter in place will DC on Wednesday Patient has BPH history Reviewed meds and labs Hemoglobin stable but checking iron and B12 Review of Systems General: Fatigue, Malaise Objective Exam Vital Signs Vital Signs Date Time Temp Pulse Resp B/P (MAP) Pulse Ox O2 Delivery O2 Flow Rate FiO2 06/23/23 21:00 93 Room Air 06/23/23 20:00 36.8 87 20 121/61 (81) 06/22/23 11:37 2.00 06/19/23 21:43 21 Capillary Refill : General Appearance: No Apparent Distress, WD/WN, Chronically ill HEENT: PERRL/EOMI, Normal ENT Inspection, Pharynx Normal Neck: Full Range of Motion, Normal Inspection, Non Tender, Supple, Carotid Bruit Respiratory: Chest Non Tender, Lungs Clear, Normal Breath Sounds, No Accessory Muscle Use, No Respiratory Distress Cardiovascular: Regular Rate, Rhythm, No Edema, No Gallop, No JVD, No Murmur, Normal Peripheral Pulses Gastrointestinal: Normal Bowel Sounds, No Organomegaly, No Pulsatile Mass, Non Tender, Soft Back: Normal Inspection, No CVA Tenderness, No Vertebral Tenderness Extremity: Normal Capillary Refill, Normal Inspection, Normal Range of Motion, Non Tender, No Calf Tenderness, No Pedal Edema Neurologic/Psychiatric: Alert, Oriented x3, Normal Mood/Affect, Abnormal Gait, Motor Weakness (Left leg) Skin: Normal Color, Warm/Dry Lymphatic: No Adenopathy Results/Procedures Lab Patient resulted labs reviewed. FIM Transfers Therapy Code Descriptions/Definitions Functional [place] Measure: 0=Not Assessed/NA 4=Minimal Assistance 1=Total Assistance 5=Supervision or Setup 2=Maximal Assistance 6=Modified [place] 3=Moderate Assistance 7=Complete IndependenceSCALE: Activities may be completed with or without assistive devices. 5-Rhzhleckfv-ktbmjhb completes the activity by him/herself with no assistance from a helper. 5-Set-up or Clean-up Assistance-helper sets up or cleans up; patient completes activity. [place] assists only prior to or following the activity. 4-Supervision or Touching Assistance-helper provides verbal cues and/or touching/steadying and/or contact guard assistance as patient completes activity. Assistance may be provided throughout the activity or intermittently. 3-Partial/Moderate Assistance-helper does LESS THAN HALF the effort. [place] lifts, holds or supports trunk or limbs, but provides less than half the effort. 2-Substantial/Maximal Assistance-helper does MORE THAN HALF the effort. [place] lifts or holds trunk or limbs and provides more than half the effort. 7-Qdldhwydo-hjawsx does ALL the effort. Patient does none of the effort to complete the activity. Or, the assistance of 2 or more helpers is required for the patient to complete the activity. If activity was not attempted, code reason: 7-Patient Refused. 9-Not Applicable-not attempted and the patient did not perform the activity before the current illness, exacerbation or injury. 10-Not Attempted due to Environmental Limitations-(lack of equipment, weather restraints, etc.). 88-Not Attempted due to Medical Conditions or Safety Concerns. Roll Left to Right (QC): 1 Sit to Lying (QC): 1 (patient able to lift (R) leg up onto bed, but required max (A) to lift (L) and 2nd person to assist with pivoting trunk to bed.) Sit to Stand (QC): 1 (Max (A) to dependent of 2 clinicians to stand EOB with max sacral and sternal support as well as max cues for walker use and posture and to keep (L) foot on floor. Max (A) of 2 to dependent in // bars. Max time stood = 2 minutes with (B) knees blocked and max sacral/sternal pressure and UE's using // bars. Weight shifting (L)/(R) with max (A) and knees blocked.) Chair/Vuc-le-Tlgxk Xfer(QC): 1 (Max (A) for stand pivot with use of FWW bed>chair. Max (A) swing pivot w/c>bed. ) Car Transfer (QC): 88 Gait Training Does the Patient Walk?: No and Walking Goal IS indicated Distance: 3 steps Walk 10 feet (QC): 88 Walk 50 ft with 2 Turns(QC): 88 Walk 150 ft (QC): 88 Walking 10ft/uneven surface-QC: 88 Gait Persons Needed: 2 Gait Assistive Device: Parallel Bars Wheelchair Training Does the Pt Use a Wheelchair?: Yes Distance: 15 Wheel 50 ft with 2 turns (QC): 2 (max (A) with hand placement, max v.c./t.c. to use UE's for propulsion, max v.c. to stay on task. 50' over 30 minute time frame. ) Wheel 150 ft (QC): 88 Type of Wheelchair: Manual Stair Training 1 Step (curb) (QC): 88 4 Steps (QC): 88 12 Steps (QC): 8 Balance Picking up an Object (QC): 88 ADL-Treatment Eating (QC): 3 Oral Hygiene (QC): 4 Shower/Bathe Self (QC): 1 (Assist x2) Upper Body Dressing (QC): 3 (Min A with orientation of shirt in order to thread overhead) Lower Body Dressing (QC): 1 On/Off Footwear (QC): 1 Toileting Hygiene (QC): 1 (assist x2) Assessment/Plan Assessment and Plan Assess & Plan/Chief Complaint Assessment: Left hip fracture status post uncomplicated repair Recent intubation from COVID induced pneumonia respiratory failure Hypertension Hyperlipidemia BPH Szymanski catheter in place DC but required replacement due to retention NSTEMI due to critical illness Recent sepsis Recent acute kidney injury Plan: Supportive care Aggressive PT and OT Home meds Monitor blood pressure Szymanski catheter management 06/19/2023: Await B12 and iron level DC Accu-Cheks 06/20/2023: Monitor closely Pain control Monitor labs Outside food 06/21/2023: Supportive care Hopefully increase motivation Increase p.o. nutrition High risk for skilled 06/22/2023: Supportive care Add Megace for appetite stimulation 06/23/2023: Continue appetite stimulation Monitor closely (1) Closed left hip fracture MURIEL FERMIN DO Jun 23, 2023 06:02
[2023-06-23 07:08] VITALS: BP 135/64
[2023-06-23] MEDS: DOCUSATE SODIUM 100 MG CAPSULE PO SCH ×2 (07:45→21:46)
[2023-06-23] MEDS: TAMSULOSIN 0.4 MG (FLOMAX) CAP PO SCH ×2 (07:45→21:46)
[2023-06-23] MEDS: SENNA W/DOCUSATE TABLET PO SCH ×2 (07:45→21:46)
[2023-06-23] MEDS: MEGESTROL 400 MG/10 ML PO SCH (07:45)
[2023-06-23] MEDS: ASPIRIN enteric coated 81MG TABLET PO SCH (07:45)
[2023-06-23] MEDS: PANTOPRAZOLE 40 MG TABLET PO SCH (07:46)
[2023-06-23] MEDS: meTOprolol TARTRATE (IR) 25 MG TABLET PO SCH ×2 (07:46→21:47)
--- NOTE | 2023-06-23 08:23 | Occupational Ther Daily Note ---
OT Current Status-Daily Note Subjective Pt agreeable to therapy tx. Pt hollers out in pain with all movement, RN aware and provided pain medication ADL-Treatment Therapy Code Descriptions/Definitions Functional Hand Measure: 0=Not Assessed/NA 4=Minimal Assistance 1=Total Assistance 5=Supervision or Setup 2=Maximal Assistance 6=Modified Hand 3=Moderate Assistance 7=Complete IndependenceSCALE: Activities may be completed with or without assistive devices. 0-Qpaptubipx-kagqjnw completes the activity by him/herself with no assistance from a helper. 5-Set-up or Clean-up Assistance-helper sets up or cleans up; patient completes activity. [place] assists only prior to or following the activity. 4-Supervision or Touching Assistance-helper provides verbal cues and/or touching/steadying and/or contact guard assistance as patient completes activity. Assistance may be provided throughout the activity or intermittently. 3-Partial/Moderate Assistance-helper does LESS THAN HALF the effort. [place] lifts, holds or supports trunk or limbs, but provides less than half the effort. 2-Substantial/Maximal Assistance-helper does MORE THAN HALF the effort. [place] lifts or holds trunk or limbs and provides more than half the effort. 3-[place]-owlaxw does ALL the effort. Patient does none of the effort to complete the activity. Or, the assistance of 2 or more helpers is required for the patient to complete the activity. If activity was not attempted, code reason: 7-Patient Refused. 9-Not Applicable-not attempted and the patient did not perform the activity before the current illness, exacerbation or injury. 10-Not Attempted due to Environmental Limitations-(lack of equipment, weather restraints, etc.). 88-Not Attempted due to Medical Conditions or Safety Concerns. Eating (QC): 3 Upper Body Dressing (QC): 3 (Assist LUE and assist down trunk. Mod VCs. Pt did not realize he had not threaded LUE, requiring physical assistance/cues for threading. ) Lower Body Dressing (QC): 1 (assist x2 required, assist all parts ) On/Off Footwear: 1 Other Treatment assist x2 supine to sit EOB, Assist x3 SPT to w/c. Pt did not initiate moving LEs during transfer requiring 1 person to assist with LEs, and 2 person to assist him during stand/transfer. Pt ate breakfast, moderate-maximal VCs for bite size, pt often continuing scooping food requiring OT to remove spoon from pt's hand so he would focus on chewing and swallowing the food in his mouth before taking another bite. Pt then changed clothes as outlined above, requiring repeated instructions several times prior to initiating tasks. Max A x2 for sit to/from stands during ADLs, pt resistive to movement trying to sit down instead of stand up, while stating "I can't". SPT from w/c to EOB, total assist x2, assist x2 sit to supine. Abduction pillow placed between LEs. Post tx, pt in bed, call light in reach and all needs met Education OT Patient Education: Correct positioning, Energy conservation, Modified ADL techniques, Progress toward Goal/Update tx plan, Purpose of tx/functional activities, Rehab process Teaching Recipient: Patient Teaching Methods: Discussion Response to Teaching: Reinforcement Needed OT Short Term Goals Short Term Goals Time Frame: Jun 30, 2023 Toileting hygiene: 4 Shower/bathe self: 4 Upper body dressin Lower body dressin OT Longterm Goals Plating Technician Goals Time Frame: Jul 09, 2023 Acute change in mental status: 0 Inattention: 0 Disorganized thinkin Altered level of consciousness: 0 Eating (QC): 6 Oral Hygiene (QC): 6 Toileting Hygiene (QC): 6 Shower/Bathe Self (QC): 5 Upper Body Dressing (QC): 6 Lower Body Dressing (QC): 6 On/Off Footwear (QC): 6 Additional Goals: 1-Demonstrate ADL Tasks, 2-Verbalize Understanding, 3- ImproveStrength/Kristina 1=Demonstrate adherence to instructed precautions during ADL tasks. 2=Patient will verbalize/demonstrate understanding of assistive devices/modifications for ADL. 3=Patient will improve strength/tolerance for activity to enable patient to perform ADL's. OT Education/Plan Problem List/Assessment Assessment: Decreased Activ Tolerance, Decreased Safety Aware, Decreased UE Strength, Dependent Transfers, Impaired Cognition, Impaired Funct Balance, Impaired I ADL's, Impaired Self-Care Skills Discharge Recommendations Plan/Recommendations: Continue POC Treatment Plan/Plan of Care Patient would benefit from OT for education, treatment and training to promote independence in ADL's, mobility, safety and/or upper extremity function for ADL's. Plan of Care: ADL Retraining, Functional Mobility, Group Exercise/Act as Ind, UE Funct Exercise/Act Treatment Duration: Jul 09, 2023 Frequency: At least 5 of 7 days/Wk (IRF) Estimated Hrs Per Day: 1.5 hours per day Agreement: Yes Rehab Potential: Fair Time Start Time: 07:30 Stop Time: 08:45 DATE: Jun 23, 2023 Total Time Billed (hr/min): 75 Billed Treatment Time 1, ADL 5 TERRI CASTANEDA OT Jun 23, 2023 08:23
--- NOTE | 2023-06-23 08:30 | Cardiology Progress Note ---
Subjective Date Seen by Provider: Jun 23, 2023 Time Seen by Provider: 08:15 Subjective/Events-last exam Patient is eating breakfast in his wheelchair at the time of exam. He notes that he is still feeling weak at this time and complains of continued hip and knee pain. He denies shortness of breath, chest pain, palpitations, nausea or vomiting. He denies any further complaints at this time. Review of Systems General: Fatigue Pulmonary: No Dyspnea, No Cough Cardiovascular: No: Chest Pain, Palpitations Gastrointestinal: No: Nausea, Vomiting, Abdominal Pain Musculoskeletal: leg pain (Left) Neurological: Weakness Objective-Cardiology Exam Last Set of Vital Signs Vital Signs 06/19/23 06/22/23 06/23/23 21:43 11:37 07:08 Temp 37.1 Pulse 84 Resp 18 B/P (MAP) 135/64 (87) Pulse Ox 92 O2 Delivery Room Air O2 Flow Rate 2.00 FiO2 21 I&O Intake and Output 06/22/23 23:59 Intake Total 1240 ml Output Total 1000 ml Balance 240 ml Intake Oral 1240 ml Output Urine Total 1000 ml General: Alert, Cooperative, No Acute Distress HEENT: Atraumatic, PERRLA Neck: Supple Lungs: Clear to Auscultation, Normal Air Movement Heart: Regular Rate, Normal S1, Normal S2 Abdomen: Normal Bowel Sounds, Soft, No Tenderness Extremities: No Clubbing, No Cyanosis, No Edema, Normal Pulses Skin: No Rashes Neuro: Normal Speech Psych/Mental Status: Mental Status NL, Mood NL A/P-Cardiology Admission Diagnosis s/p acute respiratory failure NSTEMI s/p left hip fracture Generalized weakness/fatigue Assessment/Plan Status post acute respiratory failure, pneumonia, COVID-19 Recovered Denies further shortness of breath. Continue to monitor Hypertension, maintained on Lopressor 12.5mg BID, amlodipine 2.5mg daily. Status post hypotensive shock/septic shock Continue to monitor blood pressure 2D echo was done in June 12, 2023 reported as normal LV size with ejection fraction 55 to 60%, mild aortic valve stenosis, PA pressure 60 mmHg Non-ST elevation myocardial infarction most probably type II myocardial infarction treated conservatively Probably hypotension and hypoxemia in addition to underlying coronary artery disease especially at patient age 88 Conservative management was recommended Hip fracture, s/p Prosthetic Replacement of Left Femoral Neck Fracture Continue rehab per physiatry team Early dementia, mild confusion Managed by medical team DVT prophylaxis: enoxaparin 40 mg Supervisory-Addendum Brief Supervisory Addendum Participated in pt care: history, MDM, physical Personally performed: exam, history, MDM Care discussed with: FE Results interpretation: Verified all documentation Notes: Verification and Attestation of Medical Student E/M Service A medical student performed and documented this service in my presence. I reviewed and verified all information documented by the medical student and made modifications to such information, when appropriate. I personally performed the physical exam and medical decision making. Patient was seen at bedside, receiving physical therapy, doing better Continue to monitor heart rate and blood pressure, No changes from cardiology standpoint Lamin Scales, Jun 23, 2023,12:20 EILEEN JUAN Jun 23, 2023 08:30 LAMIN SCALES MD Jun 23, 2023 12:20
--- NOTE | 2023-06-23 11:45 | Occ Therapy Rehab Re-Cert ---
OT Re-Certification Form Plan of Care: ADL Retraining, Functional Mobility, Group Exercise/Act as Ind, UE Funct Exercise/Act Jul 09, 2023 Treatment Duration: OT POC updated to 75 mins per day, 5 of 7 days per week Frequency: At least 5 of 7 days/Wk (IRF) Estimated Hrs Per Day: Other (75 mins per day) Agreement: Yes Rehab Potential: Guarded OT Short Term Goals Short Term Goals Time Frame: Jun 30, 2023 Toileting hygiene: 4 Shower/bathe self: 4 Upper body dressin Lower body dressin OT Intermediate Goals Intermediate Goals Time Frame: Jul 09, 2023 Acute change in mental status: 0 Inattention: 0 Disorganized thinkin Altered level of consciousness: 0 Eating (QC): 6 Oral Hygiene (QC): 6 Toileting Hygiene (QC): 6 Shower/Bathe Self (QC): 5 Upper Body Dressing (QC): 6 Lower Body Dressing (QC): 6 On/Off Footwear (QC): 6 Additional Goals: 1-Demonstrate ADL Tasks, 2-Verbalize Understanding, 3- ImproveStrength/Kristina 1=Demonstrate adherence to instructed precautions during ADL tasks. 2=Patient will verbalize/demonstrate understanding of assistive devices/modifications for ADL. 3=Patient will improve strength/tolerance for activity to enable patient to perform ADL's. TERRI CASTANEDA OT Jun 23, 2023 11:45
--- NOTE | 2023-06-23 14:12 | Speech Therapy Daily Note ---
Speech Daily Progress Note Subjective Date Seen by Provider: Jun 23, 2023 Time Seen by Provider: 13:00 Pt laying in bed with head of bed raised, son is present during session. Objective Orientation: 2/5, oriented to hospital and city, not oriented to date, year, or month Comparing items: 5/5, requires cues to stay awake during session Pt swallowed 1 pill during session. Pt was able to swallow medication with no difficulty, however, pt unable to drink water through correct side without cues from nrsing, LEAD RELAY TESTER, and son. Cup needed to be taken and placed back into his hand correctly. Discuss safe swallow guidelines with pt and son, both state understanding. Assessment Assessment Current Status: Fair Progress Treatment Plan Continue Plan of Care Speech Retirement Goals Stack Supervisor Goals Pt will demonstrate the ability to comprehend verbal presentations of simple questions/directions with 85% accuracy. Pt will use external memory aids and compensatory strategies to recall routine, personal information, and recent events to improve orientation to time and recall daily events with 80% accuracy. Pt will demonstrate recall of functional information following an immediate, short-term, and long-term delay with 85% accuracy. Pt will tolerate diet upgrade 5/5 times with no s/s of aspiration. Pt will complete safe swallow guidelines during PO intake to decrease aspiration risk, with 90% accuracy. Speech-Plan Treatment Plan Speech Therapy Treatment Plan: Continue Plan of Care Treatment Duration: Jun 18, 2023 Frequency: At least 5 of 7 days/Wk (IRF) Estimated Hrs Per Day: .5 hour per day Rehab Potential: Guarded Time Speech Therapy Time In: 13:00 Speech Therapy Time Out: 13:30 DATE: Jun 23, 2023 Total Billed Time: 30 Billed Treatment Time 1 SLTS 1 DYST 30 min Lisbeth Morales Jun 23, 2023 14:12
--- NOTE | 2023-06-23 14:46 | Physical Therapy Daily Note ---
PT Daily Note-Current Subjective Patient was angry and stated he didn't see how any of this would help and he only wanted to rest. Reminded patient that he had had a 2 1/2 hour rest since his last therapy session. Patient required extensive encouragement, reinforcement of program requirements, etc. to participate in therapy this a.m. Pain Section J - Health Conditions 1. Rarely or not at all 2. Occasionally 3. Frequently 4. Almost constantly 8. Unable to answer Pain Effect on Sleep: 1 Pain Interference with Therapy: 4 Pain Interference w/Day-to-Day: 4 Appearance Patient laying in bed in supine. Abduction wedge was not between patient's legs. Mental Status Patient Orientation: Confused Patient unable to verbalize any of his hip precautions this a.m. Transfers SCALE: Activities may be completed with or without assistive devices. 9-Wyknimnakr-jtpgsfd completes the activity by him/herself with no assistance from a helper. 5-Set-up or Clean-up Assistance-helper sets up or cleans up; patient completes activity. [place] assists only prior to or following the activity. 4-Supervision or Touching Assistance-helper provides verbal cues and/or touching/steadying and/or contact guard assistance as patient completes activity. Assistance may be provided throughout the activity or intermittently. 3-Partial/Moderate Assistance-helper does LESS THAN HALF the effort. [place] lifts, holds or supports trunk or limbs, but provides less than half the effort. 2-Substantial/Maximal Assistance-helper does MORE THAN HALF the effort. [place] lifts or holds trunk or limbs and provides more than half the effort. 4-Zowtqzgho-opjeal does ALL the effort. Patient does none of the effort to complete the activity. Or, the assistance of 2 or more helpers is required for the patient to complete the activity. If activity was not attempted, code reason: 7-Patient Refused. 9-Not Applicable-not attempted and the patient did not perform the activity before the current illness, exacerbation or injury. 10-Not Attempted due to Environmental Limitations-(lack of equipment, weather restraints, etc.). 88-Not Attempted due to Medical Conditions or Safety Concerns. Sit to Lying (QC): 1 (max (A) of 2. Also dependent to move self laterally in bed.) Lying to Sitting/Side of Bed(Q: 1 (Max (A) of 2) Sit to Stand (QC): 1 (Max (A) of 2 x 3 attempts. Max v.c./t.c. to push up with arms. for standing posture, to push down on walker with arms, to straighten legs.) Weight Bearing Right Lower Extremity: Right Weight Bearing/Tolerated Left Lower Extremity: Left Weight Bearing/Tolerated WBAT Gait Training Does the Patient Walk?: No and Walking Goal NOT indicated Exercises Supine ex: (B) ankle pumps x 10 /c tactile cues for both DF/PF (when this exercise was first initiated, the patient screamed out in pain. Instructed patient that he was only moving his ankles. He was then able to complete 10 reps without c/o pain). (R) leg abduction/adduction x 10 /c min (A). SLR x 10 with min (A). Heel slide (R) x 10 SBA-min (A). Sitting ex on EOB: LAQ x 10 (B) to target. (R) hip flexion x 10. (B) heel lifts with feet on floor. Sitting balance maintained today without (L) lean. Treatments Sit>stand from EOB max (A) of 2. Weight shifting in standing once patient maximized his standing balance with FWW, max (A) of 2 with sacral and sternal pressure, assist to keep walker close to patient and cues to push walker down into floor. Stood for ~ 1 minute x 3 reps. Patient would begin to sit back to bedside without warning. Max cues and assist for hand placement. Patient able to lift (L) foot up off floor x 10 with max (A) of 2 and FWW for standing balance. Side scooting to (R) while sitting EOB, mod-max (A) of 2 prior to laying back down. Abduction wedge placed in between legs following sit>supine. PT Short Term Goals Short Term Goals Time Frame: Jul 02, 2023 Roll Left & Right: 4 Sit to lyin Lying to sitting on side of be: 4 Sit to stand: 4 Chair/lui-su-bgyne transfer: 4 Toilet transfer: 4 Car transfer: 4 Walk 10 feet: 4 Walk 50 feet with two turns: 4 Walk 150 feet: 4 Walking 10ft on uneven surface: 4 1 step (curb): 4 4 steps: 4 12 steps: 9 Picking up objects: 4 Does pt use a wc or scooter: Yes Wheel 50ft w/2 turns: 5 Wheel 150 feet: 5 Type: Manual PT Site Superintendent Goals Shelter Goals PT Shelter Goals Time Frame: Jul 16, 2023 Roll Left & Right (QC): 6 Sit to Lying (QC): 6 Lying-Sitting on Side/Bed(QC): 6 Sit to Stand (QC): 6 Chair/Mln-kv-Gevoi Xfer(QC): 6 Toilet Transfer (QC): 6 Car Transfer (QC): 6 Does the Patient Walk: No and Walking Goal IS indicated Walk 10 feet (QC): 6 Walk 50ft with 2 Turns (QC): 6 Walk 150 ft (QC): 6 Walking 10ft on Uneven Surface: 6 1 Step (curb) (QC): 6 4 Steps (QC): 6 12 Steps (QC): 9 Picking up an Object (QC): 6 Does the Pt use WC or Scooter?: Yes Wheel 50 feet with 2 turns (QC: 6 Type: Manual Wheel 150 feet: 6 Type: Manual PT Plan Treatment/Plan Treatment Plan: Continue Plan of Care Treatment Plan: Bed Mobility, Education, Functional Activity Kristina, Functional Strength, Group Therapy, Gait, Safety, Therapeutic Exercise, Transfers Treatment Duration: Jun 18, 2023 Frequency: At least 5 of 7 days/Wk (IRF) Estimated Hrs Per Day: Other (75 mins per day) Patient and/or Family Agrees t: Yes Discharge Recommendations Therapy Discharge Recommendati: 24 Hour Supervision, Post Acute PT Target Placement SNF Time Time In: 1045 Time Out: 1130 DATE: Jun 23, 2023 Total Billed Treatment Time: 45 Total Billed Treatment 1, 1EX, 2 FA Mary Ann Dixon PT Jun 23, 2023 14:46
--- NOTE | 2023-06-23 14:59 | Physical Therapy Rehab Re-Cert ---
PT Re-Certification Form Physical Therapy Treatment Plan: Modify Plan, see comments Bed Mobility, Education, Functional Activity Kristina, Functional Strength, Group Therapy, Gait, Safety, Therapeutic Exercise, Transfers Frequency: At least 5 of 7 days/Wk (IRF) Estimated Hrs Per Day: Other (75 mins per day) Patient and/or Family Agrees t: Yes Rehab Potential: Guarded Changed estimated hours from 90 to 75 minutes per day due to Speech Therapy re- evaluating the patient and adding ST minutes (30) to POC. PT Short Term Goals Short Term Goals Time Frame: Jul 02, 2023 Roll Left & Right: 4 Sit to lyin Lying to sitting on side of be: 4 Sit to stand: 4 Chair/jdg-se-bxobg transfer: 4 Toilet transfer: 4 Car transfer: 4 Walk 10 feet: 4 Walk 50 feet with two turns: 4 Walk 150 feet: 4 Walking 10ft on uneven surface: 4 1 step (curb): 4 4 steps: 4 12 steps: 9 Picking up objects: 4 Does pt use a wc or scooter: Yes Wheel 50ft w/2 turns: 5 Wheel 150 feet: 5 Type: Manual PT Jet Piercer Operator Goals Longterm Goals PT Jet Piercer Operator Goals Time Frame: Jul 16, 2023 Roll Left & Right (QC): 6 Sit to Lying (QC): 6 Lying-Sitting on Side/Bed(QC): 6 Sit to Stand (QC): 6 Chair/Rgg-sh-Khebq Xfer(QC): 6 Toilet Transfer (QC): 6 Car Transfer (QC): 6 Does the Patient Walk: No and Walking Goal IS indicated Walk 10 feet (QC): 6 Walk 50ft with 2 Turns (QC): 6 Walk 150 ft (QC): 6 Walking 10ft on Uneven Surface: 6 1 Step (curb) (QC): 6 4 Steps (QC): 6 12 Steps (QC): 9 Picking up an Object (QC): 6 Does the Pt use WC or Scooter?: Yes Wheel 50 feet with 2 turns (QC: 6 Type: Manual Wheel 150 feet: 6 Type: Manual Mary Ann Dixon PT Jun 23, 2023 14:59
[2023-06-23 15:06] VITALS: BP 135/64
--- NOTE | 2023-06-23 15:39 | Physical Therapy Daily Note ---
PT Daily Note-Current Subjective Pt laying Supine in bed w/son present upon arrival. Pt agrees to PT. Pain Location: Left Location Body Site: Hip Pain Description: Stabbing, Sharp Comment: Facial grimaces during tx but doesn't rate Section J - Health Conditions 1. Rarely or not at all 2. Occasionally 3. Frequently 4. Almost constantly 8. Unable to answer Pain Effect on Sleep: 1 Pain Interference with Therapy: 4 Pain Interference w/Day-to-Day: 4 Mental Status Patient Orientation: Person, Place Attachments: Szymanski Catheter Transfers SCALE: Activities may be completed with or without assistive devices. 8-Jbqckzrnta-cmaxyai completes the activity by him/herself with no assistance from a helper. 5-Set-up or Clean-up Assistance-helper sets up or cleans up; patient completes activity. [place] assists only prior to or following the activity. 4-Supervision or Touching Assistance-helper provides verbal cues and/or touching/steadying and/or contact guard assistance as patient completes activity. Assistance may be provided throughout the activity or intermittently. 3-Partial/Moderate Assistance-helper does LESS THAN HALF the effort. [place] lifts, holds or supports trunk or limbs, but provides less than half the effort. 2-Substantial/Maximal Assistance-helper does MORE THAN HALF the effort. [place] lifts or holds trunk or limbs and provides more than half the effort. 0-Whsyxqrsk-wdhnps does ALL the effort. Patient does none of the effort to complete the activity. Or, the assistance of 2 or more helpers is required for the patient to complete the activity. If activity was not attempted, code reason: 7-Patient Refused. 9-Not Applicable-not attempted and the patient did not perform the activity before the current illness, exacerbation or injury. 10-Not Attempted due to Environmental Limitations-(lack of equipment, weather restraints, etc.). 88-Not Attempted due to Medical Conditions or Safety Concerns. Weight Bearing Right Lower Extremity: Right Weight Bearing/Tolerated Left Lower Extremity: Left Weight Bearing/Tolerated WBAT Exercises Supine Ex: Ankle pumps, Quad Set, Glut sets Treatments TOWER HAND reviews Supine HEP w/pt & son. Question about possible xray needed of L knee but after talking to PT, Nurse & Nursing Wire Stripper who have all seen pt over previous few days, decided against xray at this time. Visited w/son about swelling and how it can travel and currently feels as though its a soft tissue swelling. Will watch for further swelling. Pt resting at end of tx w/all needs met, call light in hand. Assessment Current Status: Poor Progress Pt remains unmotivated and reports increased pain w/movement but won't try to complete EX to reduce stiffness from just sitting/laying. PT Short Term Goals Short Term Goals Time Frame: Jul 02, 2023 Roll Left & Right: 4 Sit to lyin Lying to sitting on side of be: 4 Sit to stand: 4 Chair/zdl-vp-dyeiw transfer: 4 Toilet transfer: 4 Car transfer: 4 Walk 10 feet: 4 Walk 50 feet with two turns: 4 Walk 150 feet: 4 Walking 10ft on uneven surface: 4 1 step (curb): 4 4 steps: 4 12 steps: 9 Picking up objects: 4 Does pt use a wc or scooter: Yes Wheel 50ft w/2 turns: 5 Wheel 150 feet: 5 Type: Manual PT Long-Term Goals Barrel Endshake Adjuster Goals PT Long-Term Goals Time Frame: Jul 16, 2023 Roll Left & Right (QC): 6 Sit to Lying (QC): 6 Lying-Sitting on Side/Bed(QC): 6 Sit to Stand (QC): 6 Chair/Ylj-dz-Dxzpf Xfer(QC): 6 Toilet Transfer (QC): 6 Car Transfer (QC): 6 Does the Patient Walk: No and Walking Goal IS indicated Walk 10 feet (QC): 6 Walk 50ft with 2 Turns (QC): 6 Walk 150 ft (QC): 6 Walking 10ft on Uneven Surface: 6 1 Step (curb) (QC): 6 4 Steps (QC): 6 12 Steps (QC): 9 Picking up an Object (QC): 6 Does the Pt use WC or Scooter?: Yes Wheel 50 feet with 2 turns (QC: 6 Type: Manual Wheel 150 feet: 6 Type: Manual PT Plan Problem List Problem List: Activity Tolerance, Functional Strength, Safety, Transfer, Bed Mobility Treatment/Plan Treatment Plan: Continue Plan of Care Treatment Plan: Bed Mobility, Education, Functional Activity Kristina, Functional Strength, Group Therapy, Gait, Safety, Therapeutic Exercise, Transfers Treatment Duration: Jun 18, 2023 Frequency: At least 5 of 7 days/Wk (IRF) Estimated Hrs Per Day: Other (75 mins per day) Patient and/or Family Agrees t: Yes Safety Risks/Education Patient Education: Transfer Techniques, Reviewed Precautions, Correct Positioning, Disease Process, Safety Issues Teaching Recipient: Patient Teaching Methods: Discussion Response to Teaching: Reinforcement Needed Time Time In: 1330 Time Out: 1400 DATE: Jun 23, 2023 Total Billed Treatment Time: 30 Total Billed Treatment 1, EX x2 (30m) SEBAS BELLO PTA Jun 23, 2023 15:39
[2023-06-23] MEDS: ENOXAPARIN 40 MG/0.4 ML SYRINGE SQ SCH (16:07)
[2023-06-23] MEDS: HYDROcodone/ACETAMINOPHEN 5 MG/325 MG TABLET PO PRN (17:36)
[2023-06-23 20:00] VITALS: BP 121/61
--- NOTE | 2023-06-24 07:54 | Occupational Ther Daily Note ---
OT Current Status-Daily Note Subjective Pt agreeable to OT Tx. Pt reports 5/10 pain in L hip. Pt's son present throughout tx, provided minimal encouragement for pt to continue with meal. Mental Status/Objective Attachments: Szymanski Catheter ADL-Treatment Therapy Code Descriptions/Definitions Functional [place] Measure: 0=Not Assessed/NA 4=Minimal Assistance 1=Total Assistance 5=Supervision or Setup 2=Maximal Assistance 6=Modified [place] 3=Moderate Assistance 7=Complete IndependenceSCALE: Activities may be completed with or without assistive devices. 6-Wqhowthlyp-issscaa completes the activity by him/herself with no assistance from a helper. 5-Set-up or Clean-up Assistance-helper sets up or cleans up; patient completes activity. [place] assists only prior to or following the activity. 4-Supervision or Touching Assistance-helper provides verbal cues and/or touching/steadying and/or contact guard assistance as patient completes activity. Assistance may be provided throughout the activity or intermittently. 3-Partial/Moderate Assistance-helper does LESS THAN HALF the effort. [place] lifts, holds or supports trunk or limbs, but provides less than half the effort. 2-Substantial/Maximal Assistance-helper does MORE THAN HALF the effort. [place] lifts or holds trunk or limbs and provides more than half the effort. 6-Hxorcrfrv-zutxcg does ALL the effort. Patient does none of the effort to complete the activity. Or, the assistance of 2 or more helpers is required for the patient to complete the activity. If activity was not attempted, code reason: 7-Patient Refused. 9-Not Applicable-not attempted and the patient did not perform the activity before the current illness, exacerbation or injury. 10-Not Attempted due to Environmental Limitations-(lack of equipment, weather restraints, etc.). 88-Not Attempted due to Medical Conditions or Safety Concerns. Eating (QC): 3 (VCs for encouragement to eat. Min A bringing food to mouth.) Oral Hygiene (QC): 3 (assist to brush dentures. VCs required for orientation of dentures when pt placed in mouth.) Lower Body Dressing (QC): 1 (assist all parts and assist x2) On/Off Footwear: 1 (assist all parts.) Other Treatment Pt in bed, transferred supine to sit EOB, assist x2. LB clothing donned dependently. Assist x2 in stand for pant hike. Assist x2 SPT from EOB to recliner. Pt completed oral care, OT set up pt's meal for him, pt required VCs for encouragement to eat meal. Pt ate 1 bite at a time, then would end task and close his eyes, requiring VCs to continue. Over course of tx, pt able to drink ~1/2 of ensure, and 1 bite of egg with encouragement. OT assisted pt with bringing yogurt to mouth, able to eat 3 bites. Pt washed his face after set up and moderate VCs. Post tx, pt in recliner, call light in reach and all needs met. Chair alarm activated. Education OT Patient Education: Correct positioning, Energy conservation, Modified ADL techniques, Progress toward Goal/Update tx plan, Purpose of tx/functional activities, Rehab process Teaching Recipient: Patient Teaching Methods: Discussion Response to Teaching: Reinforcement Needed OT Short Term Goals Short Term Goals Time Frame: Jun 30, 2023 Toileting hygiene: 4 Shower/bathe self: 4 Upper body dressin Lower body dressin OT Brazing Furnace Feeder Goals Fpc Goals Time Frame: Jul 09, 2023 Acute change in mental status: 0 Inattention: 0 Disorganized thinkin Altered level of consciousness: 0 Eating (QC): 6 Oral Hygiene (QC): 6 Toileting Hygiene (QC): 6 Shower/Bathe Self (QC): 5 Upper Body Dressing (QC): 6 Lower Body Dressing (QC): 6 On/Off Footwear (QC): 6 Additional Goals: 1-Demonstrate ADL Tasks, 2-Verbalize Understanding, 3- ImproveStrength/Kristina 1=Demonstrate adherence to instructed precautions during ADL tasks. 2=Patient will verbalize/demonstrate understanding of assistive devices/modifications for ADL. 3=Patient will improve strength/tolerance for activity to enable patient to perform ADL's. OT Education/Plan Problem List/Assessment Assessment: Decreased Activ Tolerance, Decreased Safety Aware, Decreased UE Strength, Dependent Transfers, Impaired Cognition, Impaired Coordination, Impaired Funct Balance, Impaired I ADL's, Impaired Self-Care Skills, Restricted Funct UE ROM Discharge Recommendations Plan/Recommendations: Continue POC Treatment Plan/Plan of Care Patient would benefit from OT for education, treatment and training to promote independence in ADL's, mobility, safety and/or upper extremity function for ADL's. Plan of Care: ADL Retraining, Functional Mobility, Group Exercise/Act as Ind, UE Funct Exercise/Act Treatment Duration: Jul 09, 2023 Frequency: At least 5 of 7 days/Wk (IRF) Estimated Hrs Per Day: 1.5 hours per day Agreement: Yes Rehab Potential: Guarded Time Start Time: 07:00 Stop Time: 08:15 DATE: Jun 24, 2023 Total Time Billed (hr/min): 75 Billed Treatment Time 1, ADL 5 TERRI CASTANEDA OT Jun 24, 2023 07:54
[2023-06-24 08:00] VITALS: BP 117/55
[2023-06-24] MEDS: MEGESTROL 400 MG/10 ML PO SCH (09:02)
[2023-06-24] MEDS: DOCUSATE SODIUM 100 MG CAPSULE PO SCH (09:02)
[2023-06-24] MEDS: ASPIRIN enteric coated 81MG TABLET PO SCH (09:02)
[2023-06-24] MEDS: PANTOPRAZOLE 40 MG TABLET PO SCH (09:02)
[2023-06-24] MEDS: TAMSULOSIN 0.4 MG (FLOMAX) CAP PO SCH (09:02)
[2023-06-24] MEDS: SENNA W/DOCUSATE TABLET PO SCH (09:03)
[2023-06-24] MEDS: meTOprolol TARTRATE (IR) 25 MG TABLET PO SCH (09:03)
--- NOTE | 2023-06-24 10:33 | PM&R Progress Note ---
Subjective HPI/CC On Admission Date Seen by Provider: Jun 24, 2023 Time Seen by Provider: 10:30 Subjective/Events-last exam 06/24/2023: 06/23/2023: Patient having a very slow recovery Requires 23 person transfers Patient did delayed cognition Likely has lack of nutrition is positive for severe weakness Megace maintained to stimulate appetite 06/22/2023: Patient doing well No pain is reported Seems to be eating a little bit better today Will start Megace to stimulate appetite Very slow transfers 06/21/2023: Patient having very slow recovery Appears to have minimal motivation Son at bedside Still not eating well Szymanski catheter DC but retention required replacement Patient high risk for assisted and further decline UA was normal with labs 06/20/2023: Very weak today Not eating well Outside food will be brought in for calories Pain is an issue today DC catheter tomorrow hopefully BPH won't cause an issue 06/19/2023: Patient much improved Still very weak Szymanski catheter in place will DC on Wednesday Patient has BPH history Reviewed meds and labs Hemoglobin stable but checking iron and B12 Review of Systems General: Fatigue, Malaise Objective Exam Vital Signs Vital Signs Date Time Temp Pulse Resp B/P (MAP) Pulse Ox O2 Delivery O2 Flow Rate FiO2 06/24/23 09:00 Room Air 06/24/23 08:00 37.1 85 20 117/55 (75) 94 06/22/23 11:37 2.00 06/19/23 21:43 21 Capillary Refill : General Appearance: No Apparent Distress, WD/WN, Chronically ill HEENT: PERRL/EOMI, Normal ENT Inspection, Pharynx Normal Neck: Full Range of Motion, Normal Inspection, Non Tender, Supple, Carotid Bruit Respiratory: Chest Non Tender, Lungs Clear, Normal Breath Sounds, No Accessory Muscle Use, No Respiratory Distress Cardiovascular: Regular Rate, Rhythm, No Edema, No Gallop, No JVD, No Murmur, Normal Peripheral Pulses Gastrointestinal: Normal Bowel Sounds, No Organomegaly, No Pulsatile Mass, Non Tender, Soft Back: Normal Inspection, No CVA Tenderness, No Vertebral Tenderness Extremity: Normal Capillary Refill, Normal Inspection, Normal Range of Motion, Non Tender, No Calf Tenderness, No Pedal Edema Neurologic/Psychiatric: Alert, Oriented x3, Normal Mood/Affect, Abnormal Gait, Motor Weakness (Left leg) Skin: Normal Color, Warm/Dry Lymphatic: No Adenopathy Results/Procedures Lab Laboratory Tests 06/24/23 12:14 Patient resulted labs reviewed. FIM Transfers Therapy Code Descriptions/Definitions Functional [place] Measure: 0=Not Assessed/NA 4=Minimal Assistance 1=Total Assistance 5=Supervision or Setup 2=Maximal Assistance 6=Modified [place] 3=Moderate Assistance 7=Complete IndependenceSCALE: Activities may be completed with or without assistive devices. 5-Zxzpwleglr-[id number] completes the activity by him/herself with no assistance from a helper. 5-Set-up or Clean-up Assistance-helper sets up or cleans up; patient completes activity. [place] assists only prior to or following the activity. 4-Supervision or Touching Assistance-helper provides verbal cues and/or touching/steadying and/or contact guard assistance as patient completes activity. Assistance may be provided throughout the activity or intermittently. 3-Partial/Moderate Assistance-helper does LESS THAN HALF the effort. [place] lifts, holds or supports trunk or limbs, but provides less than half the effort. 2-Substantial/Maximal Assistance-helper does MORE THAN HALF the effort. [place] lifts or holds trunk or limbs and provides more than half the effort. 1-Taxezmnwh-rwurnh does ALL the effort. Patient does none of the effort to complete the activity. Or, the assistance of 2 or more helpers is required for the patient to complete the activity. If activity was not attempted, code reason: 7-Patient Refused. 9-Not Applicable-not attempted and the patient did not perform the activity before the current illness, exacerbation or injury. 10-Not Attempted due to Environmental Limitations-(lack of equipment, weather restraints, etc.). 88-Not Attempted due to Medical Conditions or Safety Concerns. Roll Left to Right (QC): 1 Sit to Lying (QC): 1 (max (A) of 2. Also dependent to move self laterally in bed.) Sit to Stand (QC): 1 (Max (A) of 2 x 3 attempts. Max v.c./t.c. to push up with arms. for standing posture, to push down on walker with arms, to straighten legs.) Chair/Noe-qe-Sznlf Xfer(QC): 1 (Max (A) for stand pivot with use of FWW bed>chair. Max (A) swing pivot w/c>bed. ) Car Transfer (QC): 88 Gait Training Does the Patient Walk?: No and Walking Goal NOT indicated Distance: 3 steps Walk 10 feet (QC): 88 Walk 50 ft with 2 Turns(QC): 88 Walk 150 ft (QC): 88 Walking 10ft/uneven surface-QC: 88 Gait Persons Needed: 2 Gait Assistive Device: Parallel Bars Wheelchair Training Does the Pt Use a Wheelchair?: Yes Distance: 15 Wheel 50 ft with 2 turns (QC): 2 (max (A) with hand placement, max v.c./t.c. to use UE's for propulsion, max v.c. to stay on task. 50' over 30 minute time frame. ) Wheel 150 ft (QC): 88 Type of Wheelchair: Manual Stair Training 1 Step (curb) (QC): 88 4 Steps (QC): 88 12 Steps (QC): 8 Balance Picking up an Object (QC): 88 ADL-Treatment Eating (QC): 3 (VCs for encouragement to eat. Min A bringing food to mouth.) Oral Hygiene (QC): 3 (assist to brush dentures. VCs required for orientation of dentures when pt placed in mouth.) Shower/Bathe Self (QC): 1 (Assist x2) Upper Body Dressing (QC): 3 (Assist LUE and assist down trunk. Mod VCs. Pt did not realize he had not threaded LUE, requiring physical assistance/cues for threading. ) Lower Body Dressing (QC): 1 (assist all parts and assist x2) On/Off Footwear (QC): 1 (assist all parts.) Toileting Hygiene (QC): 1 (assist x2) Assessment/Plan Assessment and Plan Assess & Plan/Chief Complaint Assessment: Left hip fracture status post uncomplicated repair Recent intubation from COVID induced pneumonia respiratory failure Hypertension Hyperlipidemia BPH Szymanski catheter in place DC but required replacement due to retention NSTEMI due to critical illness Recent sepsis Recent acute kidney injury Plan: Supportive care Aggressive PT and OT Home meds Monitor blood pressure Szymanski catheter management 06/19/2023: Await B12 and iron level DC Accu-Cheks 06/20/2023: Monitor closely Pain control Monitor labs Outside food 06/21/2023: Supportive care Hopefully increase motivation Increase p.o. nutrition High risk for skilled 06/22/2023: Supportive care Add Megace for appetite stimulation 06/23/2023: Continue appetite stimulation Monitor closely 06/24/2023: (1) Closed left hip fracture MURIEL FERMIN DO Jun 24, 2023 10:33
[2023-06-24 12:23] LABS: BASOPHILS % (AUTO) 0 % (0-10); EOSINOPHILS # (AUTO) 0.3 10^3/uL (0.0-0.3); EOSINOPHILS % (AUTO) 2 % (0-10); HEMATOCRIT 27 % (40-54); LYMPHOCYTES # (AUTO) 0.8 10^3/uL (1.0-4.0); LYMPHOCYTES % (AUTO) 5 % (12-44); MEAN CORPUSCULAR HEMOGLOBIN 31 pg (25-34); MEAN CORPUSCULAR HGB CONC 33 g/dL (32-36); MEAN CORPUSCULAR VOLUME 95 fL (80-99); MEAN PLATELET VOLUME 8.9 fL (9.0-12.2); MONOCYTES # (AUTO) 0.9 10^3/uL (0.0-1.0); MONOCYTES % (AUTO) 6 % (0-12); NEUTROPHILS # (AUTO) 12.3 10^3/uL (1.8-7.8); NEUTROPHILS % (AUTO) 85 % (42-75); PLATELET COUNT 357 10^3/uL (130-400); WHITE BLOOD COUNT 14.4 10^3/uL (4.3-11.0)
--- NOTE | 2023-06-24 12:26 | Discharge Summary ---
Diagnosis/Chief Complaint Date of Admission Jun 18, 2023 at 11:15 Date of Discharge Discharge Date: Jun 24, 2023 Discharge Diagnosis Assessment: Hypoxia with lethargy requiring transfer to 4th floor Left hip fracture status post uncomplicated repair Recent intubation from COVID induced pneumonia respiratory failure Hypertension Hyperlipidemia BPH Szymanski catheter in place DC but required replacement due to retention NSTEMI due to critical illness Recent sepsis Recent acute kidney injury Plan: Supportive care Aggressive PT and OT Home meds Monitor blood pressure Szymanski catheter management 06/19/2023: Await B12 and iron level DC Accu-Cheks 06/20/2023: Monitor closely Pain control Monitor labs Outside food 06/21/2023: Supportive care Hopefully increase motivation Increase p.o. nutrition High risk for skilled 06/22/2023: Supportive care Add Megace for appetite stimulation 06/23/2023: Continue appetite stimulation Monitor closely (1) Closed left hip fracture Discharge Summary Discharge Physical Examination Allergies: Coded Allergies: No Known Drug Allergies (Unverified , 06/11/23) Vitals & I&Os Vital Signs Date Time Temp Pulse Resp B/P (MAP) Pulse Ox O2 Delivery O2 Flow Rate FiO2 06/24/23 09:00 Room Air 06/24/23 08:00 37.1 85 20 117/55 (75) 94 06/22/23 11:37 2.00 06/19/23 21:43 21 General Appearance: Alert, Oriented X3, Cooperative Respiratory: Clear to Auscultation Cardiovascular: Regular Rate Psych/Mental Status: Mental Status NL Hospital Course Was the Problem List Reviewed?: Yes Patient had a fairly standard course after he was admitted following COVID- pneumonia and intubation and found to have a hip fracture status post repair. Patient continued to decline due to lack of taking an adequate nutrition and urinary catheter was reinserted due to urinary retention but no evidence of any sepsis causing his issues. The decision was made to move to fourth floor due to hypoxia and lack of participation with therapy and would certainly need skilled placement anyway so he was moved. Labs (last 24 hrs) Laboratory Tests 06/18/23 15:37: Glucometer 130H 06/18/23 20:17: Glucometer 136H 06/19/23 05:32: Glucometer 101 06/19/23 06:05: White Blood Count 7.1, Red Blood Count 2.73L, Hemoglobin 8.5L, Hematocrit 26L, Mean Corpuscular Volume 95, Mean Corpuscular Hemoglobin 31, Mean Corpuscular Hemoglobin Concent 33, Red Cell Distribution Width 13.9, Platelet Count 191, Mean Platelet Volume 9.2, Immature Granulocyte % (Auto) 1, Neutrophils (%) (Auto) 59, Lymphocytes (%) (Auto) 21, Monocytes (%) (Auto) 8, Eosinophils (%) (Auto) 11H, Basophils (%) (Auto) 0, Neutrophils # (Auto) 4.2, Lymphocytes # (Auto) 1.5, Monocytes # (Auto) 0.6, Eosinophils # (Auto) 0.8H, Basophils # (Au to) 0.0, Immature Granulocyte # (Auto) 0.1, Sodium Level 137, Potassium Level 4.0, Chloride Level 110H, Carbon Dioxide Level 24, Anion Gap 3L, Blood Urea Nitrogen 25H, Creatinine 0.82, Estimat Glomerular Filtration Rate 84, BUN/Creatinine Ratio 30, Glucose Level 102, Calcium Level 8.1L, Corrected Ca lcium 9.6, Iron Level 39, Total Bilirubin 0.4, Aspartate Amino Transf (AST/SGOT) 16, Alanine Aminotransferase (ALT/SGPT) 15, Alkaline Phosphatase 63, Total Protein 4.5L, Albumin 2.1L, Vitamin B12 Level 466 06/19/23 11:13: Glucometer 123H 06/19/23 15:23: Glucometer 112H 06/21/23 05:50: White Blood Count 7.1, Red Blood Count 2.80L, Hemoglobin 8.7L, Hematocrit 26L, Mean Corpuscular Volume 94, Mean Corpuscular Hemoglobin 31, Mean Corpuscular Hemoglobin Concent 33, Red Cell Distribution Width 13.5, Platelet Count 224, Mean Platelet Volume 9.1, Immature Granulocyte % (Auto) 1, Neutrophils (%) (Auto) 61, Lymphocytes (%) (Auto) 22, Monocytes (%) (Auto) 11, Eosinophils (%) (Auto) 6, Basophils (%) (Auto) 0, Neutrophils # (Auto) 4.3, Lymphocytes # (Auto) 1.5, Monocytes # (Auto) 0.7, Eosinophils # (Auto) 0.4H, Basophils # (Auto) 0.0, Immature Granulocyte # (Auto) 0.1, Sodium Level 133L, Potassium Level 4.2, Chloride Level 104, Carbon Dioxide Level 23, Anion Gap 6, Blood Urea Nitrogen 23H, Creatinine 0.91, Estimat Glomerular Filtration Rate 81, BUN/Creatinine Ratio 25, Glucose Level 96, Calcium Level 8.3L, Corrected Calcium 9.7, Total Bilirubin 0.6, Aspartate Amino Transf (AST/SGOT) 67H, Alanine Aminotransferase (ALT/SGPT) 85H, Alkaline Phosphatase 164H, Total Protein 4.7L, Albumin 2.2L 06/21/23 10:53: Glucometer 137H 06/21/23 18:45: Urine Color YELLOW, Urine Clarity CLEAR, Urine pH 7.5, Urine Specific [place] 1.020, Urine Protein 1+H, Urine Glucose (UA) NEGATIVE, Urine Ketones TRACEH, Urine Nitrite NEGATIVE, Urine Bilirubin NEGATIVE, Urine Urobilinogen 2.0, Urine Leukocyte Esterase NEGATIVE, Urine RBC (Auto) 3+H, Urine RBC >100H, Urine WBC 0- 2, Urine Squamous Epithelial Cells RARE, Urine Crystals NONE, Urine Bacteria TRACE, Urine Casts NONE, Urine Mucus NEGATIVE, Urine Culture Indicated NO 06/22/23 06:41: White Blood Count 8.1, Red Blood Count 2.80L, Hemoglobin 8.6L, Hematocrit 27L, Mean Corpuscular Volume 95, Mean Corpuscular Hemoglobin 31, Mean Corpuscular Hemoglobin Concent 33, Red Cell Distribution Width 14.0, Platelet Count 252, Mean Platelet Volume 8.9L, Immature Granulocyte % (Auto) 1, Neutrophils (%) (Auto) 61, Lymphocytes (%) (Auto) 20, Monocytes (%) (Auto) 11, Eosinophils (%) (Auto) 7, Basophils (%) (Auto) 1, Neutrophils # (Auto) 5.0, Lymphocytes # (Auto) 1.6, Monocytes # (Auto) 0.9, Eosinophils # (Auto) 0.6H, Basophils # (Auto) 0.0, Immature Granulocyte # (Auto) 0.1, Sodium Level 132L, Potassium Level 4.5, Chloride Level 102, Carbon Dioxide Level 25, Anion Gap 5, Blood Urea Nitrogen 21H, Creatinine 0.93, Estimat Glomerular Filtration Rate 79, BUN/Creatinine Ratio 23, Glucose Level 105, Calcium Level 8.4L, Corrected Calcium 9.8, Total Bilirubin 0.5, Aspartate Amino Transf (AST/SGOT) 30, Alanine Aminotransferase (ALT/SGPT) 58H, Alkaline Phosphatase 127, Total Protein 4.9L, Albumin 2.2L 06/24/23 12:14: White Blood Count 14.4H, Red Blood Count 2.89L, Hemoglobin 9.0L, Hematocrit 27L, Mean Corpuscular Volume 95, Mean Corpuscular Hemoglobin 31, Mean Corpuscular Hemoglobin Concent 33, Red Cell Distribution Width 14.0, Platelet Count 357, Mean Platelet Volume 8.9L, Immature Granulocyte % (Auto) 1, Neutrophils (%) (Auto) 85H, Lymphocytes (%) (Auto) 5L, Monocytes (%) (Auto) 6, Eosinophils (%) (Auto) 2, Basophils (%) (Auto) 0, Neutrophils # (Auto) 12.3H, Lymphocytes # (Auto) 0.8L, Monocytes # (Auto) 0.9, Eosinophils # (Auto) 0.3, Basophils # (Auto) 0.0, Immature Granulocyte # (Auto) 0.1, Sodium Level 130L, Potassium Level 4.9, Chloride Level 99, Carbon Dioxide Level 21, Anion Gap 10, Blood Urea Nitrogen 36H, Creatinine 1.08, Estimat Glomerular Filtration Rate 66, BUN/C reatinine Ratio 33, Glucose Level 118H, Calcium Level 9.1, Corrected Calcium 10.2H, Total Bilirubin 0.5, Aspartate Amino Transf (AST/SGOT) 21, Alanine Aminotransferase (ALT/SGPT) 39, Alkaline Phosphatase 108, Total Protein 5.8L, Albumin 2.6L, Neutrophils % (Manual) 90, Lymphocytes % (Manual) 4, Monocytes % (Manual) 4, Eosinophils % (Manual) 2, Hypersegmented Neutrophils SLIGHT, Polychromasia SLIGHT 06/24/23 12:42: Lactic Acid Level 1.60 06/24/23 12:52: Arterial Blood pH 7.48H, Arterial Blood Partial Pressure CO2 33L, Arterial Blood Partial Pressure O2 92, Arterial Blood HCO3 25, Arterial Blood Total CO2 25.6, Arterial Blood Oxygen Saturation 99, Arterial Blood Base Excess 1.6, Blood Gas Ventilator Setting , Blood Gas Inspired Oxygen Pending Labs Laboratory Tests 06/18/23 15:37: Glucometer 130 06/18/23 20:17: Glucometer 136 06/19/23 05:32: Glucometer 101 06/19/23 06:05: White Blood Count 7.1, Red Blood Count 2.73, Hemoglobin 8.5, Hematocrit 26, Mean Corpuscular Volume 95, Mean Corpuscular Hemoglobin 31, Mean Corpuscular Hemoglobin Concent 33, Red Cell Distribution Width 13.9, Platelet Count 191, Mean Platelet Volume 9.2, Immature Granulocyte % (Auto) 1, Neutrophils (%) (Auto) 59, Lymphocytes (%) (Auto) 21, Monocytes (%) (Auto) 8, Eosinophils (%) (Auto) 11, Basophils (%) (Auto) 0, Neutrophils # (Auto) 4.2, Lymphocytes # (Auto) 1.5, Monocytes # (Auto) 0.6, Eosinophils # (Auto) 0.8, Basophils # (Auto) 0.0, Immature Granulocyte # (Auto) 0.1, Sodium Level 137, Potassium Level 4.0, Chloride Level 110, Carbon Dioxide Level 24, Anion Gap 3, Blood Urea Nitrogen 25, Creatinine 0.82, Estimat Glomerular Filtration Rate 84, BUN/Creatinine Ratio 30, Glucose Level 102, Calcium Level 8.1, Corrected Calcium 9.6, Iron Level 39, Total Bilirubin 0.4, Aspartate Amino Transf (AST/SGOT) 16, Alanine Aminotransferase (ALT/SGPT) 15, Alkaline Phosphatase 63, Total Protein 4.5, Albumin 2.1, Vitamin B12 Level 466 06/19/23 11:13: Glucometer 123 06/19/23 15:23: Glucometer 112 06/21/23 05:50: White Blood Count 7.1, Red Blood Count 2.80, Hemoglobin 8.7, Hematocrit 26, Mean Corpuscular Volume 94, Mean Corpuscular Hemoglobin 31, Mean Corpuscular Hemoglobin Concent 33, Red Cell Distribution Width 13.5, Platelet Count 224, Mean Platelet Volume 9.1, Immature Granulocyte % (Auto) 1, Neutrophils (%) (Auto) 61, Lymphocytes (%) (Auto) 22, Monocytes (%) (Auto) 11, Eosinophils (%) (Auto) 6, Basophils (%) (Auto) 0, Neutrophils # (Auto) 4.3, Lymphocytes # (Auto) 1.5, Monocytes # (Auto) 0.7, Eosinophils # (Auto) 0.4, Basophils # (Auto) 0.0, Immature Granulocyte # (Auto) 0.1, Sodium Level 133, Potassium Level 4.2, Chloride Level 104, Carbon Dioxide Level 23, Anion Gap 6, Blood Urea Nitrogen 23, Creatinine 0.91, Estimat Glomerular Filtration Rate 81, BUN/Creatinine Ratio 25, Glucose Level 96, Calcium Level 8.3, Corrected Calcium 9.7, Total Bilirubin 0.6, Aspartate Amino Transf (AST/SGOT) 67, Alanine Aminotransferase (ALT/SGPT) 85, Alkaline Phosphatase 164, Total Protein 4.7, Albumin 2.2 06/21/23 10:53: Glucometer 137 06/21/23 18:45: Urine Color YELLOW, Urine Clarity CLEAR, Urine pH 7.5, Urine Specific [place] 1.020, Urine Protein 1+, Urine Glucose (UA) NEGATIVE, Urine Ketones TRACE, Urine Nitrite NEGATIVE, Urine Bilirubin NEGATIVE, Urine Urobilinogen 2.0, Urine Leukocyte Esterase NEGATIVE, Urine RBC (Auto) 3+, Urine RBC >100, Urine WBC 0-2, Urine Squamous Epithelial Cells RARE, Urine Crystals NONE, Urine Bacteria TRACE, Urine Casts NONE, Urine Mucus NEGATIVE, Urine Culture Indicated NO 06/22/23 06:41: White Blood Count 8.1, Red Blood Count 2.80, Hemoglobin 8.6, Hematocrit 27, Mean Corpuscular Volume 95, Mean Corpuscular Hemoglobin 31, Mean Corpuscular Hemoglobin Concent 33, Red Cell Distribution Width 14.0, Platelet Count 252, Mean Platelet Volume 8.9, Immature Granulocyte % (Auto) 1, Neutrophils (%) (Auto) 61, Lymphocytes (%) (Auto) 20, Monocytes (%) (Auto) 11, Eosinophils (%) (Auto) 7, Basophils (%) (Auto) 1, Neutrophils # (Auto) 5.0, Lymphocytes # (Auto) 1.6, Monocytes # (Auto) 0.9, Eosinophils # (Auto) 0.6, Basophils # (Auto) 0.0, Immature Granulocyte # (Auto) 0.1, Sodium Level 132, Potassium Level 4.5, Chloride Level 102, Carbon Dioxide Level 25, Anion Gap 5, Blood Urea Nitrogen 21, Creatinine 0.93, Estimat Glomerular Filtration Rate 79, BUN/Creatinine Ratio 23, Glucose Level 105, Calcium Level 8.4, Corrected Calcium 9.8, Total Bilirubin 0.5, Aspartate Amino Transf (AST/SGOT) 30, Alanine Aminotransferase (ALT/SGPT) 58, Alkaline Phosphatase 127, Total Protein 4.9, Albumin 2.2 06/24/23 12:14: White Blood Count 14.4, Red Blood Count 2.89, Hemoglobin 9.0, Hematocrit 27, Mean Corpuscular Volume 95, Mean Corpuscular Hemoglobin 31, Mean Corpuscular Hemoglobin Concent 33, Red Cell Distribution Width 14.0, Platelet Count 357, Mean Platelet Volume 8.9, Immature Granulocyte % (Auto) 1, Neutrophils (%) (Auto) 85, Lymphocytes (%) (Auto) 5, Monocytes (%) (Auto) 6, Eosinophils (%) (Auto) 2, Basophils (%) (Auto) 0, Neutrophils # (Auto) 12.3, Lymphocytes # (Auto) 0.8, Monocytes # (Auto) 0.9, Eosinophils # (Auto) 0.3, Basophils # (Auto) 0.0, Immature Granulocyte # (Auto) 0.1, Sodium Level 130, Potassium Level 4.9, Chloride Level 99, Carbon Dioxide Level 21, Anion Gap 10, Blood Urea Nitrogen 36, Creatinine 1.08, Estimat Glomerular Filtration Rate 66, BUN/Creatinine Ratio 33, Glucose Level 118, Calcium Level 9.1, Corrected Calcium 10.2, Total Bilirubin 0.5, Aspartate Amino Transf (AST/SGOT) 21, Alanine Aminotransferase (ALT/SGPT) 39, Alkaline Phosphatase 108, Total Protein 5.8, Albumin 2.6, Neutrophils % (Manual) 90, Lymphocytes % (Manual) 4, Monocytes % (Manual) 4, Eosinophils % (Manual) 2, Hypersegmented Neutrophils SLIGHT, Polychromasia SLIGHT 06/24/23 12:42: Lactic Acid Level 1.60 06/24/23 12:52: Arterial Blood pH 7.48, Arterial Blood Partial Pressure CO2 33, Arterial Blood Partial Pressure O2 92, Arterial Blood HCO3 25, Arterial Blood Total CO2 25.6, Arterial Blood Oxygen Saturation 99, Arterial Blood Base Excess 1.6, Blood Gas Ventilator Setting , Blood Gas Inspired Oxygen Discharge Home Medications: Active Scripts Active Reported Omeprazole 20 Mg Tablet.dr 20 Mg PO DAILY Vitamin D3 (Cholecalciferol (Vitamin D3)) 50 Mcg (2000 Unit) Capsule 50 Mcg PO DAILY Iron (Ferrous Sulfate) 325 Mg (65 Mg Iron) Tablet 325 Mg PO DAILY Atorvastatin Calcium 20 Mg Tablet 20 Mg PO DAILY Flomax (Tamsulosin HCl) 0.4 Mg Cap 0.4 Mg PO HS Amlodipine Besylate 5 Mg Tablet 2.5 Mg PO DAILY TAKES OF A 5MG TAB Instructions to patient/family Please see electronic discharge instructions given to patient. Diagnosis/Problems Diagnosis/Problems (1) Closed left hip fracture MURIEL FERMIN DO Jun 24, 2023 12:26
[2023-06-24 12:40] LABS: ALBUMIN 2.6 GM/DL (3.2-4.5); BILIRUBIN,TOTAL 0.5 MG/DL (0.1-1.0); CALCIUM 9.1 MG/DL (8.5-10.1); CREATININE SERUM 1.08 MG/DL (0.60-1.30); POTASSIUM 4.9 MMOL/L (3.6-5.0); TOTAL PROTEIN 5.8 GM/DL (6.4-8.2)
--- NOTE | 2023-06-24 12:54 | Diagnostic Imaging Report ---
INDICATION: Hypoxia. COMPARISON: 06/14/2023. FINDINGS: Single frontal radiographic view of the chest was obtained and again demonstrates moderate coarse interstitial prominence, greatest within the bilateral mid and lower lung barbosa. There is no large effusion or pneumothorax. Cardiac silhouette is within normal limits. Osseous structures show no acute abnormalities. IMPRESSION: 1. Persistent coarse prominence of the interstitium within the bilateral mid and lower lung barbosa. Findings could be on the basis of atypical or viral pneumonia. Interstitial pulmonary edema is also a consideration. Dictated by: Dictated on workstation # [id number]
[2023-06-24 12:56] LABS: EOSINOPHILS % (MANUAL) 2 %; HYPERSEGMENTED NEUT SLIGHT; LYMPHOCYTES % (MANUAL) 4 %; MONOCYTES % (MANUAL) 4 %; NEUTROPHILS % (MANUAL) 90 %; POLYCHROMASIA SLIGHT
--- NOTE | 2023-06-24 12:57 | Physical Therapy Daily Note ---
PT Daily Note-Current Subjective Patient with very little vocal interaction unless asked to discuss where he is. However, patient cannot recall any hip precautions, needs max repeated verbal and tactile cues for LE exercise and mobility tasks. O2 checked due to SOB /p sit>stand with 3 different monitors - unable to get an O2 sat reading above 83% consistently. O2 per nc placed on patient at 2L, sats still remained low. Nursing notified. Dr. Ferrera notified. Pain Section J - Health Conditions 1. Rarely or not at all 2. Occasionally 3. Frequently 4. Almost constantly 8. Unable to answer Pain Effect on Sleep: 1 Pain Interference with Therapy: 4 Pain Interference w/Day-to-Day: 4 Transfers SCALE: Activities may be completed with or without assistive devices. 0-Lcnrujfmwr-wydcejc completes the activity by him/herself with no assistance from a helper. 5-Set-up or Clean-up Assistance-helper sets up or cleans up; patient completes activity. [place] assists only prior to or following the activity. 4-Supervision or Touching Assistance-helper provides verbal cues and/or touching/steadying and/or contact guard assistance as patient completes activity. Assistance may be provided throughout the activity or intermittently. 3-Partial/Moderate Assistance-helper does LESS THAN HALF the effort. [place] lifts, holds or supports trunk or limbs, but provides less than half the effort. 2-Substantial/Maximal Assistance-helper does MORE THAN HALF the effort. [place] lifts or holds trunk or limbs and provides more than half the effort. 4-Ggupttnqq-orrhlx does ALL the effort. Patient does none of the effort to complete the activity. Or, the assistance of 2 or more helpers is required for the patient to complete the activity. If activity was not attempted, code reason: 7-Patient Refused. 9-Not Applicable-not attempted and the patient did not perform the activity before the current illness, exacerbation or injury. 10-Not Attempted due to Environmental Limitations-(lack of equipment, weather restraints, etc.). 88-Not Attempted due to Medical Conditions or Safety Concerns. Sit to Lying (QC): 1 (max (A) of 2. Also dependent for scoot laterally and up in bed.) Sit to Stand (QC): 1 (max (A) of 2 x 4 attempts, max repeated t.c. and v.c. for hand placement.) Chair/Ohw-de-Uxydb Xfer(QC): 1 (max (A) of 2 - dependent to stand/swing pivot.) Weight Bearing Right Lower Extremity: Right Weight Bearing/Tolerated Left Lower Extremity: Left Weight Bearing/Tolerated WBAT Exercises (B) LE ex in recliner /c legs elevated: ankle pumps, (R) hip abd/add, (L) hip abd/add, heel slides, SLR all with max cues and (A) for each rep Seated with feel on floor (was dependent to scoot back in recliner prior to lowering legs) -- heel lifts x 5, LAQ x 10, (R) hip flexion x 10 all with max cues and (A) for each rep. Assessment Current Status: Regressing (Nursing and doctor notified of O2 sats and performance this am.) PT Short Term Goals Short Term Goals Time Frame: Jul 02, 2023 Roll Left & Right: 4 Sit to lyin Lying to sitting on side of be: 4 Sit to stand: 4 Chair/qmq-et-jxeep transfer: 4 Toilet transfer: 4 Car transfer: 4 Walk 10 feet: 4 Walk 50 feet with two turns: 4 Walk 150 feet: 4 Walking 10ft on uneven surface: 4 1 step (curb): 4 4 steps: 4 12 steps: 9 Picking up objects: 4 Does pt use a wc or scooter: Yes Wheel 50ft w/2 turns: 5 Wheel 150 feet: 5 Type: Manual PT Half-Way Goals Half-Way Goals PT Half-Way Goals Time Frame: Jul 16, 2023 Roll Left & Right (QC): 6 Sit to Lying (QC): 6 Lying-Sitting on Side/Bed(QC): 6 Sit to Stand (QC): 6 Chair/Bpp-la-Rijaz Xfer(QC): 6 Toilet Transfer (QC): 6 Car Transfer (QC): 6 Does the Patient Walk: No and Walking Goal IS indicated Walk 10 feet (QC): 6 Walk 50ft with 2 Turns (QC): 6 Walk 150 ft (QC): 6 Walking 10ft on Uneven Surface: 6 1 Step (curb) (QC): 6 4 Steps (QC): 6 12 Steps (QC): 9 Picking up an Object (QC): 6 Does the Pt use WC or Scooter?: Yes Wheel 50 feet with 2 turns (QC: 6 Type: Manual Wheel 150 feet: 6 Type: Manual PT Plan Treatment/Plan Treatment Plan: Continue Plan of Care, Discontinue PT Treatment Plan: Bed Mobility, Education, Functional Activity Kristina, Functional Strength, Group Therapy, Gait, Safety, Therapeutic Exercise, Transfers Treatment Duration: Jun 18, 2023 Frequency: At least 5 of 7 days/Wk (IRF) Estimated Hrs Per Day: Other (75 mins per day) Patient and/or Family Agrees t: Yes Time Time In: 1100 Time Out: 1200 DATE: Jun 24, 2023 Total Billed Treatment Time: 60 Total Billed Treatment 2EX, 2 FA Mary Ann Dixon PT Jun 24, 2023 12:57
[2023-06-24 12:59] LABS: ABG BASE EXCESS 1.6 MMOL/L (-2.5-2.5); ABG OXYGEN SATURATION 99 % (94-100); ABG PCO2 33 MMHG (35-45); ABG PH 7.48 (7.37-7.43); ABG PO2 92 MMHG (79-93); ABG TCO2 25.6 MMOL/L (21.0-31.0)
--- NOTE | 2023-06-24 13:16 | IRF PAI BIMS ---
BIMS CAM BIMS Expression of Ideas and Wants: Difficulty Understanding Verbal Content: Sometimes Understands Brief Interview/Mental Status: Yes IRF ALLYSON BIMS: IRF ALLYSON BIMS Response (Comments) Value Repitition of Three Words Three 3 Recalls Socks No, Could Not Recall 0 Recalls Blue No, Could Not Recall 0 Recalls Bed No, Could Not Recall 0 Year Missed by 5 Yrs/No Answer 0 Month Missed by 1 Mo/No Answer (Pt stated January) 0 Day Incorrect or No Answer 0 Total 3 Patient Normally Able to Recal: None of the above Should Staff Asses. Mental St.: No Memory/Recall Ability: None of Above Recalled CAM Mental Status Change/Baseline: 1 Inattention: 2 Disorganized thinkin Altered level of consciousness: 1 KEVIN GOLD Jun 24, 2023 13:16
--- NOTE | 2023-06-25 10:51 | Therapy Team Discharge Summary ---
Therapy Discharge Summary Discharge Recommendations Date of Discharge Jun 24, 2023 at 13:44 Physical Therapy Roll Left to Right (QC): 1 Sit to Lying (QC): 1 (max (A) of 2. Also dependent for scoot laterally and up in bed.) Lying to Sitting/Side of Bed(Q: 1 (Max (A) of 2) Sit to Stand (QC): 1 (max (A) of 2 x 4 attempts, max repeated t.c. and v.c. for hand placement.) Chair/See-oq-Ekoqo Xfer(QC): 1 (max (A) of 2 - dependent to stand/swing pivot.) Toilet Transfer (QC): 1 Car Transfer (QC): 88 Does the Patient Walk: No and Walking Goal NOT indicated Mode of Locomotion: Walk Anticipated Mode of Locomotion: Walk Walk 10 feet (QC): 88 Walk 50 ft with 2 Turns(QC): 88 Walk 150 ft (QC): 88 Walking 10ft on uneven surface: 88 Distance: 1 ft Gait Assistive Device: Parallel Bars Does the Pt Use a Wheelchair: Yes Wheelchair Distance: 15 Wheel 50 ft with 2 turns (QC): 2 (max (A) with hand placement, max v.c./t.c. to use UE's for propulsion, max v.c. to stay on task. 50' over 30 minute time frame. ) Wheel 150 ft (QC): 88 Type of Wheelchair: Manual 1 Step (curb) (QC): 88 4 Steps (QC): 88 12 Steps (QC): 8 Picking up an Object (QC): 88 Occupational Therapy Decreased Activ Tolerance, Decreased Safety Aware, Decreased UE Strength, Dependent Transfers, Impaired Cognition, Impaired Coordination, Impaired Funct Balance, Impaired I ADL's, Impaired Self-Care Skills, Restricted Funct UE ROM Eating (QC): 3 (VCs for encouragement to eat. Min A bringing food to mouth.) Oral Hygiene (QC): 3 (assist to brush dentures. VCs required for orientation of dentures when pt placed in mouth.) Shower/Bathe Self (QC): 1 (Assist x2) Upper Body Dressing (QC): 3 (Assist LUE and assist down trunk. Mod VCs. Pt did not realize he had not threaded LUE, requiring physical assistance/cues for threading. ) Lower Body Dressing (QC): 1 (assist all parts and assist x2) On/Off Footwear (QC): 1 (assist all parts.) Toileting Hygiene (QC): 1 (assist x2) Speech-Language Pathology Pt was admitted to ARU on 06/18 due to subcapital fracture involving neck of proximal L femur. Evaluation found cognitve-lingusitic deficits and s/s of dysphagia. ST focused on auditory comprehension, orientation, immediate, ST, and LT recall, and safe swallow guidelines. Due to medical decline, progress was min imal. Pt was d/c to acute floor on 06/24. ST to d/c. PT Colorist Goals Fci Goals PT Fci Goals Time Frame: Jul 16, 2023 Roll Left to Right (QC): 6 Sit to Lying (QC): 6 Lying-Sitting on Side/Bed(QC): 6 Sit to Stand (QC): 6 Chair/Kui-lh-Taecz Xfer(QC): 6 Toilet/Commode Transfer (QC): 6 Car Transfer (QC): 6 Does the Patient Walk: No and Walking Goal IS indicated Walk 10 feet (QC): 6 Walk 10ft-Uneven Surface(QC): 6 Walk 50ft with 2 Turns (QC): 6 Walk 150 ft (QC): 6 Does the Pt use WC or Scooter?: Yes Wheel 50 feet with 2 turns (QC: 6 Type: Manual Wheel 150 feet: 6 Type: Manual 1 Step (curb) (QC): 6 4 Steps (QC): 6 12 Steps (QC): 9 Picking up an Object (QC): 6 OT Colorist Goals Colorist Goals Time Frame: Jul 09, 2023 Acute change in mental status: 1 Inattention: 2 Disorganized thinkin Altered level of consciousness: 1 Eating (QC): 6 Oral Hygiene (QC): 6 Toileting Hygiene (QC): 6 Shower/Bathe Self (QC): 5 Upper Body Dressing (QC): 6 Lower Body Dressing (QC): 6 On/Off Footwear (QC): 6 Additional Goals: 1-Demonstrate ADL Tasks, 2-Verbalize Understanding, 3-ImproveStrength/Kristina 1=Demonstrate adherence to instructed precautions during ADL tasks. 2=Patient will verbalize/demonstrate understanding of assistive devices/modifications for ADL. 3=Patient will improve strength/tolerance for activity to enable patient to perform ADL's. Speech Fci Goals Fci Goals Pt will demonstrate the ability to comprehend verbal presentations of simple questions/directions with 85% accuracy. Pt will use external memory aids and compensatory strategies to recall routine, personal information, and recent events to improve orientation to time and recall daily events with 80% accuracy. Pt will demonstrate recall of functional information following an immediate, short-term, and long-term delay with 85% accuracy. Pt will tolerate diet upgrade 5/5 times with no s/s of aspiration. Pt will complete safe swallow guidelines during PO intake to decrease aspiration risk, with 90% accuracy. Lisbeth Morales Jun 25, 2023 10:51
--- NOTE | 2023-06-25 11:19 | Therapy Team Discharge Summary ---
Therapy Discharge Summary Discharge Recommendations Date of Discharge Jun 24, 2023 at 13:44 Physical Therapy Roll Left to Right (QC): 1 Sit to Lying (QC): 1 (max (A) of 2. Also dependent for scoot laterally and up in bed.) Lying to Sitting/Side of Bed(Q: 1 (Max (A) of 2) Sit to Stand (QC): 1 (max (A) of 2 x 4 attempts, max repeated t.c. and v.c. for hand placement.) Chair/Qqw-hp-Jyzfs Xfer(QC): 1 (max (A) of 2 - dependent to stand/swing pivot.) Toilet Transfer (QC): 1 Car Transfer (QC): 88 Does the Patient Walk: No and Walking Goal NOT indicated Mode of Locomotion: Walk Anticipated Mode of Locomotion: Walk Walk 10 feet (QC): 88 Walk 50 ft with 2 Turns(QC): 88 Walk 150 ft (QC): 88 Walking 10ft on uneven surface: 88 Distance: 1 ft Gait Assistive Device: Parallel Bars Does the Pt Use a Wheelchair: Yes Wheelchair Distance: 15 Wheel 50 ft with 2 turns (QC): 2 (max (A) with hand placement, max v.c./t.c. to use UE's for propulsion, max v.c. to stay on task. 50' over 30 minute time frame. ) Wheel 150 ft (QC): 88 Type of Wheelchair: Manual 1 Step (curb) (QC): 88 4 Steps (QC): 88 12 Steps (QC): 8 Picking up an Object (QC): 88 Occupational Therapy Pt admitted to [facility] s/p L hip fx. At [facility], pt was independent with ADLs and functional mobility, using cane as needed. Upon initial evaluation, pt required set up with eating, partial assist UBD, SBA oral care and total assist showering, LBD, toileting, and footwear. OT tx focused on increasing BUE strength and activity tolerance, and increasing safety and independence with ADLs and functional mobility. Pt did not make progress towards goals, due to decline in medical status. Pt transferred to med/surg floor due to change in medical status, d/c from OT Decreased Activ Tolerance, Decreased Safety Aware, Decreased UE Strength, Dependent Transfers, Impaired Cognition, Impaired Coordination, Impaired Funct Balance, Impaired I ADL's, Impaired Self-Care Skills, Restricted Funct UE ROM Eating (QC): 3 (VCs for encouragement to eat. Min A bringing food to mouth.) Oral Hygiene (QC): 3 (assist to brush dentures. VCs required for orientation of dentures when pt placed in mouth.) Shower/Bathe Self (QC): 1 (Assist x2) Upper Body Dressing (QC): 3 (Assist LUE and assist down trunk. Mod VCs. Pt did not realize he had not threaded LUE, requiring physical assistance/cues for threading. ) Lower Body Dressing (QC): 1 (assist all parts and assist x2) On/Off Footwear (QC): 1 (assist all parts.) Toileting Hygiene (QC): 1 (assist x2) PT Care Home Goals Care Home Goals PT Care Home Goals Time Frame: Jul 16, 2023 Roll Left to Right (QC): 6 Sit to Lying (QC): 6 Lying-Sitting on Side/Bed(QC): 6 Sit to Stand (QC): 6 Chair/Rxw-gj-Ayech Xfer(QC): 6 Toilet/Commode Transfer (QC): 6 Car Transfer (QC): 6 Does the Patient Walk: No and Walking Goal IS indicated Walk 10 feet (QC): 6 Walk 10ft-Uneven Surface(QC): 6 Walk 50ft with 2 Turns (QC): 6 Walk 150 ft (QC): 6 Does the Pt use WC or Scooter?: Yes Wheel 50 feet with 2 turns (QC: 6 Type: Manual Wheel 150 feet: 6 Type: Manual 1 Step (curb) (QC): 6 4 Steps (QC): 6 12 Steps (QC): 9 Picking up an Object (QC): 6 OT Care Home Goals Care Home Goals Time Frame: Jul 09, 2023 Acute change in mental status: 1 Inattention: 2 Disorganized thinkin Altered level of consciousness: 1 Eating (QC): 6 Oral Hygiene (QC): 6 Toileting Hygiene (QC): 6 Shower/Bathe Self (QC): 5 Upper Body Dressing (QC): 6 Lower Body Dressing (QC): 6 On/Off Footwear (QC): 6 Additional Goals: 1-Demonstrate ADL Tasks, 2-Verbalize Understanding, 3-Imp roveStrength/Kristina 1=Demonstrate adherence to instructed precautions during ADL tasks. 2=Patient will verbalize/demonstrate understanding of assistive devices/modifications for ADL. 3=Patient will improve strength/tolerance for activity to enable patient to perform ADL's. Speech Phone Specialist Goals Phone Specialist Goals Pt will demonstrate the ability to comprehend verbal presentations of simple questions/directions with 85% accuracy. Pt will use external memory aids and compensatory strategies to recall routine, personal information, and recent events to improve orientation to time and recall daily events with 80% accuracy. Pt will demonstrate recall of functional information following an immediate, short-term, and long-term delay with 85% accuracy. Pt will tolerate diet upgrade 5/5 times with no s/s of aspiration. Pt will complete safe swallow guidelines during PO intake to decrease aspiration risk, with 90% accuracy. TERRI CASTANEDA OT Jun 25, 2023 11:19
--- NOTE | 2023-06-25 15:01 | Therapy Team Discharge Summary ---
Therapy Discharge Summary Discharge Recommendations Date of Discharge Jun 24, 2023 at 13:44 Physical Therapy Patient admitted to ARU s/p Covid/ARDS and (L) hip fracture/AMBREEN. On 06/24/23, it was noted during his therapy session that he was desaturating. Sats unable to obtain a reading higher than 84%. O2 at 2L placed on patient and nursing notified. Patient transferred back to bed max (A) of [address] Ferrera notified of issue. He was discharged to acute care in the afternoon on 06/24/23. He was assist of 2 to dependent for all tasks with exception of w/c mobility that was max (A) /c max cues. Roll Left to Right (QC): 1 Sit to Lying (QC): 1 (max (A) of 2. Also dependent for scoot laterally and up in bed.) Lying to Sitting/Side of Bed(Q: 1 (Max (A) of 2) Sit to Stand (QC): 1 (max (A) of 2 x 4 attempts, max repeated t.c. and v.c. for hand placement.) Chair/Oxr-bv-Attwc Xfer(QC): 1 (max (A) of 2 - dependent to stand/swing pivot.) Toilet Transfer (QC): 1 Car Transfer (QC): 88 Does the Patient Walk: No and Walking Goal NOT indicated Mode of Locomotion: Walk Anticipated Mode of Locomotion: Walk Walk 10 feet (QC): 88 Walk 50 ft with 2 Turns(QC): 88 Walk 150 ft (QC): 88 Walking 10ft on uneven surface: 88 Distance: 1 ft Gait Assistive Device: Parallel Bars Does the Pt Use a Wheelchair: Yes Wheelchair Distance: 50' Wheel 50 ft with 2 turns (QC): 2 (max (A) with hand placement, max v.c./t.c. to use UE's for propulsion, max v.c. to stay on task. 50' over 30 minute time frame. ) Wheel 150 ft (QC): 88 Type of Wheelchair: Manual 1 Step (curb) (QC): 88 4 Steps (QC): 88 12 Steps (QC): 8 Picking up an Object (QC): 88 Occupational Therapy Decreased Activ Tolerance, Decreased Safety Aware, Decreased UE Strength, Dependent Transfers, Impaired Cognition, Impaired Coordination, Impaired Funct Balance, Impaired I ADL's, Impaired Self-Care Skills, Restricted Funct UE ROM Eating (QC): 3 (VCs for encouragement to eat. Min A bringing food to mouth.) Oral Hygiene (QC): 3 (assist to brush dentures. VCs required for orientation of dentures when pt placed in mouth.) Shower/Bathe Self (QC): 1 (Assist x2) Upper Body Dressing (QC): 3 (Assist LUE and assist down trunk. Mod VCs. Pt did not realize he had not threaded LUE, requiring physical assistance/cues for threading. ) Lower Body Dressing (QC): 1 (assist all parts and assist x2) On/Off Footwear (QC): 1 (assist all parts.) Toileting Hygiene (QC): 1 (assist x2) PT Mcfp Goals Mcfp Goals PT Mcfp Goals Time Frame: Jul 16, 2023 Roll Left to Right (QC): 6 Sit to Lying (QC): 6 Lying-Sitting on Side/Bed(QC): 6 Sit to Stand (QC): 6 Chair/Jbe-tj-Brsly Xfer(QC): 6 Toilet/Commode Transfer (QC): 6 Car Transfer (QC): 6 Does the Patient Walk: No and Walking Goal IS indicated Walk 10 feet (QC): 6 Walk 10ft-Uneven Surface(QC): 6 Walk 50ft with 2 Turns (QC): 6 Walk 150 ft (QC): 6 Does the Pt use WC or Scooter?: Yes Wheel 50 feet with 2 turns (QC: 6 Type: Manual Wheel 150 feet: 6 Type: Manual 1 Step (curb) (QC): 6 4 Steps (QC): 6 12 Steps (QC): 9 Picking up an Object (QC): 6 OT Mcfp Goals Mcfp Goals Time Frame: Jul 09, 2023 Acute change in mental status: 1 Inattention: 2 Disorganized thinkin Altered level of consciousness: 1 Eating (QC): 6 Oral Hygiene (QC): 6 Toileting Hygiene (QC): 6 Shower/Bathe Self (QC): 5 Upper Body Dressing (QC): 6 Lower Body Dressing (QC): 6 On/Off Footwear (QC): 6 Additional Goals: 1-Demonstrate ADL Tasks, 2-Verbalize Understanding, 3- ImproveStrength/Kristina 1=Demonstrate adherence to instructed precautions during ADL tasks. 2=Patient will verbalize/demonstrate understanding of assistive devices/modifications for ADL. 3=Patient will improve strength/tolerance for activity to enable patient to perform ADL's. Speech User Interface Designer Goals Mcfp Goals Pt will demonstrate the ability to comprehend verbal presentations of simple questions/directions with 85% accuracy. Pt will use external memory aids and compensatory strategies to recall routine, personal information, and recent events to improve orientation to time and recall daily events with 80% accuracy. Pt will demonstrate recall of functional information following an immediate, short-term, and long-term delay with 85% accuracy. Pt will tolerate diet upgrade 5/5 times with no s/s of aspiration. Pt will complete safe swallow guidelines during PO intake to decrease aspiration risk, with 90% accuracy. Mary Ann Dixon PT Jun 25, 2023 15:01
== END 2023-06-24 13:44 | disposition short-term general hospital (02) | DRG 559 ==
PROVIDERS: ADMIT Internal Medicine; ATTEND Internal Medicine
DX: S72.012D Unspecified intracapsular fracture of left femur, subsequent encounter for closed fracture with routine healing (principal); I21.A1 Myocardial infarction type 2; I10 Essential (primary) hypertension; K21.9 Gastro-esophageal reflux disease without esophagitis; E78.5 Hyperlipidemia, unspecified; N40.1 Benign prostatic hyperplasia with lower urinary tract symptoms; R33.8 Other retention of urine; R09.02 Hypoxemia; Z66 Do not resuscitate; R53.83 Other fatigue; Z86.16 Personal history of COVID-19; Z91.81 History of falling; Z79.899 Other long term (current) drug therapy; W19.XXXD Unspecified fall, subsequent encounter
CPT/HCPCS: 36415; 36600; 71045; 80053; 81000; 82607; 82805; 82947; 83540; 83605; 85007; 85025; 85027; 87040; 94760